=== PATIENT | male | born 1940 | race Caucasian/White ===

== ENCOUNTER → 2018-01-25 14:28 | Outpatient (CLI) | payer MEDICARE, OTHER, SELFPAY ==
--- NOTE | 2018-01-25 | DI.MRI.S_ITS ---
PROCEDURE: MR LUMBAR SPINE WO CON INDICATIONS: LUMBAR SPINE PAIN TECHNIQUE: Noncontrast sagittal T1 spin echo and T2 fast echo, sagittal STIR, axial T1 and T2 fast spin echo through the lumbar spine. In cases with scoliosis, additional coronal T2 fast spin echo may be performed. COMPARISON: [facility], CR, XR LUMBAR SPINE 2 OR 3 VIEWS, 12/30/2017, 14:18. [facility], CR, XR LUMBAR SPINE 2 OR 3 VIEWS, 12/02/2017, 9:41. [facility], MR, L-SPINE WITHOUT CONTRAST, 05/20/2008, 16:14. [facility], MR, L-SPINE WITHOUT CONTRAST, 04/05/2007, 16:43. FINDINGS: Image quality: Excellent. Alignment and Curvature: There is normal bony alignment. Bone Marrow: Mild reactive endplate changes noted adjacent to the L2-L3, L3-L4, L4-L5 and L5-S1 discs. No acute vertebral body compression fractures. Spinal Cord: Conus medullaris terminates at the L1-2 disc level. Visualized cord demonstrates normal signal and size. Paraspinous Soft Tissues: No paravertebral masses. Small left renal cysts redemonstrated. L1-L2: Loss of disc signal. Minimal, diffuse disc bulge. No central stenosis. No neural foraminal narrowing. No neural impingement. L2-L3: Loss of disc signal and slight loss of disc height. Moderate, diffuse disc bulge. Mild narrowing of the central canal. Mild bilateral neural foraminal narrowing. No neural impingement. Focal high intensity zone are noted in the right frontal annulus compatible with a fissure. L3-L4: Loss of disc signal. Mild, diffuse disc bulge. Mild bilateral facet hypertrophy. Mild narrowing of the central canal. Mild bilateral neural foraminal narrowing. No neural impingement. There is clumping of the nerve roots of the cauda equina compatible with arachnoiditis. Focal high intensity zone noted in the right posterior annulus compatible with a fissure. L4-L5: Loss of disc signal and mild loss of disc height. Mild, diffuse disc bulge. Mild facet and moderate ligamentum flavum hypertrophy. Moderate narrowing of the central canal. Moderate bilateral neural foraminal narrowing. No neural impingement. There is clumping of the nerve roots of cauda equina compatible with arachnoiditis. L5-S1: Loss of disc signal and height. Mild, diffuse disc bulge. Mild bilateral facet hypertrophy. Mild ligamentum flavum hypertrophy. Mild narrowing of the central canal. Moderate to severe right and moderate left bilateral neural foraminal narrowing. There is slight flattening deformity of the exiting right L5 nerve root. There is clumping of the nerve roots of cauda equina compatible with arachnoiditis. Focal high intensity zone noted in the posterior annulus compatible with a fissure. IMPRESSION: 1. Multilevel degenerative disc disease. 2. Multilevel facet arthropathy. 3. Moderate L4-L5 central canal narrowing. Mild L2-L3, L3-L4 and L5-S1 central canal narrowing. 4. Moderate to severe right and moderate left L5-S1 neural foraminal narrowing. Moderate bilateral L4-L5 neural foraminal narrowing. Mild bilateral L2 on L3 and L3-L4 neural foraminal narrowing. 5. Slight flattened deformity of the exiting right L5 nerve root secondary to right neural foraminal narrowing. Please correlate with clinical data. 6. Clumping of the nerve roots of cauda equina from L3 to S1 compatible with arachnoiditis. 7. L2-L3, L3-L4 and L5-S1 disc annulus fissures. Dictated by: Geovanna Cochran MD, PhD on 01/25/2018 at 15:45 Approved by: Geovanna Cochran MD, PhD on 01/25/2018 at 15:54
== END ==
PROVIDERS: Family Provider Physician Assistant; PCP Family Medicine; Visit Provider Orthopaedic Surgery
DX: M51.36 Other intervertebral disc degeneration, lumbar region (principal); M51.37 Other intervertebral disc degeneration, lumbosacral region; M48.07 Spinal stenosis, lumbosacral region; M48.061 Spinal stenosis, lumbar region without neurogenic claudication; M47.816 Spondylosis without myelopathy or radiculopathy, lumbar region; M54.5 Low back pain
CPT/HCPCS: 72148

== ENCOUNTER → 2019-12-18 09:44 | Outpatient (CLI) | payer MEDICARE, OTHER, SELFPAY ==
[2019-12-19 08:02] LABS: COVID19 Sendout Not Detected (Not Detect)
== END ==
PROVIDERS: Family Provider Physician Assistant; PCP Family Medicine; Visit Provider Physician Assistant
DX: Z01.812 Encounter for preprocedural laboratory examination (principal)
CPT/HCPCS: 87635

== ENCOUNTER 2019-12-21 09:30 | Day surgery (SDC) | payer MEDICARE, OTHER, SELFPAY ==
[2019-12-14 12:01] VITALS: BMI 29.1
[2019-12-21] VITALS (12 sets, daily range): BP systolic 69–136; BP diastolic 40–89; PULSE 68–700; RESP 14–27; TEMP 36.3–37.3; O2SAT 87–93; BMI 28.7
--- NOTE | 2019-12-21 | DI.RAD.S_ITS ---
PROCEDURE: XR FOOT LT MIN 3V INDICATIONS: FLAT FOOT REPAIR TECHNIQUE: 4 views of the foot were acquired. COMPARISON: Left ankle radiographs dated 11/13/2019 performed at [facility]. FINDINGS: Bones: Multiple spot images demonstrate postsurgical changes from flat foot repair with multiple cannulated partially threaded screws crossing the subtalar, talonavicular, and 1st tarsometatarsal joints. A small plantar calcaneal spur is present. Soft tissues: Soft tissue edema is seen surrounding the ankle. IMPRESSION: Postsurgical changes from flatfoot repair. Dictated by: Jus Soto M.D. on 12/21/2019 at 15:31 Approved by: Jus Soto M.D. on 12/21/2019 at 15:34
[2019-12-21] MEDS: LACTATED RINGERS 1,000 ML 42 ML IV ×2 (10:21→13:32)
[2019-12-21] MEDS: ALBUTEROL 2.5 MG/3 ML NEB (ADULT) INH ×2 (10:21→15:18)
--- NOTE | 2019-12-21 11:21 | PM.PREOP ---
Pre-operative Note COVID-19 COVID-19 status: Negative Interval Note History & Physical reviewed/Exam performed by Physician: Yes Changes to H&P: No
[2019-12-21] MEDS: CEFAZOLIN 2 GM/100 ML FROZ.PIGGY IV (11:47)
[2019-12-21] MEDS: MIDAZOLAM 2 MG/2 ML VIAL IV (12:00)
--- NOTE | 2019-12-21 12:30 | SUR.OPER ---
Supine on padded OR bed. Pillow under head, arms secured on padded armboards <90 degree abduction. Safety belt across torso. Non-operative leg secured with tape over blanket over lower leg. Operative leg draped free Foam padded brace at thigh of operative leg.
[2019-12-21] MEDS: BUPIVACAINE 0.25% W/ EPI 30 ML VIAL INJ (12:42)
--- NOTE | 2019-12-21 12:49 | PM.PROC.1 ---
Procedures Date/Time Date of procedure: 12/21/19 Time of procedure: 11:30 Nerve Block Time out performed: Yes Local anesthetic used: other (5mL 2% Lidocaine, 15mL 0.5% Ropivacaine) Location of anesthetic used: lateral popliteal Amount of anesthesia used (mL): 20 Nerve blocks: other (sciatic nerve) Procedure successful: Yes Patient tolerated procedure: well Complications: none Additional comments: LEFT Ultrasound guided lateral popliteal sciatic nerve block for post operative pain management, as discussed with surgeon. Risks, benefits discussed with patient and spouse. Consent verified. Site marked by surgeon. Time out performed. Standard ASA monitors applied, NC O2, 2mg versed. Pt supine. Chloroprep. Sterile US sleeve and gel. Sciatic nerve identified proximal to popliteal fossa, at bifurcation. Lidocaine local skin wheal. 100mm x 21g Pajunk needle advanced with in-plane US guidance to nerve. Negative aspiration. 5mL 2% lidocaine and 15mL 0.5% ropivacaine injected with intermittent negative aspiration. Good LA spread noted on US. No pain, no paresthesias. VSS. Tolerated well.
[2019-12-21] MEDS: THROMBIN (RECOMBINANT) 5,000 UNIT VIAL 5000 UNIT TOP (14:38)
--- NOTE | 2019-12-21 15:34 | SUR.PHASEI ---
Dr. Argueta here, spoke with patient. VS and cardiac rhythm reviewed. No new orders. Pt responsive, coughing up thick white phlegm, suctioned as needed.
[2019-12-21] MEDS: OXYCODONE/ACETAMINOPHEN 5/325 TABLET 1 TAB PO ×2 (15:54→16:26)
[2019-12-21] MEDS: fentaNYL 100 MCG/2 ML INJ IV (15:54)
--- NOTE | 2019-12-21 16:45 | SUR.PHASEI ---
1600 late entry Spoke with patient regarding if he desired another nebulizer. Pt declined. Informed to notify staff if he changed his mind and felt that he needed another one. Continues to have and intermittant productive cough. Suctioned PRN. 1620 Liya Tay RN present throughout recovery, assisting with pt care. Tolerating PO intake well.
--- NOTE | 2019-12-21 17:13 | P.OP_ITS ---
Operative Date/Time/Diagnoses Date of procedure: 12/21/19 Time of procedure: 11:30 Pre-op diagnosis: Arthritis left foot and ankle M19.072 Posterior tibialis tendinitis left legM76. 822 Contracture Achilles tendon Post-op diagnosis: same Procedure & Clinicians Procedure: Fusion talonavicular and talocalcaneal joints left CPT code 15765 Fusion tarsometatarsal joint single, left CPT code 28643-48 Tenotomy Achilles tendon percutaneous with general anesthesia left, CPT code 58539-57 Same procedure as scheduled: Yes Indications: Patient is a 79-year-old male with a symptomatic left arthritic flatfoot. 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 He has been indicated for hindfoot arthrodesis with Achilles lengthening. Additionally the patient has hypermobility of his 1st ray and is expected to have residual supination after hindfoot correction and therefore we planned for 1st tarsometatarsal arthrodesis as well. The risks and benefits of the procedure up and I discussed with the patient and they have been given the opportunity to ask questions. The risks of surgery include but are not limited to infection, malunion, nonunion, persistence of pain, damage to nerves, blood vessels, posttraumatic arthritis, amputation, DVT, PE, cardiac and pulmonary complications and . Patient expressed their understanding the risks and benefits of surgery and elected to proceed. Consent was signed in the office. Additionally we discussed the importance of elevation above the heart level for 2 weeks after surgery anticipated 8-10 weeks of nonweightbearing. We discussed the importance of calcium and vitamin-D. We also discussed the use of allogenic bone graft to aid in the fusion. 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 Tendo-Achilles lengthening was performed using a triple Luda style utilizing the proximal and distal incision to the lateral side in the mid incision released medially based on the valgus deformity. Subtalar joint was then exposed with cartilage loss throughout subtalar joint. This was prepped and then stabilized with Arthrex 6.7 mm cannulated lag screws. One from calcaneus to talus and the other from talus to calcaneus. Next attention was turned to the talonavicular joint which was exposed through a dorsal medial approach between the tibialis anterior and EHL. This was prepared and then stabilized with an Arthrex 6.7 and an Arthrex 4.5 cannulated lag screw. As expected there was residual supination so attention was turned to the 1st tarsometatarsal joint exposed through a separate dorsal incision that was eventually connected up for of repaired the dorsal medial incision. This was prepared and fused using 2 x 4.0 crossed lag at cannulated screws obtaining excellent fixation. Closure Type: primary Specimen(s): none sent Applied: implant(s) (Arthrex 6.7 cannulated lag screws, Arthrex 4.5 cannulated lag screws, Arthrex 4 0 cannulated lag screws) and other (Splint) Estimated Blood Loss (mL): 50 Tourniquet time (min): 130 Procedure in detail: Patient was seen in the preoperative holding area and the appropriate limb and site of surgery was marked. The consent was confirmed. The patient was then brought back to the operating room by the anesthesia team a postoperative block was performed for postoperative pain control by the anesthesia team. Patient was then brought into the operating room and placed on supine on operative table and given anesthetic. The bony prominences were well padded. A well-padded thigh tourniquet was placed. Ipsilateral thigh bump was placed. A SCD was placed on the contralateral lower extremity. The patient was prepped and draped in standard sterile fashion. A formal time-out procedure was performed confirming the patient's side and site of surgery administration of appropriate preoperative antibiotics. Implants were available in the room. Tendon Achilles lengthening. The limb was evaluated in extension flexion the ankle had equinus contracture with no significant change with knee flexion therefore tendo Achilles lengthening was selected. On the posterior aspect of the leg centered over the Achilles tendon were made 3 small stab incisions proximal mid and distal in a Luda style fashion. These were taken down directly to the Achilles tendon and the distal and proximal incisions were taken to the lateral side cut 50% and the midsection to the medial side for the valgus deformity correction. We then stretched the tendon had a good 20? ankle dorsiflexion audible stretch with knee extension. Once were satisfied with the Achilles tendon lengthening attention was turned to the remainder of the procedure. An Esmarch bandage utilized for exsanguination limb was elevated on the upper thigh to 250 mL of mercury and stayed there for 130 minutes and was not reinflated. Hindfoot arthrodesis. Incision was made from the tip of the fibula to the base of the 4th metatarsal. Dissection was carried through the skin and subcutaneous tissue. The sheath of the extensor digitorum brevis was opened. The extensor digitorum brevis was subperiosteal E detached proximally and reflected distally and secured with a 2 0 PDS suture. The sinus tarsi was cleared off and the soft tissue was removed with the suppressive dissection performed at the talus and calcaneus. The calcaneal cuboid joint was not exposed. We removed what was left of the articular surface to the subchondral bone of the subtalar joint. This was done using the Synthes joint prep set and osteotomes and curettes. Once we had good cancellous surfaces and a normal shape and contour of the joints we drilled these with a 2 5 drill bit and used the osteotome to fish scale. Next attention was turned to the talonavicular joint. Limited anterior dorsal medial incision over the talonavicular joint this was taken down right be tween the tibialis anterior and EHL tendon. We may careful dissection not to injure the tendinous structures. We dissected to the talonavicular joint. This was exposed with subperiosteal dissection then distracted with a K-wire distractor. The talonavicular joint surfaces were prepared to a good bleeding cancellous bone using the same fashion as the subtalar joint. Once were satisfied with the exposure and prep we then placed bone graft which was 15 cc of cancellous chips. This was placed in the subtalar and talonavicular joints. We manually reduced the subtalar joint and pinned this in place with fixation from the talus and the calcaneus. I then directed wires for the cannulated screws from the calcaneus into the dome of the talus. This corrected the hindfoot alignment to rigidly fix the subtalar joint just valgus of neutral. K- wires were then measured and the 6.7 cannulated screws were placed. This achieved excellent fixation subtalar joint. Next attention was turned to the talonavicular joint. This was reduced and pinned in place with a guidewire for the 6 7 cannulated screw and a guidewire for a 4.5 cannulated screw. The talonavicular joint was compressed and the lag screws were advanced achieving excellent fixation and compression. Once the hindfoot fusion was completed the appropriate alignment was obtained there was residual supination the forefoot to the 1st tarsometatarsal joint was then exposed in standard dorsum medial fashion again and suppressive dissection subperiosteal was undertaken. Joint was prepped in the standard fashion and then fused with 2x 4.0 cannulated lag screws. These were both 40 mm in length. We took final x-rays are quite satisfied with the results alignment restoring Jesusita's ankle on the lateral and the 1st tarsometatarsal line on AP as well. Foot was clinically prominent grade at the end of the procedure with rigidly fix talonavicular, subtalar joint and 1st TMT joint. Tourniquet was released hemostasis was achieved. Gelfoam and problem then was used to aid in this. Once this was obtained the deep closure was completed with the 2 O Vicryl to reapproximate the DP and and deep us tissues were closed. Subcutaneous closure was completed with 4 0 Monocryl and the skin with 3 O nylon. Heel incision for the subtalar screw was fixed with 3 O nylon. Sterile dressings were placed with Xeroform gauze and Webril and a bulky De Jesus dressing and posterior and U strap splint were placed in neutral position. Patient was woken up from anesthesia and taken to the recovery room in good condition. There no immediate complications from this procedure. Complications: none Post-operative Condition: stable Disposition: PACU Plan for aftercare: Patient will be nonweightbearing of on the operative extremity for approximately 8-10 weeks. Follow up in 1-2 weeks in clinic for wound check and conversion to a short-leg cast. Patient will start taking 325 mg of aspirin on postop day 1 for DVT prophylaxis. Discussed the importance of elevation above the heart for the 1st 2-3 weeks after surgery to help with swelling pain control and wound healing.
== END 2019-12-21 16:59 | disposition home or self-care (01) ==
PROVIDERS: Family Provider Physician Assistant; PCP Family Medicine; Referring Provider Orthopaedic Surgery Foot and Ankle Surgery; Visit Provider Orthopaedic Surgery Foot and Ankle Surgery
PROC: (CPT 28735; principal; 2019-12-21 11:15)
PROC: (CPT 27685; 2019-12-21 11:15)
DX: M19.072 Primary osteoarthritis, left ankle and foot (principal); M76.822 Posterior tibial tendinitis, left leg; M62.89 Other specified disorders of muscle; M24.572 Contracture, left ankle; M21.072 Valgus deformity, not elsewhere classified, left ankle; J44.9 Chronic obstructive pulmonary disease, unspecified; I10 Essential (primary) hypertension; F17.210 Nicotine dependence, cigarettes, uncomplicated
CPT/HCPCS: 27606; 28730; 64445; 73630; 76000; J0690; J1100; J2250; J2405; J2704; J3010; J7613

== ENCOUNTER 2025-02-14 22:55 | Inpatient (IN) | payer MEDICARE, OTHER, SELFPAY ==
[2025-02-14 23:12] VITALS: BP 154/80; PULSE 82; PULSE 84; RESP 22; TEMP 36.7; O2SAT 87; O2SAT 88; BMI 25.8
[2025-02-14 23:30] VITALS: PULSE 80; O2SAT 91
--- NOTE | 2025-02-14 23:38 | EKG_ITS ---
[facility] [address] [place] [id number] Test Date: 2025-02-15 Pat Name: Elie Perez Department: [facility] Room: 216 Gender: Male Tape Calender: JOSH ROTHMAN : 1940 Requested By: Order Number: [id number] Reading MD: Ferdinand Barker MD Measurements Intervals [place] Rate: 80 P: 39 DE: 136 QRS: -58 QRSD: 92 T: 47 QT: 376 QTc: 433 Interpretive Statements Normal sinus rhythm Left axis deviation Inferior infarct , age undetermined Electronically Signed On 02-18-2025 7:44:49 PDT by Ferdinand Barker MD
[2025-02-15] VITALS (19 sets, daily range): BP systolic 116–158; BP diastolic 64–88; PULSE 76–91; RESP 14–22; TEMP 36.4–37.6; O2SAT 82–99; BMI 25.8
--- NOTE | 2025-02-15 00:08 | PC.NURSE ---
Patient to ED with his nephew for left knee pain and generalized weakness. Patient states on-going left knee pain x3 weeks, seen for same and has been taking pain mediation since Tuesday. Patient states decreased physical activity in past 3 weeks due to pain. Patient states he is having difficulty getting around and bearing weight on left leg despite using wheeled walker.
--- NOTE | 2025-02-15 00:09 | ED.WEAKNESS ---
HPI - Weakness General Chief complaint: Weakness Stated complaint: gen weakness Time Seen by Provider: 02/14/25 23:48 Source: patient and EMS Mode of arrival: EMS History of Present Illness HPI Narrative: 84-year-old male with generalized weakness since earlier today. Ongoing left knee pain, recent outpatient ultrasound negative for DVT. Taking pain medications. Not usually on oxygen. Has felt progressively weak through the day today. Denies pain to the chest, abdomen, flank, head, neck. No headache or photophobia or neck discomfort. No focal weakness to face arm or leg. No focal numbness to face arm or leg. No leg/calf pain or swelling symptoms. No painful or frequent urination. No difficulty urinating, symptoms of urinary retention. Related Data Home Medications ?Medication ?Instructions ?Recorded ?Confirmed [ALBUTEROL NEBULIZER] 1 neb INH QDAY ##0 12/16/10 02/15/25 albuterol sulfate 90 mcg/actuation 1 - 2 puff inhalation Q4-6H PRN 12/16/10 02/15/25 aerosol inhaler Shortness Of Breath ##0 aspirin 81 mg tablet,delayed 81 mg PO DAILY ##0 12/16/10 02/15/25 release simvastatin 20 mg tablet (Zocor) 20 mg PO HS ##0 12/16/10 02/15/25 hydrochlorothiazide 25 mg tablet 25 mg PO DAILY 12/14/19 02/15/25 mirabegron 25 mg tablet,extended 50 mg PO DAILY 12/14/19 02/15/25 release 24 hr (Myrbetriq) telmisartan 40 mg tablet (Micardis) 40 mg PO DAILY 12/14/19 02/15/25 esomeprazole magnesium 40 mg 40 mg PO DAILY 12/21/19 02/15/25 capsule,delayed release (Nexium) magnesium oxide 400 mg (241.3 mg 400 mg PO DAILY PRN constipation 02/15/25 02/15/25 magnesium) tablet meloxicam 15 mg tablet 15 mg PO QPM 02/15/25 02/15/25 mirabegron 50 mg tablet,extended 50 mg PO DAILY 02/15/25 02/15/25 release 24 hr (Myrbetriq) montelukast 10 mg tablet 10 mg PO DAILY 02/15/25 02/15/25 potassium chloride 10 mEq 10 meq PO DAILY 02/15/25 02/15/25 tablet,extended release Previous Rx's ?Medication ?Instructions ?Recorded fluticasone fur. 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 HEAD: Atraumatic. Normocephalic. EYES: Pupils equal round and reactive. Extraocular motions intact. No scleral icterus. No injection or drainage. ENT: Nose without bleeding, purulent drainage. Throat without erythema, tonsillar hypertrophy or exudate. Airway patent. NECK: Trachea midline. Non tender CARDIOVASCULAR: Regular rate and rhythm without murmurs, gallops, or rubs. RESPIRATORY: Clear to auscultation. Breath sounds equal bilaterally. No wheezes, rales, or rhonchi. GASTROINTESTINAL: Abdomen soft, non-tender, nondistended. EXTREMITIES: No edema or joint tenderness. BACK: Nontender without deformity or crepitance. No flank tenderness. NEURO: AOx3. Motor functions grossly nonfocal. SKIN: No rash or erythema of visible areas Initial Vital Signs Initial Vital Signs: Vital Signs Temperature 98.1 F 02/14/25 23:12 Pulse Rate 84 02/14/25 23:12 Respiratory Rate 22 02/14/25 23:12 Blood Pressure 154/80 H 02/14/25 23:12 Pulse Oximetry 87 L 02/14/25 23:12 Oxygen Delivery Method Room Air 02/14/25 23:12 Oxygen Flow Rate 1 02/14/25 23:12 Course Orders Ordered: Acetaminophen (Acetaminophen 325 Mg Tablet) 650 mg PO Q6H PRN PRN Reason: Fever/Mild Pain (1-3) Hydrocodone Bitart/Acetaminophen (Hydrocodone/Acet 5/325 Tablet) 1 tab PO Q6HR PRN PRN Reason: Pain, Moderate (4-6) Last Admin: 02/15/25 10:55 Dose: 1 tab Documented By: MORIAH Albuterol (Albuterol 2.5 Mg/3 Ml Neb (Adult)) 2.5 mg INH [id number] PRN PRN Reason: Shortness Of Breath Or Wheezing Albuterol/Ipratropium (Albuterol/Ipratropium 3 Ml Ampul) 3 ml INH [id number] [facility] Last Admin: 02/15/25 13:00 Dose: 3 ml Documented By: Admin: 02/15/25 08:49 Dose: 3 ml Documented By: TAB Aspirin (Aspirin Ec 81 Mg Tablet) 81 mg PO DAILY [facility] Last Admin: 02/15/25 08:10 Dose: Not Given Documented By: MORIAH Atorvastatin Calcium (Atorvastatin 20 Mg Tablet) 10 mg PO BEDTIME [facility] Budesonide (Budesonide 0.5 Mg/2 Ml Neb) 0.5 mg INH RTBID [facility] Last Admin: 02/15/25 08:49 Dose: 0.5 mg Documented By: TAB Calcium Carbonate (Calcium Carbonate 500 Mg Tab) 1,000 mg PO Q4HR PRN PRN Reason: Dyspepsia Docusate Sodium (Docusate 100 Mg Capsule) 100 mg PO BID [facility] Last Admin: 02/15/25 08:14 Dose: 100 mg Documented By: MORIAH Enoxaparin Sodium (Enoxaparin 40 Mg/0.4 Ml Syringe) 40 mg SUBCUT DAILY [facility] Hydrochlorothiazide (Hydrochlorothiazide 25 Mg Tablet) 25 mg PO DAILY [facility] Last Admin: 02/15/25 08:14 Dose: 25 mg Documented By: MORIAH Ceftriaxone Sodium 2,000 mg/ (Sodium Chloride) 100 mls @ 200 mls/hr IV Q24H [facility] Last Infusion: 02/15/25 05:35 Dose: Infused Documented By: Admin: 02/15/25 05:01 Dose: 200 mls/hr Documented By: Losartan Potassium (Losartan 50 Mg Tablet) 50 mg PO DAILY [facility] Last Admin: 02/15/25 08:14 Dose: 50 mg Documented By: MORIAH Magnesium Oxide (Magnesium Oxide 400 Mg Tablet) 400 mg PO DAILY PRN PRN Reason: Constipation Meloxicam (Meloxicam 7.5 Mg Tablet) 15 mg PO QPM [facility] Last Admin: 02/15/25 17:11 Dose: 15 mg Documented By: MORIAH Methylprednisolone (Methylprednisolone Succ 40 Mg/Ml Vial) 60 mg IV Q12H [facility] Last Admin: 02/15/25 15:38 Dose: 60 mg Documented By: HUGH Montelukast Sodium (Montelukast 10 Mg Tablet) 10 mg PO DAILY [facility] Last Admin: 02/15/25 08:14 Dose: 10 mg Documented By: MORIAH Morphine Sulfate (Morphine 4 Mg/Ml Inj) 3 mg IV Q2HR PRN PRN Reason: Pain, Severe (7-10) Last Admin: 02/15/25 15:26 Dose: 3 mg Documented By: Admin: 02/15/25 08:06 Dose: 3 mg Documented By: Admin: 02/15/25 05:01 Dose: 3 mg Documented By: Naloxone HCl (Naloxone 0.4 Mg/Ml Vial) 0.2 mg IV Q2MIN PRN PRN Reason: Opiate Reversal Nf - Mirabegron ( Myrbetriq) 50 Mg Er Tablet 50 mg PO DAILY [facility] Last Admin: 02/15/25 08:15 Dose: Not Given Documented By: MORIAH Ondansetron HCl (Ondansetron 4 Mg/2 Ml Inj) 4 mg IV Q8HR PRN PRN Reason: Nausea And Vomiting Oxybutynin Chloride (Oxybutynin Er 5 Mg Tablet) 10 mg PO DAILY [facility] Last Admin: 02/15/25 08:14 Dose: 10 mg Documented By: MORIAH Pantoprazole Sodium (Pantoprazole Dr 40 Mg Tablet) 40 mg PO 0600 [facility] Last Admin: 02/15/25 05:51 Dose: 40 mg Documented By: Potassium Chloride (Potassium Chloride 10 Meq Tab) 10 meq PO DAILY [facility] Last Admin: 02/15/25 08:14 Dose: 10 meq Documented By: MORIAH Sodium Chloride (Sodium Chloride 0.9% Flush) 10 ml IV PRN PRN PRN Reason: Flush Sodium Chloride (Sodium Chloride 0.9% Flush) 10 ml IV BID [facility] Last Admin: 02/15/25 08:07 Dose: 10 ml Documented By: MORIAH Discontinued Medications Acetaminophen (Acetaminophen 325 Mg Tablet) 650 mg PO Q6H PRN PRN Reason: Fever/Mild Pain (1-3) Albuterol/Ipratropium (Albuterol/Ipratropium 3 Ml Ampul) 3 ml INH NOW ONE Stop: 02/15/25 00:28 Last Admin: 02/15/25 00:47 Dose: 3 ml Documented By: Hydromorphone HCl (Hydromorphone Hcl 0.5 Mg/0.5 Ml Syringe) 0.5 mg IV NOW ONE Stop: 02/15/25 02:01 Last Admin: 02/15/25 02:14 Dose: 0.5 mg Documented By: LINWOOD Ceftriaxone Sodium 1,000 mg/ (Sodium Chloride) 100 mls @ 200 mls/hr IV NOW ONE Stop: 02/15/25 02:53 Last Admin: 02/15/25 03:53 Dose: Not Given Documented By: Methylprednisolone (Methylprednisolone Succ 125 Mg/2 Ml Vial) 125 mg IV NOW ONE Stop: 02/15/25 00:28 Last Admin: 02/15/25 01:26 Dose: 125 mg Documented By: LINWOOD Methylprednisolone (Methylprednisolone Succ 40 Mg/Ml Vial) 60 mg IV Q12H [facility] Last Admin: 02/15/25 15:36 Dose: 60 mg Documented By: HUGH Non-Formulary Medication (Eurguswrwem-[id number]-[id number] [Trelegy Ellipta]) 1 inhalation INHALATION DAILY [facility] Vital Signs Vital signs: Vital Signs - 8 hr 02/14/25 23:12 02/14/25 23:12 02/14/25 23:30 Temperature 98.1 F Pulse Rate 84 82 80 Respiratory Rate 22 Blood Pressure 154/80 H Pulse Oximetry 87 L 88 L 91 Oxygen Delivery Method Room Air Nasal Cannula Oxygen Flow Rate 1 02/15/25 00:00 02/15/25 00:30 02/15/25 00:53 Temperature Pulse Rate 81 80 89 Respiratory Rate 18 Blood Pressure Pulse Oximetry 90 L 88 L 94 Oxygen Delivery Method Oxygen Flow Rate 02/15/25 01:05 02/15/25 01:06 02/15/25 01:06 Temperature Pulse Rate 79 78 Respiratory Rate Blood Pressure 144/68 H Pulse Oximetry 94 97 Oxygen Delivery Method Oxygen Flow Rate 1 02/15/25 01:30 02/15/25 01:30 02/15/25 01:49 Temperature Pulse Rate 78 81 Respiratory Rate Blood Pressure 158/76 H Pulse Oximetry 94 91 Oxygen Delivery Method Nasal Cannula Oxygen Flow Rate 1 02/15/25 01:49 02/15/25 02:00 02/15/25 02:00 Temperature Pulse Rate 78 Respiratory Rate Blood Pressure 147/88 H 137/65 Pulse Oximetry 90 L Oxygen Delivery Method Nasal Cannula Oxygen Flow Rate 1 MDM - Weakness Lab Data Attestation: I reviewed the patient's lab results. Lab results narrative: White blood cell count 9600, hemoglobin 13.7, platelets adequate. Glucose 82. BUN 30 with creatinine 0.82 noted. Serum CO2 25 normal. Sodium 134 slight decreased. Potassium 3.5 normal range. Liver functions normal. Troponin negative unmeasurable. COVID influenza RSV negative. 02/14/25 23:55 02/15/25 08:25 Labs: Lab Results 02/14/25 02/15/25 02/15/25 Range/Units 23:55 00:38 01:30 WBC 9.6 (4.5-11.0) X10^3/uL RBC 4.94 (4.5-5.9) X10^6/uL Hgb 13.7 (13.5-17.5) g/dL Hct 42.5 (41-53) % MCV 85.9 (80-100) fL MCH 27.8 (26-34) PG MCHC 32.3 (30-36) % RDW 18.4 H (11.6-14.8) % Plt Count 283 (150-400) X10^3/uL Neut % (Auto) 71.0 (50-75) % Lymph % (Auto) 14.5 L (25-40) % Tyrrell % (Auto) 12.5 (3-14) % Eos % (Auto) 1.3 L (2-4) % Baso % (Auto) 0.7 (0-2) % Neut # (Auto) 6800 (5662-8330) /uL Lymph # (Auto) 1400 (3471-8104) /uL Tyrrell # (Auto) 1200 H (0-900) /uL Eos # (Auto) 100 (0-450) /uL Baso # (Auto) 100 (0-100) /uL Sodium 134 L (137-145) mmol/L Potassium 3.5 (3.4-5.1) mmol/L Chloride 103 (98-107) mmol/L Carbon Dioxide 25 (22-32) mmol/L BUN 30 H (9-20) mg/dL Creatinine 0.82 (0.66-1.25) mg/dL Estimated GFR > 60 (>60) mL/min BUN/Creatinine Ratio 36.6 H (6-22) Glucose 82 (70-99) mg/dL Calcium 8.7 (8.4-10.2) mg/dL Total Bilirubin 0.8 (0.2-1.3) mg/dL AST 40 (17-59) IU/L ALT 26 (<50) IU/L Alkaline Phosphatase 80 (38-126) U/L Troponin I < 0.012 (0.01-0.034) ng/mL Total Protein 6.5 (6.3-8.2) g/dL Albumin 3.7 (3.5-5.0) g/dL Globulin 2.8 (1.7-4.1) g/dL Albumin/Globulin Ratio 1.3 (1.0-2.8) Lipase 39 (23-300) U/L Urine RBC (0-5/HPF) Urine WBC (0-5/HPF) Ur Squamous Epith Cells (0-5/HPF) Ur Transition Epith Cell (0-5/HPF) Urine Bacteria (None) Ur Culture Indicated? Vol Urine Centrifuged SARS-CoV-2 (PCR) Negative (Negative) Influenza A (RT-PCR) Flu a negative (NEGATIVE) Influenza B (RT-PCR) Flu b negative (NEGATIVE) RSV (PCR) Negative (Negative) 02/15/25 Range/Units 01:47 WBC (4.5-11.0) X10^3/uL RBC (4.5-5.9) X10^6/uL Hgb (13.5-17.5) g/dL Hct (41-53) % MCV (80-100) fL MCH (26-34) PG MCHC (30-36) % RDW (11.6-14.8) % Plt Count (150-400) X10^3/uL Neut % (Auto) (50-75) % Lymph % (Auto) (25-40) % Tyrrell % (Auto) (3-14) % Eos % (Auto) (2-4) % Baso % (Auto) (0-2) % Neut # (Auto) (5707-2418) /uL Lymph # (Auto) (6254-7741) /uL Tyrrell # (Auto) (0-900) /uL Eos # (Auto) (0-450) /uL Baso # (Auto) (0-100) /uL Sodium (137-145) mmol/L Potassium (3.4-5.1) mmol/L Chloride (98-107) mmol/L Carbon Dioxide (22-32) mmol/L BUN (9-20) mg/dL Creatinine (0.66-1.25) mg/dL Estimated GFR (>60) mL/min BUN/Creatinine Ratio (6-22) Glucose (70-99) mg/dL Calcium (8.4-10.2) mg/dL Total Bilirubin (0.2-1.3) mg/dL AST (17-59) IU/L ALT (<50) IU/L Alkaline Phosphatase (38-126) U/L Troponin I (0.01-0.034) ng/mL Total Protein (6.3-8.2) g/dL Albumin (3.5-5.0) g/dL Globulin (1.7-4.1) g/dL Albumin/Globulin Ratio (1.0-2.8) Lipase (23-300) U/L Urine RBC 1-5/hpf (0-5/HPF) Urine WBC 10-30/hpf H (0-5/HPF) Ur Squamous Epith Cells 1-5 /hpf (0-5/HPF) Ur Transition Epith Cell 0-1/hpf (0-5/HPF) Urine Bacteria Many (>30) H (None) Ur Culture Indicated? Specimen cultured Vol Urine Centrifuged 10ml (spun) SARS-CoV-2 (PCR) (Negative) Influenza A (RT-PCR) (NEGATIVE) Influenza B (RT-PCR) (NEGATIVE) RSV (PCR) (Negative) Urine Dip Bedside Urine Glucose Negative Bedside Urine Bilirubin - Negative Bedside Urine Ketone - Negative Urine Specific [place] 1.010 Bedside Urine Occult Blood +/- Bedside Urine pH 6.0 Bedside Urine Protein - Negative Bedside Urine Urobilinogen - Negative Bedside Urine Nitrite - Negative Bedside Urine Leukocytes +/- 15 Esterase Imaging Data Chest x-ray: Radiologist Impression: [address] [address] XRay Report Signed Patient: Elie Perez MR#: [id number] : 1940 Acct:[id number] Age/Sex: 84 / M Date of Service: 02/15/25 Loc: ED Accession Number: [id number] Procedure: XR chest 2V Ordering Provider: Calvin Castaneda MD PROCEDURE: XR CHEST 2V INDICATIONS: weak, low sat, hx COPD TECHNIQUE: 2 views of the chest were acquired. COMPARISON: CT, CT ANGIO CHEST, 10/06/2020, 8:51. FINDINGS: Surgical changes and devices: Presumed cardiac monitoring device. Lungs and pleura: Lungs are clear. No pleural effusions or pneumothorax. Mediastinum: Mediastinal contours are normal. Heart size is mildly prominent. Bones and chest wall: No suspicious bony abnormalities. Soft tissues appear unremarkable. IMPRESSION: No acute pulmonary process. Dictated by: Isadora Tinoco M.D. on 02/15/2025 at 1:13 Approved by: Isadora Tinoco M.D. on 02/15/2025 at 1:14 ECG Data Attestation: I personally reviewed and interpreted this ECG as follows: Interpretation: 0012, normal sinus rhythm with rate of 80. No obvious ST segment elevation or depression changes. AK 136, QRS 92, QTC 433. [facility] Narrative Medical decision making narrative: 84-year-old male with generalized weakness, recent knee pain and outpatient ultrasound negative for Doppler DVT, new oxygen requirement 87%, denies recent cough, does not clinically seemed to be in congestive heart failure, no respiratory distress, however patient does have history of inhaler albuterol use. Chest x-ray, COVID/influenza swab pending, trial of SVN. Other labs pending. EKG shows no obvious acute ischemic changes. Chest x-ray, no acute changes. See radiology report. Initial lab data: CBC, CMP, trop negative. UA suspicious for infection, urine culture pending. Trial of IV Solu-Medrol and SVN albuterol then Atrovent. COVID swab results pending. COVID RSV flu negative. Urinalysis suspicious for infection. IV ceftriaxone. Urine culture requested. Generalized weakness, hx COPD, new mild oxygen requirement, also UTI, consider admit. Patient prefers admission. Will contact hospitalist. Case discussed with Dr Harris hospitalist, who accepts patient for admission Critical Care Time Critical Care Time Critical Care Time: Yes Total Critical Care Time: 35 Attestation: The high probability of a clinically significant, sudden or life threatening deterioration of the [cardiopulmonary, abdominopelvic, genitourinary] system(s) required my full and direct attention, intervention and personal management. The aggregate critical care time was [35] minutes. This time is in addition to time spent performing reported procedures but includes the following: [x] Data Review and interpretation [x] Patient assessment and monitoring of vital signs [x] Documentation [x] Medication orders and management Discharge Plan Departure Patient Disposition: Admitted as Observation Clinical Impression: Asthma exacerbation in COPD, Hypoxia, Urinary tract infection, Generalized weakness Admit Date/Time: 02/15/25 03:03 Admit Provider: Thomas Harris
[2025-02-15 00:16] LABS: Add Manual Diff / Slide Review NO; Hematocrit 42.5 % (41-53); Hemoglobin 13.7 g/dL (13.5-17.5); Lymphocytes Absolute Auto 1400 /uL (1100-4500); Mean Corpuscular HGB Conc 32.3 % (30-36); Mean Corpuscular Hemoglobin 27.8 PG (26-34); Mean Corpuscular Volume 85.9 fL (80-100); Platelet Count 283 X10^3/uL (150-400)
--- NOTE | 2025-02-15 00:29 | DI.RAD.S_ITS ---
PROCEDURE: XR CHEST 2V INDICATIONS: weak, low sat, hx COPD TECHNIQUE: 2 views of the chest were acquired. COMPARISON: CT, CT ANGIO CHEST, 10/06/2020, 8:51. FINDINGS: Surgical changes and devices: Presumed cardiac monitoring device. Lungs and pleura: Lungs are clear. No pleural effusions or pneumothorax. Mediastinum: Mediastinal contours are normal. Heart size is mildly prominent. Bones and chest wall: No suspicious bony abnormalities. Soft tissues appear unremarkable. IMPRESSION: No acute pulmonary process. Dictated by: Isadora Tinoco M.D. on 02/15/2025 at 1:13 Approved by: Isadora Tinooc M.D. on 02/15/2025 at 1:14
[2025-02-15 00:37] LABS: Troponin I < 0.012 ng/mL (0.01-0.034)
[2025-02-15] MEDS: ALBUTEROL/IPRATROPIUM 3 ML AMPUL INH ×4 (00:47→19:06)
[2025-02-15 01:22] LABS: Influenza A - CEPHEID Flu A NEGATIVE (NEGATIVE); Influenza B - CEPHEID Flu B NEGATIVE (NEGATIVE)
[2025-02-15] MEDS: methylPREDNISolone succ 125 MG/2 ML VIAL IV (01:26)
[2025-02-15 01:30] LABS: COVID-19 CEPHEID 4-PLEX PCR Negative (Negative)
[2025-02-15 01:51] LABS: Alanine Aminotransferase 26 IU/L (<50); Albumin 3.7 g/dL (3.5-5.0); Albumin Globulin Ratio 1.3 (1.0-2.8); Alkaline Phosphatase 80 U/L (38-126); Blood Urea Nitrogen 30 mg/dL (9-20); Calcium 8.7 mg/dL (8.4-10.2); Carbon Dioxide 25 mmol/L (22-32); Chloride 103 mmol/L (98-107); Estimated Glomerular Filt Rate > 60 mL/min (>60); Globulin 2.8 g/dL (1.7-4.1); Glucose 82 mg/dL (70-99); HEMOLYSIS 16 (0-50); Lipase 39 U/L (23-300); Potassium 3.5 mmol/L (3.4-5.1); Sodium 134 mmol/L (137-145); Total Protein 6.5 g/dL (6.3-8.2)
--- NOTE | 2025-02-15 02:02 | DI.CT.S_ITS ---
PROCEDURE: CT ANGIO CHEST PE PROTOCOL INDICATIONS: hypoxia, knee pain, eval for PE TECHNIQUE: After the administration of intravenous contrast, 2 mm thick sections acquired from the pulmonary apices to the posterior costophrenic angles. 3-dimensional maximum intensity projection (MIP) coronal and sagittal reformats were then acquired through the thorax. For radiation dose reduction, the following was used: automated exposure control, adjustment of mA and/or kV according to patient size. COMPARISON: Previous CT angiogram of chest dated 10/06/2020 and previous PET-CT scan dated 10/24/2020 FINDINGS: Image quality: Diagnostic. Pulmonary arteries: Pulmonary arteries are prominent in size, and demonstrate no intraluminal filling defects to suggest central pulmonary embolism. Lower Neck: No enlarged lymph nodes. Thyroid: No thyroid nodules which require sonographic follow up, per consensus guidelines. Axillae: No enlarged lymph nodes. Chest Wall: Unremarkable. Bones: No aggressive appearing bony lesions. Spondylitic changes are noted throughout thoracic spine. Lungs and Pleura: No pneumothorax or pleural effusions. Advanced centrilobular emphysema. 7 mm solid nodule is seen in posterior aspect of right upper lobe series 5, image 118. 4 mm solid nodule is seen in anterolateral aspect of right upper lobe series 5, image 118. 8 mm solid nodule in posterior left lower lobe series 5, image 166. 8 mm medial left lingular nodule series 5, image 206. Bibasilar dependent atelectasis/scarring is seen. Heart: Heart size is enlarged. No pericardial effusion. Thoracic Vessels: Mild ascending thoracic aortic aneurysm measures up to 4.4 cm in largest AP diameter series 4, image 78. 2 vessel coronary artery atherosclerotic calcifications are seen. Mediastinum and Nohemi: No enlarged lymph nodes. Esophagus: No wall thickening. Small hiatal hernia. Upper Abdomen: Gravel-like stones are noted in dependent portion of gallbladder lumen. No gallbladder wall thickening. Vascular stent is seen in infrarenal abdominal aorta incompletely evaluated. IMPRESSION: 1. No pulmonary embolus. Prominent size of main pulmonary artery which can be seen associated with pulmonary vascular hypertension. 2. Ascending thoracic aortic aneurysm now measures up to 4.4 cm in largest AP diameter. No aortic dissection. Vascular stent is seen in infrarenal abdominal aorta. 3. Severe centrilobular emphysema. Multiple sub cm solid nodule seen in bilateral lung winston as described above. The 8 mm nodule in left lower lobe was previously seen on PET-CT scan and show no increased FDG activity. Short-term CT chest follow-up in 6 months is recommended to further establish stability in the other nodules. No pleural effusion or pneumothorax. 4. Cardiomegaly, no pericardial effusion. No mediastinal or hilar lymphadenopathy. Small hiatal hernia. 5. Other incidental findings as above. No significant discrepancies from preliminary reading. Dictated by: Moises Mesa M.D. on 02/15/2025 at 8:09 Approved by: Moises Mesa M.D. on 02/15/2025 at 8:17
[2025-02-15 02:10] LABS: Culture Indicated Urine Specimen Cultured
--- NOTE | 2025-02-15 04:45 | PM.HP.1 ---
History of Present Illness History of Present Illness Chief complaint: gen weakness Narrative: 84 years old male with history of hypertension, CAD, GERD, overactive bladder, COPD presented to the ER with generalized weakness, increased shortness of breath on exertion and left knee pain getting progressively worse in the last several days. Denies any fever, cough, chest pain, palpitations, nausea, vomiting, diarrhea or dysuria. He had x-ray of left knee 1 week ago in [facility] which was negative. 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 Reports increased pain in his left knee and difficult to ambulate. He also reports some lower extremities edema. Outpatient ultrasound negative for DVT. Laboratory shows WBC 9.6, H&H 13.7 and 42.5, sodium 134, potassium 3.5, creatinine 0.82, blood sugar 82, troponin 0.0 12, respiratory viral panel negative, UA consistent for UTI. Chest x-ray unremarkable, EKG normal sinus rhythm of 80. In the ER he was found to have hypoxia on exertion with oxygen saturation of 87%'s on room air. Given Solu-Medrol, albuterol, Atrovent ceftriaxone 1 g IV, Dilaudid IV and methylprednisolone 125 mg IV. 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) Surgical History (Updated 12/14/19 @ 12:17 by Polly Franklin RN) History of loop recorder (2013) Social History household members: none Smoking Status: Current some day smoker alcohol intake: current Meds Home Medications and Allergies Home Medications ?Medication ?Instructions ?Recorded ?Confirmed ?Type [ALBUTEROL NEBULIZER] 1 neb INH QDAY ##0 12/16/10 02/15/25 History albuterol sulfate 90 mcg/actuation 1 - 2 puff inhalation Q4-6H PRN 12/16/10 02/15/25 History aerosol inhaler Shortness Of Breath ##0 aspirin 81 mg tablet,delayed 81 mg PO DAILY ##0 12/16/10 02/15/25 History release simvastatin 20 mg tablet (Zocor) 20 mg PO HS ##0 12/16/10 02/15/25 History hydrochlorothiazide 25 mg tablet 25 mg PO DAILY 12/14/19 02/15/25 History mirabegron 25 mg tablet,extended 50 mg PO DAILY 12/14/19 02/15/25 History release 24 hr (Myrbetriq) telmisartan 40 mg tablet (Micardis) 40 mg PO DAILY 12/14/19 02/15/25 History esomeprazole magnesium 40 mg 40 mg PO DAILY 12/21/19 02/15/25 History capsule,delayed release (Nexium) fluticasone fur. 200 mcg-umeclid 1 inh inhalation DAILY #60 ea 11/23/24 02/15/25 Rx 62.5 mcg-vilant 25 mcg inhalat.powder (Trelegy Ellipta) magnesium oxide 400 mg (241.3 mg 400 mg PO DAILY PRN constipation 02/15/25 02/15/25 History magnesium) tablet meloxicam 15 mg tablet 15 mg PO QPM 02/15/25 02/15/25 History mirabegron 50 mg tablet,extended 50 mg PO DAILY 02/15/25 02/15/25 History release 24 hr (Myrbetriq) montelukast 10 mg tablet 10 mg PO DAILY 02/15/25 02/15/25 History potassium chloride 10 mEq 10 meq PO DAILY 02/15/25 02/15/25 History tablet,extended release Allergies Allergy/AdvReac Type Severity Reaction Status Date / Time fluticasone (From Advair AdvReac double Verified 02/14/25 23:12 Diskus) vision salmeterol (From Advair AdvReac double Verified 02/14/25 23:12 Diskus) vision Review of Systems Review of Systems ROS: Yes All systems reviewed with the patient and are negative except as otherwise documented Constitutional Constitutional: Reports as per HPI and Reports system reviewed and no additional complaints, except as documented Eyes Eyes: Reports as per HPI and Reports system reviewed and no additional complaints, except as documented ENT Ears, Nose, Mouth, and Throat: Yes as per HPI and Yes system reviewed and no additional complaints, except as documented Cardiovascular Cardiovascular: Reports system reviewed and no additional complaints, except as documented Respiratory Respiratory: Reports system reviewed and no additional complaints, except as documented Gastrointestinal Gastrointestinal: Reports system reviewed and no additional complaints, except as documented Genitourinary Genitourinary: Reports system reviewed and no additional complaints, except as documented Musculoskeletal Musculoskeletal: Reports system reviewed and no additional complaints, except as documented, Reports abnormal gait and Reports numbness Neurologic Neurologic: Reports system reviewed and no additional complaints, except as documented, Reports abnormal gait, Reports confusion and Reports numbness Psychiatric Psychiatric: Reports system reviewed and no additional complaints, except as documented and Reports confusion Exam Vital Signs (past 8 hours): - 02/14/25 23:12 02/14/25 23:12 02/14/25 23:30 Temperature 98.1 F Pulse Rate 84 82 80 Respiratory Rate 22 Blood Pressure 154/80 H Pulse Oximetry 87 L 88 L 91 Oxygen Delivery Method Room Air Nasal Cannula Oxygen Flow Rate 1 02/15/25 00:00 02/15/25 00:30 02/15/25 00:53 Temperature Pulse Rate 81 80 89 Respiratory Rate 18 Blood Pressure Pulse Oximetry 90 L 88 L 94 Oxygen Delivery Method Oxygen Flow Rate 02/15/25 01:05 02/15/25 01:06 02/15/25 01:06 Temperature Pulse Rate 79 78 Respiratory Rate Blood Pressure 144/68 H Pulse Oximetry 94 97 Oxygen Delivery Method Oxygen Flow Rate 1 02/15/25 01:30 02/15/25 01:30 02/15/25 01:49 Temperature Pulse Rate 78 81 Respiratory Rate Blood Pressure 158/76 H Pulse Oximetry 94 91 Oxygen Delivery Method Nasal Cannula Oxygen Flow Rate 1 02/15/25 01:49 02/15/25 02:00 02/15/25 02:00 Temperature Pulse Rate 78 Respiratory Rate Blood Pressure 147/88 H 137/65 Pulse Oximetry 90 L Oxygen Delivery Method Nasal Cannula Oxygen Flow Rate 1 02/15/25 02:53 02/15/25 03:00 Temperature Pulse Rate 86 84 Respiratory Rate Blood Pressure Pulse Oximetry 89 L Oxygen Delivery Method Nasal Cannula Oxygen Flow Rate 1 Oxygen Delivery Method Nasal Cannula Oxygen Flow Rate 1 Const General: cooperative, comfortable and well developed Orientation: alert and oriented x3 HENMT Head: normal to inspection, normocephalic and atraumatic Face and sinus: normal facial exam Mouth: oral mucosae normal and moist mucous membranes Throat: posterior oropharynx normal Eyes General: appearance normal, both eyes and all related structures Pupils: PERRL EOM: EOM intact bilaterally Neck Neck: normal visual inspection and full ROM Chest Chest: normal inspection of the chest Resp Effort & Inspection: normal respiratory effort and able to speak in complete sentences Auscultation: clear to auscultation bilaterally Cardio Palpation: normal PMI Rate: regular rate Rhythm: regular rhythm Heart Sounds: S1 normal and S2 normal GI Inspection: normal to inspection Palpation: soft and no hepatosplenomegaly Auscultation: normal bowel sounds Skin General: no rashes or lesions noted Lesions: no lesions Rashes: no rashes Trauma: no lacerations or abrasions Neuro General: patient alert, patient awake, patient oriented x3 and no focal motor deficits Cranial Nerves: CN's II-XI intact bilaterally Cognition: normal cognition Speech: speech normal Gait: normal gait Motor: muscle tone normal throughout Sensory Exam: no sensory deficits noted Extrem General: full ROM and no calf tenderness Psych Appearance: grossly normal Mental Status: mental status grossly normal Speech and Movement: speech and movement normal Objective Labs 02/14/25 23:55 02/15/25 01:30 Labs: Laboratory Results - last 24 hr 02/14/25 02/15/25 02/15/25 23:55 00:38 01:30 WBC 9.6 RBC 4.94 Hgb 13.7 Hct 42.5 MCV 85.9 MCH 27.8 MCHC 32.3 RDW 18.4 H Plt Count 283 Neut % (Auto) 71.0 Lymph % (Auto) 14.5 L [place] % (Auto) 12.5 Eos % (Auto) 1.3 L Baso % (Auto) 0.7 Neut # (Auto) 6800 Lymph # (Auto) 1400 [place] # (Auto) 1200 H Eos # (Auto) 100 Baso # (Auto) 100 Sodium 134 L Potassium 3.5 Chloride 103 Carbon Dioxide 25 BUN 30 H Creatinine 0.82 Estimated GFR > 60 BUN/Creatinine Ratio 36.6 H Glucose 82 Calcium 8.7 Total Bilirubin 0.8 AST 40 ALT 26 Alkaline Phosphatase 80 Troponin I < 0.012 Total Protein 6.5 Albumin 3.7 Globulin 2.8 Albumin/Globulin Ratio 1.3 Lipase 39 Urine RBC Urine WBC Ur Squamous Epith Cells Ur Transition Epith Cell Urine Bacteria Ur Culture Indicated? Vol Urine Centrifuged SARS-CoV-2 (PCR) Negative Influenza A (RT-PCR) Flu a negative Influenza B (RT-PCR) Flu b negative RSV (PCR) Negative 02/15/25 01:47 WBC RBC Hgb Hct MCV MCH MCHC RDW Plt Count Neut % (Auto) Lymph % (Auto) [place] % (Auto) Eos % (Auto) Baso % (Auto) Neut # (Auto) Lymph # (Auto) [place] # (Auto) Eos # (Auto) Baso # (Auto) Sodium Potassium Chloride Carbon Dioxide BUN Creatinine Estimated GFR BUN/Creatinine Ratio Glucose Calcium Total Bilirubin AST ALT Alkaline Phosphatase Troponin I Total Protein Albumin Globulin Albumin/Globulin Ratio Lipase Urine RBC 1-5/hpf Urine WBC 10-30/hpf H Ur Squamous Epith Cells 1-5 /hpf Ur Transition Epith Cell 0-1/hpf Urine Bacteria Many (>30) H Ur Culture Indicated? Specimen cultured Vol Urine Centrifuged 10ml (spun) SARS-CoV-2 (PCR) Influenza A (RT-PCR) Influenza B (RT-PCR) RSV (PCR) Assessment & Plan Assessment & Plan narrative: Acute respiratory failure with hypoxia COPD exacerbation. -Oxygen titration goal of 88-92%, avoid excess oxygen to prevent carbondioxide retention, Monitor mental status. -Albuterol 2.5 mg nebulizer Q Hour for the next 4 to 6 hours -DuoNeb every 4 hours scheduled and every 2 hours as needed -Continue patient on 60 mg Solu-Medrol every 12 hours for severe exacerbation, reassess and taper or prednisone 60 mg daily. Prednisone 40 mg po daily x 5 days starting on day 2 of admission; - Continue with ceftriaxone IV daily -Monitor patient on telemetry. -Restart Singulair and Pulmicort -The patient does not improve we can consider BiPAP and further evaluation by ABG. UTI -Blood culture, urine culture, -Antibiotics, ceftriaxone, -Monitor for urine retention, check post void residuals. Left knee pain. X-ray and Doppler ultrasound negative - Continue steroids - Restart meloxicam Hypertension. Restart losartan and hydrochlorothiazide Hyperlipidemia. Restart Lipitor. CAD. Restart aspirin, Lipitor GERD. Restart Protonix 40 mg p.o. Overreactive bladder. Restart oxybutynin Time-Based Coding :: [TOTAL MINUTES] spent with patient and on the chart (including review of chart, obtaining history, exam, reviewing outside data, placing orders, documenting exam and treatment plan, and counseling patient) on [DATE]. Quality VTE Deep Vein Thrombosis/Pulmonary Embolism Present on Admission: No MIPS - Admit I confirm the patient?s Advance Care Plan is present, Code status is documented, Surrogate decision maker is in patient?s record [If Yes, STOP here]: Yes [facility] - Meds 'Current medications' to include all prescriptions, [id number] products, herbals, cannabis/cannabidiol products, and vitamin/mineral/dietary (nutritional) supplements. I have utilized all available resources to obtain, update, or review the patient?s current medications. [If Yes, STOP here]: Yes
[2025-02-15] MEDS: MORPHINE 4 MG/ML INJ 3 MG IV ×5 (05:01→22:11)
[2025-02-15] MEDS: cefTRIAXone 2,000 MG in SODIUM CHLORIDE 0.9% 100 ML 200 MG IV (05:01)
[2025-02-15] MEDS: PANTOPRAZOLE DR 40 MG TABLET PO (05:51)
--- NOTE | 2025-02-15 07:36 | PM.PN.1 ---
Subjective Subjective Date Patient Seen: 02/15/25 Interval history: 84 years old male with history of hypertension, CAD, GERD, overactive bladder, COPD presented to the ER with generalized weakness, increased shortness of breath on exertion and left knee pain getting progressively worse in the last several days. Denies any fever, cough, chest pain, palpitations, nausea, vomiting, diarrhea or dysuria. He had x-ray of left knee 1 week ago in [facility] which was negative. 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 Reports increased pain in his left knee and difficult to ambulate. He also reports some lower extremities edema. Outpatient ultrasound negative for DVT. Laboratory shows WBC 9.6, H&H 13.7 and 42.5, sodium 134, potassium 3.5, creatinine 0.82, blood sugar 82, troponin 0.0 12, respiratory viral panel negative, UA consistent for UTI. Chest x-ray unremarkable, EKG normal sinus rhythm of 80. In the ER he was found to have hypoxia on exertion with oxygen saturation of 87%'s on room air. Given Solu-Medrol, albuterol, Atrovent ceftriaxone 1 g IV, Dilaudid IV and methylprednisolone 125 mg IV. 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) Surgical History (Updated 12/14/19 @ 12:17 by Polly Franklin RN) History of loop recorder (2013) Social History household members: none Smoking Status: Current some day smoker alcohol intake: current Meds Home Medications and Allergies Home Medications ?Medication ?Instructions ?Recorded ?Confirmed ?Type [ALBUTEROL NEBULIZER] 1 neb INH QDAY ##0 12/16/10 02/15/25 History albuterol sulfate 90 mcg/actuation 1 - 2 puff inhalation Q4-6H PRN 12/16/10 02/15/25 History aerosol inhaler Shortness Of Breath ##0 aspirin 81 mg tablet,delayed 81 mg PO DAILY ##0 12/16/10 02/15/25 History release simvastatin 20 mg tablet (Zocor) 20 mg PO HS ##0 12/16/10 02/15/25 History hydrochlorothiazide 25 mg tablet 25 mg PO DAILY 12/14/19 02/15/25 History mirabegron 25 mg tablet,extended 50 mg PO DAILY 12/14/19 02/15/25 History release 24 hr (Myrbetriq) telmisartan 40 mg tablet (Micardis) 40 mg PO DAILY 12/14/19 02/15/25 History esomeprazole magnesium 40 mg 40 mg PO DAILY 12/21/19 02/15/25 History capsule,delayed release (Nexium) fluticasone fur. 200 mcg-umeclid 1 inh inhalation DAILY #60 ea 11/23/24 02/15/25 Rx 62.5 mcg-vilant 25 mcg inhalat.powder (Trelegy Ellipta) magnesium oxide 400 mg (241.3 mg 400 mg PO DAILY PRN constipation 02/15/25 02/15/25 History magnesium) tablet meloxicam 15 mg tablet 15 mg PO QPM 02/15/25 02/15/25 History mirabegron 50 mg tablet,extended 50 mg PO DAILY 02/15/25 02/15/25 History release 24 hr (Myrbetriq) montelukast 10 mg tablet 10 mg PO DAILY 02/15/25 02/15/25 History potassium chloride 10 mEq 10 meq PO DAILY 02/15/25 02/15/25 History tablet,extended release Labs: Laboratory Results - last 24 hr 02/14/25 02/15/25 02/15/25 23:55 00:38 01:30 WBC 9.6 RBC 4.94 Hgb 13.7 Hct 42.5 MCV 85.9 MCH 27.8 MCHC 32.3 RDW 18.4 H Plt Count 283 Neut % (Auto) 71.0 Lymph % (Auto) 14.5 L [place] % (Auto) 12.5 Eos % (Auto) 1.3 L Baso % (Auto) 0.7 Neut # (Auto) 6800 Lymph # (Auto) 1400 [place] # (Auto) 1200 H Eos # (Auto) 100 Baso # (Auto) 100 Sodium 134 L Potassium 3.5 Chloride 103 Carbon Dioxide 25 BUN 30 H Creatinine 0.82 Estimated GFR > 60 BUN/Creatinine Ratio 36.6 H Glucose 82 Calcium 8.7 Total Bilirubin 0.8 AST 40 ALT 26 Alkaline Phosphatase 80 Troponin I < 0.012 Total Protein 6.5 Albumin 3.7 Globulin 2.8 Albumin/Globulin Ratio 1.3 Lipase 39 Urine RBC Urine WBC Ur Squamous Epith Cells Ur Transition Epith Cell Urine Bacteria Ur Culture Indicated? Vol Urine Centrifuged SARS-CoV-2 (PCR) Negative Influenza A (RT-PCR) Flu a negative Influenza B (RT-PCR) Flu b negative RSV (PCR) Negative 02/15/25 01:47 WBC RBC Hgb Hct MCV MCH MCHC RDW Plt Count Neut % (Auto) Lymph % (Auto) [place] % (Auto) Eos % (Auto) Baso % (Auto) Neut # (Auto) Lymph # (Auto) [place] # (Auto) Eos # (Auto) Baso # (Auto) Sodium Potassium Chloride Carbon Dioxide BUN Creatinine Estimated GFR BUN/Creatinine Ratio Glucose Calcium Total Bilirubin AST ALT Alkaline Phosphatase Troponin I Total Protein Albumin Globulin Albumin/Globulin Ratio Lipase Urine RBC 1-5/hpf Urine WBC 10-30/hpf H Ur Squamous Epith Cells 1-5 /hpf Ur Transition Epith Cell 0-1/hpf Urine Bacteria Many (>30) H Ur Culture Indicated? Specimen cultured Vol Urine Centrifuged 10ml (spun) SARS-CoV-2 (PCR) Influenza A (RT-PCR) Influenza B (RT-PCR) RSV (PCR) Assessment & Plan Assessment & Plan narrative: Acute respiratory failure with hypoxia COPD exacerbation. -Oxygen titration goal of 88-92%, avoid excess oxygen to prevent carbondioxide retention, Monitor mental status. -Albuterol 2.5 mg nebulizer Q Hour for the next 4 to 6 hours -DuoNeb every 4 hours scheduled and every 2 hours as needed -Continue patient on 60 mg Solu-Medrol every 12 hours for severe exacerbation, reassess and taper or prednisone 60 mg daily. Prednisone 40 mg po daily x 5 days starting on day 2 of admission; - Continue with ceftriaxone IV daily -Monitor patient on telemetry. -Restart Singulair and Pulmicort -The patient does not improve we can consider BiPAP and further evaluation by ABG. UTI -Blood culture, urine culture, -Antibiotics, ceftriaxone, -Monitor for urine retention, check post void residuals. Left knee pain. X-ray and Doppler ultrasound negative - Continue steroids - Restart meloxicam Hypertension. Restart losartan and hydrochlorothiazide Hyperlipidemia. Restart Lipitor. CAD. Restart aspirin, Lipitor GERD. Restart Protonix 40 mg p.o. Overreactive bladder. Restart oxybutynin Exam Vital Signs (past 8 hours): - 02/15/25 00:00 02/15/25 00:30 02/15/25 00:53 Temperature Pulse Rate 81 80 89 Respiratory Rate 18 Blood Pressure Pulse Oximetry 90 L 88 L 94 Oxygen Delivery Method Oxygen Flow Rate 02/15/25 01:05 02/15/25 01:06 02/15/25 01:06 Temperature Pulse Rate 79 78 Respiratory Rate Blood Pressure 144/68 H Pulse Oximetry 94 97 Oxygen Delivery Method Oxygen Flow Rate 1 02/15/25 01:30 02/15/25 01:30 02/15/25 01:49 Temperature Pulse Rate 78 81 Respiratory Rate Blood Pressure 158/76 H Pulse Oximetry 94 91 Oxygen Delivery Method Nasal Cannula Oxygen Flow Rate 1 02/15/25 01:49 02/15/25 02:00 02/15/25 02:00 Temperature Pulse Rate 78 Respiratory Rate Blood Pressure 147/88 H 137/65 Pulse Oximetry 90 L Oxygen Delivery Method Nasal Cannula Oxygen Flow Rate 1 02/15/25 02:53 02/15/25 03:00 02/15/25 04:00 Temperature 97.9 F Pulse Rate 86 84 81 Respiratory Rate 22 Blood Pressure 158/82 H Pulse Oximetry 89 L 93 Oxygen Delivery Method Nasal Cannula Oxygen Flow Rate 1 1 02/15/25 04:36 Temperature Pulse Rate Respiratory Rate Blood Pressure Pulse Oximetry Oxygen Delivery Method Nasal Cannula Oxygen Flow Rate Oxygen Delivery Method Nasal Cannula Oxygen Flow Rate 1 Objective Labs 02/14/25 23:55 02/15/25 01:30 Labs: Laboratory Results - last 24 hr 02/14/25 02/15/25 02/15/25 23:55 00:38 01:30 WBC 9.6 RBC 4.94 Hgb 13.7 Hct 42.5 MCV 85.9 MCH 27.8 MCHC 32.3 RDW 18.4 H Plt Count 283 Neut % (Auto) 71.0 Lymph % (Auto) 14.5 L [place] % (Auto) 12.5 Eos % (Auto) 1.3 L Baso % (Auto) 0.7 Neut # (Auto) 6800 Lymph # (Auto) 1400 [place] # (Auto) 1200 H Eos # (Auto) 100 Baso # (Auto) 100 Sodium 134 L Potassium 3.5 Chloride 103 Carbon Dioxide 25 BUN 30 H Creatinine 0.82 Estimated GFR > 60 BUN/Creatinine Ratio 36.6 H Glucose 82 Calcium 8.7 Total Bilirubin 0.8 AST 40 ALT 26 Alkaline Phosphatase 80 Troponin I < 0.012 Total Protein 6.5 Albumin 3.7 Globulin 2.8 Albumin/Globulin Ratio 1.3 Lipase 39 Urine RBC Urine WBC Ur Squamous Epith Cells Ur Transition Epith Cell Urine Bacteria Ur Culture Indicated? Vol Urine Centrifuged SARS-CoV-2 (PCR) Negative Influenza A (RT-PCR) Flu a negative Influenza B (RT-PCR) Flu b negative RSV (PCR) Negative 02/15/25 01:47 WBC RBC Hgb Hct MCV MCH MCHC RDW Plt Count Neut % (Auto) Lymph % (Auto) [place] % (Auto) Eos % (Auto) Baso % (Auto) Neut # (Auto) Lymph # (Auto) [place] # (Auto) Eos # (Auto) Baso # (Auto) Sodium Potassium Chloride Carbon Dioxide BUN Creatinine Estimated GFR BUN/Creatinine Ratio Glucose Calcium Total Bilirubin AST ALT Alkaline Phosphatase Troponin I Total Protein Albumin Globulin Albumin/Globulin Ratio Lipase Urine RBC 1-5/hpf Urine WBC 10-30/hpf H Ur Squamous Epith Cells 1-5 /hpf Ur Transition Epith Cell 0-1/hpf Urine Bacteria Many (>30) H Ur Culture Indicated? 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 Quality VTE Deep Vein Thrombosis/Pulmonary Embolism Present on Admission: No
[2025-02-15] MEDS: SODIUM CHLORIDE 0.9% FLUSH 10 ML IV ×2 (08:07→21:12)
[2025-02-15] MEDS: DOCUSATE 100 MG CAPSULE PO ×2 (08:14→21:12)
[2025-02-15] MEDS: oxyBUTYnin ER 5 MG TABLET 10 MG PO (08:14)
[2025-02-15] MEDS: MONTELUKAST 10 MG TABLET PO (08:14)
[2025-02-15] MEDS: POTASSIUM CHLORIDE 10 MEQ TAB PO (08:14)
[2025-02-15] MEDS: LOSARTAN 50 MG TABLET PO (08:14)
[2025-02-15] MEDS: BUDESONIDE 0.5 MG/2 ML NEB INH ×2 (08:49→19:06)
[2025-02-15 09:04] LABS: Blood Urea Nitrogen 24 mg/dL (9-20); Calcium 8.9 mg/dL (8.4-10.2); Carbon Dioxide 28 mmol/L (22-32); Chloride 99 mmol/L (98-107); Estimated Glomerular Filt Rate > 60 mL/min (>60); Glucose 156 mg/dL (70-99); HEMOLYSIS 16 (0-50); Magnesium 1.9 mg/dL (1.6-2.3); Potassium 4.3 mmol/L (3.4-5.1); Sodium 137 mmol/L (137-145)
--- NOTE | 2025-02-15 11:36 | CM.DANOTE ---
DCP Assessment Note: Pt is a 84yo male, resident of [place], is admitted for COPD exacerbation and UTI. Pt lives in a house alone. Reviewed chart and discussed with multidisciplinary team pt's medical status and initial discharge needs. Per hospitalist, pt to obtain IV abx and O2 treatment, possible Ortho consult for pt's concerns for knee. DCP met w/patient at bedside; introduced self and role. Patient was found in bed, alert and oriented, cooperative with assessment. Pt confirmed living situation and good support in extended family, he states his daughter/POA lives in [facility] but wants to be involved in dc planning. Pt confirms utilizing a FWW at baseline and is mainly independent. He states he does not utilize O2 at home, but is requiring this in the hospital. Pt states he has a history of home health with [facility] but did not feel it was as beneficial for him. Pt understands SNF could be an option before dc home; states his sister was at [facility] and he would have a preference there. Pt states discharge transport could be arranged by Shahid rivas, who lives locally. . Pt requested this SMALL CRAFT OPERATOR call his daughter, Soraida, to discuss dc planning. SMALL CRAFT OPERATOR left a message and requested a call back. Pending possible PT evaluation for recommendation. Plan: Anticipating dc home with home health (nephew to transport) vs. SNF Rehab; care plans evolving. CM team will follow closely for coordination of discharge plans. YUN Velasquez Discharge Planning/Care Management CM Discharge Assessment Start: 02/15/25 03:28 Freq: Status: Active Protocol: Document 02/15/25 11:32 MW (Rec: 02/15/25 11:35 MW Desktop) Discharge Planning Assessment Assigned Discharge DIPIKA [employer] Documentation Specialist Provider Maria Del Carmen Rivas MD Insurance Medicare,[facility] DPOA/Assigned Soraida Miller, Daughter Designee Name Contact Information [phone] Advance Directives? Yes: Advance Medical Directive; DPOA Advance Directives Yes on File History Provided By Patient Prior Living House Arrangements Household Members none Type of Drives own vehicle transporation used prior to admit Independent with ADL Yes 's Is patient alert and Yes oriented? DME Already Rented / FWW / Walker Owned Comment No O2 at baseline, requiring O2 in hospital currently Patient/Family Home with Home Health Preference SNF/HH Preference [facility] of [facility] with [facility] History of SNF with Sola Gregory (sister) and pt states a preference for that facility Review Status In Process Please Provide Date 02/15/25 Initial DC Assessment Was Performed Next Review Type Continued Stay Review
--- NOTE | 2025-02-15 12:29 | PM.HP.1 ---
History of Present Illness History of Present Illness Date Patient Seen: 02/15/25 Chief complaint: gen weakness Narrative: This is an 84 year old male with a history of hypertension, CAD, GERD, overactive bladder and COPD who presented to the ED with generalized weakness, increased shortness of breath on exertion and left knee pain getting progressively worse in the last several days. He has no fever, cough, chest pain, palpitations, nausea, vomiting, diarrhea or dysuria. He says that he had x-ray of the left knee 1 week ago at [facility] ED which was negative. His left knee replacement was 25 years ago. It is now difficult to ambulate. He also reports some lower extremities edema. Outpatient ultrasound was reportedly negative for DVT. Laboratory shows WBC 9.6, H&H 13.7 and 42.5, sodium 134, potassium 3.5, creatinine 0.82, blood sugar 82, troponin 0.0 12, respiratory viral panel negative, UA consistent for UTI. Chest x-ray unremarkable, EKG normal sinus rhythm of 80. In the ER he was found to have hypoxia on exertion with oxygen saturation of 87% on room air. He is now on IV Solu-Medrol, albuterol, Atrovent ceftriaxone IV and Dilaudid. Meds Home Medications and Allergies Home Medications ?Medication ?Instructions ?Recorded ?Confirmed ?Type [ALBUTEROL NEBULIZER] 1 neb INH QDAY ##0 12/16/10 02/15/25 History albuterol sulfate 90 mcg/actuation 1 - 2 puff inhalation Q4-6H PRN 12/16/10 02/15/25 History aerosol inhaler Shortness Of Breath ##0 aspirin 81 mg tablet,delayed 81 mg PO DAILY ##0 12/16/10 02/15/25 History release simvastatin 20 mg tablet (Zocor) 20 mg PO HS ##0 12/16/10 02/15/25 History hydrochlorothiazide 25 mg tablet 25 mg PO DAILY 12/14/19 02/15/25 History mirabegron 25 mg tablet,extended 50 mg PO DAILY 12/14/19 02/15/25 History release 24 hr (Myrbetriq) telmisartan 40 mg tablet (Micardis) 40 mg PO DAILY 12/14/19 02/15/25 History esomeprazole magnesium 40 mg 40 mg PO DAILY 12/21/19 02/15/25 History capsule,delayed release (Nexium) fluticasone fur. 200 mcg-umeclid 1 inh inhalation DAILY #60 ea 11/23/24 02/15/25 Rx 62.5 mcg-vilant 25 mcg inhalat.powder (Trelegy Ellipta) magnesium oxide 400 mg (241.3 mg 400 mg PO DAILY PRN constipation 02/15/25 02/15/25 History magnesium) tablet meloxicam 15 mg tablet 15 mg PO QPM 02/15/25 02/15/25 History mirabegron 50 mg tablet,extended 50 mg PO DAILY 02/15/25 02/15/25 History release 24 hr (Myrbetriq) montelukast 10 mg tablet 10 mg PO DAILY 02/15/25 02/15/25 History potassium chloride 10 mEq 10 meq PO DAILY 02/15/25 02/15/25 History tablet,extended release Labs: Laboratory Results - last 24 hr 02/14/25 02/15/25 02/15/25 23:55 00:38 01:30 WBC 9.6 RBC 4.94 Hgb 13.7 Hct 42.5 MCV 85.9 MCH 27.8 MCHC 32.3 RDW 18.4 H Plt Count 283 Neut % (Auto) 71.0 Lymph % (Auto) 14.5 L [place] % (Auto) 12.5 Eos % (Auto) 1.3 L Baso % (Auto) 0.7 Neut # (Auto) 6800 Lymph # (Auto) 1400 [place] # (Auto) 1200 H Eos # (Auto) 100 Baso # (Auto) 100 Sodium 134 L Potassium 3.5 Chloride 103 Carbon Dioxide 25 BUN 30 H Creatinine 0.82 Estimated GFR > 60 BUN/Creatinine Ratio 36.6 H Glucose 82 Calcium 8.7 Total Bilirubin 0.8 AST 40 ALT 26 Alkaline Phosphatase 80 Troponin I < 0.012 Total Protein 6.5 Albumin 3.7 Globulin 2.8 Albumin/Globulin Ratio 1.3 Lipase 39 Urine RBC Urine WBC Ur Squamous Epith Cells Ur Transition Epith Cell Urine Bacteria Ur Culture Indicated? Vol Urine Centrifuged SARS-CoV-2 (PCR) Negative Influenza A (RT-PCR) Flu a negative Influenza B (RT-PCR) Flu b negative RSV (PCR) Negative 02/15/25 01:47 WBC RBC Hgb Hct MCV MCH MCHC RDW Plt Count Neut % (Auto) Lymph % (Auto) [place] % (Auto) Eos % (Auto) Baso % (Auto) Neut # (Auto) Lymph # (Auto) [place] # (Auto) Eos # (Auto) Baso # (Auto) Sodium Potassium Chloride Carbon Dioxide BUN Creatinine Estimated GFR BUN/Creatinine Ratio Glucose Calcium Total Bilirubin AST ALT Alkaline Phosphatase Troponin I Total Protein Albumin Globulin Albumin/Globulin Ratio Lipase Urine RBC 1-5/hpf Urine WBC 10-30/hpf H Ur Squamous Epith Cells 1-5 /hpf Ur Transition Epith Cell 0-1/hpf Urine Bacteria Many (>30) H Ur Culture Indicated? Specimen cultured Vol Urine Centrifuged 10ml (spun) SARS-CoV-2 (PCR) Influenza A (RT-PCR) Influenza B (RT-PCR) RSV (PCR) Assessment & Plan Acute respiratory failure with hypoxia COPD exacerbation. -Oxygen titration goal of 88-92%, avoid excess oxygen to prevent carbon dioxide retention, Monitor mental status. -Albuterol 2.5 mg nebulizer Q Hour prn 4 to 6 hours -DuoNeb every 4 hours scheduled and every 2 hours as needed -Continue IV 60 mg Solu-Medrol every 12 hours for severe exacerbation, reassess and taper or prednisone 60 mg daily. Prednisone 40 mg po daily x 5 days starting on day 2 of admission; - Continue with ceftriaxone IV daily -Monitor telemetry. -Singulair and Pulmicort UTI -Blood culture, urine culture pending -Antibiotics-ceftriaxone, -Monitor for urine retention, check post void residuals. In and out cath prn at home, continue. Left knee pain. Reports that initial X-ray and Doppler ultrasound were negative - Repeat Xray and check ESR/CRP - May need ortho consult - Continue steroids - Restart meloxicam Hypertension. Losartan and hydrochlorothiazide Hyperlipidemia. Lipitor. CAD. Aspirin, Lipitor GERD. Protonix Overreactive bladder. Oxybutynin. In and out cath prn at home, continue. 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) Surgical History (Updated 02/15/25 @ 17:58 by Jamie Claudio MD) H/O total knee replacement History of loop recorder (2014) Social History household members: none Smoking Status: Current some day smoker alcohol intake: current Meds Home Medications and Allergies Home Medications ?Medication ?Instructions ?Recorded ?Confirmed ?Type [ALBUTEROL NEBULIZER] 1 neb INH QDAY ##0 12/16/10 02/15/25 History albuterol sulfate 90 mcg/actuation 1 - 2 puff inhalation Q4-6H PRN 12/16/10 02/15/25 History aerosol inhaler Shortness Of Breath ##0 aspirin 81 mg tablet,delayed 81 mg PO DAILY ##0 12/16/10 02/15/25 History release simvastatin 20 mg tablet (Zocor) 20 mg PO HS ##0 12/16/10 02/15/25 History hydrochlorothiazide 25 mg tablet 25 mg PO DAILY 12/14/19 02/15/25 History mirabegron 25 mg tablet,extended 50 mg PO DAILY 12/14/19 02/15/25 History release 24 hr (Myrbetriq) telmisartan 40 mg tablet (Micardis) 40 mg PO DAILY 12/14/19 02/15/25 History esomeprazole magnesium 40 mg 40 mg PO DAILY 12/21/19 02/15/25 History capsule,delayed release (Nexium) fluticasone fur. 200 mcg-umeclid 1 inh inhalation DAILY #60 ea 11/23/24 02/15/25 Rx 62.5 mcg-vilant 25 mcg inhalat.powder (Trelegy Ellipta) magnesium oxide 400 mg (241.3 mg 400 mg PO DAILY PRN constipation 02/15/25 02/15/25 History magnesium) tablet meloxicam 15 mg tablet 15 mg PO QPM 02/15/25 02/15/25 History mirabegron 50 mg tablet,extended 50 mg PO DAILY 02/15/25 02/15/25 History release 24 hr (Myrbetriq) montelukast 10 mg tablet 10 mg PO DAILY 02/15/25 02/15/25 History potassium chloride 10 mEq 10 meq PO DAILY 02/15/25 02/15/25 History tablet,extended release Allergies Allergy/AdvReac Type Severity Reaction Status Date / Time fluticasone (From Advair AdvReac double Verified 02/14/25 23:12 Diskus) vision salmeterol (From Advair AdvReac double Verified 02/14/25 23:12 Diskus) vision Review of Systems Review of Systems Narrative: Positive for shortness of breath, hypoxia and left knee pain with difficulty walking. Negative for fevers, chills, sweats, chest pain, nausea, vomiting, bleeding, rashes, new allergies, sore throat, headache. Exam Vital Signs (past 8 hours): - 02/15/25 04:36 02/15/25 07:42 02/15/25 08:00 Temperature 97.8 F Pulse Rate 76 Respiratory Rate 16 Blood Pressure 116/68 Pulse Oximetry 99 Oxygen Delivery Method Nasal Cannula Nasal Cannula Oxygen Flow Rate Fraction of Inspired Oxygen 02/15/25 08:49 02/15/25 11:34 Temperature 98.7 F Pulse Rate 91 H 84 Respiratory Rate 14 20 Blood Pressure 124/70 Pulse Oximetry 90 L 90 L Oxygen Delivery Method Nasal Cannula Oxygen Flow Rate 2 Fraction of Inspired Oxygen 28 Fraction of Inspired Oxygen 28 SaO2/FiO2 Ratio 314 Oxygen Delivery Method Nasal Cannula Oxygen Flow Rate 2 Narrative Exam Narrative: Alert and oriented x3. No apparent distress. Many bruises on arms. Spider veins on the chest. Caput medusa. Throat looks normal No lymph nodes felt head, neck, supraclavicular area. No thyromegaly. JVD is less than 6 cm. Heart is regular rate and rhythm without murmur Lungs are clear to auscultation bilaterally Abdomen is soft, bowel sounds positive, nontender, no organomegaly Extremities have no ankle edema. Motor function 4/5 bilateral upper and lower extremities. Cranial nerves 2-12 test intact. Objective Labs 02/14/25 23:55 02/15/25 08:25 Labs: Laboratory Results - last 24 hr 02/14/25 02/15/25 02/15/25 23:55 00:38 01:30 WBC 9.6 RBC 4.94 Hgb 13.7 Hct 42.5 MCV 85.9 MCH 27.8 MCHC 32.3 RDW 18.4 H Plt Count 283 Neut % (Auto) 71.0 Lymph % (Auto) 14.5 L [place] % (Auto) 12.5 Eos % (Auto) 1.3 L Baso % (Auto) 0.7 Neut # (Auto) 6800 Lymph # (Auto) 1400 [place] # (Auto) 1200 H Eos # (Auto) 100 Baso # (Auto) 100 Sodium 134 L Potassium 3.5 Chloride 103 Carbon Dioxide 25 BUN 30 H Creatinine 0.82 Estimated GFR > 60 BUN/Creatinine Ratio 36.6 H Glucose 82 Calcium 8.7 Magnesium Total Bilirubin 0.8 AST 40 ALT 26 Alkaline Phosphatase 80 Troponin I < 0.012 Total Protein 6.5 Albumin 3.7 Globulin 2.8 Albumin/Globulin Ratio 1.3 Lipase 39 Urine RBC Urine WBC Ur Squamous Epith Cells Ur Transition Epith Cell Urine Bacteria Ur Culture Indicated? Vol Urine Centrifuged SARS-CoV-2 (PCR) Negative Influenza A (RT-PCR) Flu a negative Influenza B (RT-PCR) Flu b negative RSV (PCR) Negative 02/15/25 02/15/25 01:47 08:25 WBC RBC Hgb Hct MCV MCH MCHC RDW Plt Count Neut % (Auto) Lymph % (Auto) [place] % (Auto) Eos % (Auto) Baso % (Auto) Neut # (Auto) Lymph # (Auto) [place] # (Auto) Eos # (Auto) Baso # (Auto) Sodium 137 Potassium 4.3 Chloride 99 Carbon Dioxide 28 BUN 24 H Creatinine 0.82 Estimated GFR > 60 BUN/Creatinine Ratio 29.3 H Glucose 156 H Calcium 8.9 Magnesium 1.9 Total Bilirubin AST ALT Alkaline Phosphatase Troponin I Total Protein Albumin Globulin Albumin/Globulin Ratio Lipase Urine RBC 1-5/hpf Urine WBC 10-30/hpf H Ur Squamous Epith Cells 1-5 /hpf Ur Transition Epith Cell 0-1/hpf Urine Bacteria Many (>30) H Ur Culture Indicated? Specimen cultured Vol Urine Centrifuged 10ml (spun) SARS-CoV-2 (PCR) Influenza A (RT-PCR) Influenza B (RT-PCR) RSV (PCR) Assessment & Plan Time-Based Coding :: [TOTAL MINUTES] spent with patient and on the chart (including review of chart, obtaining history, exam, reviewing outside data, placing orders, documenting exam and treatment plan, and counseling patient) on [DATE]. Quality VTE Deep Vein Thrombosis/Pulmonary Embolism Present on Admission: No
--- NOTE | 2025-02-15 15:00 | PT.IIE ---
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) GERD (gastroesophageal reflux disease) HLD (hyperlipidemia) HTN (hypertension) Hypoxia Nicotine dependence Physical Therapy Inpatient Evaluation/Re-Eval M1 PT/OT-IP Prior Functional Status Start: 02/15/25 17:27 Freq: NEEDED Status: Active Protocol: Document 02/15/25 15:00 AB (Rec: 02/15/25 17:46 AB [id number]) Medical Review Prior Functional Status Medical History Yes Reviewed Communication able to make needs known; [place] Mobility and Gait pt stated that he was modified independent with all mobilities and ambulation without AD but started using a FWW ~ 3 weeks ago due to L knee pain to the point wherein he is not able to put weight on LLE; pt stated that his neighbors occasionally assists him with grocery shopping needs Social History Household Members none Living Arrangements House Number of Stairs To has 2 steps R rail ascending to enter from the front Enter/Railing? has 1 steps to enter from the garage Home Environment High Toilet,Walk in Shower Home Equipment Front Wheel Walker,Shower Seat with Backrest,Hand Held Shower,Grab Bars In Shower M2 PT-IP Current Condition Start: 02/15/25 17:27 Freq: NEEDED Status: Active Protocol: Document 02/15/25 15:00 AB (Rec: 02/15/25 17:46 AB [id number]) Physical Therapy Current Condition Current Condition Evaluation Date 02/15/25 Treatment Diagnosis COPD exacerbation; difficulty in walking Onset Date 02/15/25 M3 PT-IP Subjective Start: 02/15/25 17:27 Freq: NEEDED Status: Active Protocol: Document 02/15/25 15:00 AB (Rec: 02/15/25 17:46 AB [id number]) Subjective Physical Therapy Visit Type Type Initial Evaluation Visit Start Time 15:00 Visit Stop Time 15:35 Number of FREEZER PERSON Visits 0 Physical Therapy Visit Comments Patient Comments agreeable to do PT Therapy Pain Assessment Pain When Pain Assessed At Rest Pain Present Pain Present Pain Reported Location Left Knee Intensity 7 Scale Used Numeric (0 - 10) Pain Behaviors Facial Grimacing,Guarding,Wincing Pain Management Apply Cold,Distraction,Elevation,Modification of Techniques Treatment,Re-positioning,Timing of Activity with Medications M4 PT-IP Mobility and Gait Start: 02/15/25 17:27 Freq: NEEDED Status: Active Protocol: Document 02/15/25 15:00 AB (Rec: 02/15/25 17:46 AB [id number]) PT-Bed Mobility Assessment Supine to Sit Supine to Sit Maximum Assistance,1 Person Assistance,Head of Bed Elevated,Bedrails PT-Transfer Assessment Sit to and From Stand Sit to and from Maximum Assistance,1 Person Assistance,Use of Upper Stand Extremities Equipment Transfer Assistive Gait Belt,Front Wheeled Walker Device Orthotic/Prosthetic No Devices or Brace: Transfers Transfer Destination Chair Transfer Technique Stand Step Pivot Transfer Ability Level of Assist Maximum Assistance,1 Person Assistance,Use of Upper Extremities Comments Mobility Comments pt in bed and agreeable to do PT. obtained PLOF and home set up. O2 sat with 2L/min: 86-87%. nurse increase O2 to 3L/min and O2 sat increased to 88%. pt stated that he went to the hospital due to increasing L knee pain and unable to stand on L knee but pt is admitted due to COPD exacerbation. pt with h/o L TKA ~ 20-25 years ago per pt. supine to sit max A and max cues with HOB elevated. pt used bed rail to assist. able to sit on EOB CGA. sit to stand max A and cues and step transfer to chair using FWW max A and cues. pt unable to ambulated and unable to put much weight on LLE due to c/o L knee pain . pt agreed to sit up on the chair. positioned pt on the chair. call light and table placed within reach. Gait Assessment Comments Gait Comments unable at this time. PT-Balance Assessment Sitting Balance and Reactions Static Sitting Good Balance Ability Dynamic Sitting Fair Balance Ability Standing Balance and Reactions Static Standing Poor Balance Ability Dynamic Standing Poor Balance Ability Device Used FWW M5 PT-IP Objective Assessments Start: 02/15/25 17:27 Freq: NEEDED Status: Active Protocol: Document 02/15/25 15:00 AB (Rec: 02/15/25 17:46 AB [id number]) Orientation Orientation/Cognition Level of Alertness Alert Orientation Name,Place,Situation Language Function Hard of Hearing Ability Safety Awareness Decreased Safety Awareness Memory Description Short Term Impaired Gross Range of Motion Lower Extremity ROM Assessment Left Impaired Impairments L knee pain limiting movement with increase guarding when PT attempted PROM. Strength Lower Extremity Strength Assessment Left Impaired Comments Strength Comments pain limiting LLE movement and unable to assess MMT Muscle Tone Muscle Tone WNL Yes M6 PT-IP Treatment Start: 02/15/25 17:27 Freq: NEEDED Status: Active Protocol: Document 02/15/25 15:00 AB (Rec: 02/15/25 17:46 AB [id number]) Physical Therapy Treatment Education Education Provided Safety M7 PT-IP Assessment and Plan Start: 02/15/25 17:27 Freq: NEEDED Status: Active Protocol: Document 02/15/25 15:00 AB (Rec: 02/15/25 17:46 AB [id number]) PT Summary Assessment and Plan Potential Rehabilitation Fair Potential Status of Condition Unstable at Evaluation Summary Impairments Pain,ROM,Strength,Balance,Coordination,Sensation,Tone, Cognition,Bed Mobility,Transfers,Gait,Activity Tolerance Assessment Summary pt is an 84 y/o M who is admitted for COPD exacerbation . pt with c/o L knee pain that started ~ 3 weeks ago and unable to ambulate on LLE. pt requiring max A and was able to transfer to chair using FWW max A but unable to put much weight on LLE. pt unable to ambulate at this time. pt will require SNF rehab to improve overall strength and mobility. Goals Bed Mobility Goal Minimal Assistance Transfer Goal Minimal Assistance,Front Wheeled Walker Gait Goal Minimal Assistance,Front Wheel Walker Gait Distance 25 Other Goals improve bed mobility, transfers, ambulation using FWW ~ 100 ft SBA up/down 1 step using FWW SBA Days to Meet Goals 10 Frequency of Treatment Frequency Of Once a Day Treatment Treatment Plan Physical Therapy Bed Mobility Training,Transfer Training,Gait Training, Treatment Plan Therapeutic Exercise,Balance Retraining,Discharge Planning,Hot or Cold Pack,Neuromuscular Re-ed, Coordination Retraining,Manual Therapy Precautions Other Precautions O2 sat; falls Recommendations To Nursing Amount of Assist 2 Person Assist Needed Discharge Recommendations PT Discharge SNF Rehab Recommendations Transportation Needs Wheelchair/Cabulance at Discharge - PT assist 1-2
[2025-02-15] MEDS: methylPREDNISolone succ 40 MG/ML VIAL 60 MG IV ×2 (15:36→15:38)
[2025-02-15] MEDS: MELOXICAM 7.5 MG TABLET 15 MG PO (17:11)
--- NOTE | 2025-02-15 17:55 | DI.RAD.S_ITS ---
PROCEDURE: XR KNEE LT 1TO2V INDICATIONS: Knee Pain TECHNIQUE: 2 views of the knee were acquired. COMPARISON: None. FINDINGS AND IMPRESSION: Knee arthroplasty. Patellar enthesopathy. Old ossifications seen at the MCL origin on the femur. In the lateral femoral metaphysis, there is a questionable nondisplaced fracture lucency versus artifact. This is not well seen on lateral view. Vascular calcifications. If there is further concern, consider cross-sectional imaging Dictated by: Luis Cedillo M.D. on 02/15/2025 at 18:39 Approved by: Luis Cedillo M.D. on 02/15/2025 at 18:40
[2025-02-15] MEDS: ATORVASTATIN 20 MG TABLET 10 MG PO (21:12)
[2025-02-16] VITALS (7 sets, daily range): BP systolic 107–139; BP diastolic 57–82; PULSE 69–94; RESP 16–22; TEMP 36.4–36.8; O2SAT 90–92
--- NOTE | 2025-02-16 | DI.CT.S_ITS ---
PROCEDURE: CT KNEE LEFT WITHOUT CON INDICATIONS: knee pain 3 weeks ago TECHNIQUE: Noncontrast 1-1.5 mm axial sections acquired from the mid-patella to the proximal tibia, with coronal and sagittal reformats. COMPARISON: None. FINDINGS: Image quality: Excellent. Bones: Postsurgical changes of TKA show intact hardware without surrounding lucency, in anatomic alignment. There is a transverse periprosthetic fracture at the distal femoral metaphysis with minimal impaction and no significant angulation or displacement. There is focal demineralization within the distal femoral metaphysis of uncertain etiology. Overall mineralization is decreased. Soft tissues: There is a joint effusion. Atherosclerotic calcification of the visible arteries is present. Otherwise normal. IMPRESSION: Transverse distal femoral periprosthetic fracture. Adjacent demineralization is concerning for underlying infection versus an underlying marrow replacing lesion. Dictated by: Candida Caruso M.D. on 02/16/2025 at 13:51 Approved by: Candida Caruso M.D. on 02/16/2025 at 13:59
[2025-02-16] MEDS: MORPHINE 4 MG/ML INJ 3 MG IV ×10 (01:12→23:53)
[2025-02-16] MEDS: methylPREDNISolone succ 40 MG/ML VIAL 60 MG IV (04:22)
[2025-02-16] MEDS: cefTRIAXone 2,000 MG in SODIUM CHLORIDE 0.9% 100 ML 200 MG IV (04:23)
[2025-02-16] MEDS: SODIUM CHLORIDE 0.9% FLUSH 10 ML IV ×3 (04:23→20:41)
[2025-02-16] MEDS: PANTOPRAZOLE DR 40 MG TABLET PO (05:11)
[2025-02-16 07:05] LABS: Blood Urea Nitrogen 26 mg/dL (9-20); Calcium 8.9 mg/dL (8.4-10.2); Carbon Dioxide 26 mmol/L (22-32); Chloride 101 mmol/L (98-107); Estimated Glomerular Filt Rate > 60 mL/min (>60); Glucose 129 mg/dL (70-99); HEMOLYSIS < 15 (0-50); Magnesium 2.1 mg/dL (1.6-2.3); Potassium 4.4 mmol/L (3.4-5.1); Sodium 133 mmol/L (137-145)
--- NOTE | 2025-02-16 07:28 | PM.PN.1 ---
Subjective Subjective Date Patient Seen: 02/16/25 Interval history: This is an 84 year old male with a history of hypertension, CAD, GERD, overactive bladder and COPD who presented to the ED with generalized weakness, increased shortness of breath on exertion and left knee pain getting progressively worse in the last several days. He has no fever, cough, chest pain, palpitations, nausea, vomiting, diarrhea or dysuria. He says that he had x-ray of the left knee 1 week ago at [facility] ED which was negative. His left knee replacement was 25 years ago. It is now difficult to ambulate. He also reports some lower extremities edema. Outpatient ultrasound was reportedly negative for DVT. Laboratory shows WBC 9.6, H&H 13.7 and 42.5, sodium 134, potassium 3.5, creatinine 0.82, blood sugar 82, troponin 0.0 12, respiratory viral panel negative, UA consistent for UTI. Chest x-ray unremarkable, EKG normal sinus rhythm of 80. In the ER he was found to have hypoxia on exertion with oxygen saturation of 87% on room air. He is now on IV Solu-Medrol, albuterol, Atrovent ceftriaxone IV and Dilaudid. 02/16/2025: Sodium 133, creatinine 0.79, CRP 1.3, ESR 5, magnesium 2.1, blood cultures for 24 hours negative x2, urine culture pending. He continues to experience severe left knee pain, avoiding weight-bearing. X-rays reviewed and it is normal with the prosthesis intact. Consulted with Orthopedics and discussed with Dr. Lewis. CT of the knee will be added. Meds Home Medications and Allergies Home Medications ?Medication ?Instructions ?Recorded ?Confirmed ?Type [ALBUTEROL NEBULIZER] 1 neb INH QDAY ##0 12/16/10 02/15/25 History albuterol sulfate 90 mcg/actuation 1 - 2 puff inhalation Q4-6H PRN 12/16/10 02/15/25 History aerosol inhaler Shortness Of Breath ##0 aspirin 81 mg tablet,delayed 81 mg PO DAILY ##0 12/16/10 02/15/25 History release simvastatin 20 mg tablet (Zocor) 20 mg PO HS ##0 12/16/10 02/15/25 History hydrochlorothiazide 25 mg tablet 25 mg PO DAILY 12/14/19 02/15/25 History mirabegron 25 mg tablet,extended 50 mg PO DAILY 12/14/19 02/15/25 History release 24 hr (Myrbetriq) telmisartan 40 mg tablet (Micardis) 40 mg PO DAILY 12/14/19 02/15/25 History esomeprazole magnesium 40 mg 40 mg PO DAILY 12/21/19 02/15/25 History capsule,delayed release (Nexium) fluticasone fur. 200 mcg-umeclid 1 inh inhalation DAILY #60 ea 11/23/24 02/15/25 Rx 62.5 mcg-vilant 25 mcg inhalat.powder (Trelegy Ellipta) magnesium oxide 400 mg (241.3 mg 400 mg PO DAILY PRN constipation 02/15/25 02/15/25 History magnesium) tablet meloxicam 15 mg tablet 15 mg PO QPM 02/15/25 02/15/25 History mirabegron 50 mg tablet,extended 50 mg PO DAILY 02/15/25 02/15/25 History release 24 hr (Myrbetriq) montelukast 10 mg tablet 10 mg PO DAILY 02/15/25 02/15/25 History potassium chloride 10 mEq 10 meq PO DAILY 02/15/25 02/15/25 History tablet,extended release Assessment & Plan Acute respiratory failure with hypoxia COPD exacerbation. -Oxygen titration goal of 88-92%, avoid excess oxygen to prevent carbon dioxide retention, Monitor mental status. -Albuterol 2.5 mg nebulizer Q Hour prn 4 to 6 hours -DuoNeb every 4 hours scheduled and every 2 hours as needed -change from IV 60 mg Solu-Medrol every 12 hours for severe exacerbation to Prednisone 40 mg qd on 02/16. -Continue with ceftriaxone IV daily -Monitor telemetry. -Singulair and Pulmicort UTI -Blood culture negative X 24h, urine culture pending -Antibiotics-ceftriaxone, -Monitor for urine retention, check post void residuals. In and out cath prn at home, continue. Left knee pain. Reports that initial X-ray and Doppler ultrasound were negative - Repeat Xray and checked ESR/CRP. All normal. - Dr. Lewis has consulted and CT scan will be done. - Continue steroids - Restarted meloxicam Hypertension. Losartan and hydrochlorothiazide Hyperlipidemia. Lipitor. CAD. Aspirin, Lipitor GERD. Protonix Overreactive bladder. Oxybutynin. In and out cath prn at home, continue. Enoxaparin for DVT prevention Exam Vital Signs (past 8 hours): - 02/16/25 03:00 Temperature 98.2 F Pulse Rate 86 Respiratory Rate 22 Blood Pressure 123/71 Pulse Oximetry 90 L Oxygen Flow Rate 3 Fraction of Inspired Oxygen 32 SaO2/FiO2 Ratio 281 Oxygen Delivery Method Nasal Cannula Oxygen Flow Rate 3 Narrative Exam Narrative: Alert and oriented x3. Appears to be in moderate distress from left knee pain. Heart is regular rate and rhythm without murmur Lungs have diminished breath sounds bilaterally. No swelling or tenderness of the left knee. No redness. No ankle edema. Objective Labs 02/14/25 23:55 02/16/25 06:42 Labs: Laboratory Results - last 24 hr 02/15/25 02/15/25 02/16/25 08:25 19:14 06:42 ESR 5 Sodium 137 133 L Potassium 4.3 4.4 Chloride 99 101 Carbon Dioxide 28 26 BUN 24 H 26 H Creatinine 0.82 0.79 Estimated GFR > 60 > 60 BUN/Creatinine Ratio 29.3 H 32.9 H Glucose 156 H 129 H Calcium 8.9 8.9 Magnesium 1.9 2.1 C-Reactive Protein 1.3 H [facility] Medical History (Updated 02/16/25 @ 13:47 by Sho Lewis DO) Hypoxia Nicotine dependence BPH (benign prostatic hyperplasia) Current every day smoker COPD (chronic obstructive pulmonary disease) HLD (hyperlipidemia) HTN (hypertension) GERD (gastroesophageal reflux disease) 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 Quality VTE Deep Vein Thrombosis/Pulmonary Embolism Present on Admission: No
[2025-02-16] MEDS: ALBUTEROL/IPRATROPIUM 3 ML AMPUL INH ×3 (09:17→20:19)
[2025-02-16] MEDS: ALBUTEROL 2.5 MG/3 ML NEB (ADULT) INH (09:17)
[2025-02-16] MEDS: BUDESONIDE 0.5 MG/2 ML NEB INH ×2 (09:18→20:19)
[2025-02-16] MEDS: ENOXAPARIN 40 MG/0.4 ML SYRINGE SUBCUT (09:28)
[2025-02-16] MEDS: SENNOSIDES 8.6 MG TABLET 17.2 MG PO (09:28)
[2025-02-16] MEDS: DOCUSATE 100 MG CAPSULE PO ×2 (09:29→20:38)
[2025-02-16] MEDS: oxyBUTYnin ER 5 MG TABLET 10 MG PO (09:29)
[2025-02-16] MEDS: LOSARTAN 50 MG TABLET PO (09:29)
[2025-02-16] MEDS: POTASSIUM CHLORIDE 10 MEQ TAB PO (09:29)
[2025-02-16] MEDS: MONTELUKAST 10 MG TABLET PO (09:31)
--- NOTE | 2025-02-16 11:50 | CM.DPC ---
Addendum entered by DIPIKA Steele 02/16/25 15:25: ADD: Per Ariana at [facility], reviewed and they can accept pt when stable for discharge. BF Original Note: DCP SNF Planning: Per MD, pt improving some today but not yet medically stable to discharge and in agreement with SNF at d/c. Per PT, pt 2PA and recommending SNF. SW met bedside with pt and explained role and pt confirms he is in agreement with SNF and preference remains [facility] and SW discussed process of sending referral to confirm they can accept and the Medicare coverage for SNF and transport via w/c van and pt very appreciative. Pt hopeful to d/c on the morphine for his air hunger/discomfort and will discuss with . SW made [facility] referral via secure email and pt Medicare eligible to d/c on 02/18/25. PASRR done. Plan: SW to follow for [facility] review to confirm if they can accept for plan of SNF at d/c before home alone. DIPIKA Steele
--- NOTE | 2025-02-16 13:44 | PM.HP.IH.1 ---
History of Present Illness History of Present Illness Date Patient Seen: 02/16/25 Chief complaint: gen weakness Narrative: 84-year-old male admitted to internal medicine service. The patient states that he has had approximately 3 weeks of left knee pain. He denies any mechanism of injury. He states he was getting up from a seated position when the knee pain started. He denies any falls. He states he walks without any assistive devices. He has a history of left total knee arthroplasty done 25 years ago. He denies any fevers, chills, night sweats. For the last several days he has had significant pain with ambulation or any type of movement of the knee. Physical exam reveals a well-developed well-nourished 84-year-old in no acute distress Evaluation of his left knee demonstrates he has a well-healed surgical scar. His sensation is intact to light touch distally. He has tenderness to palpation at his medial and lateral condyles. He has no quadriceps or patellar tendon tenderness to palpation. He has no joint line tenderness to palpation there is no effusion no erythema or warmth. He is stable with light valgus and varus stress on the knee. He has a stable [place] exam. X-ray obtained of his left knee demonstrate a total knee arthroplasty implant and lucency at the lateral femoral condyle not visualized in the lateral radiograph. CT scan of left knee: well seated arthroplasty components and nondisplaced transverse distal femoral fracture just proximal to femoral component. 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) GERD (gastroesophageal reflux disease) HLD (hyperlipidemia) HTN (hypertension) Hypoxia Nicotine dependence Surgical History (Updated 02/15/25 @ 17:58 by Jamie Claudio MD) H/O total knee replacement History of loop recorder (2013) Social History household members: none Smoking Status: Current some day smoker alcohol intake: current Meds Home Medications and Allergies Home Medications ?Medication ?Instructions ?Recorded ?Confirmed ?Type [ALBUTEROL NEBULIZER] 1 neb INH QDAY ##0 12/16/10 02/15/25 History albuterol sulfate 90 mcg/actuation 1 - 2 puff inhalation Q4-6H PRN 12/16/10 02/15/25 History aerosol inhaler Shortness Of Breath ##0 aspirin 81 mg tablet,delayed 81 mg PO DAILY ##0 12/16/10 02/15/25 History release simvastatin 20 mg tablet (Zocor) 20 mg PO HS ##0 12/16/10 02/15/25 History hydrochlorothiazide 25 mg tablet 25 mg PO DAILY 12/14/19 02/15/25 History mirabegron 25 mg tablet,extended 50 mg PO DAILY 12/14/19 02/15/25 History release 24 hr (Myrbetriq) telmisartan 40 mg tablet (Micardis) 40 mg PO DAILY 12/14/19 02/15/25 History esomeprazole magnesium 40 mg 40 mg PO DAILY 12/21/19 02/15/25 History capsule,delayed release (Nexium) fluticasone fur. 200 mcg-umeclid 1 inh inhalation DAILY #60 ea 11/23/24 02/15/25 Rx 62.5 mcg-vilant 25 mcg inhalat.powder (Trelegy Ellipta) magnesium oxide 400 mg (241.3 mg 400 mg PO DAILY PRN constipation 02/15/25 02/15/25 History magnesium) tablet meloxicam 15 mg tablet 15 mg PO QPM 02/15/25 02/15/25 History mirabegron 50 mg tablet,extended 50 mg PO DAILY 02/15/25 02/15/25 History release 24 hr (Myrbetriq) montelukast 10 mg tablet 10 mg PO DAILY 02/15/25 02/15/25 History potassium chloride 10 mEq 10 meq PO DAILY 02/15/25 02/15/25 History tablet,extended release Allergies Allergy/AdvReac Type Severity Reaction Status Date / Time fluticasone (From Advair AdvReac double Verified 02/14/25 23:12 Diskus) vision salmeterol (From Advair AdvReac double Verified 02/14/25 23:12 Diskus) vision Exam Vital Signs (past 8 hours): - 02/16/25 07:00 02/16/25 07:56 02/16/25 09:19 Temperature 98.1 F Pulse Rate 75 94 H Respiratory Rate 18 16 Blood Pressure 107/82 Pulse Oximetry 91 92 Oxygen Delivery Method Nasal Cannula Nasal Cannula Humidification Oxygen Flow Rate 0 4 Fraction of Inspired Oxygen 36 Fraction of Inspired Oxygen 36 SaO2/FiO2 Ratio 255 Oxygen Delivery Method Nasal Cannula,Humidification Oxygen Flow Rate 4 Objective Labs 02/14/25 23:55 02/16/25 06:42 Labs: Laboratory Results - last 24 hr 02/15/25 02/15/25 02/16/25 08:25 19:14 06:42 ESR 5 Sodium 133 L Potassium 4.4 Chloride 101 Carbon Dioxide 26 BUN 26 H Creatinine 0.79 Estimated GFR > 60 BUN/Creatinine Ratio 32.9 H Glucose 129 H Calcium 8.9 Magnesium 2.1 C-Reactive Protein 1.3 H Assessment & Plan Assessment and plan (1) Periprosthetic fracture around internal prosthetic knee joint: Status: Acute Plan 84-year-old male with left knee pain status post total knee arthroplasty that had sudden onset for after getting up from a seated position 3 weeks ago. He states it has gotten progressively worse. CT scan demonstrates a transverse distal femoral periprosthetic fracture with well seated implant. - Knee immobilizer and touch down weightbearing if too difficulty to non-weightbear with walker. - Will discuss care with my partner Dr. Barros for possible operative fixation vs. treating non-op. - DVT prophylaxis per hospitalist. - Time-Based Coding :: [TOTAL MINUTES] spent with patient and on the chart (including review of chart, obtaining history, exam, reviewing outside data, placing orders, documenting exam and treatment plan, and counseling patient) on [DATE]. Quality VTE Deep Vein Thrombosis/Pulmonary Embolism Present on Admission: No PROFEE Electrical Design Technician Document charge(s): No
--- NOTE | 2025-02-16 14:00 | PT-IP ANOTE ---
EMR reviewed and pt with possible L knee fx on x-ray. Talked to ortho Dr. Hale and stated that pt will be getting a CT scan and to hold PT pending CT scan result and ortho to advise interventions, precautions and weight bearing afterwards.
[2025-02-16] MEDS: MELOXICAM 7.5 MG TABLET 15 MG PO (16:23)
--- NOTE | 2025-02-16 17:55 | PT.IPTN ---
Current Diagnoses Chronic obstructive pulmonary disease with (acute) exacerbation (02/15/25) Periprosthetic fracture around other internal prosthetic joint, initial encounter (02/15/25) Presence of unspecified artificial knee joint (02/15/25) Physical Therapy Treatment Note M2 PT-IP Current Condition Start: 02/15/25 17:27 Freq: NEEDED Status: Active Protocol: Document 02/15/25 15:00 AB (Rec: 02/15/25 17:46 AB [id number]) Physical Therapy Current Condition Current Condition Evaluation Date 02/15/25 Treatment Diagnosis COPD exacerbation; difficulty in walking Onset Date 02/15/25 M3 PT-IP Subjective Start: 02/15/25 17:27 Freq: NEEDED Status: Active Protocol: Document 02/16/25 17:55 AB (Rec: 02/16/25 18:24 AB Desktop) Subjective Physical Therapy Visit Type Type Treatment Note Visit Start Time 17:55 Visit Stop Time 18:15 Number of BLOWER AND COMPRESSOR ASSEMBLER Visits 0 M4 PT-IP Mobility and Gait Start: 02/15/25 17:27 Freq: NEEDED Status: Active Protocol: Document 02/15/25 15:00 AB (Rec: 02/15/25 17:46 AB [id number]) PT-Bed Mobility Assessment Supine to Sit Supine to Sit Maximum Assistance,1 Person Assistance,Head of Bed Elevated,Bedrails PT-Transfer Assessment Sit to and From Stand Sit to and from Maximum Assistance,1 Person Assistance,Use of Upper Stand Extremities Equipment Transfer Assistive Gait Belt,Front Wheeled Walker Device Orthotic/Prosthetic No Devices or Brace: Transfers Transfer Destination Chair Transfer Technique Stand Step Pivot Transfer Ability Level of Assist Maximum Assistance,1 Person Assistance,Use of Upper Extremities Comments Mobility Comments pt in bed and agreeable to do PT. obtained PLOF and home set up. O2 sat with 2L/min: 86-87%. nurse increase O2 to 3L/min and O2 sat increased to 88%. pt stated that he went to the hospital due to increasing L knee pain and unable to stand on L knee but pt is admitted due to COPD exacerbation. pt with h/o L TKA ~ 20-25 years ago per pt. supine to sit max A and max cues with HOB elevated. pt used bed rail to assist. able to sit on EOB CGA. sit to stand max A and cues and step transfer to chair using FWW max A and cues. pt unable to ambulated and unable to put much weight on LLE due to c/o L knee pain . pt agreed to sit up on the chair. positioned pt on the chair. call light and table placed within reach. Gait Assessment Comments Gait Comments unable at this time. PT-Balance Assessment Sitting Balance and Reactions Static Sitting Good Balance Ability Dynamic Sitting Fair Balance Ability Standing Balance and Reactions Static Standing Poor Balance Ability Dynamic Standing Poor Balance Ability Device Used FWW M5 PT-IP Objective Assessments Start: 02/15/25 17:27 Freq: NEEDED Status: Active Protocol: Document 02/15/25 15:00 AB (Rec: 02/15/25 17:46 AB [id number]) Orientation Orientation/Cognition Level of Alertness Alert Orientation Name,Place,Situation Language Function Hard of Hearing Ability Safety Awareness Decreased Safety Awareness Memory Description Short Term Impaired Gross Range of Motion Lower Extremity ROM Assessment Left Impaired Impairments L knee pain limiting movement with increase guarding when PT attempted PROM. Strength Lower Extremity Strength Assessment Left Impaired Comments Strength Comments pain limiting LLE movement and unable to assess MMT Muscle Tone Muscle Tone WNL Yes M6 PT-IP Treatment Start: 02/15/25 17:27 Freq: NEEDED Status: Active Protocol: Document 02/16/25 17:55 AB (Rec: 02/16/25 18:24 AB Desktop) Physical Therapy Treatment Education Education Provided Precautions,Weight Bearing Status,Safety Brace Education [place],Caregiver Equipment Issued Equipment Type and L knee immobilizer: Spinnaker Coating: pt signed papers Company Other Treatments Other Treatment Hospitalist informed PT that pt has L knee fx and is Performed now NWB on LLE and will need a L knee immobilizer. Pt seen for fitting and adjustment of L knee immobilizer. informed pt regarding doctor's order of knee immobilizer, precautions and NWB. pt tolerating knee immobilizer at this time. informed nurse and NAC regarding donning and positioning of knee immobilizer. M7 PT-IP Assessment and Plan Start: 02/15/25 17:27 Freq: NEEDED Status: Active Protocol: Document 02/16/25 17:55 AB (Rec: 02/16/25 18:24 AB Desktop) PT Summary Assessment and Plan Potential Rehabilitation Fair Potential Summary Impairments Pain,ROM,Strength,Balance,Coordination,Sensation,Tone, Cognition,Bed Mobility,Transfers,Gait,Activity Tolerance Assessment Summary Pt seen for knee immobilizer fitting. Dr. toribio informed PT that pt has L knee fracture and needs a knee immobilizer. provided pt with knee immobilizer and adjusted. educated nurse and NAC regarding positioning/donning of knee immobilizer. pt educated on knee precautions and NWB on LLE. pt understood. Goals Bed Mobility Goal Minimal Assistance Transfer Goal Minimal Assistance,Front Wheeled Walker Gait Goal Minimal Assistance,Front Wheel Walker Gait Distance 25 Other Goals improve bed mobility, transfers, ambulation using FWW ~ 100 ft SBA up/down 1 step using FWW SBA Days to Meet Goals 10 Frequency of Treatment Frequency Of Once a Day Treatment Treatment Plan Physical Therapy Bed Mobility Training,Transfer Training,Gait Training, Treatment Plan Therapeutic Exercise,Balance Retraining,Discharge Planning,Hot or Cold Pack,Neuromuscular Re-ed, Coordination Retraining,Manual Therapy Precautions Brace L knee immobilizer Weight Bearing Status Weight Bearing Non-Weight Bearing Status Allowed Weight LLE: NWB Bearing Amount ( enter % or #) (%) Recommendations To Nursing Amount of Assist Mechanical Lift Needed Discharge Recommendations PT Discharge SNF Rehab Recommendations Transportation Needs Wheelchair/Cabulance at Discharge - PT assist 1-2
[2025-02-16] MEDS: ATORVASTATIN 20 MG TABLET 10 MG PO (20:38)
[2025-02-17] VITALS (9 sets, daily range): BP systolic 112–145; BP diastolic 63–79; PULSE 71–104; RESP 16–20; TEMP 36.3–36.8; O2SAT 88–95; BMI 25.8
[2025-02-17] MEDS: MORPHINE 4 MG/ML INJ 3 MG IV ×4 (04:44→15:23)
[2025-02-17] MEDS: cefTRIAXone 2,000 MG in SODIUM CHLORIDE 0.9% 100 ML 200 MG IV (04:45)
[2025-02-17] MEDS: SODIUM CHLORIDE 0.9% FLUSH 10 ML IV ×3 (04:46→23:04)
[2025-02-17] MEDS: PANTOPRAZOLE DR 40 MG TABLET PO (05:03)
[2025-02-17 07:32] LABS: Blood Urea Nitrogen 27 mg/dL (9-20); Calcium 9.1 mg/dL (8.4-10.2); Carbon Dioxide 27 mmol/L (22-32); Chloride 99 mmol/L (98-107); Estimated Glomerular Filt Rate > 60 mL/min (>60); Glucose 99 mg/dL (70-99); HEMOLYSIS < 15 (0-50); Magnesium 2.0 mg/dL (1.6-2.3); Potassium 4.3 mmol/L (3.4-5.1); Sodium 134 mmol/L (137-145)
[2025-02-17] MEDS: BUDESONIDE 0.5 MG/2 ML NEB INH ×2 (07:52→18:36)
[2025-02-17] MEDS: ALBUTEROL/IPRATROPIUM 3 ML AMPUL INH ×3 (07:52→18:36)
--- NOTE | 2025-02-17 09:02 | PM.PN.1 ---
Subjective Subjective Date Patient Seen: 02/17/25 Time Patient Seen: 09:02 Interval history: This is an 84 year old male with a history of hypertension, CAD, GERD, overactive bladder and COPD who presented to the ED with generalized weakness, increased shortness of breath on exertion and left knee pain getting progressively worse in the last several days. He has no fever, cough, chest pain, palpitations, nausea, vomiting, diarrhea or dysuria. He says that he had x-ray of the left knee [address] [facility] ED which was negative. His left knee replacement was 25 years ago. It is now difficult to ambulate. He also reports some lower extremities edema. Outpatient ultrasound was reportedly negative for DVT. Laboratory shows WBC 9.6, H&H 13.7 and 42.5, sodium 134, potassium 3.5, creatinine 0.82, blood sugar 82, troponin 0.0 12, respiratory viral panel negative, UA consistent for UTI. Chest x-ray unremarkable, EKG normal sinus rhythm of 80. In the ER he was found to have hypoxia on exertion with oxygen saturation of 87% on room air. He is now on IV Solu-Medrol, albuterol, Atrovent ceftriaxone IV and Dilaudid. 02/16/2025: Sodium 133, creatinine 0.79, CRP 1.3, ESR 5, magnesium 2.1, blood cultures for 24 hours negative x2, urine culture pending. He continues to experience severe left knee pain, avoiding weight-bearing. X-rays reviewed and it is normal with the prosthesis intact. Consulted with Orthopedics and discussed with Dr. Lewis. CT of the knee will be added. 02/17/2025: The knee CT showed a nondisplaced fracture of the distal left femur periprosthetic. Space-occupying lesion such as infection or neoplasm not ruled out. Orthopedics is evaluating options. Immobilization knee brace has not been tolerated well. It seems to increase his pain. His breathing is slowly improving. The urine culture grew Staph epidermidis which is likely a contaminant. The UA will be repeated to be sure. We will be stopping the ceftriaxone today. Meds Home Medications and Allergies Home Medications ?Medication ?Instructions ?Recorded ?Confirmed ?Type [ALBUTEROL NEBULIZER] 1 neb INH QDAY ##0 12/16/10 02/15/25 History albuterol sulfate 90 mcg/actuation 1 - 2 puff inhalation Q4-6H PRN 12/16/10 02/15/25 History aerosol inhaler Shortness Of Breath ##0 aspirin 81 mg tablet,delayed 81 mg PO DAILY ##0 12/16/10 02/15/25 History release simvastatin 20 mg tablet (Zocor) 20 mg PO HS ##0 12/16/10 02/15/25 History hydrochlorothiazide 25 mg tablet 25 mg PO DAILY 12/14/19 02/15/25 History mirabegron 25 mg tablet,extended 50 mg PO DAILY 12/14/19 02/15/25 History release 24 hr (Myrbetriq) telmisartan 40 mg tablet (Micardis) 40 mg PO DAILY 12/14/19 02/15/25 History esomeprazole magnesium 40 mg 40 mg PO DAILY 12/21/19 02/15/25 History capsule,delayed release (Nexium) fluticasone fur. 200 mcg-umeclid 1 inh inhalation DAILY #60 ea 11/23/24 02/15/25 Rx 62.5 mcg-vilant 25 mcg inhalat.powder (Trelegy Ellipta) magnesium oxide 400 mg (241.3 mg 400 mg PO DAILY PRN constipation 02/15/25 02/15/25 History magnesium) tablet meloxicam 15 mg tablet 15 mg PO QPM 02/15/25 02/15/25 History mirabegron 50 mg tablet,extended 50 mg PO DAILY 02/15/25 02/15/25 History release 24 hr (Myrbetriq) montelukast 10 mg tablet 10 mg PO DAILY 02/15/25 02/15/25 History potassium chloride 10 mEq 10 meq PO DAILY 02/15/25 02/15/25 History tablet,extended release Acute respiratory failure with hypoxia COPD exacerbation. -Oxygen titration goal of 88-92%, avoid excess oxygen to prevent carbon dioxide retention, Monitor mental status. -Albuterol 2.5 mg nebulizer Q Hour prn 4 to 6 hours -DuoNeb every 4 hours scheduled and every 2 hours as needed -change from IV 60 mg Solu-Medrol every 12 hours for severe exacerbation to Prednisone 40 mg qd on 02/16. -stopped ceftriaxone on 02/17. -Monitor telemetry. -Singulair and Pulmicort POSSIBLE UTI -Blood culture negative X 24h, urine culture Staph Epidermidis, likely contaminant. Repeat UA 02/17. -Antibiotics-ceftriaxone, stopped on 02/17. -Monitor for urine retention, check post void residuals. In and out cath prn at home, continue. Left knee periprosthetic nondisplaced femur fracture. -outpatient initial X-ray and Doppler ultrasound were negative - Repeated Xray and checked ESR/CRP. All normal. - Dr. Lewis has consulted and recommended CT scan -CT scan shows periprosthetic nondisplaced femur fracture, can not rule out space-occupying lesion such as neoplasm or infection. -knee immobilizer -next step orthopedic recommendations pending. - Restarted meloxicam Hypertension. Losartan and hydrochlorothiazide Hyperlipidemia. Lipitor. CAD. Aspirin, Lipitor GERD. Protonix Overreactive bladder. Oxybutynin. In and out cath prn at home, continue. Enoxaparin for DVT prevention Exam Vital Signs (past 8 hours): - 02/17/25 04:00 02/17/25 08:00 02/17/25 08:24 Temperature 97.5 F L 97.4 F L Pulse Rate 71 104 H 90 Respiratory Rate 17 16 16 Blood Pressure 122/63 138/69 Pulse Oximetry 91 89 L 92 Oxygen Delivery Method Nasal Cannula Oxygen Flow Rate 2 2 2 Fraction of Inspired Oxygen 28 Fraction of Inspired Oxygen 28 SaO2/FiO2 Ratio 328 Oxygen Delivery Method Nasal Cannula Oxygen Flow Rate 2 Narrative Exam Narrative: Alert and oriented x3. No apparent distress. Heart is regular rate and rhythm without murmur. Lungs are clear to auscultation bilaterally. Extremities have no ankle edema. The left knee is not significantly tender in any particular location. There is no knee swelling or redness. The knee brace is not fully intact/wrapped while lying in bed. 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 Quality VTE Deep Vein Thrombosis/Pulmonary Embolism Present on Admission: No
[2025-02-17] MEDS: ENOXAPARIN 40 MG/0.4 ML SYRINGE SUBCUT (09:31)
[2025-02-17] MEDS: SENNOSIDES 8.6 MG TABLET 17.2 MG PO (09:31)
[2025-02-17] MEDS: oxyBUTYnin ER 5 MG TABLET 10 MG PO (09:31)
[2025-02-17] MEDS: MONTELUKAST 10 MG TABLET PO (09:31)
[2025-02-17] MEDS: LOSARTAN 50 MG TABLET PO (09:31)
[2025-02-17] MEDS: POTASSIUM CHLORIDE 10 MEQ TAB PO (09:31)
[2025-02-17] MEDS: DOCUSATE 100 MG CAPSULE PO ×2 (09:31→20:52)
--- NOTE | 2025-02-17 11:38 | PT-IP ANOTE ---
Pt refused PT due to pain. Will attempt later today.
[2025-02-17 12:35] LABS: Appearance Urine UA CLEAR; Bilirubin Urine UA NEGATIVE (NEGATIVE); Color Urine UA YELLOW; Glucose Urine UA NEGATIVE (Negative); Ketones Urine UA NEGATIVE (NEGATIVE); Leukocyte Esterase Urine UA NEGATIVE (NEGATIVE); Nitrite Urine UA NEGATIVE (Negative); Occult Blood Urine UA NEGATIVE (Negative); Protein Urine UA NEGATIVE (Negative); Specific Gravity Urine UA 1.020 (1.000-1.035); Urobilinogen Urine UA 0.2 E.U./dL (0.2); pH Urine UA 6.0 (4.5-8.0)
[2025-02-17 12:41] LABS: Culture Indicated Urine Cult Not Indicated
--- NOTE | 2025-02-17 13:09 | P.PN_ITS ---
Subjective Subjective Date Patient Seen: 02/17/25 Interval history: 84-year-old male admitted to internal medicine service. The patient states that he has had approximately 3 weeks of left knee pain. He denies any mechanism of injury. He states he was getting up from a seated position when the knee pain started. He denies any falls. He states he walks without any assistive devices. He has a history of left total knee arthroplasty done 25 years ago. He denies any fevers, chills, night sweats. For the last several days he has had significant pain with ambulation or any type of movement of the knee. 02/17/2025: He has been using the immobilizer but states it is uncomfortable. Physical exam reveals a well-developed well-nourished 84-year-old in no acute distress Evaluation of his left knee demonstrates he has a well-healed surgical scar. His sensation is intact to light touch distally. He has tenderness to palpation at his medial and lateral condyles. He has no quadriceps or patellar tendon tenderness to palpation. He has no joint line tenderness to palpation there is no effusion no erythema or warmth. X-ray obtained of his left knee demonstrate a total knee arthroplasty implant and lucency at the lateral femoral condyle not visualized in the lateral radiograph. CT scan of left knee: well seated arthroplasty components and nondisplaced transverse distal femoral fracture just proximal to femoral component. Exam Vital Signs (past 8 hours): - 02/17/25 08:00 02/17/25 08:24 02/17/25 12:00 Temperature 97.4 F L 98.2 F Pulse Rate 104 H 90 85 Respiratory Rate 16 16 20 Blood Pressure 138/69 145/75 H Pulse Oximetry 89 L 92 89 L Oxygen Delivery Method Nasal Cannula Oxygen Flow Rate 2 2 2 Fraction of Inspired Oxygen 28 Fraction of Inspired Oxygen 28 SaO2/FiO2 Ratio 328 Oxygen Delivery Method Nasal Cannula Oxygen Flow Rate 2 Objective Labs 02/14/25 23:55 02/17/25 07:10 Labs: Laboratory Results - last 24 hr 02/17/25 02/17/25 07:10 11:30 Sodium 134 L Potassium 4.3 Chloride 99 Carbon Dioxide 27 BUN 27 H Creatinine 0.85 Estimated GFR > 60 BUN/Creatinine Ratio 31.8 H Glucose 99 Calcium 9.1 Magnesium 2.0 Urine Color Yellow Urine Appearance Clear Urine pH 6.0 Ur Specific [place] 1.020 Urine Protein Negative Urine Glucose (UA) Negative Urine Ketones Negative Urine Occult Blood Negative Urine Nitrate Negative Urine Bilirubin Negative Urine Urobilinogen 0.2 Ur Leukocyte Esterase Negative Urine RBC None seen Urine WBC 0-1/hpf Ur Squamous Epith Cells 0-1 /hpf Urine Bacteria Occasional (0-1) D Ur Culture Indicated? 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 - Knee immobilizer and touch down weightbearing if too difficulty to non- weightbear with walker. - Will continue to treat non-operatively with immobilizer and walker. - Will follow closely as an outpatient to ensure the fracture does not displace and heals appropriately. - DVT prophylaxis per hospitalist. - Time-Based Coding :: [TOTAL MINUTES] spent with patient and on the chart (including review of chart, obtaining history, exam, reviewing outside data, placing orders, documenting exam and treatment plan, and counseling patient) on [DATE]. Quality VTE Deep Vein Thrombosis/Pulmonary Embolism Present on Admission: No [facility] [employer]pensing [employer] Measuring Optician Document charge(s): No
--- NOTE | 2025-02-17 13:17 | CM.DPNOTE ---
DCP Note SUPPORT STAFF reviewed EMR. per provider in morning rounds, pending ortho rec. Dr. Lewis wants to consult Dr. Pelletier prior to making final recommendations. as of 1319, no note in from ortho for the plan at this time SUPPORT STAFF emailed Ariana at [facility] with updates. P: pending medical POC, dc to [facility] when stable. CM team will continue to follow closely for DCP coordination DIPIKA Summers
--- NOTE | 2025-02-17 13:38 | PT.IPTN ---
Current Diagnoses Chronic obstructive pulmonary disease with (acute) exacerbation (02/15/25) Periprosthetic fracture around other internal prosthetic joint, initial encounter (02/15/25) Presence of unspecified artificial knee joint (02/15/25) Physical Therapy Treatment Note M2 PT-IP Current Condition Start: 02/15/25 17:27 Freq: NEEDED Status: Active Protocol: Document 02/15/25 15:00 AB (Rec: 02/15/25 17:46 AB [id number]) Physical Therapy Current Condition Current Condition Evaluation Date 02/15/25 Treatment Diagnosis COPD exacerbation; difficulty in walking Onset Date 02/15/25 M3 PT-IP Subjective Start: 02/15/25 17:27 Freq: NEEDED Status: Active Protocol: Document 02/17/25 13:34 KJ (Rec: 02/17/25 13:38 KJ Desktop) Subjective Physical Therapy Visit Type Type Treatment Note Visit Start Time 13:04 Visit Stop Time 13:31 Physical Therapy Visit Comments Patient Comments pain in L knee Therapy Pain Assessment Pain When Pain Assessed During Mobility Pain Present Pain Present Pain Reported Location Left Knee Pain Behaviors Facial Grimacing,Guarding,Holding Area Pain Management Elevation Techniques M4 PT-IP Mobility and Gait Start: 02/15/25 17:27 Freq: NEEDED Status: Active Protocol: Document 02/17/25 13:34 KJ (Rec: 02/17/25 13:38 KJ Desktop) PT-Bed Mobility Assessment Rolling Type of Rolling Roll to Left Level of Assist Minimal Assistance Supine to Sit Supine to Sit Minimal Assistance Sit to Supine Sit to Supine Minimal Assistance PT-Transfer Assessment Sit to and From Stand Sit to and from Moderate Assistance Stand Equipment Transfer Assistive Gait Belt,Front Wheeled Walker Device Orthotic/Prosthetic Yes Devices or Brace: Transfers Transfer Destination Chair Transfer Technique Stand Step Pivot Transfer Ability Level of Assist Minimal Assistance Comments Mobility Comments Difficulty maintaining NWB - instead TTWB as allowed Gait Assessment Comments Gait Comments Unable to ambulate at this time due to pain in L knee and NWB status PT-Balance Assessment Sitting Balance and Reactions Dynamic Sitting Fair Balance Ability Standing Balance and Reactions Static Standing Fair Balance Ability Dynamic Standing Fair Balance Ability M5 PT-IP Objective Assessments Start: 02/15/25 17:27 Freq: NEEDED Status: Active Protocol: Document 02/17/25 13:34 KJ (Rec: 02/17/25 13:38 KJ Desktop) Orientation Orientation/Cognition Level of Alertness Alert M6 PT-IP Treatment Start: 02/15/25 17:27 Freq: NEEDED Status: Active Protocol: Document 02/17/25 13:34 KJ (Rec: 02/17/25 13:38 KJ Desktop) Physical Therapy Treatment Exercises Exercises Ankle Pumps,Gluteal Sets Other Treatments Other Treatment Instructed in pured lip breathing Performed M7 PT-IP Assessment and Plan Start: 02/15/25 17:27 Freq: NEEDED Status: Active Protocol: Document 02/17/25 13:34 KJ (Rec: 02/17/25 13:38 KJ Desktop) PT Summary Assessment and Plan Potential Rehabilitation Good Potential Status of Condition Evolving at Evaluation Summary Impairments Pain,Bed Mobility,Transfers,Gait Progress Towards Slow Progress due to Pain Goals Treatment Plan Other Continue to work on transfers Recommendations and Next Treatment Focus Weight Bearing Status Weight Bearing Non-Weight Bearing Status Allowed Weight Permitted to touch down if unable to maintain nwb Bearing Amount ( enter % or #) (%) Recommendations To Nursing Amount of Assist 2 Person Assist Needed Discharge Recommendations PT Discharge SNF Rehab Recommendations
[2025-02-17] MEDS: MELOXICAM 7.5 MG TABLET 15 MG PO (17:10)
[2025-02-17] MEDS: ATORVASTATIN 20 MG TABLET 10 MG PO (20:52)
[2025-02-17] MEDS: ONDANSETRON 4 MG/2 ML INJ IV (20:52)
--- NOTE | 2025-02-17 21:02 | PC.NURSE ---
medicated patient for n/v with IV medication, see MAR for details. Patient waited to take PO meds, but immediately vomited after PO meds were given.
--- NOTE | 2025-02-17 21:50 | DI.RAD.S_ITS ---
PROCEDURE: XR ABDOMEN 1V INDICATIONS: after NGT placement TECHNIQUE: One view of the abdomen acquired. COMPARISON: None. FINDINGS: Surgical changes and devices: NG tube tip is below the left hemidiaphragm and is in the expected location of stomach lumen. Vascular graft is seen. Lead less pacer is also noted. Bowel: Bowel gas pattern is nonspecific for obstruction. No gross peritoneal free air. Soft tissues: No suspicious abdominal calcifications. Visualized solid organ contours appear normal in size. Bones: No suspicious bony lesions. IMPRESSION: NG tube tip is in the stomach lumen. Nonspecific bowel gas pattern for obstruction. No gross pneumoperitoneum. Dictated by: Moises Mesa M.D. on 02/17/2025 at 23:03 Approved by: Moises Mesa M.D. on 02/17/2025 at 23:04
[2025-02-17] MEDS: LACTATED RINGERS 1,000 ML 100 ML IV (22:30)
--- NOTE | 2025-02-17 22:58 | PC.NURSE ---
Addendum entered by Polly Gonzalez RN 02/18/25 07:14: Patient had large BM this morning and states he is feeling much better. 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 Tachycardic in 90s-100s, BP soft (documented VS). Abdomen is soft & distended, absent bowel tones. Patient unsure if he has been passing gas. Reports last BM about a week ago. Notifed MD Gar, NGT ordered and placed. IVF infusing. Patient verbalized understanding of plan of care.
[2025-02-18] VITALS (8 sets, daily range): BP systolic 111–135; BP diastolic 58–72; PULSE 74–92; RESP 13–24; TEMP 36.1–36.9; O2SAT 88–93
--- NOTE | 2025-02-18 | DI.RAD.S_ITS ---
PROCEDURE: XR GASTROGRAFIN CHALLENGE COMPARISON: None. INDICATIONS: SBO Technique: abdominal radiographs were performed at 90 minutes and 4 hours post administration of oral intraluminal contrast. FINDINGS: On 90 minutes post administration films, there is contrast tracking into the tubular esophagus with a subdiaphragmatic enteric tube. Contrast opacifies the small bowel without visualized contrast in the large. Bowel. There is excreted contrast in the urinary bladder. Changes of endovascular stenting of the aorta to iliac vessels. Changes of percutaneous screw fixation of the left proximal femur. On 4 hour post administration films, contrast opacifies the large bowel in the right hemiabdomen. IMPRESSION: Transit of intraluminal contrast to the large bowel seen on 4 hour post administration films.. Dictated by: Marino Anaya M.D. on 02/18/2025 at 17:24 Approved by: Marino Anaya M.D. on 02/18/2025 at 17:27
[2025-02-18 06:46] LABS: Add Manual Diff / Slide Review NO; Hematocrit 44.1 % (41-53); Hemoglobin 14.3 g/dL (13.5-17.5); Lymphocytes Absolute Auto 300 /uL (1100-4500); Mean Corpuscular HGB Conc 32.5 % (30-36); Mean Corpuscular Hemoglobin 27.8 PG (26-34); Mean Corpuscular Volume 85.5 fL (80-100); Platelet Count 289 X10^3/uL (150-400)
[2025-02-18 06:59] LABS: Alanine Aminotransferase 49 IU/L (<50); Albumin 3.9 g/dL (3.5-5.0); Albumin Globulin Ratio 1.4 (1.0-2.8); Alkaline Phosphatase 75 U/L (38-126); Blood Urea Nitrogen 38 mg/dL (9-20); Calcium 8.6 mg/dL (8.4-10.2); Carbon Dioxide 24 mmol/L (22-32); Chloride 101 mmol/L (98-107); Estimated Glomerular Filt Rate > 60 mL/min (>60); Globulin 2.8 g/dL (1.7-4.1); Glucose 102 mg/dL (70-99); HEMOLYSIS < 15 (0-50); Potassium 4.3 mmol/L (3.4-5.1); Sodium 135 mmol/L (137-145); Total Protein 6.7 g/dL (6.3-8.2)
--- NOTE | 2025-02-18 07:56 | DI.RAD.S_ITS ---
PROCEDURE: XR KNEE LT 1TO2V INDICATIONS: Monitoring TECHNIQUE: 2 view(s) of the knee acquired. COMPARISON: [facility], CR, XR KNEE LT 1TO2V, 02/15/2025, 18:01. FINDINGS: Unchanged alignment appear prosthetic distal femur fracture in patient with total knee arthroplasty. Lucency in the distal femur possibly representing lytic lesion previously noted on CT is also unchanged. Osseous demineralization. Atherosclerosis. No dislocation. IMPRESSION: As above. Dictated by: Jim Ford M.D. on 02/18/2025 at 8:20 Approved by: Jim Ford M.D. on 02/18/2025 at 8:26
--- NOTE | 2025-02-18 08:03 | P.PN_ITS ---
Subjective Subjective Date Patient Seen: 02/18/25 Interval history: This is an 84 year old male with a history of hypertension, CAD, GERD, overactive bladder and COPD who presented to the ED with generalized weakness, increased shortness of breath on exertion and left knee pain getting progressively worse in the last several days. He has no fever, cough, chest pain, palpitations, nausea, vomiting, diarrhea or dysuria. He says that he had x-ray of the left knee 1 week ago at [facility] ED which was negative. His left knee replacement was 25 years ago. It is now difficult to ambulate. He also reports some lower extremities edema. Outpatient ultrasound was reportedly negative for DVT. Laboratory shows WBC 9.6, H&H 13.7 and 42.5, sodium 134, potassium 3.5, creatinine 0.82, blood sugar 82, troponin 0.0 12, respiratory viral panel negative, UA consistent for UTI. Chest x-ray unremarkable, EKG normal sinus rhythm of 80. In the ER he was found to have hypoxia on exertion with oxygen saturation of 87% on room air. He is now on IV Solu-Medrol, albuterol, Atrovent ceftriaxone IV and Dilaudid. 02/16/2025: Sodium 133, creatinine 0.79, CRP 1.3, ESR 5, magnesium 2.1, blood cultures for 24 hours negative x2, urine culture pending. He continues to experience severe left knee pain, avoiding weight-bearing. X-rays reviewed and it is normal with the prosthesis intact. Consulted with Orthopedics and discussed with Dr. Lewis. CT of the knee will be added. 02/17/2025: The knee CT showed a nondisplaced fracture of the distal left femur periprosthetic. Space-occupying lesion such as infection or neoplasm not ruled out. Orthopedics is evaluating options. Immobilization knee brace has not been tolerated well. It seems to increase his pain. His breathing is slowly improving. The urine culture grew Staph epidermidis which is likely a contaminant. The UA will be repeated to be sure. We will be stopping the ceftriaxone today. 02/18/2025: Sometime overnight the patient began vomiting, apparently repeatedly, and received an NG tube which appears to be withdrawing normal- appearing gastric contents. He says this occurred around midnight but the nurse this morning received report that it was around 5:[address] scan was done showing a possible gastric ulcer along with small bowel ileus and a right basilar aspiration pneumonia. General surgery was consulted and is following with current plans not including any emergent endoscopy need. He is already on pantoprazole IV. IV Unasyn was started. The white count is only 11.1 and hemoglobin is 14.3. The metabolic panel is normal. He remains on oxygen by nasal cannula between 2 and 4 L. Meds Home Medications and Allergies Home Medications ?Medication ?Instructions ?Recorded ?Confirmed ?Type [ALBUTEROL NEBULIZER] 1 neb INH QDAY ##0 12/16/10 02/15/25 His tory albuterol sulfate 90 mcg/actuation 1 - 2 puff inhalation Q4-6H PRN 12/16/10 02/15/25 History aerosol inhaler Shortness Of Breath ##0 aspirin 81 mg tablet,delayed 81 mg PO DAILY ##0 12/16/10 02/15/25 His tory release simvastatin 20 mg tablet (Zocor) 20 mg PO HS ##0 12/16/10 02/15/25 Histor y hydrochlorothiazide 25 mg tablet 25 mg PO DAILY 12/14/19 02/15/25 History mirabegron 25 mg tablet,extended 50 mg PO DAILY 12/14/19 02/15/25 History release 24 hr (Myrbetriq) telmisartan 40 mg tablet (Micardis) 40 mg PO DAILY 12/14/19 02/15/25 History esomeprazole magnesium 40 mg 40 mg PO DAILY 12/21/19 02/15/25 History capsule,delayed release (Nexium) fluticasone fur. 200 mcg-umeclid 1 inh inhalation DAILY #60 ea 11/23/24 0 02/15/25 Rx 62.5 mcg-vilant 25 mcg inhalat.powder (Trelegy Ellipta) magnesium oxide 400 mg (241.3 mg 400 mg PO DAILY PRN constipation 5 02/15/25 History magnesium) tablet meloxicam 15 mg tablet 15 mg PO QPM 02/15/25 02/15/25 History mirabegron 50 mg tablet,extended 50 mg PO DAILY 02/15/25 02/15/25 History release 24 hr (Myrbetriq) montelukast 10 mg tablet 10 mg PO DAILY 02/15/25 02/15/25 History potassium chloride 10 mEq 10 meq PO DAILY 02/15/25 02/15/25 Histor y tablet,extended release Acute respiratory failure with hypoxia COPD exacerbation. -Oxygen titration goal of 88-92%, avoid excess oxygen to prevent carbon dioxide retention, Monitor mental status. -Albuterol 2.5 mg nebulizer Q Hour prn 4 to 6 hours -DuoNeb every 4 hours scheduled and every 2 hours as needed -change from IV 60 mg Solu-Medrol every 12 hours for severe exacerbation to Prednisone 40 mg qd on 02/16. Changed back to Solu-Medrol on 02/18 after vomiting/NG tube placed. -stopped ceftriaxone on 02/17. -Monitor telemetry. -Singulair and Pulmicort POSSIBLE UTI -Blood culture negative X 24h, urine culture Staph Epidermidis, likely contaminant. Repeat UA 02/17 was normal. -Antibiotics-ceftriaxone, stopped on 02/17. -Monitor for urine retention, check post void residuals. In and out cath prn at home, continue. Aspiration pneumonia, not present on admission. Active. -apparently aspirated into the right lung during repeated vomiting on 02/18 -Unasyn IV initiated. Acute vomiting and abdominal ileus. Not present on admission. Active. -patient states that he was vomiting all night and that is why he has a NG tube in the left nostril. Passed on in report from the nurse was that this occurred around 5:00 a.m.. -NG tube present with normal appearing gastric contents -abdominal pelvic CT done showing possible gastric antral ulcer, small bowel ileus, aspiration pneumonia -general surgery consult -already on pantoprazole IV. The meloxicam will be stopped. Left knee periprosthetic nondisplaced femur fracture. -outpatient initial X-ray and Doppler ultrasound were negative - Repeated Xray and checked ESR/CRP. All normal. - Dr. Lewis consulted and recommended CT scan -CT scan showed a periprosthetic nondisplaced femur fracture, cannot rule out space-occupying lesion such as neoplasm or infection. -knee immobilizer and follow up with ortho was the final recommendation - Restarted meloxicam Hypertension. Losartan and hydrochlorothiazide Hyperlipidemia. Lipitor. CAD. Aspirin, Lipitor GERD. Protonix Overreactive bladder. Oxybutynin. In and out cath prn at home, continue. Disposition: Patient has been accepted at the [facility] in [place]. Enoxaparin for DVT prevention Exam Vital Signs (past 8 hours): - 02/18/25 03:00 02/18/25 07:50 Temperature 96.9 F L Pulse Rate 90 Respiratory Rate 18 Blood Pressure 128/72 Pulse Oximetry 93 88 L Oxygen Delivery Method Nasal Cannula Oxygen Flow Rate 2 2 Fraction of Inspired Oxygen 28 Fraction of Inspired Oxygen 28 SaO2/FiO2 Ratio 314 Oxygen Delivery Method Nasal Cannula Oxygen Flow Rate 2 Objective Labs 02/18/25 06:25 02/18/25 06:25 Labs: Laboratory Results - last 24 hr 02/17/25 02/18/25 11:30 06:25 WBC 11.1 H RBC 5.15 Hgb 14.3 Hct 44.1 MCV 85.5 MCH 27.8 MCHC 32.5 RDW 18.0 H Plt Count 289 Neut % (Auto) 87.1 H Lymph % (Auto) 2.6 L [place] % (Auto) 9.9 Eos % (Auto) 0.2 L Baso % (Auto) 0.2 Neut # (Auto) 9600 H Lymph # (Auto) 300 L [place] # (Auto) 1100 H Eos # (Auto) 0 Baso # (Auto) 0 Sodium 135 L Potassium 4.3 Chloride 101 Carbon Dioxide 24 BUN 38 H Creatinine 1.06 Estimated GFR > 60 BUN/Creatinine Ratio 35.8 H Glucose 102 H Calcium 8.6 Total Bilirubin 0.8 AST 56 ALT 49 Alkaline Phosphatase 75 Total Protein 6.7 Albumin 3.9 Globulin 2.8 Albumin/Globulin Ratio 1.4 Urine Color Yellow Urine Appearance Clear Urine pH 6.0 Ur Specific [place] 1.020 Urine Protein Negative Urine Glucose (UA) Negative Urine Ketones Negative Urine Occult Blood Negative Urine Nitrate Negative Urine Bilirubin Negative Urine Urobilinogen 0.2 Ur Leukocyte Esterase Negative Urine RBC None seen Urine WBC 0-1/hpf Ur Squamous Epith Cells 0-1 /hpf Urine Bacteria Occasional (0-1) D Ur Culture Indicated? 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 Quality VTE Deep Vein Thrombosis/Pulmonary Embolism Present on Admission: No
[2025-02-18] MEDS: LACTATED RINGERS 1,000 ML 100 ML IV ×2 (08:29→19:25)
[2025-02-18] MEDS: ENOXAPARIN 40 MG/0.4 ML SYRINGE SUBCUT (08:30)
[2025-02-18] MEDS: PANTOPRAZOLE 40 MG VIAL IV (08:31)
--- NOTE | 2025-02-18 08:32 | DI.CT.S_ITS ---
PROCEDURE: CT ABDOMEN PELVIS W CON INDICATIONS: SBO TECHNIQUE: After the administration of intravenous contrast, axial sections acquired from the lung bases to the pubic symphysis. Coronal and sagittal reformats were performed. For radiation dose reduction, the following was used: automated exposure control, adjustment of mA and/or kV according to patient size. COMPARISON: None. FINDINGS: Image quality: Diagnostic. Lower Chest: Severe emphysematous changes. Consolidation in the right lower lobe, new from prior. Coronary calcification. ABDOMEN: Liver: Subcentimeter hypoattenuating lesion in the right lobe of the liver, unchanged. Gallbladder: Layering gallstones. No wall thickening or pericholecystic fluid. Biliary ducts: No biliary dilation. Pancreas: No ductal dilation. Spleen: Size is within normal limits. Adrenal Glands: No left adrenal nodule. Subcentimeter right adrenal nodule which does not require follow-up per consensus guidelines. Kidneys and Ureters: No hydronephrosis. Left lower pole simple renal cyst. Additional subcentimeter hypoattenuating lesions which do not require follow-up per consensus guidelines. Stomach and Bowel: Diverticulosis. Prominent loops of jejunum in the mid abdomen with air-fluid levels. Normal appendix. Segments of completely decompressed small bowel including the terminal ileum. Enteric tube tip terminating in the gastric body. Abnormal contour of the gastric antrum mucosa. Peritoneum: No abnormal intraperitoneal fluid. No free air. Ventral Wall: Small fat containing ventral hernia. Abdominal Nodes: No retroperitoneal or mesenteric adenopathy by size criteria. Vessels: Aorta bi-iliac stent grafting. Atherosclerotic calcifications. Excluded saccular aneurysm in the infrarenal abdominal aorta. No evidence of endoleak. PELVIS: Pelvic Organs: Unremarkable. Bladder: No bladder wall thickening, accounting for underdistention. Pelvic Nodes: No enlarged lymph nodes. Miscellaneous: No inguinal hernias are seen. Bones: No aggressive osseous abnormality. Diffuse idiopathic skeletal hyperostosis. IMPRESSION: Consolidation right lower lobe concerning for pneumonia. Possible ulcer in the gastric antrum. Consider direct visualization. Prominent loops of small bowel within normal limits for size may represent ileus. Additional alternating segments of completely decompressed small bowel including the terminal ileum raise the possibility of inflammatory bowel disease. Dictated by: Jim Ford M.D. on 02/18/2025 at 10:09 Approved by: Jim Ford M.D. on 02/18/2025 at 10:25
[2025-02-18] MEDS: MORPHINE 4 MG/ML INJ 3 MG IV (08:45)
[2025-02-18] MEDS: SODIUM CHLORIDE 0.9% FLUSH 10 ML IV (09:17)
[2025-02-18] MEDS: methylPREDNISolone succ 125 MG/2 ML VIAL 60 MG IV ×2 (09:28→20:02)
[2025-02-18] MEDS: AMPICILLIN/SULBACTAM 3 GM 3 GM in SODIUM CHLORIDE 0.9% 100 ML IV (11:10)
--- NOTE | 2025-02-18 11:59 | CM.DPC ---
DCP Cont: Per MD, pt had distension overnight and NGT was placed and potential for ileus and not yet stable for discharge today. Per Ortho Consult, no surgery recommended at this time for knee fx but recommend knee immobilizer and NWB or TTWB at this time. KRZYSZTOF sent updated clinicals to Ariana at [facility] and updated her on likely another couple days before stable for discharge to SNF. DIPIKA Steele
--- NOTE | 2025-02-18 12:35 | PM.HP.IH.1 ---
History of Present Illness History of Present Illness Date Patient Seen: 02/18/25 Time Patient Seen: 12:30 Date of Onset of Symptoms: 02/17/25 Chief complaint: gen weakness Narrative: COPD asthma, GERD, hypertension, hyperlipidemia, Patient is a 84-year-old white male was admitted through the emergency room on 02/16/2025 with left knee pain going on for several weeks. The patient underwent a CT scan showing a left distal femur fracture was admitted in the hospital was being seen by hospitalist and Orthopedics. Apparently 02 17 2025 approximately 4-5 p.m. developed nausea vomiting denies any hematemesis denies any melena had an NG-tube placed at 10:00 p.m. NG contents appeared to be food material. Patient underwent a CT scan which showed 02/18/2025 right lower quadrant small bowel dilatation gallbladder with stones renal cysts sigmoid diverticular disease normal appendix NG in place. Patient laboratory shows a WBC of 11.1 hemoglobin is 14.3 hematocrit is 44.1 platelets are 289,000 sodium is 135 potassium 4.3 chloride 101 bicarb is 24 BUN 38 creatinine is 1.06 random blood sugar is 102 normal LFTs. Patient is a poor historian. I was asked to see the patient for surgical evaluation. Allergies: Advair Diskus Medications: See patient's admission list Past medical history: Corrective lenses, upper dentures, COPD, asthma, atherosclerotic vascular disease with coronary artery disease without TX, peripheral vascular disease with a history of abdominal aortic aneurysm stented, GERD, hypertension, hyperlipidemia, peptic ulcer disease he can not remember where or when, BPH, degenerative joint disease with disc disease. Patient denies any other heart lungs digestive musculoskeletal neurological seizure disorder psychiatric problems risks are Infectious diseases HIV or AIDS. Past surgical history: History of left hip ORIF, right and left ankle ORIF, left total knee done 25 years ago, laparoscopic surgery he thinks possibly for ulcers does not think it was perforated and umbilical herniorrhaphy in 2014, angiography with stenting of abdominal aortic aneurysm aortic and iliac stents, loop recorder, EGD colonoscopy done in [place] November of 2024. Social history: History of tobacco abuse less than 1/2 pack per day to 1 pack per day times 74 years states he stopped 2 weeks ago, 1-2 drinks per day, denies any recreational drug usage. Vitals: Temperature is 97.9? pulse is 92 respirations 13 BP is 111/58 SaO2 is 88% on room air. Patient is 5 ft 9 in 175 lb. Head is normocephalic eyes PERRLA EOMI is intact nares are clear septum midline EACs and pinnae unremarkable oropharyngeal cavity upper dentures are in place. NG tube is noted in the right nares. Heart regular rate and rhythm without murmurs. Lungs are diminished in the bases poor inspiratory and expiratory effort poor chest wall motion noted. Abdomen is soft poor abdominal wall muscle tone significant diastasis recti is noted. Laparoscopic port scars are noted. No bowel sounds with NG clamped. No masses or peritoneal signs no incisional hernias noted. Musculoskeletal poor muscle tone and strength equal bilaterally no gross deficit elicited. Impression: Left knee pain with fractured implant placed 25 years ago being worked up by orthopedics Nausea vomiting abdominal pain resolved with NG rule out small-bowel obstruction Radiologist states possible peptic ulcer disease but patient has no hematemesis or melena Plan: We will go ahead and check a small-bowel follow-through possible upper GI if Radiology is available rule out small-bowel obstruction if negative and continues for has signs of peptic ulcer disease would warrant EGD the patient just had an EGD colonoscopy done in November of 2024. No need for emergent surgical intervention we will follow patient closely recheck laboratory and KUB in the a.m.. All questions were answered to patient's satisfaction. 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) Surgical History (Updated 02/15/25 @ 17:58 by Jamie Claudio MD) H/O total knee replacement History of loop recorder (2013) Social History household members: none Smoking Status: Current some day smoker alcohol intake: current Meds Home Medications and Allergies Home Medications ?Medication ?Instructions ?Recorded ?Confirmed ?Type [ALBUTEROL NEBULIZER] 1 neb INH QDAY ##0 12/16/10 02/15/25 History albuterol sulfate 90 mcg/actuation 1 - 2 puff inhalation Q4-6H PRN 12/16/10 02/15/25 History aerosol inhaler Shortness Of Breath ##0 aspirin 81 mg tablet,delayed 81 mg PO DAILY ##0 12/16/10 02/15/25 History release simvastatin 20 mg tablet (Zocor) 20 mg PO HS ##0 12/16/10 02/15/25 History hydrochlorothiazide 25 mg tablet 25 mg PO DAILY 12/14/19 02/15/25 History mirabegron 25 mg tablet,extended 50 mg PO DAILY 12/14/19 02/15/25 History release 24 hr (Myrbetriq) telmisartan 40 mg tablet (Micardis) 40 mg PO DAILY 12/14/19 02/15/25 History esomeprazole magnesium 40 mg 40 mg PO DAILY 12/21/19 02/15/25 History capsule,delayed release (Nexium) fluticasone fur. 200 mcg-umeclid 1 inh inhalation DAILY #60 ea 11/23/24 02/15/25 Rx 62.5 mcg-vilant 25 mcg inhalat.powder (Trelegy Ellipta) magnesium oxide 400 mg (241.3 mg 400 mg PO DAILY PRN constipation 02/15/25 02/15/25 History magnesium) tablet meloxicam 15 mg tablet 15 mg PO QPM 02/15/25 02/15/25 History mirabegron 50 mg tablet,extended 50 mg PO DAILY 02/15/25 02/15/25 History release 24 hr (Myrbetriq) montelukast 10 mg tablet 10 mg PO DAILY 02/15/25 02/15/25 History potassium chloride 10 mEq 10 meq PO DAILY 02/15/25 02/15/25 History tablet,extended release Allergies Allergy/AdvReac Type Severity Reaction Status Date / Time fluticasone (From Advair AdvReac double Verified 02/14/25 23:12 Diskus) vision salmeterol (From Advair AdvReac double Verified 02/14/25 23:12 Diskus) vision Exam Vital Signs (past 8 hours): - 02/18/25 07:50 02/18/25 08:00 02/18/25 12:00 Temperature 97.9 F 98.4 F Pulse Rate 92 H 84 Respiratory Rate 13 13 Blood Pressure 111/58 L 116/64 Pulse Oximetry 88 L 88 L 90 L Oxygen Delivery Method Nasal Cannula Oxygen Flow Rate 2 2 2 Fraction of Inspired Oxygen 28 Fraction of Inspired Oxygen 28 SaO2/FiO2 Ratio 314 Oxygen Delivery Method Nasal Cannula Oxygen Flow Rate 2 Objective Labs 02/18/25 06:25 02/18/25 06:25 Labs: Laboratory Results - last 24 hr 02/17/25 02/18/25 11:30 06:25 WBC 11.1 H RBC 5.15 Hgb 14.3 Hct 44.1 MCV 85.5 MCH 27.8 MCHC 32.5 RDW 18.0 H Plt Count 289 Neut % (Auto) 87.1 H Lymph % (Auto) 2.6 L [place] % (Auto) 9.9 Eos % (Auto) 0.2 L Baso % (Auto) 0.2 Neut # (Auto) 9600 H Lymph # (Auto) 300 L [place] # (Auto) 1100 H Eos # (Auto) 0 Baso # (Auto) 0 Sodium 135 L Potassium 4.3 Chloride 101 Carbon Dioxide 24 BUN 38 H Creatinine 1.06 Estimated GFR > 60 BUN/Creatinine Ratio 35.8 H Glucose 102 H Calcium 8.6 Total Bilirubin 0.8 AST 56 ALT 49 Alkaline Phosphatase 75 Total Protein 6.7 Albumin 3.9 Globulin 2.8 Albumin/Globulin Ratio 1.4 Urine Color Yellow Urine Appearance Clear Urine pH 6.0 Ur Specific [place] 1.020 Urine Protein Negative Urine Glucose (UA) Negative Urine Ketones Negative Urine Occult Blood Negative Urine Nitrate Negative Urine Bilirubin Negative Urine Urobilinogen 0.2 Ur Leukocyte Esterase Negative Urine RBC None seen Urine WBC 0-1/hpf Ur Squamous Epith Cells 0-1 /hpf Urine Bacteria Occasional (0-1) D Ur Culture Indicated? Cult not indicated Vol Urine Centrifuged 10ml (spun) Assessment & Plan Time-Based Coding :: [TOTAL MINUTES] spent with patient and on the chart (including review of chart, obtaining history, exam, reviewing outside data, placing orders, documenting exam and treatment plan, and counseling patient) on [DATE]. Quality VTE Deep Vein Thrombosis/Pulmonary Embolism Present on Admission: No IH PROFEE Centrifugal Operator Document charge(s): Yes
[2025-02-18] MEDS: AMPICILLIN/SULBACTAM 1.5 GM 1.5 GM in SODIUM CHLORIDE 0.9% 100 ML IV ×2 (16:31→22:13)
--- NOTE | 2025-02-18 17:06 | P.PN_ITS ---
Subjective Subjective Date Patient Seen: 02/18/25 Time Patient Seen: 05:05 Interval history: Patient is resting comfortably in bed has been undergoing small-bowel follow- through with Gastrografin. States he has had no further abdominal pain no nausea or vomiting had a small bowel movement. First set of x-rays done at 1:00 a.m. to 1-1/2 hours shows contrast into the right colon. Exam at 5:00 p.m. shows contrast in the colon no signs of bowel obstruction. Discussed with patient the findings we will returned NG tube to low intermittent suction for a short period of time discontinue it place on clear liquid diet and place on Reglan. No need for surgical intervention at this time. All questions were answered to patient's satisfaction. Exam Vital Signs (past 8 hours): - 02/18/25 12:00 Temperature 98.4 F Pulse Rate 84 Respiratory Rate 13 Blood Pressure 116/64 Pulse Oximetry 90 L Oxygen Flow Rate 2 Fraction of Inspired Oxygen 28 SaO2/FiO2 Ratio 314 Oxygen Delivery Method Nasal Cannula Oxygen Flow Rate 2 Objective Labs 02/18/25 06:25 02/18/25 06:25 Labs: Laboratory Results - last 24 hr 02/18/25 06:25 WBC 11.1 H RBC 5.15 Hgb 14.3 Hct 44.1 MCV 85.5 MCH 27.8 MCHC 32.5 RDW 18.0 H Plt Count 289 Neut % (Auto) 87.1 H Lymph % (Auto) 2.6 L [place] % (Auto) 9.9 Eos % (Auto) 0.2 L Baso % (Auto) 0.2 Neut # (Auto) 9600 H Lymph # (Auto) 300 L [place] # (Auto) 1100 H Eos # (Auto) 0 Baso # (Auto) 0 Sodium 135 L Potassium 4.3 Chloride 101 Carbon Dioxide 24 BUN 38 H Creatinine 1.06 Estimated GFR > 60 BUN/Creatinine Ratio 35.8 H Glucose 102 H Calcium 8.6 Total Bilirubin 0.8 AST 56 ALT 49 Alkaline Phosphatase 75 Total Protein 6.7 Albumin 3.9 Globulin 2.8 Albumin/Globulin Ratio 1.4 [facility] Medical History (Updated 02/16/25 @ 16:50 by Sho Lewis DO) Hypoxia Nicotine dependence BPH (benign prostatic hyperplasia) Current every day smoker COPD (chronic obstructive pulmonary disease) HLD (hyperlipidemia) HTN (hypertension) GERD (gastroesophageal reflux disease) 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 Quality VTE Deep Vein Thrombosis/Pulmonary Embolism Present on Admission: No IH PROFEE Direct Marketing Representative Document charge(s): Yes
[2025-02-18] MEDS: ALBUTEROL/IPRATROPIUM 3 ML AMPUL INH (20:02)
[2025-02-18] MEDS: BUDESONIDE 0.5 MG/2 ML NEB INH (20:02)
[2025-02-19] VITALS (9 sets, daily range): BP systolic 115–135; BP diastolic 60–73; PULSE 62–78; RESP 18–24; TEMP 36.2–36.6; O2SAT 88–92
[2025-02-19] MEDS: ONDANSETRON 4 MG/2 ML INJ IV ×2 (01:44→23:58)
[2025-02-19] MEDS: MORPHINE 4 MG/ML INJ 3 MG IV ×6 (01:44→23:58)
[2025-02-19] MEDS: AMPICILLIN/SULBACTAM 1.5 GM 1.5 GM in SODIUM CHLORIDE 0.9% 100 ML IV ×4 (04:30→23:58)
[2025-02-19 04:55] LABS: Add Manual Diff / Slide Review NO; Hematocrit 41.8 % (41-53); Hemoglobin 13.5 g/dL (13.5-17.5); Lymphocytes Absolute Auto 400 /uL (1100-4500); Mean Corpuscular HGB Conc 32.3 % (30-36); Mean Corpuscular Hemoglobin 27.6 PG (26-34); Mean Corpuscular Volume 85.4 fL (80-100); Platelet Count 238 X10^3/uL (150-400)
[2025-02-19 05:09] LABS: Alanine Aminotransferase 38 IU/L (<50); Albumin 3.3 g/dL (3.5-5.0); Albumin Globulin Ratio 1.3 (1.0-2.8); Alkaline Phosphatase 61 U/L (38-126); Blood Urea Nitrogen 26 mg/dL (9-20); Calcium 8.4 mg/dL (8.4-10.2); Carbon Dioxide 28 mmol/L (22-32); Chloride 103 mmol/L (98-107); Estimated Glomerular Filt Rate > 60 mL/min (>60); Globulin 2.5 g/dL (1.7-4.1); Glucose 117 mg/dL (70-99); HEMOLYSIS < 15 (0-50); Lipase 12 U/L (23-300); Potassium 4.2 mmol/L (3.4-5.1); Sodium 138 mmol/L (137-145); Total Protein 5.8 g/dL (6.3-8.2)
[2025-02-19] MEDS: LACTATED RINGERS 1,000 ML 100 ML IV (05:53)
--- NOTE | 2025-02-19 07:19 | PM.PN.1 ---
Subjective Subjective Date Patient Seen: 02/19/25 Interval history: This is an 84 year old male with a history of hypertension, CAD, GERD, overactive bladder and COPD who presented to the ED with generalized weakness, increased shortness of breath on exertion and left knee pain getting progressively worse in the last several days. He has no fever, cough, chest pain, palpitations, nausea, vomiting, diarrhea or dysuria. He says that he had x-ray of the left knee [address] [facility] ED which was negative. His left knee replacement was 25 years ago. It is now difficult to ambulate. He also reports some lower extremities edema. Outpatient ultrasound was reportedly negative for DVT. Laboratory shows WBC 9.6, H&H 13.7 and 42.5, sodium 134, potassium 3.5, creatinine 0.82, blood sugar 82, troponin 0.0 12, respiratory viral panel negative, UA consistent for UTI. Chest x-ray unremarkable, EKG normal sinus rhythm of 80. In the ER he was found to have hypoxia on exertion with oxygen saturation of 87% on room air. He is now on IV Solu-Medrol, albuterol, Atrovent ceftriaxone IV and Dilaudid. 02/16/2025: Sodium 133, creatinine 0.79, CRP 1.3, ESR 5, magnesium 2.1, blood cultures for 24 hours negative x2, urine culture pending. He continues to experience severe left knee pain, avoiding weight-bearing. X-rays reviewed and it is normal with the prosthesis intact. Consulted with Orthopedics and discussed with Dr. Lewis. CT of the knee will be added. 02/17/2025: The knee CT showed a nondisplaced fracture of the distal left femur periprosthetic. Space-occupying lesion such as infection or neoplasm not ruled out. Orthopedics is evaluating options. Immobilization knee brace has not been tolerated well. It seems to increase his pain. His breathing is slowly improving. The urine culture grew Staph epidermidis which is likely a contaminant. The UA will be repeated to be sure. We will be stopping the ceftriaxone today. 02/18/2025: Sometime overnight the patient began vomiting, apparently repeatedly, and received an NG tube which appears to be withdrawing normal-appearing gastric contents. He says this occurred around midnight but the nurse this morning received report that it was around 5:[address] scan was done showing a possible gastric ulcer along with small bowel ileus and a right basilar aspiration pneumonia. General surgery was consulted and is following with current plans not including any emergent endoscopy need. He is already on pantoprazole IV. IV Unasyn was started. The white count is only 11.1 and hemoglobin is 14.3. The metabolic panel is normal. He remains on oxygen by nasal cannula between 2 and 4 L. 02/19/2025: He is feeling much better today. The NG tube is out. He had copious stool output after the Gastrografin enema which ruled out bowel obstruction. Surgery has reviewed the CT scan and with the general picture does not believe that he has strong evidence for gastric ulcer or need for emergent EGD at this time. He reportedly had an EGD several months ago in [place]. He is set up to go to detention facility re[facility] at [facility] in [place] tomorrow. His only complaint is that his left knee still hurts. He says his breathing is going well. He is now on prednisone. The CBC and BMP are normal. Meds Home Medications and Allergies Home Medications ?Medication ?Instructions ?Recorded ?Confirmed ?Type [ALBUTEROL NEBULIZER] 1 neb INH QDAY ##0 12/16/10 02/15/25 History albuterol sulfate 90 mcg/actuation 1 - 2 puff inhalation Q4-6H PRN 12/16/10 02/15/25 History aerosol inhaler Shortness Of Breath ##0 aspirin 81 mg tablet,delayed 81 mg PO DAILY ##0 12/16/10 02/15/25 History release simvastatin 20 mg tablet (Zocor) 20 mg PO HS ##0 12/16/10 02/15/25 History hydrochlorothiazide 25 mg tablet 25 mg PO DAILY 12/14/19 02/15/25 History mirabegron 25 mg tablet,extended 50 mg PO DAILY 12/14/19 02/15/25 History release 24 hr (Myrbetriq) telmisartan 40 mg tablet (Micardis) 40 mg PO DAILY 12/14/19 02/15/25 History esomeprazole magnesium 40 mg 40 mg PO DAILY 12/21/19 02/15/25 History capsule,delayed release (Nexium) fluticasone fur. 200 mcg-umeclid 1 inh inhalation DAILY #60 ea 11/23/24 02/15/25 Rx 62.5 mcg-vilant 25 mcg inhalat.powder (Trelegy Ellipta) magnesium oxide 400 mg (241.3 mg 400 mg PO DAILY PRN constipation 02/15/25 02/15/25 History magnesium) tablet meloxicam 15 mg tablet 15 mg PO QPM 02/15/25 02/15/25 History mirabegron 50 mg tablet,extended 50 mg PO DAILY 02/15/25 02/15/25 History release 24 hr (Myrbetriq) montelukast 10 mg tablet 10 mg PO DAILY 02/15/25 02/15/25 History potassium chloride 10 mEq 10 meq PO DAILY 02/15/25 02/15/25 History tablet,extended release Acute respiratory failure with hypoxia COPD exacerbation. -Oxygen titration goal of 88-92%, avoid excess oxygen to prevent carbon dioxide retention, Monitor mental status. -Albuterol 2.5 mg nebulizer Q Hour prn 4 to 6 hours -DuoNeb every 4 hours scheduled and every 2 hours as needed -changed from IV 60 mg Solu-Medrol every 12 hours for severe exacerbation to Prednisone 40 mg qd on 02/16. Changed back to Solu-Medrol on 02/18 after vomiting/NG tube placed. Back to Prednisone on 02/19. -stopped ceftriaxone on 02/17. -Monitor telemetry. -Singulair and Pulmicort POSSIBLE UTI -Blood culture negative X 24h, urine culture Staph Epidermidis, likely contaminant. Repeat UA 02/17 was normal. -Antibiotics-ceftriaxone, stopped on 02/17. -Monitor for urine retention, check post void residuals. In and out cath prn at home, continue. Aspiration pneumonia, not present on admission. Active. -apparently aspirated into the right lung during repeated vomiting on 02/18 -Unasyn IV started on 02/19. Acute vomiting and abdominal ileus. Not present on admission. Active. -02/18 patient states that he was vomiting all night and that is why he has a NG tube in the left nostril. Passed on in report from the nurse was that this occurred around 5:00 a.m.. -NG tube present with normal appearing gastric contents -abdominal pelvic CT done showing possible gastric antral ulcer, small bowel ileus, aspiration pneumonia -general surgery consulted and gave Gastrograffin Small bowel followthrough. Concluded that no strong evidence for gastric ulcer or need for emergent EGD at this time. He reportedly had an EGD several months ago in [place]. -the hemoglobin is 13.5 on 02/19. -already on pantoprazole IV. The meloxicam was stopped 02/18. Left knee periprosthetic nondisplaced femur fracture. -outpatient initial X-ray and Doppler ultrasound were negative - Repeated Xray and checked ESR/CRP. All normal. - Dr. Lewis consulted and recommended CT scan -CT scan showed a periprosthetic nondisplaced femur fracture, cannot rule out space-occupying lesion such as neoplasm or infection. -knee immobilizer and follow up with ortho was the final recommendation - Restarted meloxicam, which had to be stopped 02/18 out of concern for ulcer Hypertension. Losartan and hydrochlorothiazide Hyperlipidemia. Lipitor. CAD. Aspirin, Lipitor GERD. Protonix Overreactive bladder. Oxybutynin. In and out cath prn at home, continue. Disposition: Patient has been accepted at the [facility] in [place]. Discharge planned for 02/20. Enoxaparin for DVT prevention Exam Vital Signs (past 8 hours): - 02/19/25 03:00 Temperature 97.8 F Pulse Rate 71 Respiratory Rate 18 Blood Pressure 128/68 Pulse Oximetry 91 Oxygen Flow Rate 2 Fraction of Inspired Oxygen 28 SaO2/FiO2 Ratio 314 Oxygen Delivery Method Nasal Cannula Oxygen Flow Rate 2 Narrative Exam Narrative: Alert and oriented x3. No apparent distress. No NG tube present. Feeling much better. Wheezes on the right lung. Clear on the left side. Heart is regular rate and rhythm without murmur. Abdomen is soft and nontender. There is no ankle edema. Objective Labs 02/19/25 04:20 02/19/25 04:20 Labs: Laboratory Results - last 24 hr 02/19/25 04:20 WBC 7.9 RBC 4.90 Hgb 13.5 Hct 41.8 MCV 85.4 MCH 27.6 MCHC 32.3 RDW 18.3 H Plt Count 238 Neut % (Auto) 89.3 H Lymph % (Auto) 4.8 L [place] % (Auto) 5.8 Eos % (Auto) 0.0 L Baso % (Auto) 0.1 Neut # (Auto) 7000 Lymph # (Auto) 400 L [place] # (Auto) 500 Eos # (Auto) 0 Baso # (Auto) 0 Sodium 138 Potassium 4.2 Chloride 103 Carbon Dioxide 28 BUN 26 H Creatinine 0.83 Estimated GFR > 60 BUN/Creatinine Ratio 31.3 H Glucose 117 H Calcium 8.4 Total Bilirubin 0.6 AST 33 ALT 38 Alkaline Phosphatase 61 Total Protein 5.8 L Albumin 3.3 L Globulin 2.5 Albumin/Globulin Ratio 1.3 Lipase 12 L D PFSH Medical History (Updated 02/16/25 @ 16:50 by Sho Lewis DO) Hypoxia Nicotine dependence BPH (benign prostatic hyperplasia) Current every day smoker COPD (chronic obstructive pulmonary disease) HLD (hyperlipidemia) HTN (hypertension) GERD (gastroesophageal reflux disease) 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 Quality VTE Deep Vein Thrombosis/Pulmonary Embolism Present on Admission: No
[2025-02-19] MEDS: BUDESONIDE 0.5 MG/2 ML NEB INH ×2 (07:36→19:10)
[2025-02-19] MEDS: ALBUTEROL/IPRATROPIUM 3 ML AMPUL INH ×3 (07:36→19:10)
[2025-02-19] MEDS: PANTOPRAZOLE 40 MG VIAL IV (08:25)
[2025-02-19] MEDS: ENOXAPARIN 40 MG/0.4 ML SYRINGE SUBCUT (08:25)
[2025-02-19] MEDS: SODIUM CHLORIDE 0.9% FLUSH 10 ML IV ×2 (08:25→21:00)
[2025-02-19] MEDS: methylPREDNISolone succ 125 MG/2 ML VIAL 60 MG IV ×2 (08:25→20:14)
--- NOTE | 2025-02-19 11:00 | CM.DPC ---
DCP Cont. Reviewed EMR and team rounds for pt's medical status and updates. Per Hospitalist, pt is now going to start slowly advancing diet. Likely another 2-days before being medically cleared for home d/c. No CM needs anticipated at this time.
--- NOTE | 2025-02-19 12:00 | PT.IPTN ---
Current Diagnoses Chronic obstructive pulmonary disease with (acute) exacerbation (02/15/25) Periprosthetic fracture around other internal prosthetic joint, initial encounter (02/15/25) Presence of unspecified artificial knee joint (02/15/25) Physical Therapy Treatment Note M2 PT-IP Current Condition Start: 02/15/25 17:27 Freq: NEEDED Status: Active Protocol: Document 02/15/25 15:00 AB (Rec: 02/15/25 17:46 AB [id number]) Physical Therapy Current Condition Current Condition Evaluation Date 02/15/25 Treatment Diagnosis COPD exacerbation; difficulty in walking Onset Date 02/15/25 M3 PT-IP Subjective Start: 02/15/25 17:27 Freq: NEEDED Status: Active Protocol: Document 02/19/25 12:00 AB (Rec: 02/19/25 12:37 AB [id number]) Subjective Physical Therapy Visit Type Type Treatment Note Visit Start Time 12:00 Visit Stop Time 12:23 Number of ESCROW CLERK Visits 0 Physical Therapy Visit Comments Patient Comments agreeable to do PT M4 PT-IP Mobility and Gait Start: 02/15/25 17:27 Freq: NEEDED Status: Active Protocol: Document 02/19/25 12:00 AB (Rec: 02/19/25 12:37 AB [id number]) PT-Bed Mobility Assessment Supine to Sit Supine to Sit Minimal Assistance,1 Person Assistance,Head of Bed Elevated,Bedrails PT-Transfer Assessment Sit to and From Stand Sit to and from Moderate Assistance,Maximum Assistance,1 Person Stand Assistance,Use of Upper Extremities Equipment Transfer Assistive Gait Belt,Front Wheeled Walker Device Orthotic/Prosthetic No Devices or Brace: Transfers Transfer Destination Chair Transfer Technique Stand Step Pivot Transfer Ability Level of Assist Moderate Assistance,Maximum Assistance,1 Person Assistance,Use of Upper Extremities Comments Mobility Comments pt in bed and agreeable to do PT. pt without L knee immobilizer on and assisted to put immobilizer on. pt completed supine to sit min A and cues. educated pt on NWB on LLE. sit to stand from EOB mod to max A and cues and step transfer to chair using FWW mod to max A and cues. pt was able to maintain NWB on LLE. pt refused further activities. positioned pt in bed. set up for lunch. call light and table placed within reach . M5 PT-IP Objective Assessments Start: 02/15/25 17:27 Freq: NEEDED Status: Active Protocol: Document 02/17/25 13:34 KJ (Rec: 02/17/25 13:38 KJ Desktop) Orientation Orientation/Cognition Level of Alertness Alert M6 PT-IP Treatment Start: 02/15/25 17:27 Freq: NEEDED Status: Active Protocol: Document 02/19/25 12:00 AB (Rec: 02/19/25 12:37 AB [id number]) Physical Therapy Treatment Education Education Provided Weight Bearing Status,Safety M7 PT-IP Assessment and Plan Start: 02/15/25 17:27 Freq: NEEDED Status: Active Protocol: Document 02/19/25 12:00 AB (Rec: 02/19/25 12:37 AB [id number]) PT Summary Assessment and Plan Potential Rehabilitation Fair Potential Summary Impairments Pain,ROM,Strength,Balance,Coordination,Sensation,Tone, Cognition,Bed Mobility,Transfers,Gait,Activity Tolerance Progress Towards Slow Progress due to Medical Issues,Slow Progress due Goals to Activity Tolerance Assessment Summary pt slowly improving with mobility and requiring mod to max A for transfers using FWW. pt was able to maintain NWB on LLE with cues provided. pt will benefit from SNF rehab to improve overall strength and mobility. Goals Bed Mobility Goal Minimal Assistance Transfer Goal Minimal Assistance,Front Wheeled Walker Gait Goal Minimal Assistance,Front Wheel Walker Gait Distance 25 Other Goals improve bed mobility, transfers, ambulation using FWW ~ 100 ft SBA up/down 1 step using FWW SBA Days to Meet Goals 10 Treatment Plan Physical Therapy Bed Mobility Training,Transfer Training,Gait Training, Treatment Plan Therapeutic Exercise,Balance Retraining,Discharge Planning,Hot or Cold Pack,Neuromuscular Re-ed, Coordination Retraining,Manual Therapy Precautions Brace L knee immobilizer Weight Bearing Status Weight Bearing Non-Weight Bearing Status Allowed Weight Permitted to touch down if unable to maintain nwb Bearing Amount ( enter % or #) (%) Recommendations To Nursing Amount of Assist 2 Person Assist Needed Discharge Recommendations PT Discharge SNF Rehab Recommendations Transportation Needs Wheelchair/Cabulance at Discharge - PT assist 1
--- NOTE | 2025-02-19 12:34 | DI.RAD.S_ITS ---
PROCEDURE: XR KUB INDICATIONS: Rule out small-bowel obstruction TECHNIQUE: One view of the abdomen acquired. COMPARISON: [facility], , KUB XRAY (1 VIEW ABDOMEN), 12/24/2016, 13:02. FINDINGS: Surgical changes and devices: None. Bowel: Bowel gas pattern is nonspecific for obstruction. Oral contrast material is seen throughout the colon extending to sigmoid colon and rectum. No gross pneumoperitoneum. Soft tissues: No suspicious abdominal calcifications. Visualized solid organ contours appear normal in size. Bones: No suspicious bony lesions. IMPRESSION: Oral contrast material is seen throughout colon loops extending to sigmoid colon and rectum. No evidence of obstruction. No gross free air. Dictated by: Moises Mesa M.D. on 02/19/2025 at 1:30 Approved by: Moises Mesa M.D. on 02/19/2025 at 1:31
[2025-02-19] MEDS: METOCLOPRAMIDE 10 MG/2 ML INJ IV (20:14)
[2025-02-20] VITALS (10 sets, daily range): BP systolic 120–155; BP diastolic 58–77; PULSE 60–81; RESP 15–22; TEMP 36.3–36.8; O2SAT 89–94
[2025-02-20] MEDS: AMPICILLIN/SULBACTAM 1.5 GM 1.5 GM in SODIUM CHLORIDE 0.9% 100 ML IV ×2 (04:49→13:35)
[2025-02-20] MEDS: METOCLOPRAMIDE 10 MG/2 ML INJ IV (04:57)
--- NOTE | 2025-02-20 06:53 | PC.NURSE ---
per patient request, he wanted to wait until the morning to get straight catheterized so that he can sleep. on 02/20/2025 @0630 bladder scan showed about 520 in bladder, and patient wants to wait a little longer even after education on how that can cause discomfort. Patient wanted to make sure that it was more than just a little if he were to get straight catheterized.
[2025-02-20] MEDS: BUDESONIDE 0.5 MG/2 ML NEB INH ×2 (07:32→19:10)
[2025-02-20] MEDS: ALBUTEROL/IPRATROPIUM 3 ML AMPUL INH ×3 (07:32→19:10)
[2025-02-20] MEDS: LOSARTAN 50 MG TABLET PO (08:39)
[2025-02-20] MEDS: DOCUSATE 100 MG CAPSULE PO (08:39)
[2025-02-20] MEDS: MONTELUKAST 10 MG TABLET PO (08:39)
[2025-02-20] MEDS: ASPIRIN EC 81 MG TABLET PO (08:39)
[2025-02-20] MEDS: oxyBUTYnin ER 5 MG TABLET 10 MG PO (08:39)
[2025-02-20] MEDS: SENNOSIDES 8.6 MG TABLET 17.2 MG PO (08:40)
[2025-02-20] MEDS: PANTOPRAZOLE 40 MG VIAL IV (08:40)
[2025-02-20] MEDS: POTASSIUM CHLORIDE 10 MEQ TAB PO (08:40)
[2025-02-20] MEDS: SODIUM CHLORIDE 0.9% FLUSH 10 ML IV (08:41)
[2025-02-20] MEDS: ENOXAPARIN 40 MG/0.4 ML SYRINGE SUBCUT (08:47)
--- NOTE | 2025-02-20 10:53 | P.DS_ITS ---
History of Present Illness History of Present Illness Chief complaint: gen weakness Narrative: From H&P: This is an 84 year old male with a history of hypertension, CAD, GERD, overactive bladder and COPD who presented to the ED with generalized weakness, increased shortness of breath on exertion and left knee pain getting progressively worse in the last several days. He has no fever, cough, chest pain, palpitations, nausea, vomiting, diarrhea or dysuria. He says that he had x-ray of the left knee [address] [facility] which was negative. His left knee replacement was 25 years ago. It is now difficult to ambulate. He also reports some lower extremities edema. Outpatient ultrasound was reportedly negative for DVT. Laboratory shows WBC 9.6, H&H 13.7 and 42.5, sodium 134, potassium 3.5, creatinine 0.82, blood sugar 82, troponin 0.0 12, respiratory viral panel negative, UA consistent for UTI. Chest x-ray unremarkable, EKG normal sinus rhythm of 80. In the ER he was found to have hypoxia on exertion with oxygen saturation of 87% on room air. He is now on IV Solu-Medrol, albuterol, Atrovent ceftriaxone IV and Dilaudid. Discharge Providers Provider Date of admission: 02/15/25 03:03 Discharge Date: 02/20/25 Primary care physician: Maria Del Carmen Rivas MD Consults: 02/15/25 03:06 Consult to Cardio/Pulmonary Rehabilitation Routine Comment: Physician Instructions: Evaluate and treat 02/15/25 12:00 Consult to Physical Therapy Evaluate & Treat Comment: Physician Instructions: Evaluate and Treat 02/16/25 10:37 Consult to Orthopedic Surgery Routine Comment: Consulting Provider: Sho Lewis Reason for consultation: Left Knee Pain Has provider been notified: Yes 02/18/25 10:44 Consult to Pharmacy Routine Comment: tagged per NOC shift 02/18/25 10:53 Consult to General Surgery Routine Comment: Consulting Provider: Fransisco Shi Reason for consultation: Vomiting and Gastric Ulcer Has provider been notified: Yes 02/18/25 21:26 Consult to Pharmacy Routine Comment: PAT RISK FOR FALL TAKING MULTIPLE MEDICATIONS Discharge provider: Dinesh Laureano MD Summary Hospital Course Discharge Diagnosis: COPD exacerbation. Improved. -Oxygen titration goal of 88-92%, avoid excess oxygen to prevent carbon dioxide retention, Monitor mental status. -changed from IV 60 mg Solu-Medrol every 12 hours for severe exacerbation to Prednisone 40 mg qd on 02/16. Changed back to Solu-Medrol on 02/18 after vomiting/NG tube placed. Back to Prednisone on 02/19. -stopped ceftriaxone on 02/17. -Singulair and Pulmicort POSSIBLE UTI, resolved. -Blood culture negative X 24h, urine culture Staph Epidermidis, likely contaminant. Repeat UA 02/17 was normal. -Antibiotics-ceftriaxone, stopped on 02/17. -In and out cath prn at home, continue. Aspiration pneumonia, not present on admission. Active. -apparently aspirated into the right lung during repeated vomiting on 02/18 -Unasyn IV started on 02/19. Will stop at discharge. Acute vomiting and abdominal ileus. Not present on admission. Resolved.. -02/18 patient states that he was vomiting all night and that is why he has a NG tube in the left nostril. Passed on in report from the nurse was that this occurred around 5:00 a.m.. -Good BM on 02/18 with gastrograffin. Left knee periprosthetic nondisplaced femur fracture. Active. -outpatient initial X-ray and Doppler ultrasound were negative - Repeated Xray and checked ESR/CRP. All normal. - Dr. Lewis consulted and recommended CT scan -CT scan showed a periprosthetic nondisplaced femur fracture, cannot rule out space-occupying lesion such as neoplasm or infection. -knee immobilizer and follow up with ortho was the final recommendation -Restarted meloxicam, which had to be stopped 02/18 out of concern for ulcer Stable medical consitions: Hypertension. Losartan and hydrochlorothiazide Hyperlipidemia. Lipitor. CAD. Aspirin, Lipitor GERD. Protonix Overreactive bladder. Oxybutynin. In and out cath prn at home, continue. Hospital Course: 02/16/2025: Sodium 133, creatinine 0.79, CRP 1.3, ESR 5, magnesium 2.1, blood cultures for 24 hours negative x2, urine culture pending. He continues to experience severe left knee pain, avoiding weight-bearing. X-rays reviewed and it is normal with the prosthesis intact. Consulted with Orthopedics and discussed with Dr. Lewis. CT of the knee will be added. 02/17/2025: The knee CT showed a nondisplaced fracture of the distal left femur periprosthetic. Space-occupying lesion such as infection or neoplasm not ruled out. Orthopedics is evaluating options. Immobilization knee brace has not been tolerated well. It seems to increase his pain. His breathing is slowly improving. The urine culture grew Staph epidermidis which is likely a contaminant. The UA will be repeated to be sure. We will be stopping the ceftriaxone today. 02/18/2025: Sometime overnight the patient began vomiting, apparently repeatedly, and received an NG tube which appears to be withdrawing normal- appearing gastric contents. He says this occurred around midnight but the nurse this morning received report that it was around 5:[address] scan was done showing a possible gastric ulcer along with small bowel ileus and a right basilar aspiration pneumonia. General surgery was consulted and is following with current plans not including any emergent endoscopy need. He is already on pantoprazole IV. IV Unasyn was started. The white count is only 11.1 and hemoglobin is 14.3. The metabolic panel is normal. He remains on oxygen by nasal cannula between 2 and 4 L. 02/19/2025: He is feeling much better today. The NG tube is out. He had copious stool output after the Gastrografin enema which ruled out bowel obstruction. Surgery has reviewed the CT scan and with the general picture does not believe that he has strong evidence for gastric ulcer or need for emergent EGD at this time. He reportedly had an EGD several months ago in [place]. He is set up to go to [facility] rehab at [facility] in [place] tomorrow. His only complaint is that his left knee still hurts. He says his breathing is going well. He is now on prednisone. The CBC and BMP are normal. 02/20: Comfortable on 3 L, good pain control. No abdominal discomfort, eating without difficulty. He feels ready to go to the rehab facility. Status at Discharge Cognitive/behavioral status at discharge: oriented Functional status at discharge: wheelchair bound Overall status at discharge: patient is progressing back to baseline Time Spent with Patient Time spent: Greater than 30 minutes Exam Vital Signs (past 8 hours): - 02/20/25 04:00 02/20/25 07:35 02/20/25 08:00 Temperature 97.5 F L Pulse Rate 75 60 65 Respiratory Rate 20 20 18 Blood Pressure 123/69 155/77 H Pulse Oximetry 94 93 Oxygen Delivery Method Nasal Cannula Oxygen Flow Rate 3 2 02/20/25 08:35 Temperature Pulse Rate Respiratory Rate Blood Pressure Pulse Oximetry 91 Oxygen Delivery Method Oxygen Flow Rate 3 Fraction of Inspired Oxygen 28 SaO2/FiO2 Ratio 314 Oxygen Delivery Method Nasal Cannula Oxygen Flow Rate 3 Narrative Exam Narrative: NAD, alert and oriented. Fluent speech. On 3 L O2. Lungs are clear, normal rate and effort. Heart is regular, no murmur gallop or rub. Abdomen is soft, non distended. Extremities are free of edema. Objective ECG Impression: Intervals [place] Rate: 80 P: 39 NM: 136 QRS: -58 QRSD: 92 T: 47 QT: 376 QTc: 433 Interpretive Statements Normal sinus rhythm Left axis deviation Inferior infarct , age undetermined Imaging Multiple studies:: Radiologist's impression: KUB: Oral contrast material is seen throughout colon loops extending to sigmoid colon and rectum. No evidence of obstruction. No gross free air. Abdomen pelvis CT: Consolidation right lower lobe concerning for pneumonia. Possible ulcer in the gastric antrum. Consider direct visualization. Prominent loops of small bowel within normal limits for size may represent ileus. Additional alternating segments of completely decompressed small bowel including the terminal ileum raise the possibility of inflammatory bowel disease. Knee x-ray: Unchanged alignment appear prosthetic distal femur fracture in patient with total knee arthroplasty. Lucency in the distal femur possibly representing lytic lesion previously noted on CT is also unchanged. Osseous demineralization. Atherosclerosis. No dislocation. Gastrografin study: Transit of intraluminal contrast to the large bowel seen on 4 hour post administration films.. Abdomen x-ray: NG tube tip is in the stomach lumen. Nonspecific bowel gas pattern for obstruction. No gross pneumoperitoneum. Knee CT: Transverse distal femoral periprosthetic fracture. Adjacent demineralization is concerning for underlying infection versus an underlying marrow replacing lesion. Chest CTA: 1. No pulmonary embolus. Prominent size of main pulmonary artery which can be seen associated with pulmonary vascular hypertension. 2. Ascending thoracic aortic aneurysm now measures up to 4.4 cm in largest AP diameter. No aortic dissection. Vascular stent is seen in infrarenal abdominal aorta. 3. Severe centrilobular emphysema. Multiple sub cm solid nodule seen in bilateral lung [place] as described above. The 8 mm nodule in left lower lobe was previously seen on PET-CT scan and show no increased FDG activity. Short-term CT chest follow-up in 6 months is recommended to further establish stability in the other nodules. No pleural effusion or pneumothorax. 4. Cardiomegaly, no pericardial effusion. No mediastinal or hilar lymphadenopathy. Small hiatal hernia. 5. Other incidental findings as above. Chest x-ray: No acute pulmonary process. 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 Left knee periprosthetic fracture. 2. COPD exacerbation, improved. 3. Aspiration, stable now with antibiotics being stopped. 4. Ileus, resolved. Plan of Treatment: Discharge to [facility] facility for rehabilitation efforts. We will stop antibiotics. He will be on oxygen at 3 L. Discharge Plan Discharge Plan Patient Disposition: SNF Transfer to: [facility] Under care of provider: SNF provider. Provider Discharge Comment: Stable for discharge to [facility] facility for rehabilitative efforts. Discharge orders & Medications Prescriptions: New hydrocodone-acetaminophen 5-325 mg Tablet 1 tab PO Q6HR PRN (Reason: Pain, Moderate (4-6)) Qty: 15 0RF prednisone 20 mg Tablet 40 mg PO DAILY Qty: 3 0RF Continued albuterol sulfate 90 mcg/actuation Hfa Aerosol Inhaler 1 - 2 puff INHALATION Q4-6H PRN (Reason: Shortness Of Breath) Qty: 0 [ALBUTEROL NEBULIZER] 1 neb INH QDAY Qty: 0 aspirin 81 mg Tablet,Delayed Release (Dr/Ec) 81 mg PO DAILY Qty: 0 simvastatin [Zocor] 20 MG tablet 20 mg PO HS Qty: 0 meloxicam 15 mg tablet 15 mg PO QPM potassium chloride 10 mEq tablet extended release 10 meq PO DAILY magnesium oxide 400 mg (241.3 mg magnesium) tablet 400 mg PO DAILY PRN (Reason: constipation) montelukast 10 mg tablet 10 mg PO DAILY mirabegron [Myrbetriq] 50 mg tablet extended release 24 hr 50 mg PO DAILY telmisartan [Micardis] 40 mg Tablet 40 mg PO DAILY hydrochlorothiazide 25 mg Tablet 25 mg PO DAILY mirabegron [Myrbetriq] 25 mg Tablet Extended Release 24 Hr 50 mg PO DAILY esomeprazole magnesium [Nexium] 40 mg Capsule,Delayed Release(Dr/Ec) 40 mg PO DAILY Trelegy Ellipta 200-62.5-25 mcg blister with device 1 inh inhalation DAILY Qty: 60 11RF Rx Instructions: Rinse mouth with water, gargle and spit after each use Follow up/Referrals: Maria Del Carmen Rivas MD [Primary Care Provider, [facility]] Discharge Health Status Multidrug resistant organism: No MDRO Diet/Activity/Treatments Diet: Regular Special Rehabilitation Services Reason for rehabilitation: Other Rehab type: Physical therapy and Occupational therapy Visit Report/Discharge Packet Instructions: DI for Femoral Fracture Stand Alone Forms: Patient Portal/API Discharge Data Primary Care Provider: Maria Del Carmen Rivas Quality VTE Deep Vein Thrombosis/Pulmonary Embolism Present on Admission: No
--- NOTE | 2025-02-20 12:38 | P.PN_ITS ---
Subjective Subjective Interval history: group home facility not able to take him today. S: He is doing well, breathing comfortably. Exam Vital Signs (past 8 hours): - 02/20/25 07:35 02/20/25 08:00 02/20/25 08:35 Temperature 97.5 F L Pulse Rate 60 65 Respiratory Rate 20 18 Blood Pressure 155/77 H Pulse Oximetry 93 91 Oxygen Delivery Method Nasal Cannula Oxygen Flow Rate 2 3 Fraction of Inspired Oxygen 28 SaO2/FiO2 Ratio 314 Oxygen Delivery Method Nasal Cannula Oxygen Flow Rate 3 Narrative Exam Narrative: NAD, alert and oriented. Fluent speech. Comfortable on 3 L of oxygen. Lungs are clear, normal rate and effort. Heart is regular, no murmur gallop or rub. Abdomen is soft, non distended. Extremities are free of edema. 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 Improved. -Oxygen titration goal of 88-92%, avoid excess oxygen to prevent carbon dioxide retention, Monitor mental status. -changed from IV 60 mg Solu-Medrol every 12 hours for severe exacerbation to Prednisone 40 mg qd on 02/16. Changed back to Solu-Medrol on 02/18 after vomiting/NG tube placed. Back to Prednisone on 02/19. -stopped ceftriaxone on 02/17. -Singulair and Pulmicort POSSIBLE UTI, resolved. -Blood culture negative X 24h, urine culture Staph Epidermidis, likely contaminant. Repeat UA 02/17 was normal. -Antibiotics-ceftriaxone, stopped on 02/17. -In and out cath prn at home, continue. Aspiration pneumonia, not present on admission. Active. -apparently aspirated into the right lung during repeated vomiting on 02/18 -Unasyn IV started on 02/19. Will stop at discharge. Acute vomiting and abdominal ileus. Not present on admission. Resolved.. -02/18 patient states that he was vomiting all night and that is why he has a NG tube in the left nostril. Passed on in report from the nurse was that this occurred around 5:00 a.m.. -Good BM on 02/18 with gastrograffin. Left knee periprosthetic nondisplaced femur fracture. Active. -outpatient initial X-ray and Doppler ultrasound were negative - Repeated Xray and checked ESR/CRP. All normal. - Dr. Lewis consulted and recommended CT scan -CT scan showed a periprosthetic nondisplaced femur fracture, cannot rule out space-occupying lesion such as neoplasm or infection. -knee immobilizer and follow up with ortho was the final recommendation -Restarted meloxicam, which had to be stopped 02/18 out of concern for ulcer Stable medical consitions: Hypertension. Losartan and hydrochlorothiazide Hyperlipidemia. Lipitor. CAD. Aspirin, Lipitor GERD. Protonix Overreactive bladder. Oxybutynin. In and out cath prn at home, continue. PLAN: Anticipate discharge to intermediate facility on February 21, no change to medications today. Time-Based Coding :: [TOTAL MINUTES] spent with patient and on the chart (including review of chart, obtaining history, exam, reviewing outside data, placing orders, documenting exam and treatment plan, and counseling patient) on [DATE]. Quality VTE Deep Vein Thrombosis/Pulmonary Embolism Present on Admission: No
--- NOTE | 2025-02-20 13:45 | PT.IPTN ---
Current Diagnoses Chronic obstructive pulmonary disease with (acute) exacerbation (02/15/25) Periprosthetic fracture around other internal prosthetic joint, initial encounter (02/15/25) Presence of unspecified artificial knee joint (02/15/25) Physical Therapy Treatment Note M2 PT-IP Current Condition Start: 02/15/25 17:27 Freq: NEEDED Status: Active Protocol: Document 02/15/25 15:00 AB (Rec: 02/15/25 17:46 AB [id number]) Physical Therapy Current Condition Current Condition Evaluation Date 02/15/25 Treatment Diagnosis COPD exacerbation; difficulty in walking Onset Date 02/15/25 M3 PT-IP Subjective Start: 02/15/25 17:27 Freq: NEEDED Status: Active Protocol: Document 02/20/25 13:45 AB (Rec: 02/20/25 15:24 AB [id number]) Subjective Physical Therapy Visit Type Type Treatment Note Visit Start Time 13:45 Visit Stop Time 14:15 Number of PLATING INSPECTOR Visits 0 Physical Therapy Visit Comments Patient Comments requesting to use the toilet M4 PT-IP Mobility and Gait Start: 02/15/25 17:27 Freq: NEEDED Status: Active Protocol: Document 02/20/25 13:45 AB (Rec: 02/20/25 15:24 AB [id number]) PT-Bed Mobility Assessment Supine to Sit Supine to Sit Maximum Assistance,1 Person Assistance,Head of Bed Elevated,Bedrails PT-Transfer Assessment Sit to and From Stand Sit to and from Moderate Assistance,Maximum Assistance,1 Person Stand Assistance,Use of Upper Extremities Equipment Transfer Assistive Gait Belt,Front Wheeled Walker Device Orthotic/Prosthetic No Devices or Brace: Transfers Transfer Destination Bedside Commode Transfer Technique Stand Step Pivot Transfer Ability Level of Assist Moderate Assistance,1 Person Assistance,Use of Upper Extremities Comments Mobility Comments pt in bed and requesting to use the toilet. assisted with donning L knee immobilizer. pt educated again on precautions and NWB on LLE. completed supine to sit max A and max cues. able to completed sit to stand mod A and cues and step transfer to bedside commode mod A and cues using FWW. pt needed assistance with brief management. mod to max A for controlled sitting on commode. call light within reach. Left pt with NAC. M5 PT-IP Objective Assessments Start: 02/15/25 17:27 Freq: NEEDED Status: Active Protocol: Document 02/17/25 13:34 KJ (Rec: 02/17/25 13:38 KJ Desktop) Orientation Orientation/Cognition Level of Alertness Alert M6 PT-IP Treatment Start: 02/15/25 17:27 Freq: NEEDED Status: Active Protocol: Document 02/20/25 13:45 AB (Rec: 02/20/25 15:24 AB [id number]) Physical Therapy Treatment Education Education Provided Precautions,Weight Bearing Status,Safety M7 PT-IP Assessment and Plan Start: 02/15/25 17:27 Freq: NEEDED Status: Active Protocol: Document 02/20/25 13:45 AB (Rec: 02/20/25 15:24 AB [id number]) PT Summary Assessment and Plan Potential Rehabilitation Fair Potential Summary Impairments Pain,ROM,Strength,Balance,Coordination,Sensation,Tone, Cognition,Bed Mobility,Transfers,Gait,Activity Tolerance Progress Towards Slow Progress due to Pain,Slow Progress due to Medical Goals Issues,Slow Progress due to Activity Tolerance Assessment Summary pt requiring mod to max A for sit to stand and mod A for step transfer using FWW and max cues. pt has L immobilizer on and is NWB on LLE. pt will benefit from SNF rehab to improve strength and mobility. Goals Bed Mobility Goal Minimal Assistance Transfer Goal Minimal Assistance,Front Wheeled Walker Gait Goal Minimal Assistance,Front Wheel Walker Gait Distance 25 Other Goals improve bed mobility, transfers, ambulation using FWW ~ 100 ft SBA up/down 1 step using FWW SBA Days to Meet Goals 10 Treatment Plan Physical Therapy Bed Mobility Training,Transfer Training,Gait Training, Treatment Plan Therapeutic Exercise,Balance Retraining,Discharge Planning,Hot or Cold Pack,Neuromuscular Re-ed, Coordination Retraining,Manual Therapy Precautions Brace L knee immobilizer Weight Bearing Status Weight Bearing Non-Weight Bearing Status Allowed Weight Permitted to touch down if unable to maintain nwb Bearing Amount ( enter % or #) (%) Recommendations To Nursing Amount of Assist 2 Person Assist Needed Discharge Recommendations PT Discharge SNF Rehab Recommendations Transportation Needs Wheelchair/Cabulance at Discharge - PT assist 1
[2025-02-20] MEDS: ATORVASTATIN 20 MG TABLET 10 MG PO (20:19)
[2025-02-20] MEDS: ACETAMINOPHEN 325 MG TABLET 650 MG PO (20:19)
[2025-02-21] VITALS (9 sets, daily range): BP systolic 135–150; BP diastolic 66–79; PULSE 68–90; RESP 18–22; TEMP 36.4–36.7; O2SAT 90–93
[2025-02-21] MEDS: ASPIRIN EC 81 MG TABLET PO (08:52)
[2025-02-21] MEDS: MONTELUKAST 10 MG TABLET PO (08:53)
[2025-02-21] MEDS: POTASSIUM CHLORIDE 10 MEQ TAB PO (08:54)
[2025-02-21] MEDS: LOSARTAN 50 MG TABLET PO (08:54)
[2025-02-21] MEDS: ENOXAPARIN 40 MG/0.4 ML SYRINGE SUBCUT (08:59)
[2025-02-21] MEDS: SODIUM CHLORIDE 0.9% FLUSH 10 ML IV ×2 (09:00→21:00)
[2025-02-21] MEDS: oxyBUTYnin ER 5 MG TABLET 10 MG PO (09:06)
[2025-02-21] MEDS: ALBUTEROL/IPRATROPIUM 3 ML AMPUL INH ×3 (09:12→18:54)
[2025-02-21] MEDS: BUDESONIDE 0.5 MG/2 ML NEB INH ×2 (09:12→18:52)
--- NOTE | 2025-02-21 10:32 | DIET.CONS ---
Dietary Consultation Note Admission Date: 02/15/2025 03:03 Assessment: 84 y M admitted for COPD exacerbation. Dietitian screened for LOS. EMR reviewed. No significant weight loss per weight hx and average PO intakes 75-100%. DFM reviewed for meal composition, pt ordering double protein serving at breakfast majority of days. Ht: 175.26 cm Wt: 79.379 kg BMI: 25.8 UBW: 76.118 kg on 11/23/24, 81.6 kg on 09/13/24 Last BM: 02/21/25 (02/21/25 10:00) MNA: Elias Score: 16 Diet: 02/19/25 Dinner General (Regular) Diet Diet Modifications: Food Texture: Level 7 - Regular Liquid Consistency: Level 0 - Thin Nutrition Percent Meal Consumed 60% 02/20/25 18:10 Percent Meal Consumed 50% 02/19/25 19:00 Percent Meal Consumed 75% 02/19/25 18:00 Labs: RBC 4.90 X10^6/uL (4.5-5.9) 02/19/25 04:20 Hgb 13.5 g/dL (13.5-17.5) 02/19/25 04:20 Hct 41.8 % (41-53) 02/19/25 04:20 Creatinine 0.83 mg/dL (0.66-1.25) 02/19/25 04:20 Nutrition Diagnosis: none Interventions: none needed at this time Monitoring/Evaluations: po intakes Electronically Signed by: Shanda Billingsley 02/21/25 10:32 Clinical Dietitian [address] [address]
--- NOTE | 2025-02-21 10:35 | CM.DPC ---
DCP Cont. Reviewed EMR and team rounds for pt's medical status and updates. Sola updated this DIRECTOR OF SURGERY that they may not have a bed until this weekend. Sent referral to [facility] for review. They can accept him tomorrow, transport time pending.
--- NOTE | 2025-02-21 10:50 | PT.IPTN ---
Current Diagnoses Chronic obstructive pulmonary disease with (acute) exacerbation (02/15/25) Periprosthetic fracture around other internal prosthetic joint, initial encounter (02/15/25) Presence of unspecified artificial knee joint (02/15/25) Physical Therapy Treatment Note M2 PT-IP Current Condition Start: 02/15/25 17:27 Freq: NEEDED Status: Active Protocol: Document 02/15/25 15:00 AB (Rec: 02/15/25 17:46 AB [id number]) Physical Therapy Current Condition Current Condition Evaluation Date 02/15/25 Treatment Diagnosis COPD exacerbation; difficulty in walking Onset Date 02/15/25 M3 PT-IP Subjective Start: 02/15/25 17:27 Freq: NEEDED Status: Active Protocol: Document 02/21/25 10:46 KJ (Rec: 02/21/25 10:50 KJ [id number]) Subjective Physical Therapy Visit Type Type Treatment Note Visit Start Time 09:46 Visit Stop Time 09:54 Physical Therapy Visit Comments Patient Comments L knee painful to touch Therapy Pain Assessment Pain When Pain Assessed At Rest Pain Present Pain Present Pain Reported M4 PT-IP Mobility and Gait Start: 02/15/25 17:27 Freq: NEEDED Status: Active Protocol: Document 02/21/25 10:46 KJ (Rec: 02/21/25 10:50 KJ [id number]) PT-Bed Mobility Assessment Rolling Type of Rolling Log Rolling,Roll to Left Level of Assist Moderate Assistance Supine to Sit Supine to Sit Moderate Assistance Scooting Scooting to Edge of Contact Guard Assistance Bed PT-Transfer Assessment Sit to and From Stand Sit to and from Minimal Assistance Stand Equipment Transfer Assistive Gait Belt,Front Wheeled Walker Device Transfers Transfer Destination Chair Transfer Technique Stand Step Pivot Transfer Ability Level of Assist Contact Guard Assistance Comments Mobility Comments TTWB M5 PT-IP Objective Assessments Start: 02/15/25 17:27 Freq: NEEDED Status: Active Protocol: Document 02/17/25 13:34 KJ (Rec: 02/17/25 13:38 KJ Desktop) Orientation Orientation/Cognition Level of Alertness Alert M6 PT-IP Treatment Start: 02/15/25 17:27 Freq: NEEDED Status: Active Protocol: Document 02/21/25 10:46 KJ (Rec: 02/21/25 10:50 KJ [id number]) Physical Therapy Treatment Exercises Exercises Ankle Pumps Education Education Provided Weight Bearing Status,Safety Brace Education Caregiver Other Treatments Other Treatment Instructed RN on application of knee immobilizer. Performed Assisted RN and patient in rolling and transfers. M7 PT-IP Assessment and Plan Start: 02/15/25 17:27 Freq: NEEDED Status: Active Protocol: Document 02/21/25 10:46 KJ (Rec: 02/21/25 10:50 KJ [id number]) PT Summary Assessment and Plan Potential Rehabilitation Good Potential Status of Condition Evolving at Evaluation Summary Impairments Pain Progress Towards Slow Progress due to Pain Goals Treatment Plan Physical Therapy Bed Mobility Training,Transfer Training Treatment Plan Other Continue transfer training Recommendations and Next Treatment Focus Weight Bearing Status Weight Bearing Touch Down Weight Bearing Status Allowed Weight NWB however TTWB allowed for transfers Bearing Amount ( enter % or #) (%) Recommendations To Nursing Amount of Assist 2 Person Assist Needed
--- NOTE | 2025-02-21 12:09 | PC.NURSE ---
1145: Per patient request, bladder scanned. 351 ml amount. Notified primary RN
--- NOTE | 2025-02-21 12:54 | PM.PN.1 ---
Subjective Subjective Interval history: S: Doing well, slept well. No acute pain concerns. Breathing is stable on oxygen. No cough. No dysuria. He will go to [facility] tomorrow instead of [facility] due to bed availability. He was fine with this. O: Vital signs are stable. NAD, alert and oriented. Fluent speech. On O2. Lungs are notable for expiratory wheezing, normal rate and effort. Heart is regular, no murmur gallop or rub. Abdomen is soft, non distended. Extremities are free of edema. A/P: COPD exacerbation, improved. UTI, improved. Aspiration without evidence of pneumonia, improved. Abdominal ileus and vomiting, resolved. Left knee periprosthetic nondisplaced femur fracture, stable. PLAN: -continue current oral medications. -stopped antibiotics and monitor for infection. -discharge to assisted facility tomorrow as outlined above. -outpatient orthopedic follow up. Nonweightbearing on the affected leg. Exam Vital Signs (past 8 hours): - 02/21/25 07:30 02/21/25 08:00 02/21/25 08:54 Temperature 97.7 F Pulse Rate 71 81 Respiratory Rate 18 Blood Pressure 147/72 H 147/72 H Pulse Oximetry 91 Oxygen Delivery Method Nasal Cannula Oxygen Flow Rate 2.5 02/21/25 09:12 Temperature Pulse Rate 76 Respiratory Rate 22 Blood Pressure Pulse Oximetry 93 Oxygen Delivery Method Nasal Cannula Oxygen Flow Rate 2 Fraction of Inspired Oxygen 28 SaO2/FiO2 Ratio 314 Oxygen Delivery Method Nasal Cannula Oxygen Flow Rate 2 Objective Labs 02/19/25 04:20 02/19/25 04:20 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 Quality VTE Deep Vein Thrombosis/Pulmonary Embolism Present on Admission: No
[2025-02-21] MEDS: ALBUTEROL 2.5 MG/3 ML NEB (ADULT) INH (18:52)
[2025-02-21] MEDS: ATORVASTATIN 20 MG TABLET 10 MG PO (20:52)
[2025-02-21] MEDS: DOCUSATE 100 MG CAPSULE PO (20:52)
[2025-02-22] MEDS: ACETAMINOPHEN 325 MG TABLET 650 MG PO (01:51)
[2025-02-22 04:00] VITALS: PULSE 64; RESP 20; O2SAT 91
[2025-02-22 07:52] VITALS: PULSE 68; RESP 20; O2SAT 93
[2025-02-22] MEDS: BUDESONIDE 0.5 MG/2 ML NEB INH (07:52)
[2025-02-22] MEDS: ALBUTEROL/IPRATROPIUM 3 ML AMPUL INH (07:52)
--- NOTE | 2025-02-22 08:15 | CM.DPC ---
DCP Cont. Reviewed EMR and team rounds for pt's status and updates. Pt has been medically cleared for [facility] They will transport at 11:30am. DC clinicals will be faxed once they are available. No further d/c needs are identified at this time.
[2025-02-22 08:20] VITALS: BP 149/75; PULSE 69; RESP 16; TEMP 36.5; O2SAT 90
--- NOTE | 2025-02-22 09:25 | P.DS_ITS ---
History of Present Illness History of Present Illness Chief complaint: gen weakness Narrative: From H&P: This is an 84 year old male with a history of hypertension, CAD, GERD, overactive bladder and COPD who presented to the ED with generalized weakness, increased shortness of breath on exertion and left knee pain getting progressively worse in the last several days. He has no fever, cough, chest pain, palpitations, nausea, vomiting, diarrhea or dysuria. He says that he had x-ray of the left knee [address] [facility] ED which was negative. His left knee replacement was 25 years ago. It is now difficult to ambulate. He also reports some lower extremities edema. Outpatient ultrasound was reportedly negative for DVT. Laboratory shows WBC 9.6, H&H 13.7 and 42.5, sodium 134, potassium 3.5, creatinine 0.82, blood sugar 82, troponin 0.0 12, respiratory viral panel negative, UA consistent for UTI. Chest x-ray unremarkable, EKG normal sinus rhythm of 80. In the ER he was found to have hypoxia on exertion with oxygen saturation of 87% on room air. He is now on IV Solu-Medrol, albuterol, Atrovent ceftriaxone IV and Dilaudid. Discharge Providers Provider Date of admission: 02/15/25 03:03 Discharge Date: 02/22/25 Primary care physician: Maria Del Carmen Rivas MD Consults: 02/15/25 03:06 Consult to Cardio/Pulmonary Rehabilitation Routine Comment: Physician Instructions: Evaluate and treat 02/15/25 12:00 Consult to Physical Therapy Evaluate & Treat Comment: Physician Instructions: Evaluate and Treat 02/16/25 10:37 Consult to Orthopedic Surgery Routine Comment: Consulting Provider: Sho Lewis Reason for consultation: Left Knee Pain Has provider been notified: Yes 02/18/25 10:44 Consult to Pharmacy Routine Comment: tagged per NOC shift 02/18/25 10:53 Consult to General Surgery Routine Comment: Consulting Provider: Fransisco Shi Reason for consultation: Vomiting and Gastric Ulcer Has provider been notified: Yes 02/18/25 21:26 Consult to Pharmacy Routine Comment: PAT RISK FOR FALL TAKING MULTIPLE MEDICATIONS 02/20/25 19:42 Consult to Pharmacy Routine Comment: high fall risk Discharge provider: Dinesh Laureano MD Summary Hospital Course Discharge Diagnosis: COPD exacerbation. Improved. -Oxygen titration goal of 88-92%, avoid excess oxygen to prevent carbon dioxide retention, Monitor mental status. -changed from IV 60 mg Solu-Medrol every 12 hours for severe exacerbation to Prednisone 40 mg qd on 02/16. Changed back to Solu-Medrol on 02/18 after vomiting/NG tube placed. Back to Prednisone on 02/19. -stopped ceftriaxone on 02/17. -Singulair and Pulmicort chronically POSSIBLE UTI, resolved. -Blood culture negative X 24h, urine culture Staph Epidermidis, likely contaminant. Repeat UA 02/17 was normal. -Antibiotics-ceftriaxone, stopped on 02/17. -In and out cath prn at home, continue after discharge. Aspiration pneumonia, not present on admission. Active. -apparently aspirated into the right lung during repeated vomiting on 02/18 -Unasyn IV started on 02/19. Stopped 1 day later. Acute vomiting and abdominal ileus. Not present on admission. Resolved.. -02/18 patient states that he was vomiting all night and that is why he has a NG tube in the left nostril. Passed on in report from the nurse was that this occurred around 5:00 a.m.. -Good BM on 02/18 with gastrograffin. Left knee periprosthetic nondisplaced femur fracture. Active. -outpatient initial X-ray and Doppler ultrasound were negative - Repeated Xray and checked ESR/CRP. All normal. - Dr. Lewis consulted and recommended CT scan -CT scan showed a periprosthetic nondisplaced femur fracture, cannot rule out space-occupying lesion such as neoplasm or infection. -knee immobilizer and follow up with ortho was the final recommendation -Restarted meloxicam, which had to be stopped 02/18 out of concern for ulcer Stable medical consitions: Hypertension. Losartan and hydrochlorothiazide Hyperlipidemia. Lipitor. CAD. Aspirin, Lipitor GERD. Protonix Hospital Course: 02/16/2025: Sodium 133, creatinine 0.79, CRP 1.3, ESR 5, magnesium 2.1, blood cultures for 24 hours negative x2, urine culture pending. He continues to experience severe left knee pain, avoiding weight-bearing. X-rays reviewed and it is normal with the prosthesis intact. Consulted with Orthopedics and discussed with Dr. Lewis. CT of the knee will be added. 02/17/2025: The knee CT showed a nondisplaced fracture of the distal left femur periprosthetic. Space-occupying lesion such as infection or neoplasm not ruled out. Orthopedics is evaluating options. Immobilization knee brace has not been tolerated well. It seems to increase his pain. His breathing is slowly improving. The urine culture grew Staph epidermidis which is likely a contaminant. The UA will be repeated to be sure. We will be stopping the ceftriaxone today. 02/18/2025: Sometime overnight the patient began vomiting, apparently repeatedly, and received an NG tube which appears to be withdrawing normal- appearing gastric contents. He says this occurred around midnight but the nurse this morning received report that it was around 5:[address] scan was done showing a possible gastric ulcer along with small bowel ileus and a right basilar aspiration pneumonia. General surgery was consulted and is following with current plans not including any emergent endoscopy need. He is already on pantoprazole IV. IV Unasyn was started. The white count is only 11.1 and hemoglobin is 14.3. The metabolic panel is normal. He remains on oxygen by nasal cannula between 2 and 4 L. 02/19/2025: He is feeling much better today. The NG tube is out. He had copious stool output after the Gastrografin enema which ruled out bowel obstruction. Surgery has reviewed the CT scan and with the general picture does not believe that he has strong evidence for gastric ulcer or need for emergent EGD at this time. He reportedly had an EGD several months ago in [place]. He is set up to go [facility] in [place] tomorrow. His only complaint is that his left knee still hurts. He says his breathing is going well. He is now on prednisone. The CBC and BMP are normal. 02/20: Comfortable on 3 L, good pain control. No abdominal discomfort, eating without difficulty. He feels ready to go to the rehab facility. 02/21: Stable. Status at Discharge Cognitive/behavioral status at discharge: oriented Functional status at discharge: wheelchair bound Overall status at discharge: patient is progressing back to baseline Time Spent with Patient Time spent: Greater than 30 minutes Exam Vital Signs (past 8 hours): - 02/22/25 04:00 02/22/25 07:52 02/22/25 08:20 Temperature 97.7 F Pulse Rate 64 68 69 Respiratory Rate 20 20 16 Blood Pressure 149/75 H Pulse Oximetry 91 93 90 L Oxygen Delivery Method Nasal Cannula Oxygen Flow Rate 2 2 2 Fraction of Inspired Oxygen 28 SaO2/FiO2 Ratio 314 Oxygen Delivery Method Nasal Cannula Oxygen Flow Rate 2 Narrative Exam Narrative: NAD, alert and oriented. Fluent speech. Lungs are mostly clear with scattered wheezing, normal rate and effort. Heart is regular, no murmur gallop or rub. Abdomen is soft, non distended. Extremities are free of edema. Objective ECG Impression: Impression: Intervals [place] Rate: 80 P: 39 AL: 136 QRS: -58 QRSD: 92 T: 47 QT: 376 QTc: 433 Interpretive Statements Normal sinus rhythm Left axis deviation Inferior infarct , age undetermined Imaging Multiple studies: : Radiologist's impression: KUB: Oral contrast material is seen throughout colon loops extending to sigmoid colon and rectum. No evidence of obstruction. No gross free air. Abdomen pelvis CT: Consolidation right lower lobe concerning for pneumonia. Possible ulcer in the gastric antrum. Consider direct visualization. Prominent loops of small bowel within normal limits for size may represent ileus. Additional alternating segments of completely decompressed small bowel including the terminal ileum raise the possibility of inflammatory bowel disease. Knee x-ray: Unchanged alignment appear prosthetic distal femur fracture in patient with total knee arthroplasty. Lucency in the distal femur possibly representing lytic lesion previously noted on CT is also unchanged. Osseous demineralization. Atherosclerosis. No dislocation. Gastrografin study: Transit of intraluminal contrast to the large bowel seen on 4 hour post administration films.. Abdomen x-ray: NG tube tip is in the stomach lumen. Nonspecific bowel gas pattern for obstruction. No gross pneumoperitoneum. Knee CT: Transverse distal femoral periprosthetic fracture. Adjacent demineralization is concerning for underlying infection versus an underlying marrow replacing lesion. Chest CTA: 1. No pulmonary embolus. Prominent size of main pulmonary artery which can be seen associated with pulmonary vascular hypertension. 2. Ascending thoracic aortic aneurysm now measures up to 4.4 cm in largest AP diameter. No aortic dissection. Vascular stent is seen in infrarenal abdominal aorta. 3. Severe centrilobular emphysema. Multiple sub cm solid nodule seen in bilateral lung [place] as described above. The 8 mm nodule in left lower lobe was previously seen on PET-CT scan and show no increased FDG activity. Short-term CT chest follow-up in 6 months is recommended to further establish stability in the other nodules. No pleural effusion or pneumothorax. 4. Cardiomegaly, no pericardial effusion. No mediastinal or hilar lymphadenopathy. Small hiatal hernia. 5. Other incidental findings as above. Chest x-ray: No acute pulmonary process. 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 Left knee periprosthetic fracture. 2. COPD exacerbation, improved. 3. Aspiration, stable now with antibiotics being stopped. 4. Ileus, resolved. Plan of Treatment: [facility]charge [facility]. We will stop antibiotics. He will be on oxygen at 3 L. Discharge Plan Discharge Plan Patient Disposition: SNF Transfer to: [facility] Under care of provider: SNF provider. Provider Discharge Comment: Stable for discharge to [facility]itative efforts. Discharge orders & Medications Prescriptions: New hydrocodone-acetaminophen 5-325 mg Tablet 1 tab PO Q6HR PRN (Reason: Pain, Moderate (4-6)) Qty: 15 0RF prednisone 20 mg Tablet 40 mg PO DAILY Qty: 3 0RF Continued albuterol sulfate 90 mcg/actuation Hfa Aerosol Inhaler 1 - 2 puff INHALATION Q4-6H PRN (Reason: Shortness Of Breath) Qty: 0 [ALBUTEROL NEBULIZER] 1 neb INH QDAY Qty: 0 aspirin 81 mg Tablet,Delayed Release (Dr/Ec) 81 mg PO DAILY Qty: 0 simvastatin [Zocor] 20 MG tablet 20 mg PO HS Qty: 0 meloxicam 15 mg tablet 15 mg PO QPM potassium chloride 10 mEq tablet extended release 10 meq PO DAILY magnesium oxide 400 mg (241.3 mg magnesium) tablet 400 mg PO DAILY PRN (Reason: constipation) montelukast 10 mg tablet 10 mg PO DAILY mirabegron [Myrbetriq] 50 mg tablet extended release 24 hr 50 mg PO DAILY telmisartan [Micardis] 40 mg Tablet 40 mg PO DAILY hydrochlorothiazide 25 mg Tablet 25 mg PO DAILY mirabegron [Myrbetriq] 25 mg Tablet Extended Release 24 Hr 50 mg PO DAILY esomeprazole magnesium [Nexium] 40 mg Capsule,Delayed Release(Dr/Ec) 40 mg PO DAILY Trelegy Ellipta 200-62.5-25 mcg blister with device 1 inh inhalation DAILY Qty: 60 11RF Rx Instructions: Rinse mouth with water, gargle and spit after each use Follow up/Referrals: Maria Del Carmen Rivas MD [Primary Care Provider, [facility]] Discharge Health Status Multidrug resistant organism: No MDRO Diet/Activity/Treatments Diet: Regular Special Rehabilitation Services Reason for rehabilitation: Other Rehab type: Physical therapy and Occupational therapy Visit Report/Discharge Packet Instructions: DI for Femoral Fracture Stand Alone Forms: Patient Portal/API Discharge Data Primary Care Provider: Maria Del Carmen Rivas Quality VTE Deep Vein Thrombosis/Pulmonary Embolism Present on Admission: No
[2025-02-22] MEDS: oxyBUTYnin ER 5 MG TABLET 10 MG PO (09:59)
[2025-02-22 10:00] VITALS: BP 149/75; PULSE 69
[2025-02-22] MEDS: MONTELUKAST 10 MG TABLET PO (10:00)
[2025-02-22] MEDS: LOSARTAN 50 MG TABLET PO (10:00)
[2025-02-22] MEDS: ASPIRIN EC 81 MG TABLET PO (10:00)
[2025-02-22] MEDS: POTASSIUM CHLORIDE 10 MEQ TAB PO (10:00)
[2025-02-22] MEDS: ENOXAPARIN 40 MG/0.4 ML SYRINGE SUBCUT (10:01)
--- NOTE | 2025-02-22 12:10 | PC.NURSE ---
Pt discharged to [facility] rehab at 1145, escorted off floor in wheelchair accompanied by facility designee. Discharge teaching included in packet for facility. Report called at 11:55 to [facility] ([phone]). Patient left the floor with all belongings.
== END 2025-02-22 12:15 | DRG 189 ==
LOC: ED 02-15 03:01 → AC 02-15 06:43
PROVIDERS: Family Medicine; Internal Medicine; Admitting Provider Internal Medicine; Emergency Provider Emergency Medicine; Family Provider Physician Assistant; PCP Family Medicine; Visit Provider Internal Medicine
DX: J96.01 Acute respiratory failure with hypoxia (principal); J69.0 Pneumonitis due to inhalation of food and vomit; J44.1 Chronic obstructive pulmonary disease with (acute) exacerbation; N39.0 Urinary tract infection, site not specified; M97.12XA Periprosthetic fracture around internal prosthetic left knee joint, initial encounter; K56.7 Ileus, unspecified; F17.200 Nicotine dependence, unspecified, uncomplicated; I10 Essential (primary) hypertension; E78.5 Hyperlipidemia, unspecified; I25.10 Atherosclerotic heart disease of native coronary artery without angina pectoris; K21.9 Gastro-esophageal reflux disease without esophagitis; N32.81 Overactive bladder; R11.2 Nausea with vomiting, unspecified; K59.00 Constipation, unspecified; F17.210 Nicotine dependence, cigarettes, uncomplicated; R53.1 Weakness
CPT/HCPCS: 36415; 71046; 71275; 73560; 73700; 74018; 74177; 80048; 80053; 81001; 81003; 81015; 83690; 83735; 84484; 85025; 85651; 86140; 87040; 87077; 87086; 87186; 87637; 93005; 94640; 94762; 96374; 96375; 97110; 97163; 97530; 97760; 99285; 99291; J0295; J0696; J1171; J1650; J2270; J2405; J2470; J2765; J2919; J7613; Q9967

== ENCOUNTER 2025-03-18 06:19 | Inpatient (IN) | payer MEDICARE, OTHER, SELFPAY ==
[2025-02-17 03:49] VITALS: BMI 25.8
[2025-03-18] VITALS (53 sets, daily range): BP systolic 87–136; BP diastolic 48–76; PULSE 84–96; RESP 14–37; TEMP 36.3–36.7; O2SAT 89–97; BMI 23.6
--- NOTE | 2025-03-18 06:48 | ED.GIBLEED ---
HPI - GI Bleed <Eliot Chavez MD - Last Filed: 03/18/25 06:55> General Chief complaint: GI Bleed Stated complaint: gi bleed Time Seen by Provider: 03/18/25 06:42 Source: patient and EMS Mode of arrival: EMS History of Present Illness HPI Narrative: 84-year-old male with a history of prostate cancer and coming from [facility] for left knee bone fractures where they were trying to do a bladder scan and incidentally found a fairly large bloody bowel movement. Patient is unaware of the color of the bowel movement but was told that it was bloody and is here via EMS now. Patient also has a history of urinary retention and needs catheterizations 2 times a day. Related Data Home Medications ?Medication ?Instructions ?Recorded ?Confirmed [ALBUTEROL NEBULIZER] 1 neb INH QDAY ##0 12/16/10 02/15/25 albuterol sulfate 90 mcg/actuation 1 - 2 puff inhalation Q4-6H PRN 12/16/10 02/15/25 aerosol inhaler Shortness Of Breath ##0 aspirin 81 mg tablet,delayed 81 mg PO DAILY ##0 12/16/10 02/15/25 release simvastatin 20 mg tablet (Zocor) 20 mg PO HS ##0 12/16/10 02/15/25 hydrochlorothiazide 25 mg tablet 25 mg PO DAILY 12/14/19 02/15/25 mirabegron 25 mg tablet,extended 50 mg PO DAILY 12/14/19 02/15/25 release 24 hr (Myrbetriq) telmisartan 40 mg tablet (Micardis) 40 mg PO DAILY 12/14/19 02/15/25 esomeprazole magnesium 40 mg 40 mg PO DAILY 12/21/19 02/15/25 capsule,delayed release (Nexium) magnesium oxide 400 mg (241.3 mg 400 mg PO DAILY PRN constipation 02/15/25 02/15/25 magnesium) tablet meloxicam 15 mg tablet 15 mg PO QPM 02/15/25 02/15/25 mirabegron 50 mg tablet,extended 50 mg PO DAILY 02/15/25 02/15/25 release 24 hr (Myrbetriq) montelukast 10 mg tablet 10 mg PO DAILY 02/15/25 02/15/25 potassium chloride 10 mEq 10 meq PO DAILY 02/15/25 02/15/25 tablet,extended release Previous Rx's ?Medication ?Instructions ?Recorded fluticasone fur. 200 mcg-umeclid 1 inh inhalation DAILY #60 ea 11/23/24 62.5 mcg-vilant 25 mcg inhalat.powder (Trelegy Ellipta) hydrocodone 5 mg-acetaminophen 325 1 tab PO Q6HR PRN Pain, Moderate 02/20/25 mg tablet (4-6) #15 tabs prednisone 20 mg tablet 40 mg (2 x 20 mg) PO DAILY #3 tabs 02/20/25 Allergies Allergy/AdvReac Type Severity Reaction Status Date / Time fluticasone (From Advair AdvReac double Verified 03/18/25 06:29 Diskus) vision salmeterol (From Advair AdvReac double Verified 03/18/25 06:29 Diskus) vision Patient History <Eliot Chavez MD - Last Filed: 03/18/25 06:55> Medical History Hypoxia Nicotine dependence BPH (benign prostatic hyperplasia) Current every day smoker COPD (chronic obstructive pulmonary disease) HLD (hyperlipidemia) HTN (hypertension) GERD (gastroesophageal reflux disease) 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) Surgical History H/O total knee replacement History of loop recorder (2013) Social History household members: none Smoking Status: Former smoker alcohol intake: current Smoking Status: Former smoker tobacco type: cigarettes alcohol intake frequency: 0-2 drinks per day Alcohol type: beer Exam <Eliot Chavez MD - Last Filed: 03/18/25 06:55> Initial Vital Signs Initial Vital Signs: Vital Signs Temperature 98.0 F 03/18/25 06:29 Pulse Rate 88 03/18/25 06:29 Respiratory Rate 22 03/18/25 06:29 Blood Pressure 120/60 03/18/25 06:29 Pulse Oximetry 92 03/18/25 06:29 Oxygen Delivery Method Nasal Cannula 03/18/25 06:29 Oxygen Flow Rate 2 03/18/25 06:29 <Eve De Los Santos DO - Last Filed: 03/18/25 12:07> Initial Vital Signs Initial Vital Signs: Vital Signs Temperature 98.0 F 03/18/25 06:29 Pulse Rate 88 03/18/25 06:29 Respiratory Rate 22 03/18/25 06:29 Blood Pressure 120/60 03/18/25 06:29 Pulse Oximetry 92 03/18/25 06:29 Oxygen Delivery Method Nasal Cannula 03/18/25 06:29 Oxygen Flow Rate 2 03/18/25 06:29 Course <Eliot Chavez MD - Last Filed: 03/18/25 06:55> Orders Ordered: ED Orders 03/18/25 06:40 CBC Auto Diff [Complete Blood Count AUTO DIFF] Stat CMP [Comprehensive Metabolic Panel] Stat Lactate (Lactic Acid) Stat Prothrombin Time INR Stat 03/18/25 06:43 Lipase Stat Trop I [Troponin I] Stat 03/18/25 06:47 Type and Screen Stat 03/18/25 07:30 CT angio Abd/Pel GI Bleed Stat Hemoglobin and Hematocrit Stat 03/18/25 09:13 EKG-12 Lead Stat Discontinued Medications Acetaminophen (Ofirmev) 1,000 mg in 100 mls @ 400 mls/hr IV NOW ONE Stop: 03/18/25 09:19 Last Infusion: 03/18/25 10:01 Dose: Infused Documented By: Admin: 03/18/25 09:34 Dose: 400 mls/hr Documented By: Morphine Sulfate (Morphine 2 Mg/Ml Inj) 2 mg IV NOW ONE Stop: 03/18/25 09:00 Last Admin: 03/18/25 09:11 Dose: Not Given Documented By: JUAN Morphine Sulfate (Morphine 4 Mg/Ml Inj) 2 mg IV NOW ONE Stop: 03/18/25 09:16 Last Admin: 03/18/25 09:34 Dose: 2 mg Documented By: Pantoprazole Sodium (Pantoprazole 40 Mg Vial) 80 mg IV NOW ONE Stop: 03/18/25 07:25 Last Admin: 03/18/25 08:07 Dose: 80 mg Documented By: RB Vital Signs Vital signs: Vital Signs - 8 hr 03/18/25 06:29 03/18/25 07:00 03/18/25 07:01 Temperature 98.0 F Pulse Rate 88 88 Respiratory Rate 22 23 Blood Pressure 120/60 87/51 L Pulse Oximetry 92 94 Oxygen Delivery Method Nasal Cannula Oxygen Flow Rate 2 03/18/25 07:01 03/18/25 07:03 03/18/25 07:03 Temperature Pulse Rate 88 87 Respiratory Rate 27 H 22 Blood Pressure 107/60 Pulse Oximetry 95 Oxygen Delivery Method Nasal Cannula Oxygen Flow Rate 2 03/18/25 07:22 03/18/25 07:22 03/18/25 07:27 Temperature Pulse Rate 88 Respiratory Rate 27 H Blood Pressure 90/48 L 114/60 Pulse Oximetry 95 Oxygen Delivery Method Oxygen Flow Rate 03/18/25 07:27 03/18/25 07:30 03/18/25 07:30 Temperature Pulse Rate 92 H 91 H Respiratory Rate 37 H 26 H Blood Pressure 119/61 Pulse Oximetry 95 94 Oxygen Delivery Method Oxygen Flow Rate 03/18/25 07:45 03/18/25 07:45 03/18/25 08:00 Temperature Pulse Rate 91 H Respiratory Rate 35 H Blood Pressure 120/65 125/76 Pulse Oximetry 97 Oxygen Delivery Method Oxygen Flow Rate 03/18/25 08:00 03/18/25 08:16 03/18/25 08:16 Temperature Pulse Rate 86 92 H Respiratory Rate 21 23 Blood Pressure 136/59 L Pulse Oximetry 92 92 Oxygen Delivery Method Oxygen Flow Rate 03/18/25 08:30 03/18/25 08:30 03/18/25 08:45 Temperature Pulse Rate 88 Respiratory Rate 18 Blood Pressure 115/61 116/58 L Pulse Oximetry 94 Oxygen Delivery Method Oxygen Flow Rate 03/18/25 08:45 03/18/25 09:00 03/18/25 09:00 Temperature Pulse Rate 90 89 Respiratory Rate 20 19 Blood Pressure 109/59 L Pulse Oximetry 94 93 Oxygen Delivery Method Oxygen Flow Rate 03/18/25 09:15 03/18/25 09:15 Temperature Pulse Rate 87 Respiratory Rate 15 Blood Pressure 122/56 L Pulse Oximetry 94 Oxygen Delivery Method Oxygen Flow Rate <Eve De Los Santos, DO - Last Filed: 03/18/25 12:07> Orders Ordered: ED Orders 03/18/25 06:40 CBC Auto Diff [Complete Blood Count AUTO DIFF] Stat CMP [Comprehensive Metabolic Panel] Stat Lactate (Lactic Acid) Stat Prothrombin Time INR Stat 03/18/25 06:43 Lipase Stat Trop I [Troponin I] Stat 03/18/25 06:47 Type and Screen Stat 03/18/25 07:30 CT angio Abd/Pel GI Bleed Stat Hemoglobin and Hematocrit Stat 03/18/25 09:13 EKG-12 Lead Stat Discontinued Medications Acetaminophen (Ofirmev) 1,000 mg in 100 mls @ 400 mls/hr IV NOW ONE Stop: 03/18/25 09:19 Last Infusion: 03/18/25 10:01 Dose: Infused Documented By: Admin: 03/18/25 09:34 Dose: 400 mls/hr Documented By: Morphine Sulfate (Morphine 2 Mg/Ml Inj) 2 mg IV NOW ONE Stop: 03/18/25 09:00 Last Admin: 03/18/25 09:11 Dose: Not Given Documented By: RB Morphine Sulfate (Morphine 4 Mg/Ml Inj) 2 mg IV NOW ONE Stop: 03/18/25 09:16 Last Admin: 03/18/25 09:34 Dose: 2 mg Documented By: Pantoprazole Sodium (Pantoprazole 40 Mg Vial) 80 mg IV NOW ONE Stop: 03/18/25 07:25 Last Admin: 03/18/25 08:07 Dose: 80 mg Documented By: JUAN Vital Signs Vital signs: Vital Signs - 8 hr 03/18/25 06:29 03/18/25 07:00 03/18/25 07:01 Temperature 98.0 F Pulse Rate 88 88 Respiratory Rate 22 23 Blood Pressure 120/60 87/51 L Pulse Oximetry 92 94 Oxygen Delivery Method Nasal Cannula Oxygen Flow Rate 2 03/18/25 07:01 03/18/25 07:03 03/18/25 07:03 Temperature Pulse Rate 88 87 Respiratory Rate 27 H 22 Blood Pressure 107/60 Pulse Oximetry 95 Oxygen Delivery Method Nasal Cannula Oxygen Flow Rate 2 03/18/25 07:22 03/18/25 07:22 03/18/25 07:27 Temperature Pulse Rate 88 Respiratory Rate 27 H Blood Pressure 90/48 L 114/60 Pulse Oximetry 95 Oxygen Delivery Method Oxygen Flow Rate 03/18/25 07:27 03/18/25 07:30 03/18/25 07:30 Temperature Pulse Rate 92 H 91 H Respiratory Rate 37 H 26 H Blood Pressure 119/61 Pulse Oximetry 95 94 Oxygen Delivery Method Oxygen Flow Rate 03/18/25 07:45 03/18/25 07:45 03/18/25 08:00 Temperature Pulse Rate 91 H Respiratory Rate 35 H Blood Pressure 120/65 125/76 Pulse Oximetry 97 Oxygen Delivery Method Oxygen Flow Rate 03/18/25 08:00 03/18/25 08:16 03/18/25 08:16 Temperature Pulse Rate 86 92 H Respiratory Rate 21 23 Blood Pressure 136/59 L Pulse Oximetry 92 92 Oxygen Delivery Method Oxygen Flow Rate 03/18/25 08:30 03/18/25 08:30 03/18/25 08:45 Temperature Pulse Rate 88 Respiratory Rate 18 Blood Pressure 115/61 116/58 L Pulse Oximetry 94 Oxygen Delivery Method Oxygen Flow Rate 03/18/25 08:45 03/18/25 09:00 03/18/25 09:00 Temperature Pulse Rate 90 89 Respiratory Rate 20 19 Blood Pressure 109/59 L Pulse Oximetry 94 93 Oxygen Delivery Method Oxygen Flow Rate 03/18/25 09:15 03/18/25 09:15 Temperature Pulse Rate 87 Respiratory Rate 15 Blood Pressure 122/56 L Pulse Oximetry 94 Oxygen Delivery Method Oxygen Flow Rate MDM - GI Bleed <Eliot Chavez MD - Last Filed: 03/18/25 06:55> Lab Data 03/18/25 07:30 03/18/25 06:40 Labs: Lab Results 03/18/25 03/18/25 03/18/25 Range/Units 06:40 06:43 06:47 WBC 12.1 H (4.5-11.0) X10^3/uL RBC 4.10 L (4.5-5.9) X10^6/uL Hgb 11.4 L (13.5-17.5) g/dL Hct 35.0 L (41-53) % MCV 85.4 (80-100) fL MCH 27.8 (26-34) PG MCHC 32.6 (30-36) % RDW 19.0 H (11.6-14.8) % Plt Count 227 (150-400) X10^3/uL Neut % (Auto) 80.3 H (50-75) % Lymph % (Auto) 13.1 L (25-40) % [place] % (Auto) 5.7 (3-14) % Eos % (Auto) 0.7 L (2-4) % Baso % (Auto) 0.2 (0-2) % Neut # (Auto) 9700 H (1705-0683) /uL Lymph # (Auto) 1600 (0172-7897) /uL [place] # (Auto) 700 (0-900) /uL Eos # (Auto) 100 (0-450) /uL Baso # (Auto) 0 (0-100) /uL PT 12.0 (9.4-12.5) SECONDS INR 1.1 (0.9-1.3) Sodium 137 (137-145) mmol/L Potassium 4.0 (3.4-5.1) mmol/L Chloride 103 (98-107) mmol/L Carbon Dioxide 29 (22-32) mmol/L BUN 25 H (9-20) mg/dL Creatinine 0.84 (0.66-1.25) mg/dL Estimated GFR > 60 (>60) mL/min BUN/Creatinine Ratio 29.8 H (6-22) Glucose 83 (70-99) mg/dL Lactate 1.3 (0.7-2.1) mmol/L Calcium 8.3 L (8.4-10.2) mg/dL Total Bilirubin 0.4 (0.2-1.3) mg/dL AST 21 (17-59) IU/L ALT 30 (<50) IU/L Alkaline Phosphatase 80 (38-126) U/L Troponin I < 0.012 (0.01-0.034) ng/mL Total Protein 5.7 L (6.3-8.2) g/dL Albumin 3.0 L (3.5-5.0) g/dL Globulin 2.7 (1.7-4.1) g/dL Albumin/Globulin Ratio 1.1 (1.0-2.8) Lipase 28 (23-300) U/L Blood Type O Positive Antibody Screen Negative 03/18/25 Range/Units 07:30 WBC (4.5-11.0) X10^3/uL RBC (4.5-5.9) X10^6/uL Hgb 11.3 L (13.5-17.5) g/dL Hct 34.4 L (41-53) % MCV (80-100) fL MCH (26-34) PG MCHC (30-36) % RDW (11.6-14.8) % Plt Count (150-400) X10^3/uL Neut % (Auto) (50-75) % Lymph % (Auto) (25-40) % [place] % (Auto) (3-14) % Eos % (Auto) (2-4) % Baso % (Auto) (0-2) % Neut # (Auto) (6481-0741) /uL Lymph # (Auto) (5166-3008) /uL [place] # (Auto) (0-900) /uL Eos # (Auto) (0-450) /uL Baso # (Auto) (0-100) /uL PT (9.4-12.5) SECONDS INR (0.9-1.3) Sodium (137-145) mmol/L Potassium (3.4-5.1) mmol/L Chloride (98-107) mmol/L Carbon Dioxide (22-32) mmol/L BUN (9-20) mg/dL Creatinine (0.66-1.25) mg/dL Estimated GFR (>60) mL/min BUN/Creatinine Ratio (6-22) Glucose (70-99) mg/dL Lactate (0.7-2.1) mmol/L Calcium (8.4-10.2) mg/dL Total Bilirubin (0.2-1.3) mg/dL AST (17-59) IU/L ALT (<50) IU/L Alkaline Phosphatase (38-126) U/L Troponin I (0.01-0.034) ng/mL Total Protein (6.3-8.2) g/dL Albumin (3.5-5.0) g/dL Globulin (1.7-4.1) g/dL Albumin/Globulin Ratio (1.0-2.8) Lipase (23-300) U/L Blood Type Antibody Screen Point of Care Testing Stool Occult Blood Positive <Eve De Los Santos, DO - Last Filed: 03/18/25 12:07> Lab Data Labs: Lab Results 03/18/25 03/18/25 03/18/25 Range/Units 06:40 06:43 06:47 WBC 12.1 H (4.5-11.0) X10^3/uL RBC 4.10 L (4.5-5.9) X10^6/uL Hgb 11.4 L (13.5-17.5) g/dL Hct 35.0 L (41-53) % MCV 85.4 (80-100) fL MCH 27.8 (26-34) PG MCHC 32.6 (30-36) % RDW 19.0 H (11.6-14.8) % Plt Count 227 (150-400) X10^3/uL Neut % (Auto) 80.3 H (50-75) % Lymph % (Auto) 13.1 L (25-40) % [place] % (Auto) 5.7 (3-14) % Eos % (Auto) 0.7 L (2-4) % Baso % (Auto) 0.2 (0-2) % Neut # (Auto) 9700 H (6758-2802) /uL Lymph # (Auto) 1600 (8703-7816) /uL [place] # (Auto) 700 (0-900) /uL Eos # (Auto) 100 (0-450) /uL Baso # (Auto) 0 (0-100) /uL PT 12.0 (9.4-12.5) SECONDS INR 1.1 (0.9-1.3) Sodium 137 (137-145) mmol/L Potassium 4.0 (3.4-5.1) mmol/L Chloride 103 (98-107) mmol/L Carbon Dioxide 29 (22-32) mmol/L BUN 25 H (9-20) mg/dL Creatinine 0.84 (0.66-1.25) mg/dL Estimated GFR > 60 (>60) mL/min BUN/Creatinine Ratio 29.8 H (6-22) Glucose 83 (70-99) mg/dL Lactate 1.3 (0.7-2.1) mmol/L Calcium 8.3 L (8.4-10.2) mg/dL Total Bilirubin 0.4 (0.2-1.3) mg/dL AST 21 (17-59) IU/L ALT 30 (<50) IU/L Alkaline Phosphatase 80 (38-126) U/L Troponin I < 0.012 (0.01-0.034) ng/mL Total Protein 5.7 L (6.3-8.2) g/dL Albumin 3.0 L (3.5-5.0) g/dL Globulin 2.7 (1.7-4.1) g/dL Albumin/Globulin Ratio 1.1 (1.0-2.8) Lipase 28 (23-300) U/L Blood Type O Positive Antibody Screen Negative 03/18/25 Range/Units 07:30 WBC (4.5-11.0) X10^3/uL RBC (4.5-5.9) X10^6/uL Hgb 11.3 L (13.5-17.5) g/dL Hct 34.4 L (41-53) % MCV (80-100) fL MCH (26-34) PG MCHC (30-36) % RDW (11.6-14.8) % Plt Count (150-400) X10^3/uL Neut % (Auto) (50-75) % Lymph % (Auto) (25-40) % [place] % (Auto) (3-14) % Eos % (Auto) (2-4) % Baso % (Auto) (0-2) % Neut # (Auto) (0710-2830) /uL Lymph # (Auto) (9331-3216) /uL [place] # (Auto) (0-900) /uL Eos # (Auto) (0-450) /uL Baso # (Auto) (0-100) /uL PT (9.4-12.5) SECONDS INR (0.9-1.3) Sodium (137-145) mmol/L Potassium (3.4-5.1) mmol/L Chloride (98-107) mmol/L Carbon Dioxide (22-32) mmol/L BUN (9-20) mg/dL Creatinine (0.66-1.25) mg/dL Estimated GFR (>60) mL/min BUN/Creatinine Ratio (6-22) Glucose (70-99) mg/dL Lactate (0.7-2.1) mmol/L Calcium (8.4-10.2) mg/dL Total Bilirubin (0.2-1.3) mg/dL AST (17-59) IU/L ALT (<50) IU/L Alkaline Phosphatase (38-126) U/L Troponin I (0.01-0.034) ng/mL Total Protein (6.3-8.2) g/dL Albumin (3.5-5.0) g/dL Globulin (1.7-4.1) g/dL Albumin/Globulin Ratio (1.0-2.8) Lipase (23-300) U/L Blood Type Antibody Screen Point of Care Testing Stool Occult Blood Positive Imaging Data CT scan - abdomen/pelvis: Radiologist's Impression: PROCEDURE: CT ANGIO ABD/PEL GI BLEED INDICATIONS: GI Bleed TECHNIQUE: After the administration of intravenous contrast, 2.5 mm sections acquired from the diaphragm to the iliac crests. 10 mm maximum intensity projection (MIP) coronal and sagittal reformats were then performed. For radiation dose reduction, the following was used: automated exposure control. COMPARISON: [facility], CT, CT ANGIO CHEST PE PROTOCOL, 02/15/2025, 2:09. [facility], CT, CT ABDOMEN PELVIS W CON, 02/18/2025, 9:16. FINDINGS: Image quality: Diagnostic. Abdominal aorta: Remote repair of an abdominal aortic aneurysm with an endovascular stent. No type 1 or type 2 endoleak noted. Mesenteric arteries: Celiac and SMA are patent. 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 Renal arteries: Patent without hemodynamically significant stenosis. Lower chest: Short interval development of a masslike lesion with possible central necrosis on the most superior image in the right lower lobe. It measures 2.2 x 1.9 cm. Reference image 1 of series 6 and image 1 of series 7. Severe emphysematous change. Patchy bibasilar atelectasis. ABDOMEN: Liver: No solid mass. Gallbladder: Gallbladder gravel. No gallbladder wall thickening. Biliary ducts: No biliary dilation. Pancreas: No ductal dilation. Spleen: Size is within normal limits. Adrenal Glands: No adrenal nodules. Kidneys and Ureters: No hydronephrosis. No solid mass. No complex renal cystic lesion which requires follow up. Stomach and Bowel: Development of colonic ileus with large diffuse fecal load. Diverticulosis. No acute diverticulitis identified. No acute GI hemorrhage identified. Peritoneum: No abnormal intraperitoneal fluid. No free air. Ventral Wall: No hernia. Abdominal Nodes: No retroperitoneal or mesenteric adenopathy by size criteria. Vessels: Aorta, as above. Normal IVC. PELVIS: Pelvic Organs: Unremarkable. Bladder: Unremarkable. Pelvic Nodes: No enlarged lymph nodes. Miscellaneous: Small fat containing left inguinal hernia. Bones: No aggressive osseous abnormality. Remote left hip ORIF. IMPRESSION: 1. No acute GI hemorrhage. 2. Colonic ileus. 3. Short interval development of a approximately 2 cm masslike lesion on image 1 in the right lower lobe. Due to sort interval development, an infectious process is favored. However, short interval follow-up is recommended. 4. Severe emphysematous change. Dictated by: Bharath Galvez M.D. on 03/18/2025 at 8:12 Approved by: Bharath Galvez M.D. on 03/18/2025 at 8:20 MDM Narrative Medical decision making narrative: I received sign-out from Dr. De La Torre. I have seen evaluated patient myself. He reports bloody bowel movements and continues to have bloody bowel movements here in the ED. I have confirmed myself he is actively bleeding. Blood pressure did drop briefly to a systolic of 90s but improved in Trendelenburg position. He is not on anticoagulation. Previous records reviewed patient was recently admitted February 15 through the , he had a periprosthetic fracture around the left knee, along with COPD exacerbation, discharged to [facility] Blood work reviewed WBCs 12.1 hemoglobin 11.4 hematocrit 35.0 previously on 02/19/2025 hemoglobin 13.5 hematocrit 41.8 Electrolytes within normal limits potassium is 4.0 BUN 25 creatinine 0.8 Lactate 1.3 Troponin negative INR 1.[address] angio GI-no extravasation no active bleeding Medications given Given Protonix 80 mg, IV Tylenol, morphine Patient had 1 episode of hypotension with a systolic of the 90s but did quickly improve with Trendelenburg, repeat H&H showed no significant change. He has a normal lactic 0900 Dr. Dyer, surgery updated patient's symptoms test results we will likely have colonoscopy tomorrow after bowel prep, recommend admitting to Medicine 0905 Dr. Laureano kindly accepts to Discharge Plan Departure Patient Disposition: Admitted As Inpatient Clinical Impression: GI (gastrointestinal bleed) Admit Date/Time: 03/18/25 09:29 Admit Provider: Dinesh Laureano
[2025-03-18 07:08] LABS: Add Manual Diff / Slide Review NO; Hematocrit 35.0 % (41-53); Hemoglobin 11.4 g/dL (13.5-17.5); Lymphocytes Absolute Auto 1600 /uL (1100-4500); Mean Corpuscular HGB Conc 32.6 % (30-36); Mean Corpuscular Hemoglobin 27.8 PG (26-34); Mean Corpuscular Volume 85.4 fL (80-100); Platelet Count 227 X10^3/uL (150-400)
[2025-03-18 07:20] LABS: Alanine Aminotransferase 30 IU/L (<50); Albumin 3.0 g/dL (3.5-5.0); Albumin Globulin Ratio 1.1 (1.0-2.8); Alkaline Phosphatase 80 U/L (38-126); Blood Urea Nitrogen 25 mg/dL (9-20); Calcium 8.3 mg/dL (8.4-10.2); Carbon Dioxide 29 mmol/L (22-32); Chloride 103 mmol/L (98-107); Estimated Glomerular Filt Rate > 60 mL/min (>60); Globulin 2.7 g/dL (1.7-4.1); Glucose 83 mg/dL (70-99); HEMOLYSIS < 15 (0-50); INR 1.1 (0.9-1.3); Potassium 4.0 mmol/L (3.4-5.1); Prothrombin Time 12.0 SECONDS (9.4-12.5); Sodium 137 mmol/L (137-145); Total Protein 5.7 g/dL (6.3-8.2)
--- NOTE | 2025-03-18 07:30 | DI.CT.S_ITS ---
PROCEDURE: CT ANGIO ABD/PEL GI BLEED INDICATIONS: GI Bleed TECHNIQUE: After the administration of intravenous contrast, 2.5 mm sections acquired from the diaphragm to the iliac crests. 10 mm maximum intensity projection (MIP) coronal and sagittal reformats were then performed. For radiation dose reduction, the following was used: automated exposure control. COMPARISON: [facility], CT, CT ANGIO CHEST PE PROTOCOL, 02/15/2025, 2:09. [facility], CT, CT ABDOMEN PELVIS W CON, 02/18/2025, 9:16. FINDINGS: Image quality: Diagnostic. Abdominal aorta: Remote repair of an abdominal aortic aneurysm with an endovascular stent. No type 1 or type 2 endoleak noted. Mesenteric arteries: Celiac and SMA are patent. 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 Renal arteries: Patent without hemodynamically significant stenosis. Lower chest: Short interval development of a masslike lesion with possible central necrosis on the most superior image in the right lower lobe. It measures 2.2 x 1.9 cm. Reference image 1 of series 6 and image 1 of series 7. Severe emphysematous change. Patchy bibasilar atelectasis. ABDOMEN: Liver: No solid mass. Gallbladder: Gallbladder gravel. No gallbladder wall thickening. Biliary ducts: No biliary dilation. Pancreas: No ductal dilation. Spleen: Size is within normal limits. Adrenal Glands: No adrenal nodules. Kidneys and Ureters: No hydronephrosis. No solid mass. No complex renal cystic lesion which requires follow up. Stomach and Bowel: Development of colonic ileus with large diffuse fecal load. Diverticulosis. No acute diverticulitis identified. No acute GI hemorrhage identified. Peritoneum: No abnormal intraperitoneal fluid. No free air. Ventral Wall: No hernia. Abdominal Nodes: No retroperitoneal or mesenteric adenopathy by size criteria. Vessels: Aorta, as above. Normal IVC. PELVIS: Pelvic Organs: Unremarkable. Bladder: Unremarkable. Pelvic Nodes: No enlarged lymph nodes. Miscellaneous: Small fat containing left inguinal hernia. Bones: No aggressive osseous abnormality. Remote left hip ORIF. IMPRESSION: 1. No acute GI hemorrhage. 2. Colonic ileus. 3. Short interval development of a approximately 2 cm masslike lesion on image 1 in the right lower lobe. Due to sort interval development, an infectious process is favored. However, short interval follow-up is recommended. 4. Severe emphysematous change. Dictated by: Bharath Galvez M.D. on 03/18/2025 at 8:12 Approved by: Bharath Galvez M.D. on 03/18/2025 at 8:20
[2025-03-18 07:38] LABS: Lactate (Lactic Acid) 1.3 mmol/L (0.7-2.1)
[2025-03-18 07:40] LABS: Hematocrit 34.4 % (41-53); Hemoglobin 11.3 g/dL (13.5-17.5)
[2025-03-18 07:44] LABS: Lipase 28 U/L (23-300)
[2025-03-18 07:57] LABS: Troponin I < 0.012 ng/mL (0.01-0.034)
[2025-03-18] MEDS: PANTOPRAZOLE 40 MG VIAL 80 MG IV (08:07)
--- NOTE | 2025-03-18 09:24 | EKG_ITS ---
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
[2025-03-18] MEDS: ACETAMINOPHEN IV 1,000 MG/100 ML VIAL 400 MG IV (09:34)
[2025-03-18] MEDS: MORPHINE 4 MG/ML INJ 2 MG IV (09:34)
--- NOTE | 2025-03-18 11:48 | CM.DANOTE ---
DCP Assessment Note: Pt is a 84yo male, resident of [place], is admitted for GI bleed. Pt lives in a house alone, he comes to the ED today from [facility] ([place]). Pt's Primary Care Provider is Dr. Maria Del Carmen Rivas MD and insurance is Medicare and [employer]. Reviewed chart and discussed with multidisciplinary team pt's medical status and initial discharge needs. Per ED Provider, pt to be admitted for bowel prep for colonoscopy. ED FIELD TECHNICIAN met w/patient at bedside; introduced self and role. Present in the room is pt's daughter. Patient was found in bed, alert and oriented, cooperative with assessment. Pt confirmed living situation and good support in daughter (Aicha) who lives in [place], currently visiting patient for initial recovery. Pt expressed preference in discharge back to [facility] when cleared. Pt reports when he was at [facility] rehab at first then transferred to [facility] on [facility] after 10 days to be closer to home. Pt has a hx of Jelena GARCIA in the past and [facility]. FIELD TECHNICIAN called with [facility] on [facility] Admissions, Ariana, and left a message pt presentation, pending coordination with return. Plan: Anticipating discharge back to [facility] when medically cleared. CM team will follow closely for coordination of discharge plans. YUN Velasquez Discharge Planning/Care Management CM Discharge Assessment Start: 03/18/25 11:43 Freq: Status: Active Protocol: Document 03/18/25 11:44 MW (Rec: 03/18/25 11:48 MW [id number]) Discharge Planning Assessment Assigned Discharge DIPIKA Bland Social Media Specialist Provider Maria Del Carmen Rivas Insurance Medicare, DPOA/Assigned Soraida Miller Daughter Designee Name Contact Information [phone] Advance Directives? Yes: Advance Medical Directive; DPOA Advance Directives Yes on File History Provided By Patient Has Patient been Yes admitted in last 30 days? Comment Admitted 02/15/25 Prior Living House Arrangements Comment [place] Household Members none Type of Drives own vehicle transporation used prior to admit Facility Name [facility] Admitted From: Willing to Return to Yes Facility? Independent with ADL Yes 's Is patient alert and Yes oriented? Caregiver for No Another DME Already Rented / Oxygen Owned Comment 2L at baseline Patient/Family Penitentiary Facility Preference Discharge Plan Penitentiary Facility Transportation Facility vs. Family Arrangement Review Status In Process Please Provide Date 03/18/25 Initial DC Assessment Was Performed Next Review Type Continued Stay Review
--- NOTE | 2025-03-18 12:08 | PM.CN.IH.1 ---
History of Present Illness Consult details Date Patient Seen: 03/18/25 Time Patient Seen: 12:08 Chief complaint: GI bleed Requesting provider: Eliot Chavez Narrative: Surgery consult requested for GI endoscopy in 84yo M with melena. Patient on aspirin, no thinners. Per ED: 84-year-old male with a history of prostate cancer and coming from [facility] for left knee bone fractures where they were trying to do a bladder scan and incidentally found a fairly large bloody bowel movement. Patient is unaware of the color of the bowel movement but was told that it was bloody and is here via EMS now. Patient also has a history of urinary retention and needs catheterizations 2 times a day. Meds Home Medications and Allergies Home Medications ?Medication ?Instructions ?Recorded ?Confirmed ?Type [ALBUTEROL NEBULIZER] 1 neb INH QDAY ##0 12/16/10 02/15/25 History albuterol sulfate 90 mcg/actuation 1 - 2 puff inhalation Q4-6H PRN 12/16/10 02/15/25 History aerosol inhaler Shortness Of Breath ##0 aspirin 81 mg tablet,delayed 81 mg PO DAILY ##0 12/16/10 02/15/25 History release simvastatin 20 mg tablet (Zocor) 20 mg PO HS ##0 12/16/10 02/15/25 History hydrochlorothiazide 25 mg tablet 25 mg PO DAILY 12/14/19 02/15/25 History mirabegron 25 mg tablet,extended 50 mg PO DAILY 12/14/19 02/15/25 History release 24 hr (Myrbetriq) telmisartan 40 mg tablet (Micardis) 40 mg PO DAILY 12/14/19 02/15/25 History esomeprazole magnesium 40 mg 40 mg PO DAILY 12/21/19 02/15/25 History capsule,delayed release (Nexium) fluticasone fur. 200 mcg-umeclid 1 inh inhalation DAILY #60 ea 11/23/24 02/15/25 Rx 62.5 mcg-vilant 25 mcg inhalat.powder (Trelegy Ellipta) magnesium oxide 400 mg (241.3 mg 400 mg PO DAILY PRN constipation 02/15/25 02/15/25 History magnesium) tablet meloxicam 15 mg tablet 15 mg PO QPM 02/15/25 02/15/25 History mirabegron 50 mg tablet,extended 50 mg PO DAILY 02/15/25 02/15/25 History release 24 hr (Myrbetriq) montelukast 10 mg tablet 10 mg PO DAILY 02/15/25 02/15/25 History potassium chloride 10 mEq 10 meq PO DAILY 02/15/25 02/15/25 History tablet,extended release hydrocodone 5 mg-acetaminophen 325 1 tab PO Q6HR PRN Pain, Moderate 02/20/25 Rx mg tablet (4-6) #15 tabs prednisone 20 mg tablet 40 mg (2 x 20 mg) PO DAILY #3 tabs 02/20/25 Rx Allergies Allergy/AdvReac Type Severity Reaction Status Date / Time fluticasone (From Advair AdvReac double Verified 03/18/25 06:29 Diskus) vision salmeterol (From Advair AdvReac double Verified 03/18/25 06:29 Diskus) vision Exam Vital Signs (past 8 hours): - 03/18/25 06:29 03/18/25 07:00 03/18/25 07:01 Temperature 98.0 F Pulse Rate 88 88 Respiratory Rate 22 23 Blood Pressure 120/60 87/51 L Pulse Oximetry 92 94 Oxygen Delivery Method Nasal Cannula Oxygen Flow Rate 2 03/18/25 07:01 03/18/25 07:03 03/18/25 07:03 Temperature Pulse Rate 88 87 Respiratory Rate 27 H 22 Blood Pressure 107/60 Pulse Oximetry 95 Oxygen Delivery Method Nasal Cannula Oxygen Flow Rate 2 03/18/25 07:22 03/18/25 07:22 03/18/25 07:27 Temperature Pulse Rate 88 Respiratory Rate 27 H Blood Pressure 90/48 L 114/60 Pulse Oximetry 95 Oxygen Delivery Method Oxygen Flow Rate 03/18/25 07:27 03/18/25 07:30 03/18/25 07:30 Temperature Pulse Rate 92 H 91 H Respiratory Rate 37 H 26 H Blood Pressure 119/61 Pulse Oximetry 95 94 Oxygen Delivery Method Oxygen Flow Rate 03/18/25 07:45 03/18/25 07:45 03/18/25 08:00 Temperature Pulse Rate 91 H Respiratory Rate 35 H Blood Pressure 120/65 125/76 Pulse Oximetry 97 Oxygen Delivery Method Oxygen Flow Rate 03/18/25 08:00 03/18/25 08:16 03/18/25 08:16 Temperature Pulse Rate 86 92 H Respiratory Rate 21 23 Blood Pressure 136/59 L Pulse Oximetry 92 92 Oxygen Delivery Method Oxygen Flow Rate 03/18/25 08:30 03/18/25 08:30 03/18/25 08:45 Temperature Pulse Rate 88 Respiratory Rate 18 Blood Pressure 115/61 116/58 L Pulse Oximetry 94 Oxygen Delivery Method Oxygen Flow Rate 03/18/25 08:45 03/18/25 09:00 03/18/25 09:00 Temperature Pulse Rate 90 89 Respiratory Rate 20 19 Blood Pressure 109/59 L Pulse Oximetry 94 93 Oxygen Delivery Method Oxygen Flow Rate 03/18/25 09:15 03/18/25 09:15 03/18/25 09:30 Temperature Pulse Rate 87 94 H Respiratory Rate 15 Blood Pressure 122/56 L Pulse Oximetry 94 94 Oxygen Delivery Method Oxygen Flow Rate 03/18/25 09:31 03/18/25 09:31 03/18/25 09:45 Temperature Pulse Rate 93 H Respiratory Rate Blood Pressure 112/68 115/68 Pulse Oximetry 94 Oxygen Delivery Method Oxygen Flow Rate 03/18/25 09:45 03/18/25 10:00 03/18/25 10:00 Temperature Pulse Rate 89 85 Respiratory Rate 27 H 26 H Blood Pressure 114/68 Pulse Oximetry 93 95 Oxygen Delivery Method Oxygen Flow Rate 03/18/25 10:15 03/18/25 10:15 03/18/25 10:30 Temperature Pulse Rate 86 Respiratory Rate 23 Blood Pressure 122/63 119/63 Pulse Oximetry 95 Oxygen Delivery Method Oxygen Flow Rate 03/18/25 10:30 03/18/25 10:45 03/18/25 10:45 Temperature Pulse Rate 88 84 Respiratory Rate 21 17 Blood Pressure 123/65 Pulse Oximetry 95 96 Oxygen Delivery Method Oxygen Flow Rate 03/18/25 11:00 03/18/25 11:00 03/18/25 11:15 Temperature Pulse Rate 88 Respiratory Rate 15 Blood Pressure 112/62 114/65 Pulse Oximetry 96 Oxygen Delivery Method Oxygen Flow Rate 03/18/25 11:15 Temperature Pulse Rate 88 Respiratory Rate Blood Pressure Pulse Oximetry 95 Oxygen Delivery Method Oxygen Flow Rate Oxygen Delivery Method Nasal Cannula Oxygen Flow Rate 2 Narrative Exam Narrative: Const General: comfortable and no acute distress HENMT Ears: hearing grossly normal bilaterally Eyes Visual Garcia: normal visual garcia by confrontation Conjunctivae: conjunctivae normal Sclera: sclerae normal EOM: EOM intact bilaterally Resp Effort & Inspection: normal respiratory effort and able to speak in complete sentences Cardio Rate: regular rate GI Palpation: soft (NT) Extrem General: no pedal edema and no calf tenderness Objective Labs 03/18/25 07:30 03/18/25 06:40 Labs: Laboratory Results - last 24 hr 03/18/25 03/18/25 03/18/25 06:40 06:43 06:47 WBC 12.1 H RBC 4.10 L Hgb 11.4 L Hct 35.0 L MCV 85.4 MCH 27.8 MCHC 32.6 RDW 19.0 H Plt Count 227 Neut % (Auto) 80.3 H Lymph % (Auto) 13.1 L [place] % (Auto) 5.7 Eos % (Auto) 0.7 L Baso % (Auto) 0.2 Neut # (Auto) 9700 H Lymph # (Auto) 1600 [place] # (Auto) 700 Eos # (Auto) 100 Baso # (Auto) 0 PT 12.0 INR 1.1 Sodium 137 Potassium 4.0 Chloride 103 Carbon Dioxide 29 BUN 25 H Creatinine 0.84 Estimated GFR > 60 BUN/Creatinine Ratio 29.8 H Glucose 83 Lactate 1.3 Calcium 8.3 L Total Bilirubin 0.4 AST 21 ALT 30 Alkaline Phosphatase 80 Troponin I < 0.012 Total Protein 5.7 L Albumin 3.0 L Globulin 2.7 Albumin/Globulin Ratio 1.1 Lipase 28 Blood Type O Positive Antibody Screen Negative 03/18/25 07:30 WBC RBC Hgb 11.3 L Hct 34.4 L MCV MCH MCHC RDW Plt Count Neut % (Auto) Lymph % (Auto) [place] % (Auto) Eos % (Auto) Baso % (Auto) Neut # (Auto) Lymph # (Auto) [place] # (Auto) Eos # (Auto) Baso # (Auto) PT INR Sodium Potassium Chloride Carbon Dioxide BUN Creatinine Estimated GFR BUN/Creatinine Ratio Glucose Lactate Calcium Total Bilirubin AST ALT Alkaline Phosphatase Troponin I Total Protein Albumin Globulin Albumin/Globulin Ratio Lipase Blood Type Antibody Screen [facility] Medical History Hypoxia Nicotine dependence BPH (benign prostatic hyperplasia) Current every day smoker COPD (chronic obstructive pulmonary disease) HLD (hyperlipidemia) HTN (hypertension) GERD (gastroesophageal reflux disease) 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 The risks, benefits and options regarding the procedure were explained to the patient in detail. Risk discussion included but not limited to: bleeding, perforation, unable to reach cecum, missed lesion. The patient was encouraged to ask questions and they were answered to their satisfaction. The patient understands and is agreeable to proceed. Time-Based Coding :: [TOTAL MINUTES] spent with patient and on the chart (including review of chart, obtaining history, exam, reviewing outside data, placing orders, documenting exam and treatment plan, and counseling patient) on [DATE]. PROFEE Charge Codes Inpatient or Observation consultation: [id number]
--- NOTE | 2025-03-18 12:40 | PM.HP.1 ---
History of Present Illness History of Present Illness Date Patient Seen: 03/18/25 Chief complaint: GI bleed Narrative: Summary: 84-year-old male with history of prostate cancer who presents with melena. The patient had presented from [facility] it was noted to have a large bloody bowel movement. The patient was no further details. S: He has been on [facility] for treatment of a distal fibular fracture. He has been having postvoid residuals and reports no significant retention. This is when melena was noted today, he denies any knowledge of melena prior to this. He also denies abdominal pain, nausea, or vomiting. He was comfortable, normal vital signs. H&H she was relatively stable in the emergency department. He was started on Protonix and surgery was consulted for endoscopy. GoLYTELY prep will also be given tonight for colonoscopy. 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) Surgical History H/O total knee replacement History of loop recorder (2013) Social History household members: none Smoking Status: Former smoker alcohol intake: current Meds Home Medications and Allergies Home Medications ?Medication ?Instructions ?Recorded ?Confirmed ?Type [ALBUTEROL NEBULIZER] 1 neb INH QDAY ##0 12/16/10 02/15/25 History albuterol sulfate 90 mcg/actuation 1 - 2 puff inhalation Q4-6H PRN 12/16/10 02/15/25 History aerosol inhaler Shortness Of Breath ##0 aspirin 81 mg tablet,delayed 81 mg PO DAILY ##0 12/16/10 02/15/25 History release simvastatin 20 mg tablet (Zocor) 20 mg PO HS ##0 12/16/10 02/15/25 History hydrochlorothiazide 25 mg tablet 25 mg PO DAILY 12/14/19 02/15/25 History mirabegron 25 mg tablet,extended 50 mg PO DAILY 12/14/19 02/15/25 History release 24 hr (Myrbetriq) telmisartan 40 mg tablet (Micardis) 40 mg PO DAILY 12/14/19 02/15/25 History esomeprazole magnesium 40 mg 40 mg PO DAILY 12/21/19 02/15/25 History capsule,delayed release (Nexium) fluticasone fur. 200 mcg-umeclid 1 inh inhalation DAILY #60 ea 11/23/24 02/15/25 Rx 62.5 mcg-vilant 25 mcg inhalat.powder (Trelegy Ellipta) magnesium oxide 400 mg (241.3 mg 400 mg PO DAILY PRN constipation 02/15/25 02/15/25 History magnesium) tablet meloxicam 15 mg tablet 15 mg PO QPM 02/15/25 02/15/25 History mirabegron 50 mg tablet,extended 50 mg PO DAILY 02/15/25 02/15/25 History release 24 hr (Myrbetriq) montelukast 10 mg tablet 10 mg PO DAILY 02/15/25 02/15/25 History potassium chloride 10 mEq 10 meq PO DAILY 02/15/25 02/15/25 History tablet,extended release hydrocodone 5 mg-acetaminophen 325 1 tab PO Q6HR PRN Pain, Moderate 02/20/25 Rx mg tablet (4-6) #15 tabs prednisone 20 mg tablet 40 mg (2 x 20 mg) PO DAILY #3 tabs 02/20/25 Rx Allergies Allergy/AdvReac Type Severity Reaction Status Date / Time fluticasone (From Advair AdvReac double Verified 03/18/25 06:29 Diskus) vision salmeterol (From Advair AdvReac double Verified 03/18/25 06:29 Diskus) vision Review of Systems Review of Systems Narrative: All else reviewed and otherwise unremarkable except as noted in the history and physical. Exam Vital Signs (past 8 hours): - 03/18/25 06:29 03/18/25 07:00 03/18/25 07:01 Temperature 98.0 F Pulse Rate 88 88 Respiratory Rate 22 23 Blood Pressure 120/60 87/51 L Pulse Oximetry 92 94 Oxygen Delivery Method Nasal Cannula Oxygen Flow Rate 2 03/18/25 07:01 03/18/25 07:03 03/18/25 07:03 Temperature Pulse Rate 88 87 Respiratory Rate 27 H 22 Blood Pressure 107/60 Pulse Oximetry 95 Oxygen Delivery Method Nasal Cannula Oxygen Flow Rate 2 03/18/25 07:22 03/18/25 07:22 03/18/25 07:27 Temperature Pulse Rate 88 Respiratory Rate 27 H Blood Pressure 90/48 L 114/60 Pulse Oximetry 95 Oxygen Delivery Method Oxygen Flow Rate 03/18/25 07:27 03/18/25 07:30 03/18/25 07:30 Temperature Pulse Rate 92 H 91 H Respiratory Rate 37 H 26 H Blood Pressure 119/61 Pulse Oximetry 95 94 Oxygen Delivery Method Oxygen Flow Rate 03/18/25 07:45 03/18/25 07:45 03/18/25 08:00 Temperature Pulse Rate 91 H Respiratory Rate 35 H Blood Pressure 120/65 125/76 Pulse Oximetry 97 Oxygen Delivery Method Oxygen Flow Rate 03/18/25 08:00 03/18/25 08:16 03/18/25 08:16 Temperature Pulse Rate 86 92 H Respiratory Rate 21 23 Blood Pressure 136/59 L Pulse Oximetry 92 92 Oxygen Delivery Method Oxygen Flow Rate 03/18/25 08:30 03/18/25 08:30 03/18/25 08:45 Temperature Pulse Rate 88 Respiratory Rate 18 Blood Pressure 115/61 116/58 L Pulse Oximetry 94 Oxygen Delivery Method Oxygen Flow Rate 03/18/25 08:45 03/18/25 09:00 03/18/25 09:00 Temperature Pulse Rate 90 89 Respiratory Rate 20 19 Blood Pressure 109/59 L Pulse Oximetry 94 93 Oxygen Delivery Method Oxygen Flow Rate 03/18/25 09:15 03/18/25 09:15 03/18/25 09:30 Temperature Pulse Rate 87 94 H Respiratory Rate 15 Blood Pressure 122/56 L Pulse Oximetry 94 94 Oxygen Delivery Method Oxygen Flow Rate 03/18/25 09:31 03/18/25 09:31 03/18/25 09:45 Temperature Pulse Rate 93 H Respiratory Rate Blood Pressure 112/68 115/68 Pulse Oximetry 94 Oxygen Delivery Method Oxygen Flow Rate 03/18/25 09:45 03/18/25 10:00 03/18/25 10:00 Temperature Pulse Rate 89 85 Respiratory Rate 27 H 26 H Blood Pressure 114/68 Pulse Oximetry 93 95 Oxygen Delivery Method Oxygen Flow Rate 03/18/25 10:15 03/18/25 10:15 03/18/25 10:30 Temperature Pulse Rate 86 Respiratory Rate 23 Blood Pressure 122/63 119/63 Pulse Oximetry 95 Oxygen Delivery Method Oxygen Flow Rate 03/18/25 10:30 03/18/25 10:45 03/18/25 10:45 Temperature Pulse Rate 88 84 Respiratory Rate 21 17 Blood Pressure 123/65 Pulse Oximetry 95 96 Oxygen Delivery Method Oxygen Flow Rate 03/18/25 11:00 03/18/25 11:00 03/18/25 11:15 Temperature Pulse Rate 88 Respiratory Rate 15 Blood Pressure 112/62 114/65 Pulse Oximetry 96 Oxygen Delivery Method Oxygen Flow Rate 03/18/25 11:15 Temperature Pulse Rate 88 Respiratory Rate Blood Pressure Pulse Oximetry 95 Oxygen Delivery Method Oxygen Flow Rate Oxygen Delivery Method Nasal Cannula Oxygen Flow Rate 2 Narrative Exam Narrative: NAD, alert and oriented, fluent speech, calm. Normocephalic skull, EOMI, anicteric sclera, symmetric pupils. Oropharynx unremarkable, no droop. Neck supple, midline trachea, no adenopathy. Lungs clear, normal rate and effort. Heart regular, no murmur gallop or rub. Abdomen is soft, non distended and non tender. Extremities are free of edema. Skin is free of rash or lesions. Joints are not swollen or deformed. Judgment appears to be normal. Objective ECG Impression: Measurements Intervals [place] Rate: 89 P: 64 MI: 176 QRS: -57 QRSD: 88 T: 47 QT: 356 QTc: 433 Interpretive Statements Normal sinus rhythm Left axis deviation Labs 03/18/25 07:30 03/18/25 06:40 Labs: Laboratory Results - last 24 hr 03/18/25 03/18/25 03/18/25 06:40 06:43 06:47 WBC 12.1 H RBC 4.10 L Hgb 11.4 L Hct 35.0 L MCV 85.4 MCH 27.8 MCHC 32.6 RDW 19.0 H Plt Count 227 Neut % (Auto) 80.3 H Lymph % (Auto) 13.1 L [place] % (Auto) 5.7 Eos % (Auto) 0.7 L Baso % (Auto) 0.2 Neut # (Auto) 9700 H Lymph # (Auto) 1600 [place] # (Auto) 700 Eos # (Auto) 100 Baso # (Auto) 0 PT 12.0 INR 1.1 Sodium 137 Potassium 4.0 Chloride 103 Carbon Dioxide 29 BUN 25 H Creatinine 0.84 Estimated GFR > 60 BUN/Creatinine Ratio 29.8 H Glucose 83 Lactate 1.3 Calcium 8.3 L Total Bilirubin 0.4 AST 21 ALT 30 Alkaline Phosphatase 80 Troponin I < 0.012 Total Protein 5.7 L Albumin 3.0 L Globulin 2.7 Albumin/Globulin Ratio 1.1 Lipase 28 Blood Type O Positive Antibody Screen Negative 03/18/25 07:30 WBC RBC Hgb 11.3 L Hct 34.4 L MCV MCH MCHC RDW Plt Count Neut % (Auto) Lymph % (Auto) [place] % (Auto) Eos % (Auto) Baso % (Auto) Neut # (Auto) Lymph # (Auto) [place] # (Auto) Eos # (Auto) Baso # (Auto) PT INR Sodium Potassium Chloride Carbon Dioxide BUN Creatinine Estimated GFR BUN/Creatinine Ratio Glucose Lactate Calcium Total Bilirubin AST ALT Alkaline Phosphatase Troponin I Total Protein Albumin Globulin Albumin/Globulin Ratio Lipase Blood Type Antibody Screen Assessment & Plan Assessment & Plan narrative: 1. Melena, active. 2. HTN, stable. 3. CAD. stable. 4. Overactive bladder, active. 5. COPD, stable. PLAN: -NPO -IVF, protinix IV BID -EGD tomorrow. -GoLYTELY and colonoscopy tomorrow. Anticipate 2 midnights in the hospital, supports inpatient status. Full code. Time-Based Coding :: 35 min spent with patient and on the chart (including review of chart, obtaining history, exam, reviewing outside data, placing orders, documenting exam and treatment plan, and counseling patient) on 03/18. Quality MIPS - Admit The patient?s Advance Care plan is not present because I confirmed today that the patient does not wish or was not able to name a surrogate decision maker or provide an Advance Care Plan.: Yes MIPS - Meds 'Current medications' to include all prescriptions, [id number] products, herbals, cannabis/cannabidiol products, and vitamin/mineral/dietary (nutritional) supplements. I have utilized all available resources to obtain, update, or review the patient?s current medications. [If Yes, STOP here]: Yes
[2025-03-18] MEDS: SODIUM CHLORIDE 0.9% 1,000 ML 100 ML IV (13:15)
--- NOTE | 2025-03-18 15:09 | PC.NURSE ---
Patient states that he straight caths at his facility, he is unable to urinate much without it. This RN bladder scans and finds 700ml, messaged Dr Laureano and got order for call catheter. This RN placed call, patent and draining yellow urine. At the time of placement patient had another episode of gross hematochezia
[2025-03-18] MEDS: ONDANSETRON 4 MG/2 ML INJ IV (18:29)
[2025-03-18] MEDS: LACTATED RINGERS 1,000 ML 42 ML IV (18:30)
--- NOTE | 2025-03-18 18:37 | PC.NURSE ---
The pt arrived to the floor at 1805 and was transferred from ED bed into hospital bed via slider with the assistance of 4 staff members. VSS. Afebrile. Pt is able to make his needs known. Pt is oriented to the room and how to use the call [place] and informed that he is NPO until after his procedure tomorrow. Pt's daughter is at the bed side.
[2025-03-18] MEDS: PEG3350/SOD SULF,BICARB,CL/KCL 4,000 ML SOLUTION 4000 ML PO (19:30)
[2025-03-18 20:47] LABS: Hematocrit 36.5 % (41-53); Hemoglobin 11.9 g/dL (13.5-17.5)
[2025-03-18] MEDS: PANTOPRAZOLE 40 MG VIAL IV (21:34)
[2025-03-19] VITALS (17 sets, daily range): BP systolic 91–118; BP diastolic 52–70; PULSE 70–100; RESP 16–24; TEMP 35.8–37.2; O2SAT 89–95
--- NOTE | 2025-03-19 | PATH_ITS ---
[facility] [place] Accession Number: [id number] No. of containers..04 Tissue . 01 Material submitted: . PART A: stomach - STOMACH, ANTRUM PART B: duodenum - DUODENAL POLYP PART C: stomach - GASTRIC POLYP PART D: colon - ILEOCECAL VALVE POLYP . 01 Diagnosis: A. STOMACH, ANTRUM, BIOPSY: Antral mucosa with mild chronic inflammation and mild to moderate reactive gastropathy. Negative for Helicobacter organisms by IHC stain. Negative for intestinal metaplasia, dysplasia, and malignancy. . B. DUODENAL POLYP, BIOPSY: Chronic duodenitis with David gland hyperplasia. Negative for villous blunting and intraepithelial lymphocytosis. Negative for dysplasia and malignancy. . C. GASTRIC POLYP, BIOPSY: Fundic gland polyp. Negative for Helicobacter organisms by H/E stain. Negative for intestinal metaplasia, dysplasia, and malignancy. . D. ILEOCECAL VALVE: Tubular adenoma. [facility] 03/29/2025 1603 Local . 01 Comment: Immunohistochemistry for Helicobacter organisms is performed on block A1 with adequate controls and is negative. . * This test was developed and the performance characteristics were validated by [facility]. It has not been cleared or approved by the U.S. Food and Drug Administration. . 01 Electronically signed: . Gloria Zamarripa DO, Pathologist NPI- [id number] . 01 Gross description: . Received four formalin-filled containers, each labeled with the patient's name: . A. In a container labeled antrum. Specimen consists of one fragment of early-armendariz, soft tissue which measures 0.3 x 0.3 x 0.2 cm. Specimen is totally submitted in cassette A. B. In a container labeled duodenal polyp. Specimen consists of a 0.3 x 0.3 x 0.2 cm, portion of tissue. Entirely submitted in cassette B. C. In a container labeled gastric polyp. Specimen consists of a 0.3 x 0.2 x 0.2 cm, portion of tissue. Entirely submitted in cassette C. D. In a container labeled ileocecal valve polyp is one fragment of armendariz, soft tissue which measures 0.3 x 0.3 x 0.3 cm. Specimen is totally submitted in cassette D. ([id number]) /[facility] 03/26/2025 0412 Local . 01 Pathologist provided ICD-10: K92.1 . 01 CPT . 979554, 198497, [id number], [id number], [id number] Specimen Comment: A courtesy copy of this report has been sent to [facility] Pathology Performed at: [address] [address] [address], [place], [place] [id number] MD Ezekiel Monique MD Phone: [phone]
[2025-03-19 05:21] LABS: Add Manual Diff / Slide Review NO; Hematocrit 32.1 % (41-53); Hemoglobin 10.5 g/dL (13.5-17.5); Lymphocytes Absolute Auto 1300 /uL (1100-4500); Mean Corpuscular HGB Conc 32.9 % (30-36); Mean Corpuscular Hemoglobin 28.2 PG (26-34); Mean Corpuscular Volume 85.7 fL (80-100); Platelet Count 212 X10^3/uL (150-400)
--- NOTE | 2025-03-19 07:29 | P.PN_ITS ---
Subjective Subjective Interval history: Summary: 84-year-old male with history of prostate cancer who presents with melena. The patient had presented from [facility] it was noted to have a large bloody bowel movement. The patient was no further details. S: He was doing well, he prepped overnight. He had mostly brown stool with some blood tinging. He denies nausea, or abdominal pain. He will undergo endoscopy today. He was had a mostly nonproductive cough for several days. O: NAD, alert and oriented. Fluent speech. Lungs are clear, normal rate and effort. Heart is regular, no murmur gallop or rub. Abdomen is soft, non distended. Extremities are free of edema. A/P: 1. Melena, active. 2. HTN, stable. 3. CAD. stable. 4. Overactive bladder, active. 5. COPD, stable. 6. Cough, subacute. PLAN: -NPO -IVF, protinix IV BID -EGD and colonoscopy today. -CXR later today (cough) Anticipate 2 midnights in the hospital, supports inpatient status. Full code. Exam Vital Signs (past 8 hours): - 03/19/25 00:00 03/19/25 05:04 Temperature 97.4 F L Pulse Rate 100 H Respiratory Rate 24 Blood Pressure 105/55 L Pulse Oximetry 90 L 91 Oxygen Delivery Method Nasal Cannula Oxygen Flow Rate 2 2 Fraction of Inspired Oxygen 28 Fraction of Inspired Oxygen 28 SaO2/FiO2 Ratio 325 Oxygen Delivery Method Nasal Cannula Oxygen Flow Rate 2 Objective Labs 03/19/25 04:34 03/18/25 06:40 Labs: Laboratory Results - last 24 hr 03/18/25 03/18/25 03/18/25 06:40 06:43 06:47 WBC RBC Hgb Hct MCV MCH MCHC RDW Plt Count Neut % (Auto) Lymph % (Auto) [place] % (Auto) Eos % (Auto) Baso % (Auto) Neut # (Auto) Lymph # (Auto) [place] # (Auto) Eos # (Auto) Baso # (Auto) POC Whole Bld Glucose Lactate 1.3 Troponin I < 0.012 Lipase 28 Blood Type O Positive Antibody Screen Negative 03/18/25 03/18/25 03/18/25 07:30 17:47 20:41 WBC RBC Hgb 11.3 L 11.9 L Hct 34.4 L 36.5 L MCV MCH MCHC RDW Plt Count Neut % (Auto) Lymph % (Auto) [place] % (Auto) Eos % (Auto) Baso % (Auto) Neut # (Auto) Lymph # (Auto) [place] # (Auto) Eos # (Auto) Baso # (Auto) POC Whole Bld Glucose 79 Lactate Troponin I Lipase Blood Type Antibody Screen 03/19/25 04:34 WBC 12.0 H RBC 3.74 L Hgb 10.5 L Hct 32.1 L MCV 85.7 MCH 28.2 MCHC 32.9 RDW 19.3 H Plt Count 212 Neut % (Auto) 81.6 H Lymph % (Auto) 10.6 L [place] % (Auto) 6.9 Eos % (Auto) 0.6 L Baso % (Auto) 0.3 Neut # (Auto) 9800 H Lymph # (Auto) 1300 [place] # (Auto) 800 Eos # (Auto) 100 Baso # (Auto) 0 POC Whole Bld Glucose Lactate Troponin I Lipase Blood Type Antibody Screen [facility] Medical History Hypoxia Nicotine dependence BPH (benign prostatic hyperplasia) Current every day smoker COPD (chronic obstructive pulmonary disease) HLD (hyperlipidemia) HTN (hypertension) GERD (gastroesophageal reflux disease) 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
[2025-03-19] MEDS: PANTOPRAZOLE 40 MG VIAL IV ×2 (09:20→20:33)
[2025-03-19] MEDS: LACTATED RINGERS 1,000 ML 42 ML IV (09:53)
--- NOTE | 2025-03-19 10:23 | PM.OP.1 ---
Operative Date/Time/Diagnoses Date of procedure: 03/19/25 Time of procedure: 11:48 Pre-op diagnosis: GI bleeding, melena Post-op diagnosis: other (Duodenal polyp, gastric polyp, ileocecal valve polyp; bleeding source likely diverticulosis) Procedure & Clinicians Procedure: EGD, colonoscopy with biopsy Same procedure(s) as scheduled: Yes Indications: 84yo M with GI bleeding, melena Surgeon: Billy Dyer Assisted?: No Anesthesia Type: MAC +/- Operative Notes Findings: 3mm polyp in duodenum, proximal gastric cardia, ileocecal valve Leyva diverticuclosis, likely source of bleeding Closure Type: not applicable Specimen(s): other (biopsies) Applied: none Estimated Blood Loss (mL): 1 Blood products transfused: none Procedure in detail: EGD Informed consent was obtained. The procedure, its risks, benefits, and alternatives were discussed. Patient understood and agreed to proceed. The patient was placed in the left lateral decubitus position with head elevated. Sedation given per anesthesia. The video endoscope was inserted into the oropharynx and guided under direct vision into the esophagus, stomach, and duodenum which were carefully examined. The scope was retroflexed to examine the hiatus and gastroesophageal junction. Antral biopsies were obtained for Helicobacter pylori. The patient tolerated the procedure very well. There were no apparent complications. Significant EGD findings: Z-line noted at: 42cm No significant bleeding source identified 3mm sessile duodenal polyp biopsied 4mm proximal gastric cardia polyp, biopsied No ulcer, mass, stricture No hiatal hernia No esophagitis Colonoscopy Patient placed in left lateral recumbent position. Time out was performed. Procedural sedation was administered by anesthesia. Examination began with a thorough inspection of the perianal area. There was no evidence of fissures, fistulae, external hemorrhoids or cutaneous malignancy. The colonoscope was then placed into the rectum and the lumen was insufflated with carbon dioxide. The scope was carefully advanced forward. Ultimately the cecum was intubated and confirmed by identification of the ileocecal valve, the appendiceal orifice and the confluence of the taenia. The scope was then slowly withdrawn examining the colon thoroughly in all directions. In the rectum, retroflexion of the scope was performed for inspection of the distal rectum and anal canal. ?Significant colonoscopy findings: ?1. Quality of the preparation-poor, [place] 1, improved with irrigation/suction ?2. No obvious large mass, small lesions could be missed due to inadequate prep 3. Leyva diverticulosis, diverticulae populated in sigmoid, many large diverticulae, likely source of bleeding, no active bleeding, old blood mostly on left side of colon/sigmoid region, proximal colon diverticular bleed unlikely, no blood eminating from ileocecal valve Complications: none Post-operative Condition: stable Disposition: PACU Plan for aftercare: PACU then floor
--- NOTE | 2025-03-19 12:00 | CM.DPNOTE ---
DCP Continued: Reviewed EMR and team rounds for pt?s medical status. Per hospitalist, will be going to surgery today and anticipating discharge back to [facility] on 03/20/25. Per Ariana at [facility] on [facility], will just need regular discharge clinicals sent (med list, discharge summary - NO PASRR required). They will coordinate transport when discharge identified. Plan: Anticipating to discharge on Tuesday, 03/20 or when medically cleared, will transport via facility van. CM Team will continue to follow for coordination of discharge plans. YUN Velasquez
[2025-03-19] MEDS: ACETAMINOPHEN 325 MG TABLET 650 MG PO (12:26)
--- NOTE | 2025-03-19 13:05 | DI.RAD.S_ITS ---
PROCEDURE: XR CHEST 1V INDICATIONS: cough TECHNIQUE: One view of the chest was acquired. COMPARISON: [facility], CR, XR CHEST 2V, 02/15/2025, 0:49. FINDINGS: Surgical changes and devices: Left sided lead less pacer is seen. Lungs and pleura: Ill-defined airspace opacities are seen in bilateral lower lung [place]. Small left pleural effusion. No pneumothorax. Mediastinum: Mediastinal contours appear normal. Heart size is normal. Bones and chest wall: No suspicious bony lesions. Overlying soft tissues appear unremarkable. IMPRESSION: Patchy infiltrate/atelectasis in bilateral lower lobes. Small left pleural effusion. No pneumothorax. Dictated by: Moises Mesa M.D. on 03/19/2025 at 13:33 Approved by: Moises Mesa M.D. on 03/19/2025 at 13:35
[2025-03-19] MEDS: ALBUTEROL/IPRATROPIUM 3 ML AMPUL INH ×2 (16:08→20:08)
[2025-03-19 17:17] LABS: Hematocrit 29.8 % (41-53); Hemoglobin 9.9 g/dL (13.5-17.5)
--- NOTE | 2025-03-19 17:56 | PC.WOUNDPHOT ---
Wound Photos Photos taken by Emi Casas RN.
[2025-03-19] MEDS: AMOXICILLIN/CLAV 875/125 MG 1 TAB PO ×2 (18:32→20:32)
[2025-03-19] MEDS: BUDESONIDE 0.5 MG/2 ML NEB INH (20:08)
[2025-03-19] MEDS: ATORVASTATIN 20 MG TABLET 10 MG PO (20:31)
[2025-03-20] VITALS: BP 100/52; PULSE 92; RESP 14; TEMP 36.7; O2SAT 91
--- NOTE | 2025-03-20 | DI.CT.S_ITS ---
PROCEDURE: CT KNEE LEFT WITHOUT CON INDICATIONS: pt want to see healing TECHNIQUE: Noncontrast 1-1.5 mm axial sections acquired from the mid-patella to the proximal tibia, with coronal and sagittal reformats. COMPARISON: [facility], CR, XR KNEE LT 1TO2V, 02/15/2025, 18:01. [facility], CT, CT KNEE LEFT WITHOUT CON, 02/16/2025, 14:18. FINDINGS: Total knee arthroplasty. Periprosthetic fracture of the femoral prosthesis transversely across the metaphysis with impaction. No fracture alignment change. Faint bone callous formation noted new from prior examination. Erosive periprosthetic osseous lesion in the femoral metaphysis with soft tissue masslike component measuring 4.9 x 3.6 x 2.8 cm posteriorly . Severe atherosclerosis. No joint effusion. IMPRESSION: Total knee arthroplasty with pathologic periprosthetic fracture of the femur. This may represent a malignant lesion and further workup to rule out metastatic disease and multiple myeloma is recommended. Non malignant possibilities include infection and particle disease. Dictated by: Jim Ford M.D. on 03/20/2025 at 13:53 Approved by: Jim Ford M.D. on 03/20/2025 at 13:59
[2025-03-20 05:04] LABS: Add Manual Diff / Slide Review NO; Hematocrit 26.3 % (41-53); Hemoglobin 8.7 g/dL (13.5-17.5); Lymphocytes Absolute Auto 1200 /uL (1100-4500); Mean Corpuscular HGB Conc 33.1 % (30-36); Mean Corpuscular Hemoglobin 28.2 PG (26-34); Mean Corpuscular Volume 85.4 fL (80-100); Platelet Count 193 X10^3/uL (150-400)
--- NOTE | 2025-03-20 05:48 | P.PN_ITS ---
Subjective Subjective Date Patient Seen: 03/20/25 Time Patient Seen: 05:48 Interval history: Stable overnight Endoscopy yesterday consistent with diverticular bleed No active bleeding at endoscopy yesterday or clinically Hgb 8.7 Tolerating diet Exam Vital Signs (past 8 hours): - 03/20/25 00:00 Temperature 98.0 F Pulse Rate 92 H Respiratory Rate 14 Blood Pressure 100/52 L Pulse Oximetry 91 Oxygen Flow Rate 2 Fraction of Inspired Oxygen 32 SaO2/FiO2 Ratio 284 Oxygen Delivery Method Nasal Cannula Oxygen Flow Rate 2 Const General: comfortable Orientation: alert, awake and oriented x3 Resp Effort & Inspection: normal respiratory effort and able to speak in complete sentences Cardio Rate: regular rate GI Palpation: soft (NDNT) Extrem General: no pedal edema and no calf tenderness Objective Labs 03/20/25 04:44 03/18/25 06:40 Labs: Laboratory Results - last 24 hr 03/19/25 03/20/25 17:12 04:44 WBC 7.8 RBC 3.08 L Hgb 9.9 L 8.7 L Hct 29.8 L 26.3 L MCV 85.4 MCH 28.2 MCHC 33.1 RDW 19.5 H Plt Count 193 Neut % (Auto) 74.1 Lymph % (Auto) 15.0 L [place] % (Auto) 9.0 Eos % (Auto) 0.8 L Baso % (Auto) 1.1 Neut # (Auto) 5800 Lymph # (Auto) 1200 [place] # (Auto) 700 Eos # (Auto) 100 Baso # (Auto) 100 PFSH Medical History Hypoxia Nicotine dependence BPH (benign prostatic hyperplasia) Current every day smoker COPD (chronic obstructive pulmonary disease) HLD (hyperlipidemia) HTN (hypertension) GERD (gastroesophageal reflux disease) 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) Surgical History H/O total knee replacement History of loop recorder (2013) Social History household members: none Smoking Status: Former smoker alcohol intake: current Assessment & Plan Assessment and plan (1) GI (gastrointestinal bleed): Qualifiers: GI bleed type/associated pathology: melena Qualified Code(s): K92.1 - Melena Status: Acute Plan Diverticular bleed most likely No signs/symptoms ongoing bleeding Hgb 8.7 this morning OK for discharge from surgery standpoint Monitor for recurrent bleeding Avoid NSAIDs, anticoagulants Time-Based Coding :: [TOTAL MINUTES] spent with patient and on the chart (including review of chart, obtaining history, exam, reviewing outside data, placing orders, documenting exam and treatment plan, and counseling patient) on [DATE]. PROFEE Business Continuity Management Director Document charge(s): Yes Charge Codes Subsequent inpatient/observation care: [id number]
[2025-03-20] MEDS: ACETAMINOPHEN 325 MG TABLET 650 MG PO (06:27)
--- NOTE | 2025-03-20 07:49 | PC.NURSE ---
Day shift: Brand cath out at approx 0745. Per Pt I self cath about every 12 hours. Next void should be around 1900 tonight.
[2025-03-20] MEDS: AMOXICILLIN/CLAV 875/125 MG 1 TAB PO (09:33)
[2025-03-20] MEDS: LOSARTAN 50 MG TABLET PO (09:33)
[2025-03-20] MEDS: POTASSIUM CHLORIDE 10 MEQ TAB PO (09:33)
[2025-03-20] MEDS: MONTELUKAST 10 MG TABLET PO (09:33)
[2025-03-20] MEDS: PANTOPRAZOLE 40 MG VIAL IV (09:34)
[2025-03-20 09:35] VITALS: O2SAT 90
[2025-03-20] MEDS: BUDESONIDE 0.5 MG/2 ML NEB INH (09:35)
[2025-03-20] MEDS: ALBUTEROL/IPRATROPIUM 3 ML AMPUL INH (09:35)
[2025-03-20 10:39] VITALS: BP 103/51; PULSE 90; RESP 17; TEMP 36.5; O2SAT 96
--- NOTE | 2025-03-20 11:23 | PM.DS.1 ---
History of Present Illness History of Present Illness Chief complaint: GI bleed Narrative: Summary: 84-year-old male with history of prostate cancer who presents with melena. The patient had presented from [facility] it was noted to have a large bloody bowel movement. The patient was no further details. S: He has been on [facility] for treatment of a distal fibular fracture. He has been having postvoid residuals and reports no significant retention. This is when melena was noted today, he denies any knowledge of melena prior to this. He also denies abdominal pain, nausea, or vomiting. He was comfortable, normal vital signs. H&H she was relatively stable in the emergency department. He was started on Protonix and surgery was consulted for endoscopy. GoLYTELY prep will also be given tonight for colonoscopy. Discharge Providers Provider Date of admission: 03/18/25 09:29 Discharge Date: 03/20/25 Primary care physician: Maria Del Carmen Riavs MD Consults: 03/19/25 11:52 Consult to Pharmacy Routine Comment: Assessed as high risk. Discharge provider: Dinesh Laureano MD Summary Hospital Course Discharge Diagnosis: 1. Melena, improved. 2. HTN, stable. 3. CAD. stable. 4. Overactive bladder, active. 5. COPD, stable. 6. Cough, and probable pneumonia, active. 7. Left distal femur fracture, subacute. Improving. Hospital Course: He was admitted for melena noticed at the nursing facility. He was down there because of a distal femur fracture with nonweightbearing status. His hemoglobin was stable here and he underwent upper and lower endoscopy with findings most consistent with probable resolved diverticular bleeding. The patient was noted to be on 40 mg of prednisone a day this will be decreased to 20 and should probably be slowly tapered over the next several weeks. The patient had a cough and an x-ray indicated bilateral infiltrates, he was oxygenation was stable on chronic oxygen. He describes his cough is no different from his baseline. He was started on oral Augmentin and will complete a short course. The patient otherwise remained stable. A repeat CT of the knee indicated slow healing and he was seen by Orthopedics, Dr. Lewis, while in the hospital. He will maintain a nonweightbearing status for now. Status at Discharge Cognitive/behavioral status at discharge: oriented Functional status at discharge: wheelchair bound Overall status at discharge: patient is back to baseline Time Spent with Patient Time spent: Greater than 30 minutes Exam Vital Signs (past 8 hours): - 03/20/25 07:51 03/20/25 09:35 03/20/25 10:39 Temperature 97.7 F Pulse Rate 90 Respiratory Rate 17 Blood Pressure 103/51 L Pulse Oximetry 90 L 96 Oxygen Delivery Method Nasal Cannula Oxygen Flow Rate 3 3 Fraction of Inspired Oxygen 32 Fraction of Inspired Oxygen 32 SaO2/FiO2 Ratio 281 Oxygen Delivery Method Nasal Cannula Oxygen Flow Rate 3 Narrative Exam Narrative: NAD, alert and oriented. Fluent speech. Lungs are notable for scattered rhonchi, normal rate and effort. Comfortable on oxygen. Heart is regular, no murmur gallop or rub. Abdomen is soft, non distended. Extremities are free of edema. Objective Imaging Multiple studies:: Radiologist's impression: Knee CT: Slow healing of distal femur fracture. Chest x-ray: Patchy infiltrate/atelectasis in bilateral lower lobes. Small left pleural effusion. No pneumothorax. Abdomen pelvis CT: 1. No acute GI hemorrhage. 2. Colonic ileus. 3. Short interval development of a approximately 2 cm masslike lesion on image 1 in the right lower lobe. Due to sort interval development, an infectious process is favored. However, short interval follow-up is recommended. 4. Severe emphysematous change. Labs 03/20/25 04:44 03/18/25 06:40 Labs: Laboratory Results - last 24 hr 03/19/25 03/20/25 17:12 04:44 WBC 7.8 RBC 3.08 L Hgb 9.9 L 8.7 L Hct 29.8 L 26.3 L MCV 85.4 MCH 28.2 MCHC 33.1 RDW 19.5 H Plt Count 193 Neut % (Auto) 74.1 Lymph % (Auto) 15.0 L [place] % (Auto) 9.0 Eos % (Auto) 0.8 L Baso % (Auto) 1.1 Neut # (Auto) 5800 Lymph # (Auto) 1200 [place] # (Auto) 700 Eos # (Auto) 100 Baso # (Auto) 100 PFSH Medical History Hypoxia Nicotine dependence BPH (benign prostatic hyperplasia) Current every day smoker COPD (chronic obstructive pulmonary disease) HLD (hyperlipidemia) HTN (hypertension) GERD (gastroesophageal reflux disease) 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 Melena, improved. 2. HTN, stable. 3. CAD. stable. 4. Overactive bladder, active. 5. COPD, stable. 6. Cough, and probable pneumonia, active. 7. Left distal femur fracture, subacute. Improving. Plan of Treatment: Patient will be discharged with no change to his medications other than his prednisone was decreased to 20 mg a day and should be tapered down to 0 over the next several weeks. He was given Augmentin b.i.d. for an additional short course for possible pneumonia based in his x-ray. He would benefit from repeat home hemoglobin in the next several days and monitoring stools. Orthopedics has recommended nonweightbearing status to continue for the left knee fracture. Discharge Plan Discharge Plan Patient Disposition: SNF Transfer to: [facility] Under care of provider: Facility provider. Provider Discharge Comment: Stable for discharge to group home facility. Discharge orders & Medications Prescriptions: New prednisone 20 mg tablet 20 mg PO DAILY Qty: 30 0RF amoxicillin-pot clavulanate 875-125 mg tablet 1 tab PO BID Qty: 14 0RF Continued albuterol sulfate 90 mcg/actuation Hfa Aerosol Inhaler 1 - 2 puff INHALATION Q4-6H PRN (Reason: Shortness Of Breath) Qty: 0 [ALBUTEROL NEBULIZER] 1 neb INH QDAY Qty: 0 aspirin 81 mg Tablet,Delayed Release (Dr/Ec) 81 mg PO DAILY Qty: 0 simvastatin [Zocor] 20 MG tablet 20 mg PO HS Qty: 0 meloxicam 15 mg tablet 15 mg PO QPM potassium chloride 10 mEq tablet extended release 10 meq PO DAILY magnesium oxide 400 mg (241.3 mg magnesium) tablet 400 mg PO DAILY PRN (Reason: constipation) montelukast 10 mg tablet 10 mg PO DAILY mirabegron [Myrbetriq] 50 mg tablet extended release 24 hr 50 mg PO DAILY hydrocodone-acetaminophen 5-325 mg Tablet 1 tab PO Q6HR PRN (Reason: Pain, Moderate (4-6)) Qty: 15 0RF telmisartan [Micardis] 40 mg Tablet 40 mg PO DAILY hydrochlorothiazide 25 mg Tablet 25 mg PO DAILY mirabegron [Myrbetriq] 25 mg Tablet Extended Release 24 Hr 50 mg PO DAILY Trelegy Ellipta 200-62.5-25 mcg blister with device 1 inh inhalation DAILY Qty: 60 11RF Rx Instructions: Rinse mouth with water, gargle and spit after each use Discontinued prednisone 20 mg Tablet 40 mg PO DAILY Qty: 3 0RF Follow up/Referrals: Maria Del Carmen Rivas MD [Primary Care Provider, Family Practice] Discharge Health Status Multidrug resistant organism: No MDRO Diet/Activity/Treatments Diet: Regular Food texture: Regular Activity: Nonweightbearing left leg. This status hold until orthopedic follow up. Special Rehabilitation Services Reason for rehabilitation: Recovery r/t decondition Rehab type: Physical therapy and Occupational therapy Visit Report/Discharge Packet Instructions: DI for Rectal Bleeding, DI for Diverticulosis Stand Alone Forms: Patient Portal/API Discharge Data Primary Care Provider: Maria Del Carmen Rivas
[2025-03-20 13:03] VITALS: BP 114/68; PULSE 100; RESP 16; TEMP 36.2; O2SAT 90
--- NOTE | 2025-03-20 13:14 | CM.DPNOTE ---
DCP note CHILDRENS CLUB ATTENDANT reviewed EMR per provider cleared to dc to [facility] today. CHILDRENS CLUB ATTENDANT spoke with Ariana, can accept back today transport 2pm. no PASRR needed. CHILDRENS CLUB ATTENDANT emailed dc information to Ariana. CHILDRENS CLUB ATTENDANT placed meds/scripts in chart. CHILDRENS CLUB ATTENDANT updated MEMORIAL COUNSELOR/RN. gave RN report number. CHILDRENS CLUB ATTENDANT updated pt. in agreement with plan. P: dc today to [facility] at 2pm via facility vehicle. no further CM needs at this time. will continue to follow as needed DIPIKA Summers
--- NOTE | 2025-03-20 13:52 | PC.NURSE ---
Day shift: Left unit at approx 1250 via WC, Going back to his rehab/SNF in [facility]. Transport person has SNF packet. Pt has all personal belongings. Knee brace in place. Medicated for that knee pain per AUG. Called to give report at 1255 and it went to voicemail.
== END 2025-03-20 13:54 | DRG 377 ==
LOC: ED 09:12 → AC 09:30
PROVIDERS: Family Medicine; Surgery; Admitting Provider Hospitalist; Emergency Provider Emergency Medicine; Family Provider Physician Assistant; PCP Family Medicine; Referring Provider Emergency Medicine; Visit Provider Hospitalist
PROC: 0DJ08ZZ Inspection of Upper Intestinal Tract, Via Natural or Artificial Opening Endoscopic (ICD-10-PCS; principal; 2025-03-19 12:30)
PROC: 0DJD8ZZ Inspection of Lower Intestinal Tract, Via Natural or Artificial Opening Endoscopic (ICD-10-PCS; CPT 45378; 2025-03-19 12:30)
DX: K57.31 Diverticulosis of large intestine without perforation or abscess with bleeding (principal); J18.9 Pneumonia, unspecified organism; J44.0 Chronic obstructive pulmonary disease with (acute) lower respiratory infection; R33.9 Retention of urine, unspecified; K31.7 Polyp of stomach and duodenum; I10 Essential (primary) hypertension; I25.10 Atherosclerotic heart disease of native coronary artery without angina pectoris; N32.81 Overactive bladder; E78.5 Hyperlipidemia, unspecified; M97.12XD Periprosthetic fracture around internal prosthetic left knee joint, subsequent encounter; Z79.82 Long term (current) use of aspirin; Z85.46 Personal history of malignant neoplasm of prostate; Z87.891 Personal history of nicotine dependence
CPT/HCPCS: 36415; 43239; 45378; 71045; 73700; 74174; 80053; 82272; 82962; 83605; 83690; 84484; 85014; 85018; 85025; 85610; 86850; 86900; 86901; 93005; 93010; 94640; 94762; 96365; 96375; 99222; 99231; 99284; 99285; J0131; J1171; J2272; J2405; J2470; J2704; J7030; J7120

== ENCOUNTER 2025-04-10 17:11 | Inpatient (IN) | payer MEDICARE, OTHER, SELFPAY ==
[2025-03-18 19:30] VITALS: BMI 23.6
[2025-04-10] VITALS (10 sets, daily range): BP systolic 102–125; BP diastolic 58–69; PULSE 83–99; RESP 18–21; TEMP 36.5–36.8; O2SAT 90–100; BMI 19.9
--- NOTE | 2025-04-10 17:34 | DI.RAD.S_ITS ---
PROCEDURE: XR KNEE LT 3V
--- NOTE | 2025-04-10 17:45 | ED_ITS ---
HPI - Extremity Injury (Lower)
--- NOTE | 2025-04-10 17:45 | ED.LOWEXIN ---
HPI - Extremity Injury (Lower) <Jennifer Bach PA-C - Last Filed: 04/10/25 19:14> General Chief Complaint: Extremity Injury, Lower Stated Complaint: left knee pain- stumbled up some steps Time Seen by Provider: 04/10/25 17:45 Source: patient and family Mode of arrival: Wheelchair History of Present Illness HPI Narrative: Mr. Perez is a pleasant 84-year-old male with a past medical history of HTN, CAD, overactive bladder, COPD on 2L, recent admission for GI bleed, left distal [facility] fracture [facility] who presents to the emergency department for left knee pain today. He is here with his nephew and a family friend. He is also on antibioitcs for pneumonia. Patient fractured his distal femur a few months ago and has been at rehab. He was discharged today, cleared by ortho with no restrictions, and was at home with family attempting to walk up a stair when his left knee buckled causing him to fall backwards, his family did catch him and he did not hit his head. He now is unable to bear any weight on the left knee. 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 He denies any tenderness to palpation of the left knee but does have pain with bearing weight onto the knee and with straightening it. The knee is swollen. He denies any other concerns. Related Data Home Medications ?Medication ?Instructions ?Recorded ?Confirmed albuterol sulfate 90 mcg/actuation 1 - 2 puff inhalation Q4-6H PRN 12/16/10 04/10/25 aerosol inhaler Shortness Of Breath ##0 aspirin 81 mg tablet,delayed 81 mg PO DAILY ##0 12/16/10 04/10/25 release simvastatin 20 mg tablet (Zocor) 20 mg PO HS ##0 12/16/10 04/10/25 hydrochlorothiazide 25 mg tablet 25 mg PO DAILY 12/14/19 04/10/25 meloxicam 15 mg tablet 15 mg PO QPM 02/15/25 04/10/25 mirabegron 50 mg tablet,extended 50 mg PO DAILY 02/15/25 04/10/25 release 24 hr (Myrbetriq) montelukast 10 mg tablet 10 mg PO DAILY 02/15/25 04/10/25 amoxicillin 875 mg-potassium 1 tab PO Q12H 04/10/25 04/10/25 clavulanate 125 mg tablet azithromycin 250 mg tablet 250 mg PO DAILY 04/10/25 04/10/25 fluticasone fur. 200 mcg-umeclid 1 inh inhalation DAILY 04/10/25 04/10/25 62.5 mcg-vilant 25 mcg inhalat.powder (Trelegy Ellipta) ipratropium 0.5 mg-albuterol 3 mg 3 ml inhalation Q4H PRN SOB 04/10/25 04/10/25 (2.5 mg base)/3 mL nebulization soln pantoprazole 40 mg tablet,delayed 40 mg PO BID 04/10/25 04/10/25 release prednisone 10 mg tablet 10 mg PO QID 04/10/25 04/10/25 Previous Rx's ?Medication ?Instructions ?Recorded fluticasone fur. 200 mcg-umeclid 1 inh inhalation DAILY #60 ea 11/23/24 62.5 mcg-vilant 25 mcg inhalat.powder (Trelegy Ellipta) amoxicillin 875 mg-potassium 1 tab PO BID #14 tabs 03/20/25 clavulanate 125 mg tablet hydrocodone 5 mg-acetaminophen 325 1 tab PO Q6HR PRN Pain, Moderate 1015/25 mg tablet (4-6) #15 tabs Allergies Allergy/AdvReac Type Severity Reaction Status Date / Time fluticasone (From Advair AdvReac double Verified 04/10/25 17:26 Diskus) vision salmeterol (From Advair AdvReac double Verified 04/10/25 17:26 Diskus) vision Review of Systems <Jennifer Bach PA-C - Last Filed: 04/10/25 19:14> Review of Systems ROS Unobtainable: All systems reviewed & are unremarkable except as noted in HPI and below Patient History <Jennifer Bach PA-C - Last Filed: 04/10/25 19:14> Medical History Hypoxia Nicotine dependence BPH (benign prostatic hyperplasia) Current every day smoker COPD (chronic obstructive pulmonary disease) HLD (hyperlipidemia) HTN (hypertension) GERD (gastroesophageal reflux disease) 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 Well-developed patient, in no acute distress. HEAD: Atraumatic. Normocephalic. EYES: No scleral icterus. No injection or drainage. NECK: Trachea midline. Cervical ROM intact. CARDIOVASCULAR: Regular rate and rhythm. RESPIRATORY: ?Nonlabored respirations. ?Speaking in clear, full sentences. EXTREMITIES: Left knee with edema, well-healed midline surgical incision. No tenderness to palpation however he does have pain with passive flexion and with weight-bearing. NEURO: AOx3. ?Clear speech. ?SITLT BL LE. SKIN: No rash or erythema of visible areas Initial Vital Signs Initial Vital Signs: Vital Signs Temperature 98.2 F 04/10/25 17:26 Pulse Rate 87 04/10/25 17:26 Respiratory Rate 20 04/10/25 17:26 Blood Pressure 125/64 04/10/25 17:26 Pulse Oximetry 90 L 04/10/25 17:26 Oxygen Delivery Method Nasal Cannula 04/10/25 17:26 Oxygen Flow Rate 2 04/10/25 17:26 <Calvin Castaneda MD - Last Filed: 04/11/25 03:47> Initial Vital Signs Initial Vital Signs: Vital Signs Temperature 98.2 F 04/10/25 17:26 Pulse Rate 87 04/10/25 17:26 Respiratory Rate 20 04/10/25 17:26 Blood Pressure 125/64 04/10/25 17:26 Pulse Oximetry 90 L 04/10/25 17:26 Oxygen Delivery Method Nasal Cannula 04/10/25 17:26 Oxygen Flow Rate 2 04/10/25 17:26 Course <Jennifer Bach PA-C - Last Filed: 04/10/25 19:14> Orders Ordered: Acetaminophen (Acetaminophen 325 Mg Tablet) 650 mg PO Q6H PRN PRN Reason: Fever/Mild Pain (1-3) Hydrocodone Bitart/Acetaminophen (Hydrocodone/Acet 5/325 Tablet) 1 tab PO Q6HR PRN PRN Reason: Pain, Moderate (4-6) Albuterol (Albuterol 2.5 Mg/3 Ml Neb (Adult)) 2.5 mg INH [id number] PRN PRN Reason: Dyspnea Amoxicillin/Clavulanate Potassium (Amoxicillin/Clav 875/125 Mg) 1 tab PO BID [facility] Atorvastatin Calcium (Atorvastatin 20 Mg Tablet) 10 mg PO BEDTIME QUANG Hydralazine HCl (Hydralazine 20 Mg/Ml Vial) 10 mg IV Q6HR PRN PRN Reason: SBP>= 160 or DBP >=110 Sodium Chloride (Normal Saline 0.9%) 1,000 mls @ 50 mls/hr IV CONT QUANG Last Admin: 04/11/25 00:46 Dose: 50 mls/hr Documented By: AD Magnesium Oxide (Magnesium Oxide 400 Mg Tablet) 400 mg PO DAILY PRN PRN Reason: Constipation Melatonin (Melatonin 3 Mg Tablet) 6 mg PO BEDTIME PRN PRN Reason: insomnia Montelukast Sodium (Montelukast 10 Mg Tablet) 10 mg PO DAILY [facility] Morphine Sulfate (Morphine 4 Mg/Ml Inj) 3 mg IV Q2HR PRN PRN Reason: Pain, Severe (7-10) Last Admin: 04/11/25 00:49 Dose: 3 mg Documented By: AD Naloxone HCl (Naloxone 0.4 Mg/Ml Vial) 0.2 mg IV Q2MIN PRN PRN Reason: Opiate Reversal Non-Form: Trelegy Ellipta (Fluticasone -Umeclidin- Vilanterol 200-62.5- 25 Mcg) Inhaler 1 inhalation INH DAILY [facility] Ondansetron HCl (Ondansetron 4 Mg/2 Ml Inj) 4 mg IV Q8HR PRN PRN Reason: Nausea And Vomiting Oxybutynin Chloride (Oxybutynin Er 5 Mg Tablet) 10 mg PO DAILY [facility] Oxycodone HCl (Oxycodone Ir 5 Mg Tablet) 5 mg PO Q3H PRN PRN Reason: Pain, Moderate (4-6) Discontinued Medications Hydrocodone Bitart/Acetaminophen (Hydrocodone/Acet 5/325 Tablet) 1 tab PO NOW ONE Stop: 04/10/25 18:30 Last Admin: 04/10/25 18:59 Dose: 1 tab Documented By: SGF Hydromorphone HCl (Hydromorphone 1 Mg/Ml Syringe) 1 mg IV Q3H PRN PRN Reason: Pain, Moderate (4-6) Vital Signs Vital signs: Vital Signs - 8 hr 04/10/25 20:00 Pulse Rate 98 H Respiratory Rate 18 Pulse Oximetry 97 Oxygen Delivery Method Nasal Cannula Oxygen Flow Rate 2 <Calvin Castaneda MD - Last Filed: 04/11/25 03:47> Orders Ordered: Acetaminophen (Acetaminophen 325 Mg Tablet) 650 mg PO Q6H PRN PRN Reason: Fever/Mild Pain (1-3) Hydrocodone Bitart/Acetaminophen (Hydrocodone/Acet 5/325 Tablet) 1 tab PO Q6HR PRN PRN Reason: Pain, Moderate (4-6) Albuterol (Albuterol 2.5 Mg/3 Ml Neb (Adult)) 2.5 mg INH [id number] PRN PRN Reason: Dyspnea Amoxicillin/Clavulanate Potassium (Amoxicillin/Clav 875/125 Mg) 1 tab PO BID QUANG Atorvastatin Calcium (Atorvastatin 20 Mg Tablet) 10 mg PO BEDTIME QUANG Hydralazine HCl (Hydralazine 20 Mg/Ml Vial) 10 mg IV Q6HR PRN PRN Reason: SBP>= 160 or DBP >=110 Sodium Chloride (Normal Saline 0.9%) 1,000 mls @ 50 mls/hr IV CONT QUANG Last Admin: 04/11/25 00:46 Dose: 50 mls/hr Documented By: AD Magnesium Oxide (Magnesium Oxide 400 Mg Tablet) 400 mg PO DAILY PRN PRN Reason: Constipation Melatonin (Melatonin 3 Mg Tablet) 6 mg PO BEDTIME PRN PRN Reason: insomnia Montelukast Sodium (Montelukast 10 Mg Tablet) 10 mg PO DAILY QUANG Morphine Sulfate (Morphine 4 Mg/Ml Inj) 3 mg IV Q2HR PRN PRN Reason: Pain, Severe (7-10) Last Admin: 04/11/25 00:49 Dose: 3 mg Documented By: AD Naloxone HCl (Naloxone 0.4 Mg/Ml Vial) 0.2 mg IV Q2MIN PRN PRN Reason: Opiate Reversal Non-Form: Trelegy Ellipta (Fluticasone -Umeclidin- Vilanterol 200-62.5- 25 Mcg) Inhaler 1 inhalation INH DAILY QUANG Ondansetron HCl (Ondansetron 4 Mg/2 Ml Inj) 4 mg IV Q8HR PRN PRN Reason: Nausea And Vomiting Oxybutynin Chloride (Oxybutynin Er 5 Mg Tablet) 10 mg PO DAILY QUANG Oxycodone HCl (Oxycodone Ir 5 Mg Tablet) 5 mg PO Q3H PRN PRN Reason: Pain, Moderate (4-6) Discontinued Medications Hydrocodone Bitart/Acetaminophen (Hydrocodone/Acet 5/325 Tablet) 1 tab PO NOW ONE Stop: 04/10/25 18:30 Last Admin: 04/10/25 18:59 Dose: 1 tab Documented By: SGF Hydromorphone HCl (Hydromorphone 1 Mg/Ml Syringe) 1 mg IV Q3H PRN PRN Reason: Pain, Moderate (4-6) Vital Signs Vital signs: Vital Signs - 8 hr 04/10/25 20:00 Pulse Rate 98 H Respiratory Rate 18 Pulse Oximetry 97 Oxygen Delivery Method Nasal Cannula Oxygen Flow Rate 2 MDM - Extremity Injury (Lower) <Jennifer Bach PA-C - Last Filed: 04/10/25 19:14> Medical Records Attestation: I reviewed the patient's medical records. Lab Data 04/10/25 22:10 MDM Narrative Medical decision making narrative: 84-year-old male with a past medical history of HTN, CAD, overactive bladder, COPD on 2L, recent admission for GI bleed, left distal femur fracture discharged from [facility] today who presents to the emergency department for left knee pain today. Differential diagnosis includes but isn't limited to left knee sprain, strain, fracture, dislocation, hardware failure, etc. On exam patient is in no acute distress, nontoxic appearing, vital signs appropriate. He is on home 2 L nasal cannula. Patient has edema of the left knee, no deformities or wounds. He is unable to bear weight on the knee. Sensation intact to light touch distal to the wound and skin is warm well perfused. X-ray and hydrocodone-acetaminophen ordered. Orthopedic surgeon Dr. Lewis reviewed patient's x-ray in the ER, recommends CT left knee. 1909: Due to Shift change, case transferred to nighttime ED Dr. Annemarie ESPINOZA, CT and disposition pending. <Calvin Castaneda MD - Last Filed: 04/11/25 03:47> Imaging Data CT left knee: Radiologist's Impression: [address] [address] [address] Scan Report Signed Patient: Elie Perez MR#: [id number] : 1940 Acct:[id number] Age/Sex: 84 / M Date of Service: 04/10/25 Loc: ED Accession Number: [id number] Procedure: CT LE LT wo con Ordering Provider: Jennifer Bach PA-C PROCEDURE: CT LE LT W CON INDICATIONS: acute on chronic L knee pain today; old fx TECHNIQUE: Noncontrast 1-1.5 mm axial sections acquired from the mid-patella to the proximal tibia, with coronal and sagittal reformats. COMPARISON: [facility], CT, CT KNEE LEFT WITHOUT CON, 03/20/2025, 9:14. [facility], CR, XR KNEE LT 3V, 04/10/2025, 17:36. FINDINGS: Image quality: Diagnostic. Bones: Patient is status post left total knee arthroplasty. Comminuted fracture involving distal femur above the level of femoral condyles are seen with interval increased posterior displacement at fracture site. Severe osteopenia involving distal femoral shaft is seen concerning for insufficiency fracture. No proximal tibial or fibular fracture. No definite hardware loosening or failure. Soft tissues: There is moderate to large suprapatellar joint effusion, no calcified intra-articular loose bodies. No gross full-thickness quadriceps tendon or patellar tendon rupture. IMPRESSION: 1. Comminuted and slightly displaced distal femoral fracture with interval increased posterior displacement at fracture site. Marked osteopenia. No new fracture or dislocation. 2. Prior left total knee arthroplasty. No gross hardware loosening or failure. 3. Large suprapatellar joint effusion, no calcified intra-articular loose bodies. Dictated by: Moises Mesa M.D. on 04/10/2025 at 19:11 Approved by: Moises Mesa M.D. on 04/10/2025 at 19:13 MDM Narrative Medical decision making narrative: 84-year-old male with a past medical history of HTN, CAD, overactive bladder, COPD on 2L, recent admission for GI bleed, left distal femur fracture discharged from [facility] today who presents to the emergency department for left knee pain today. Differential diagnosis includes but isn't limited to left knee sprain, strain, fracture, dislocation, hardware failure, etc. On exam patient is in no acute distress, nontoxic appearing, vital signs appropriate. He is on home 2 L nasal cannula. Patient has edema of the left knee, no deformities or wounds. He is unable to bear weight on the knee. Sensation intact to light touch distal to the wound and skin is warm well perfused. X-ray and hydrocodone-acetaminophen ordered. Orthopedic surgeon Dr. Lewis reviewed patient's x-ray in the ER, recommends CT left knee. 1909: Due to Shift change, case transferred to nighttime ED , Dr. Sharpe, CT and disposition pending. 04/10/2025, 1920Leonel. Sign-out from GONZALEZ Bach. Patient with history of prior left knee arthroplasty, recent fall, left distal femur fracture, discharge from [facility] facility earlier today, had new fall backwards whenfamily member caught him, increased left knee pain, x-ray today shows similar appearance fracture, orthopedic surgery Dr. Lewis was in the department and advised further imaging with CT left knee. Anticipate call back when CT images available. Assumed care. CT left knee noncontrast. IMPRESSION: 1. Comminuted and slightly displaced distal femoral fracture with interval increased posterior displacement at fracture site. Marked osteopenia. No new fracture or dislocation.2. Prior left total knee arthroplasty. No gross hardware loosening or failure.3. Large suprapatellar joint effusion, no calcified intra-articular loose bodies. See radiology report. 1939, case discussed again with orthopedic surgery Dr. Lewis, who is familiar with patient, reviewed CT scan, advises admit to hospitalist service, she will consult further, advised nonweightbearing with knee immobilizer and walker. Will contact hospitalist regarding admission. 1999, case discussed with hospitalist Dr. Harris who accepts patient for admission. Discharge Plan Departure Patient Disposition: Admitted As Inpatient Clinical Impression: Femur fracture, left Admit Date/Time: 04/10/25 20:01 Admit Provider: Thomas Harris
--- NOTE | 2025-04-10 18:14 | DI.CT.S_ITS ---
PROCEDURE: CT LE LT W CON
--- NOTE | 2025-04-10 19:30 | PC.NURSE ---
pt was walking with family members when his left knee gave out and he fell backwards, family was able to catch the patient but patient has been unable to weight bear on the left leg without pain since, no obvious deformity, previous knee replacement on that side
--- NOTE | 2025-04-10 20:55 | PC.NURSE ---
pt's nephew lives close his information is Shahid Ruano [phone]
[2025-04-10 22:30] LABS: Add Manual Diff / Slide Review NO; Hematocrit 29.7 % (41-53); Hemoglobin 9.4 g/dL (13.5-17.5); Lymphocytes Absolute Auto 800 /uL (1100-4500); Mean Corpuscular HGB Conc 31.5 % (30-36); Mean Corpuscular Hemoglobin 26.0 PG (26-34); Mean Corpuscular Volume 82.7 fL (80-100); Platelet Count 328 X10^3/uL (150-400)
[2025-04-10 22:38] LABS: INR 1.1 (0.9-1.3); Prothrombin Time 12.1 SECONDS (9.4-12.5)
[2025-04-10 22:48] LABS: Magnesium 2.1 mg/dL (1.6-2.3)
[2025-04-11] MEDS: SODIUM CHLORIDE 0.9% 1,000 ML 50 ML IV (00:46)
[2025-04-11] MEDS: MORPHINE 4 MG/ML INJ 3 MG IV (00:49)
--- NOTE | 2025-04-11 01:31 | P.HP_ITS ---
History of Present Illness
--- NOTE | 2025-04-11 01:31 | PM.HP.1 ---
History of Present Illness History of Present Illness Chief complaint: left knee pain- stumbled up some steps Narrative: 84 years old male with history of hypertension, hyperlipidemia, CAD, COPD on home oxygen, overreactive bladder, recent admission for GI bleed presented to the ER with left knee pain. The patient had distal femur fracture few months ago and has been at rehab. Discharged today and cleared by Ortho with no instructions. He was at home with family attempting to walk upstairs when he left knee buckled causing him to fall backwards. Since then not able to bear any weight on his left knee. 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 Denies any other symptoms. Currently on antibiotics for pneumonia. Laboratory shows WBC 15, H&H 9.4/29.7, platelets 328, INR 1.1, magnesium 2.1. CT scan of the left lower extremity shows communicated a slightly displaced distal femoral fracture with interval increased posterior displacement at fracture site. Prior left total knee arthroplasty. Large suprapatellar joint effusion. Orthopedic surgery was consulted and recommended admission and possible surgery in the morning. 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) Surgical History H/O total knee replacement History of loop recorder (2013) Social History household members: none Smoking Status: Former smoker alcohol intake: current Meds Home Medications and Allergies Home Medications ?Medication ?Instructions ?Recorded ?Confirmed ?Type albuterol sulfate 90 mcg/actuation 1 - 2 puff inhalation Q4-6H PRN 12/16/10 04/10/25 History aerosol inhaler Shortness Of Breath ##0 aspirin 81 mg tablet,delayed 81 mg PO DAILY ##0 12/16/10 04/10/25 History release simvastatin 20 mg tablet (Zocor) 20 mg PO HS ##0 12/16/10 04/10/25 History hydrochlorothiazide 25 mg tablet 25 mg PO DAILY 12/14/19 04/10/25 History fluticasone fur. 200 mcg-umeclid 1 inh inhalation DAILY #60 ea 11/23/24 04/10/25 Rx 62.5 mcg-vilant 25 mcg inhalat.powder (Trelegy Ellipta) meloxicam 15 mg tablet 15 mg PO QPM 02/15/25 04/10/25 History mirabegron 50 mg tablet,extended 50 mg PO DAILY 02/15/25 04/10/25 History release 24 hr (Myrbetriq) montelukast 10 mg tablet 10 mg PO DAILY 02/15/25 04/10/25 History amoxicillin 875 mg-potassium 1 tab PO BID #14 tabs 03/20/25 04/10/25 Rx clavulanate 125 mg tablet hydrocodone 5 mg-acetaminophen 325 1 tab PO Q6HR PRN Pain, Moderate 03/20/25 04/10/25 Rx mg tablet (4-6) #15 tabs amoxicillin 875 mg-potassium 1 tab PO Q12H 04/10/25 04/10/25 History clavulanate 125 mg tablet azithromycin 250 mg tablet 250 mg PO DAILY 04/10/25 04/10/25 History fluticasone fur. 200 mcg-umeclid 1 inh inhalation DAILY 04/10/25 04/10/25 History 62.5 mcg-vilant 25 mcg inhalat.powder (Trelegy Ellipta) ipratropium 0.5 mg-albuterol 3 mg 3 ml inhalation Q4H PRN SOB 04/10/25 04/10/25 History (2.5 mg base)/3 mL nebulization soln pantoprazole 40 mg tablet,delayed 40 mg PO BID 04/10/25 04/10/25 History release prednisone 10 mg tablet 10 mg PO QID 04/10/25 04/10/25 History Allergies Allergy/AdvReac Type Severity Reaction Status Date / Time fluticasone (From Advair AdvReac double Verified 04/10/25 17:26 Diskus) vision salmeterol (From Advair AdvReac double Verified 04/10/25 17:26 Diskus) vision Review of Systems Review of Systems ROS: Yes All systems reviewed with the patient and are negative except as otherwise documented Constitutional Constitutional: Reports as per HPI and Reports system reviewed and no additional complaints, except as documented Eyes Eyes: Reports as per HPI and Reports system reviewed and no additional complaints, except as documented ENT Ears, Nose, Mouth, and Throat: Yes as per HPI and Yes system reviewed and no additional complaints, except as documented Cardiovascular Cardiovascular: Reports system reviewed and no additional complaints, except as documented Respiratory Respiratory: Reports system reviewed and no additional complaints, except as documented Gastrointestinal Gastrointestinal: Reports system reviewed and no additional complaints, except as documented Genitourinary Genitourinary: Reports system reviewed and no additional complaints, except as documented Musculoskeletal Musculoskeletal: Reports system reviewed and no additional complaints, except as documented, Reports abnormal gait and Reports numbness Neurologic Neurologic: Reports system reviewed and no additional complaints, except as documented, Reports abnormal gait, Reports confusion and Reports numbness Psychiatric Psychiatric: Reports system reviewed and no additional complaints, except as documented and Reports confusion Exam Vital Signs (past 8 hours): - 04/10/25 19:00 04/10/25 19:30 04/10/25 20:00 Temperature Pulse Rate 96 H 99 H 98 H Respiratory Rate 18 18 18 Blood Pressure Pulse Oximetry 90 L 100 97 Oxygen Delivery Method Nasal Cannula Nasal Cannula Nasal Cannula Oxygen Flow Rate 2 2 2 04/10/25 20:30 04/10/25 21:00 04/10/25 21:30 Temperature Pulse Rate 95 H 89 86 Respiratory Rate 20 18 18 Blood Pressure 104/60 Pulse Oximetry 94 90 L 94 Oxygen Delivery Method Nasal Cannula Nasal Cannula Nasal Cannula Oxygen Flow Rate 2 2 2 04/10/25 21:34 04/10/25 22:54 04/10/25 23:00 Temperature 97.7 F Pulse Rate 83 86 88 Respiratory Rate 20 21 Blood Pressure 102/58 L 123/69 Pulse Oximetry 94 91 95 Oxygen Delivery Method Nasal Cannula Nasal Cannula Oxygen Flow Rate 4 2 3 Oxygen Delivery Method Nasal Cannula Oxygen Flow Rate 3 Const General: cooperative, comfortable and well developed Orientation: alert and oriented x3 HENMT Head: normal to inspection, normocephalic and atraumatic Face and sinus: normal facial exam Mouth: oral mucosae normal and moist mucous membranes Throat: posterior oropharynx normal Eyes General: appearance normal, both eyes and all related structures Pupils: PERRL EOM: EOM intact bilaterally Neck Neck: normal visual inspection and full ROM Chest Chest: normal inspection of the chest Resp Effort & Inspection: normal respiratory effort and able to speak in complete sentences Auscultation: clear to auscultation bilaterally Cardio Palpation: normal PMI Rate: regular rate Rhythm: regular rhythm Heart Sounds: S1 normal and S2 normal GI Inspection: normal to inspection Palpation: soft and no hepatosplenomegaly Auscultation: normal bowel sounds Skin General: no rashes or lesions noted Lesions: no lesions Rashes: no rashes Trauma: no lacerations or abrasions Neuro General: patient alert, patient awake, patient oriented x3 and no focal motor deficits Cranial Nerves: CN's II-XI intact bilaterally Cognition: normal cognition Speech: speech normal Gait: normal gait Motor: muscle tone normal throughout Sensory Exam: no sensory deficits noted Extrem General: full ROM and no calf tenderness Psych Appearance: grossly normal Mental Status: mental status grossly normal Speech and Movement: speech and movement normal Objective Labs 04/10/25 22:10 Labs: Laboratory Results - last 24 hr 04/10/25 22:10 WBC 15.0 H RBC 3.59 L Hgb 9.4 L Hct 29.7 L MCV 82.7 MCH 26.0 MCHC 31.5 RDW 18.4 H Plt Count 328 Neut % (Auto) 88.2 H Lymph % (Auto) 5.6 L [place] % (Auto) 5.7 Eos % (Auto) 0.0 L Baso % (Auto) 0.5 Neut # (Auto) 50966 H Lymph # (Auto) 800 L [place] # (Auto) 900 Eos # (Auto) 0 Baso # (Auto) 100 PT 12.1 INR 1.1 Magnesium 2.1 Assessment & Plan Assessment & Plan narrative: Large slightly displaced femoral fracture after ground-level fall. -IV Fluids -Nothing by mouth for now -Hold aspirin and diuretics for now -NWB and Immobilization and elevation of his extremity -Orthopedic consult for F/U -Incentive spirometry -Pain medications as needed -Bowel regimen while on narcotics -Fall precaution -PT and OT evaluation on discharge Recent pneumonia. Currently on antibiotics. Continue to finish his course. COPD on home oxygen. Continue Trileptal and Singulair. Albuterol and DuoNeb as needed. GERD. Restart pantoprazole. Hyperlipidemia. Restart Zocor. Overreactive bladder. Restart mirabegron. I performed this consultation using real-time telehealth tools, including a live video connection between my location and the patient's location. As the provider for this telehealth service, I attest that I introduced myself to the patient, provided my credentials, disclosed my location, and determined that, based on a review of the patients chart and/or a discussion with members of the patient's treatment team, telemedicine via a real-time, two-way, interactive audio and video platform is an appropriate and effective means of providing this service. The patient and I mutually agree that this visit is appropriate for telemedicine as well. Disclaimer Note: To increase efficiency, your provider may have prepared this document using voice recognition technology. In that case, if a word or phrase is confusing, or does not make sense, this is likely due to a recognition error within the program which was not discovered during the provider?s review. If you believe an error has occurred, please notify your provider?s office at your earliest convenience, so we can correct any mistakes. Date and time of service: 04/11/2025 at 12:30 AM Time-Based Coding :: [TOTAL MINUTES] spent with patient and on the chart (including review of chart, obtaining history, exam, reviewing outside data, placing orders, documenting exam and treatment plan, and counseling patient) on [DATE]. Quality VTE Deep Vein Thrombosis/Pulmonary Embolism Present on Admission: No MIPS - Admit I confirm the patient?s Advance Care Plan is present, Code status is documented, Surrogate decision maker is in patient?s record [If Yes, STOP here]: Yes MIPS - Meds 'Current medications' to include all prescriptions, [id number] products, herbals, cannabis/cannabidiol products, and vitamin/mineral/dietary (nutritional) supplements. I have utilized all available resources to obtain, update, or review the patient?s current medications. [If Yes, STOP here]: Yes
[2025-04-11 08:38] VITALS: BP 125/78; PULSE 61; RESP 18; TEMP 36.4; O2SAT 91
[2025-04-11 08:55] VITALS: O2SAT 91
[2025-04-11] MEDS: AMOXICILLIN/CLAV 875/125 MG 1 TAB PO ×2 (09:53→20:51)
[2025-04-11] MEDS: MONTELUKAST 10 MG TABLET PO (09:53)
[2025-04-11] MEDS: oxyBUTYnin ER 5 MG TABLET 10 MG PO (09:54)
--- NOTE | 2025-04-11 10:18 | OT.IPNOTE ---
Awaiting ortho consult and therefore hold OT eval at this time.
--- NOTE | 2025-04-11 11:04 | CM.DANOTE ---
Initial DCP Assessment Note. Review EMR and PT Interview. Met with patient at bedside to discuss discharge needs.PT is alert x 4 sitting up in bed. No acute distress. Patient lives independently prior to last hospitalization. PT was DC'd to [facility] 03/20 s/p GIB. Patient refused to return. PT requested HH. Payor:[facility] PCP: Summary & Plan:?84yo male arrived to ED via WC c/o knee weakness. Family was able to catch PT before he fell. Patient was DC'd from [facility] family was return patient home when patient experienced sudden weakness to left knee.Plan: Ortho consult today, possible surgery. Discharge Planning/Care Management CM Discharge Assessment Start: 04/10/25 20:49 Freq: Status: Active Protocol: Document 04/11/25 11:02 (Rec: 04/11/25 11:03 [id number]) Discharge Planning Assessment Assigned Discharge Tova Robertson RN Supervisor Dumping Provider Dr. Kitchen Insurance Medicare Advance Directives? Yes: Advance Medical Directive; DPOA Advance Directives Yes on File History Provided By Patient Prior Living House Arrangements Household Members none DME Already Rented / FWW / Walker Owned Comment 2L at baseline Patient/Family [facility] Facility Preference Comment Patient refused to return to [facility]. Patient has requested HH. Comment TBD Discharge Plan [facility] Facility Transportation Facility vs. Family Arrangement Review Status In Process Please Provide Date 04/11/25 Initial DC Assessment Was Performed Next Review Type Continued Stay Review
--- NOTE | 2025-04-11 12:18 | PC.NURSE ---
Patient has a left immobilizer on his left leg. Brand catheter placed as patient was having some retention, bulb grader emptied 1600ml of yellow urine out. He was given 1 [place] for pain and is soundly napping now.
--- NOTE | 2025-04-11 12:43 | P.CONS_ITS ---
History of Present Illness
--- NOTE | 2025-04-11 12:43 | PM.CN.IH.1 ---
History of Present Illness Consult details Chief complaint: left knee pain- stumbled up some steps Narrative: CHIEF COMPLAINT I've been having a lot of trouble with my knee ever since I fell. SUBJECTIVE Elie reports that after sustaining a fall in either late January or February, he suffered a nondisplaced transverse distal femoral fracture just proximal to his femoral component in the left knee. Since the fall, he has been unable to ambulate on his left leg. Elie describes significant pain when attempting to flex or extend his knee, which has caused him to be hesitant about physical movement. He has not undergone any surgical treatment for the fracture due to its nondisplaced nature but has been under observation to allow the fracture to heal nonoperatively. After returning home he had a fall. SOCIAL HISTORY Not mentioned. PERTINENT PMH - Coronary artery disease - COPD on home oxygen - Recent GI bleed PRIOR HIP/KNEE PROCEDURES - Left total knee arthroplasty performed 20 years ago. PHYSICAL EXAM Left Knee Exam: - Examination: Pronounced muscular atrophy around the left thigh musculature compared to the contralateral leg. The femur moves as a unit without discernible motion through the fracture site. - ROM: Elie is very hesitant to allow any flexion or extension of his knee due to significant levels of pain. RADIOLOGY Left Knee ? AP, lateral, and sunrise views performed 02/15/2025 and 04/11/2025: 1. No changes in alignment of the distal femur fracture compared to previous imaging. CT Scan Left Knee: 1. CT scans obtained on 02/16/2025, 03/20/2025, and 04/10/2025 show no changes in the alignment of the distal femur fracture. ASSESSMENT lEie Perez is an 84-year-old male with multiple medical comorbidities with a nondisplaced impacted distal femur fracture around a prior left total knee arthroplasty, sustained two months ago. The fracture appears stable with no displacement over the two months since the injury. PLAN Given the stable fracture pattern and Elie's significant medical comorbidities, I do not recommend surgery. A distal femoral replacement would be necessary for surgical fixation, which is highly invasive and risky, especially with his health conditions. The fracture has not moved over two months, indicating stability. My recommendation includes: - Transition from a knee immobilizer to a hinged knee brace. - Begin physical therapy focusing on mobilization. - Initially use foot-flat weight bearing with a walker, advancing to weight bearing as tolerated. - Scheduled follow-up for radiographic monitoring and assessment in the outpatient clinic. FOLLOWUP Plan to follow up with Max closely in the outpatient setting for continued radiographic monitoring. Schedule a follow-up appointment with me for radiographic followup to ensure the fracture continues to heal appropriately. Meds Home Medications and Allergies Home Medications ?Medication ?Instructions ?Recorded ?Confirmed ?Type albuterol sulfate 90 mcg/actuation 1 - 2 puff inhalation Q4-6H PRN 12/16/10 04/10/25 History aerosol inhaler Shortness Of Breath ##0 aspirin 81 mg tablet,delayed 81 mg PO DAILY ##0 12/16/10 04/10/25 History release simvastatin 20 mg tablet (Zocor) 20 mg PO HS ##0 12/16/10 04/10/25 History hydrochlorothiazide 25 mg tablet 25 mg PO DAILY 12/14/19 04/10/25 History fluticasone fur. 200 mcg-umeclid 1 inh inhalation DAILY #60 ea 11/23/24 04/10/25 Rx 62.5 mcg-vilant 25 mcg inhalat.powder (Trelegy Ellipta) meloxicam 15 mg tablet 15 mg PO QPM 02/15/25 04/10/25 History mirabegron 50 mg tablet,extended 50 mg PO DAILY 02/15/25 04/10/25 History release 24 hr (Myrbetriq) montelukast 10 mg tablet 10 mg PO DAILY 02/15/25 04/10/25 History amoxicillin 875 mg-potassium 1 tab PO BID #14 tabs 03/20/25 04/10/25 Rx clavulanate 125 mg tablet hydrocodone 5 mg-acetaminophen 325 1 tab PO Q6HR PRN Pain, Moderate 03/20/25 04/10/25 Rx mg tablet (4-6) #15 tabs amoxicillin 875 mg-potassium 1 tab PO Q12H 04/10/25 04/10/25 History clavulanate 125 mg tablet azithromycin 250 mg tablet 250 mg PO DAILY 04/10/25 04/10/25 History fluticasone fur. 200 mcg-umeclid 1 inh inhalation DAILY 04/10/25 04/10/25 History 62.5 mcg-vilant 25 mcg inhalat.powder (Trelegy Ellipta) ipratropium 0.5 mg-albuterol 3 mg 3 ml inhalation Q4H PRN SOB 04/10/25 04/10/25 History (2.5 mg base)/3 mL nebulization soln pantoprazole 40 mg tablet,delayed 40 mg PO BID 04/10/25 04/10/25 History release prednisone 10 mg tablet 10 mg PO QID 04/10/25 04/10/25 History Allergies Allergy/AdvReac Type Severity Reaction Status Date / Time fluticasone (From Advair AdvReac double Verified 04/10/25 17:26 Diskus) vision salmeterol (From Advair AdvReac double Verified 04/10/25 17:26 Diskus) vision Exam Vital Signs (past 8 hours): - 04/11/25 08:38 04/11/25 08:55 Temperature 97.5 F L Pulse Rate 61 Respiratory Rate 18 Blood Pressure 125/78 Pulse Oximetry 91 91 Oxygen Delivery Method Nasal Cannula Oxygen Flow Rate 3 3 Fraction of Inspired Oxygen 32 Fraction of Inspired Oxygen 32 SaO2/FiO2 Ratio 284 Oxygen Delivery Method Nasal Cannula Oxygen Flow Rate 3 Objective Labs 04/10/25 22:10 Labs: Laboratory Results - last 24 hr 04/10/25 22:10 WBC 15.0 H RBC 3.59 L Hgb 9.4 L Hct 29.7 L MCV 82.7 MCH 26.0 MCHC 31.5 RDW 18.4 H Plt Count 328 Neut % (Auto) 88.2 H Lymph % (Auto) 5.6 L [place] % (Auto) 5.7 Eos % (Auto) 0.0 L Baso % (Auto) 0.5 Neut # (Auto) 66660 H Lymph # (Auto) 800 L [place] # (Auto) 900 Eos # (Auto) 0 Baso # (Auto) 100 PT 12.1 INR 1.1 Magnesium 2.1 PFSH Medical History Hypoxia Nicotine dependence BPH (benign prostatic hyperplasia) Current every day smoker COPD (chronic obstructive pulmonary disease) HLD (hyperlipidemia) HTN (hypertension) GERD (gastroesophageal reflux disease) 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 PROFEE Charge Codes Inpatient or Observation consultation: 28956
--- NOTE | 2025-04-11 14:18 | PT.IIE ---
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 Activities of Daily Pt reports indep w/dressing and bathing. Shower with Living and IADL's chair. Fixes own meals. Has someone come in to clean. Prior Functional Lives alone Level (Other details ) Social History Household Members none Living Arrangements House Number of Stairs To Threshold outside home Enter/Railing? Home Equipment Front Wheel Walker,Shower Seat without Backrest,Grab Bars In Shower M2 PT-IP Current Condition Start: 04/11/25 14:07 Freq: NEEDED Status: Active Protocol: Document 04/11/25 14:07 KJ (Rec: 04/11/25 14:18 KJ [id number]) Physical Therapy Current Condition Current Condition Evaluation Date 04/11/25 Treatment Diagnosis Impaired mobility M3 PT-IP Subjective Start: 04/11/25 14:07 Freq: NEEDED Status: Active Protocol: Document 04/11/25 14:07 KJ (Rec: 04/11/25 14:18 KJ [id number]) Subjective Physical Therapy Visit Type Type Initial Evaluation Visit Start Time 13:41 Visit Stop Time 14:08 Physical Therapy Visit Comments Patient Comments No pain in L knee at rest. Severe pain in L knee w/ movement of hip or knee Patient Goals Would like to be transported home by ambulance. Therapy Pain Assessment Location Left Hip Description Acute Pain Behaviors Calling Out Left Knee Description Acute,Sharp Pain Behaviors Calling Out,Facial Grimacing,Holding Area,Moaning M4 PT-IP Mobility and Gait Start: 04/11/25 14:07 Freq: NEEDED Status: Active Protocol: Document 04/11/25 14:07 KJ (Rec: 04/11/25 14:18 KJ [id number]) PT-Transfer Assessment Comments Mobility Comments Unable to participate in bed mobility due to pain in L knee. M5 PT-IP Objective Assessments Start: 04/11/25 14:07 Freq: NEEDED Status: Active Protocol: Document 04/11/25 14:07 KJ (Rec: 04/11/25 14:18 KJ [id number]) Orientation Orientation/Cognition Level of Alertness Alert Gross Range of Motion Upper Extremity ROM Assessment Within Functional Limits Lower Extremity ROM Assessment Left Impaired Impairments L hip held in internal rotation. L knee 20 degrees flex, unable to extend L knee fully, Able to fully extend R knee Strength Upper Extremity Strength Assessment Right Impaired Shoulder 4-/5 Elbow 4/5 Wrist 4+/5 Lower Extremity Strength Assessment Left Impaired Ankle R is WNL Comments Strength Comments RUE weak Any movement in LLE causes pain in knee M6 PT-IP Treatment Start: 04/11/25 14:07 Freq: NEEDED Status: Active Protocol: Document 04/11/25 14:07 KJ (Rec: 04/11/25 14:18 KJ [id number]) Physical Therapy Treatment Exercises Exercises Ankle Pumps,Gluteal Sets,Quad Sets Education Education Provided Weight Bearing Status Equipment Issued Equipment Type and knee immobilizer Company Other Treatments Other Treatment Educated pt on importance of mobility. Educated pt on Performed possible use of overhead lift to get pt up to chair. No chair in pt's room currently. M7 PT-IP Assessment and Plan Start: 04/11/25 14:07 Freq: NEEDED Status: Active Protocol: Document 04/11/25 14:07 KJ (Rec: 04/11/25 14:18 KJ [id number]) PT Summary Assessment and Plan Potential Rehabilitation Fair Potential Status of Condition Evolving at Evaluation Summary Impairments Pain,ROM,Strength,Bed Mobility Assessment Summary Pt w/pain limiting mobility. Goals Bed Mobility Goal Contact Guard Assistance Transfer Goal Contact Guard Assistance Gait Goal Contact Guard Assistance Gait Distance 10 Days to Meet Goals 10 Frequency of Treatment Frequency Of Once a Day Treatment Treatment Plan Physical Therapy Bed Mobility Training,Transfer Training,Gait Training, Treatment Plan Therapeutic Exercise Other Progress to bed mobility, sitting, transers. Recommendations and Next Treatment Focus Precautions Brace Dr. Barros noted need for hinged brace. Other Precautions foot flat progressing to WBAT Recommendations To Nursing Amount of Assist Mechanical Lift Needed Discharge Recommendations PT Discharge SNF Rehab Recommendations Transportation Needs Stretcher/Ambulance at Discharge
[2025-04-11] MEDS: ACETAMINOPHEN 325 MG TABLET 650 MG PO (14:27)
--- NOTE | 2025-04-11 19:13 | P.HP_ITS ---
History of Present Illness
--- NOTE | 2025-04-11 19:13 | PM.HP.1 ---
History of Present Illness History of Present Illness Date Patient Seen: 04/11/25 Chief complaint: left knee pain- stumbled up some steps Narrative: Chief complaint: Periprosthetic fracture 2 months ago with re-injury History of present illness: 04/11: (per nocturnal hospitalist note) 84 years old male with history of hypertension, hyperlipidemia, CAD, COPD on home oxygen, overreactive bladder, recent admission for GI bleed presented to the ER with left knee pain. The patient had distal femur fracture few months ago and has been at rehab. Discharged today and cleared by Ortho with no instructions. He was at home with family attempting to walk upstairs when he left knee buckled causing him to fall backwards. Since then not able to bear any weight on his left knee. 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 Denies any other symptoms. Currently on antibiotics for pneumonia. Laboratory shows WBC 15, H&H 9.4/29.7, platelets 328, INR 1.1, magnesium 2.1. CT scan of the left lower extremity shows communicated a slightly displaced distal femoral fracture with interval increased posterior displacement at fracture site. Prior left total knee arthroplasty. Large suprapatellar joint effusion. Orthopedic surgery was consulted and recommended admission and possible surgery in the morning. Patient was evaluated by Dr. Barros at bedside: Given the stable fracture pattern and Max's significant medical comorbidities, I do not recommend surgery. A distal femoral replacement would be necessary for surgical fixation, which is highly invasive and risky, especially with his health conditions. The fracture has not moved over two months, indicating stability. My recommendation includes: - Transition from a knee immobilizer to a hinged knee brace. - Begin physical therapy focusing on mobilization. - Initially use foot-flat weight bearing with a walker, advancing to weight bearing as tolerated. - Scheduled follow-up for radiographic monitoring and assessment in the outpatient clinic Hospital course: 04/11: Evaluated the patient at bedside with Dr. Barros patient has no other complaints Review of systems: No fever or chills No syncope No chest pain shortness for breath No nausea vomiting diarrhea No paresthesia paresis Physical exam: No acute distress HEENT unremarkable Heart rate and rhythm regular Lungs clear Abdomen benign Extremities no edema No bruising around the left knee joint Assessment and plan: Stable left knee periprosthetic fracture conservative measures per Dr. Rodgers stewardship (see bolded talus sized above) Disposition: Discharge to home or to disposition that we will meet patient's needs Time based billin minutes were involved evaluate this patient who [id number] evaluation discussion with the patient with Orthopedic surgery Dr. 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) Surgical History H/O total knee replacement History of loop recorder (2013) Social History household members: none Smoking Status: Former smoker alcohol intake: current Meds Home Medications and Allergies Home Medications ?Medication ?Instructions ?Recorded ?Confirmed ?Type albuterol sulfate 90 mcg/actuation 1 - 2 puff inhalation Q4-6H PRN 12/16/10 04/10/25 History aerosol inhaler Shortness Of Breath ##0 aspirin 81 mg tablet,delayed 81 mg PO DAILY ##0 12/16/10 04/10/25 History release simvastatin 20 mg tablet (Zocor) 20 mg PO HS ##0 12/16/10 04/10/25 History hydrochlorothiazide 25 mg tablet 25 mg PO DAILY 12/14/19 04/10/25 History fluticasone fur. 200 mcg-umeclid 1 inh inhalation DAILY #60 ea 11/23/24 04/10/25 Rx 62.5 mcg-vilant 25 mcg inhalat.powder (Trelegy Ellipta) meloxicam 15 mg tablet 15 mg PO QPM 02/15/25 04/10/25 History mirabegron 50 mg tablet,extended 50 mg PO DAILY 02/15/25 04/10/25 History release 24 hr (Myrbetriq) montelukast 10 mg tablet 10 mg PO DAILY 02/15/25 04/10/25 History amoxicillin 875 mg-potassium 1 tab PO BID #14 tabs 03/20/25 04/10/25 Rx clavulanate 125 mg tablet hydrocodone 5 mg-acetaminophen 325 1 tab PO Q6HR PRN Pain, Moderate 03/20/25 04/10/25 Rx mg tablet (4-6) #15 tabs amoxicillin 875 mg-potassium 1 tab PO Q12H 04/10/25 04/10/25 History clavulanate 125 mg tablet azithromycin 250 mg tablet 250 mg PO DAILY 04/10/25 04/10/25 History fluticasone fur. 200 mcg-umeclid 1 inh inhalation DAILY 04/10/25 04/10/25 History 62.5 mcg-vilant 25 mcg inhalat.powder (Trelegy Ellipta) ipratropium 0.5 mg-albuterol 3 mg 3 ml inhalation Q4H PRN SOB 04/10/25 04/10/25 History (2.5 mg base)/3 mL nebulization soln pantoprazole 40 mg tablet,delayed 40 mg PO BID 04/10/25 04/10/25 History release prednisone 10 mg tablet 10 mg PO QID 04/10/25 04/10/25 History Allergies Allergy/AdvReac Type Severity Reaction Status Date / Time fluticasone (From Advair AdvReac double Verified 04/10/25 17:26 Diskus) vision salmeterol (From Advair AdvReac double Verified 04/10/25 17:26 Diskus) vision Exam Vital Signs (past 8 hours): Fraction of Inspired Oxygen 32 SaO2/FiO2 Ratio 284 Oxygen Delivery Method Nasal Cannula Oxygen Flow Rate 3 Objective Labs 04/10/25 22:10 Labs: Laboratory Results - last 24 hr 04/10/25 22:10 WBC 15.0 H RBC 3.59 L Hgb 9.4 L Hct 29.7 L MCV 82.7 MCH 26.0 MCHC 31.5 RDW 18.4 H Plt Count 328 Neut % (Auto) 88.2 H Lymph % (Auto) 5.6 L Hall % (Auto) 5.7 Eos % (Auto) 0.0 L Baso % (Auto) 0.5 Neut # (Auto) 14632 H Lymph # (Auto) 800 L Hall # (Auto) 900 Eos # (Auto) 0 Baso # (Auto) 100 PT 12.1 INR 1.1 Magnesium 2.1 Assessment & Plan Time-Based Coding :: [TOTAL MINUTES] spent with patient and on the chart (including review of chart, obtaining history, exam, reviewing outside data, placing orders, documenting exam and treatment plan, and counseling patient) on [DATE]. Quality VTE Deep Vein Thrombosis/Pulmonary Embolism Present on Admission: No
[2025-04-11] MEDS: PANTOPRAZOLE DR 40 MG TABLET PO (20:51)
[2025-04-11] MEDS: ATORVASTATIN 20 MG TABLET 10 MG PO (20:51)
[2025-04-11 21:00] VITALS: BP 126/71; PULSE 87; RESP 18; TEMP 36.9; O2SAT 95
[2025-04-12 04:36] VITALS: O2SAT 95
[2025-04-12 08:42] VITALS: BP 137/67; PULSE 92; RESP 16; TEMP 36.4; O2SAT 95
[2025-04-12] MEDS: ALBUTEROL/IPRATROPIUM 3 ML AMPUL INH ×2 (09:04→20:18)
[2025-04-12] MEDS: BUDESONIDE 0.5 MG/2 ML NEB INH ×2 (09:04→20:18)
[2025-04-12 09:20] VITALS: PULSE 98; RESP 18; O2SAT 95
[2025-04-12] MEDS: MONTELUKAST 10 MG TABLET PO (10:00)
[2025-04-12] MEDS: ASPIRIN EC 81 MG TABLET PO (10:00)
[2025-04-12] MEDS: ACETAMINOPHEN 325 MG TABLET 650 MG PO ×2 (10:00→17:11)
[2025-04-12] MEDS: oxyBUTYnin ER 5 MG TABLET 10 MG PO (10:00)
[2025-04-12] MEDS: AZITHROMYCIN 250 MG TABLET PO (10:00)
[2025-04-12] MEDS: AMOXICILLIN/CLAV 875/125 MG 1 TAB PO ×2 (10:00→20:18)
[2025-04-12] MEDS: PANTOPRAZOLE DR 40 MG TABLET PO ×2 (10:00→20:20)
--- NOTE | 2025-04-12 10:49 | OT.IP.EVAL ---
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) GERD (gastroesophageal reflux disease) HLD (hyperlipidemia) HTN (hypertension) Hypoxia Nicotine dependence Surgical History (Last Reviewed 04/10/25 @ 19:11 by Jennifer Bach PA-C) H/O total knee replacement History of loop recorder (2013) Occupational Therapy Inpatient Evaluation/Re-Eval M1 OT IP Prior Functional Status Start: 04/12/25 10:36 Freq: Status: Active Protocol: Document 04/12/25 10:36 [facility] (Rec: 04/12/25 10:49 [facility] Desktop) Medical Review Prior Functional Status Medical History Yes Reviewed Mobility and Gait Pt reports ambulating w/fww indep. Activities of Daily Pt reports indep w/dressing and bathing. Shower with Living and IADL's chair. Fixes own meals. Has someone come in to clean. Prior Functional Lives alone Level (Other details ) Social History Household Members none Living Arrangements House Number of Stairs To Threshold outside home, 1 step from the garage. Enter/Railing? Home Environment High Toilet,Walk in Shower Home Equipment Front Wheel Walker,Manual Wheelchair,Shower Seat with Backrest,Hand Held Shower,Grab Bars In Shower M2 OT-IP Current Condition Start: 04/12/25 10:36 Freq: Status: Active Protocol: Document 04/12/25 10:36 [facility] (Rec: 04/12/25 10:49 [facility] Desktop) Occupational Therapy Current Condition Current Condition Evaluation Date 04/12/25 Treatment Diagnosis Comminuted and slightly displaced femoral fx - no operative Diagnosis Onset Date 04/10/25 Weight Bearing Status Allowed Weight Per note by Dr Barros pt is flat foot weight bearing Bearing Amount ( with FWW enter % or #) (%) M3 OT- IP Subjective and Pain Start: 04/12/25 10:36 Freq: Status: Active Protocol: Document 04/12/25 10:36 [facility] (Rec: 04/12/25 10:49 [facility] Desktop) OT- Subjective Occupational Therapy Visit Type Type Initial Evaluation Visit Start Time 09:00 Visit Stop Time 09:38 Occupational Therapy Visit Comments Patient Comments Pt wanting to get up. Patient/Caregiver TO go home. Goals OT Pain Assessment Pain When Pain Assessed At Rest Pain Present Pain Present Pain Reported Location Left Knee Intensity 5 Scale Used Numeric (0 - 10) Pain Behaviors Facial Grimacing M4 OT- IP ADL's Start: 04/12/25 10:36 Freq: Status: Active Protocol: Document 04/12/25 10:36 [facility] (Rec: 04/12/25 10:49 [facility] Desktop) OT FVR-Whra-Eoorumw Comments OT Self-Feeding Not at meal time. Comments OT ADL-Grooming Comments OT Grooming Comments Pt refused. OT ADL-Dressing General Eval Lower Body Dressing Total Assistance Ability Areas Needing Socks,Orthosis/Prosthesis Assistance Comments OT Dressing Comments Pt is dependent for all LB dressing needs and for neeru/ doffing knee immobilizer. OT ADL-Toileting General Evaluation Toileting Ability Total Assistance Areas Needing Manage Clothing,Perform Perineal Hygiene Assistance Comments OT Toileting Two person assist for brief change. Comments OT ADL-Bathing Comments OT Bathing Comments Sponge bath more appropriate versus use of rolling shower chair. M5 OT- IP IADL's Start: 04/12/25 10:36 Freq: Status: Active Protocol: Document 04/12/25 10:36 [facility] (Rec: 04/12/25 10:49 [facility] Desktop) OT-Instrumental Activities of Daily Living Meal Preparation Meal Preparation Pt will need assist. Comments Dat Instructor Dat Instructor Caregiver Provides Assist M6 OT- IP Functional Cognition Start: 04/12/25 10:36 Freq: Status: Active Protocol: Document 04/12/25 10:36 [facility] (Rec: 04/12/25 10:49 [facility] Desktop) Cognitive Factors Limiting Selfcare Function Cognitive Ability Level of Alertness Alert Patient Orientation Name,Age,Birthday,Month,Date,Year,Day of Week,Place, Situation Attention Span Capable of Focused Attention,Capable of Sustained Ability Attention Ability to Follow Able to Follow One Step Commands with Increased Time, Commands Able to Follow One Step Commands with Repetition Safety Awareness Underestimates Need for Assistance Cognitive Comments Cognitive Assessment Pt able to follow commands for ADL and mobility needs Comments with increased time. VC for FWW safety and to push up from the bed to stand. Pt insistent on going home and refuses SNF. OT- Vision and Hearing OT- Hearing Assessment OT- Hearing WFL Assessment OT- Vision Assessment Visual Acuity Glasses All The Time Visual Attentiveness WFL Occular Pursuits WFL M7 OT- IP Mobility and Balance Start: 04/12/25 10:36 Freq: Status: Active Protocol: Document 04/12/25 10:36 [facility] (Rec: 04/12/25 10:49 [facility] Desktop) OT- Bed Mobility Assessment Supine to Sit Supine to Sit Assist Moderate Assistance,Head of Bed Elevated,Bedrails Scooting Scooting to Edge of Moderate Assistance,1 Person Assistance Bed OT-Transfer Assessment Sit to and From Stand Sit to and from Maximum Assistance,1 Person Assistance Stand Transfers Transfer Ability Maximum Assistance,1 Person Assistance versus MODA X 2 Technique Transfer Destination Bed,Chair Transfer Technique Stand Step Pivot Devices Transfer Assistive Gait Belt,Front Wheeled Walker Devices Comments Mobility Comments Assist to help move his LLE to the edge of the bed. MAX AX 1 to stand to the FWW. MOD/MAX XA 1 as pt able to move his foot side to side to transfer, as unable to merchandise pickup/receiving associate his feet at this time. Best for nursing to provide 2 person assist for safety as pt is very unsteady on his feet. OT- Balance Assessment Sitting Balance and Reactions Static Sitting Good Balance Ability Dynamic Sitting Fair Balance Ability Standing Balance and Reactions Static Standing Poor Balance Ability Dynamic Standing Poor Balance Ability M8 OT- IP Objective Assessments Start: 04/12/25 10:36 Freq: Status: Active Protocol: Document 04/12/25 10:36 [facility] (Rec: 04/12/25 10:49 [facility] Desktop) OT Gross Range of Motion Upper Extremity Range of Motion Assessment Right Impaired OT Strength Upper Extremity Strength Assessment Bilaterally Impaired Comments Strength Comments RUE 3-/5, 4/5, 4+/5 (shoulder,elbow, hand) LUE 4-/5, 4/5,4+/5 M9 OT- IP Assessment and Plan Start: 04/12/25 10:36 Freq: Status: Active Protocol: Document 04/12/25 10:36 [facility] (Rec: 04/12/25 10:49 [facility] Desktop) OT Summary Assessment and Plan Potential Rehabilitation Good Potential Analytic Complexity Moderate at Evaluation Summary OT Impairments Pain,Strength,Balance,Functional Cognition,Functional Mobility,Grooming,Dressing,Toileting,Bathing,Toilet Transfers,Shower Transfers,Activity Tolerance Progress Towards Slow Progress due to Pain,Slow Progress due to Medical Goals Issues,Slow Progress due to Activity Tolerance Assessment Summary Pt mod complexity and main barriers are step(s), and now needing two person assist for mobility and most ADL needs. Pt not able to merchandise pickup/receiving associate his feet during transfers at this time and only able to pivot his feet side to side for the transfer with FWW. Per Dr. Barros note pt to transition from knee immobilizer to hinged brace and pt to do flat foot weight bearing with FWW. Called ortho offices for clarification for brace needs. Pt will benefit from SNF when medically stable. Goals Self-Feeding Goal Independent Grooming Goal Independent Dressing Goal Independent Toileting Goal Minimal Assistance Bathing Goal Moderate Assistance Toilet Transfer Goal Minimal Assistance Shower Transfer Goal Moderate Assistance Days to Meet Goals 20 Frequency of Treatment Other frequency 5x/week Treatment Plan OT Treatment Plan ADL Training,Functional Mobility,Patient/Family Education,Discharge Planning Discharge Recommendations OT Discharge SNF Rehab Recommendations Transportation Needs Wheelchair/Cabulance at Discharge
--- NOTE | 2025-04-12 10:50 | CM.DPC ---
Patient continues to refuse DC to SNF. Cm spoke with patient's DRT, Soraida. Soraida and her sister will call patient and attempt to persuade patient to consent to SNF. CM will call family back in a few hours to follow up.
--- NOTE | 2025-04-12 12:20 | CM.DPC ---
Patient is now agreeable to [facility]. Profile sent to [facility].
--- NOTE | 2025-04-12 13:21 | DIET.CONS ---
Dietary Consultation Note Admission Date: 04/10/2025 20:01 Assessment: 84 Y M admitted for femural fracture. Dietitian screened for MNA score. Met with pt at bedside. Reports at previous SNF rehab he lost some weight d/t meals not tasting very good. His family member then started bringing him Ensure supplements for skipped meals. Pt reports good appetite, eating 2 big meals per day plus snack: B- eggs, davalos, hashbrowns, toast; snack; D-home cooked meal. Most of lunch plate was gone at time of visit. Denies any significant weight loss, estimating he lost around 10 lb at [facility]. Denies his pants or other clothes fitting differently Pt eating, but visually NFPE shows mild muscle loss temples no loss in deltoids or buccal/orbital fat pads from what could be visualized. Ht: 175.26 cm Wt: 61.235 kg BMI: 19.9 UBW: 72.5 kg on 03/18/25 (-15% loss) 81.6 kg on 09/13/24. Pt reports UBW is 170# (77.27 kg) Last BM: 04/10/25 (04/10/25 23:13) MNA: 9 Elias Score: 20 Diet: 04/11/25 Lunch General (Regular) Diet Diet Modifications: Food Texture: Level 7 - Regular Liquid Consistency: Level 0 - Thin Labs: RBC 3.59 X10^6/uL (4.5-5.9) L 04/10/25 22:10 Hgb 9.4 g/dL (13.5-17.5) L 04/10/25 22:10 Hct 29.7 % (41-53) L 04/10/25 22:10 Nutrition Diagnosis: Unintentional weight loss r/t decreased PO intakes while in rehab aeb pt reports skipping meals while in SNF r/t taste and losing 10#; EMR showing -15% weight loss in 1 month, severe Interventions: -Discussed ONS options and amounts if skipping a meal (Plus/500 kcals options) -Added ONS+ while here -New weight as appropriate while here EER: 1800 kcals (30 kcals/kg per BMI) 75 g protein (1 g/kg of usual body weight) Monitoring/Evaluations: po intakes Electronically Signed by: Shanda Billingsley 04/12/25 13:[address] [address]
--- NOTE | 2025-04-12 14:00 | PT.IPTN ---
Current Diagnoses Unspecified fracture of left femur, initial encounter for closed fracture (04/10/25) Physical Therapy Treatment Note M2 PT-IP Current Condition Start: 04/11/25 14:07 Freq: NEEDED Status: Active Protocol: Document 04/11/25 14:07 KJ (Rec: 04/11/25 14:18 KJ [id number]) Physical Therapy Current Condition Current Condition Evaluation Date 04/11/25 Treatment Diagnosis Impaired mobility M3 PT-IP Subjective Start: 04/11/25 14:07 Freq: NEEDED Status: Active Protocol: Document 04/12/25 14:00 AB (Rec: 04/12/25 17:37 AB [id number]) Subjective Physical Therapy Visit Type Type Treatment Note Visit Start Time 14:00 Visit Stop Time 14:25 Number of STRUCTURAL STEEL ENGINEER Visits 0 Physical Therapy Visit Comments Patient Comments agreeable to do PT Therapy Pain Assessment Location Left Knee Scale Used increase pain with movement; pain scale not stated Pain Behaviors Facial Grimacing,Guarding,Holding Area,Wincing Pain Management Apply Cold,Distraction,Modification of Treatment,Re- Techniques positioning,Timing of Activity with Medications M4 PT-IP Mobility and Gait Start: 04/11/25 14:07 Freq: NEEDED Status: Active Protocol: Document 04/12/25 14:00 AB (Rec: 04/12/25 17:37 AB [id number]) PT-Transfer Assessment Sit to and From Stand Sit to and from Maximum Assistance,2 Person Assistance,Use of Upper Stand Extremities Equipment Transfer Assistive Gait Belt,Front Wheeled Walker Device Orthotic/Prosthetic No Devices or Brace: Comments Mobility Comments pt sitting on the chair and agreeable to do PT. pt without L knee immobilizer on. Assisted pt with donning of L knee immobilizer. c/o pain with movement. O2 sat: 92%. sit to stand max A x 2 and max cues. pt needed assisted to maintain TTWB on LLE. pt sat back on chair. refused further activities. positioned pt on the chair. ice packs provided. call light and table placed within reach. pt informed PT that he is going to [facility] hopefully tomorrow. Gait Assessment Comments Gait Comments unable at this time M5 PT-IP Objective Assessments Start: 04/11/25 14:07 Freq: NEEDED Status: Active Protocol: Document 04/11/25 14:07 KJ (Rec: 04/11/25 14:18 KJ [id number]) Orientation Orientation/Cognition Level of Alertness Alert Gross Range of Motion Upper Extremity ROM Assessment Within Functional Limits Lower Extremity ROM Assessment Left Impaired Impairments L hip held in internal rotation. L knee 20 degrees flex, unable to extend L knee fully, Able to fully extend R knee Strength Upper Extremity Strength Assessment Right Impaired Shoulder 4-/5 Elbow 4/5 Wrist 4+/5 Lower Extremity Strength Assessment Left Impaired Ankle R is WNL Comments Strength Comments RUE weak Any movement in LLE causes pain in knee M6 PT-IP Treatment Start: 04/11/25 14:07 Freq: NEEDED Status: Active Protocol: Document 04/12/25 14:00 AB (Rec: 04/12/25 17:37 AB [id number]) Physical Therapy Treatment Education Education Provided Safety M7 PT-IP Assessment and Plan Start: 04/11/25 14:07 Freq: NEEDED Status: Active Protocol: Document 04/12/25 14:00 AB (Rec: 04/12/25 17:37 AB [id number]) PT Summary Assessment and Plan Potential Rehabilitation Fair Potential Summary Impairments Pain,ROM,Strength,Balance,Coordination,Sensation,Tone, Cognition,Bed Mobility,Transfers,Gait,Activity Tolerance Progress Towards Slow Progress due to Medical Issues,Slow Progress due Goals to Activity Tolerance,Slow Progress - Other Assessment Summary pt requiring max A x 2 for sit to stand and max A to maintain TTWB on LLE and max cues. Recommending mechanical lift transfers with nursing staff at this time. pt will require SNF rehab to improve mobility independence. Goals Bed Mobility Goal Contact Guard Assistance Transfer Goal Contact Guard Assistance,Front Wheeled Walker Gait Goal Contact Guard Assistance,Front Wheel Walker Gait Distance 10 Days to Meet Goals 10 Frequency of Treatment Frequency Of Once a Day Treatment Treatment Plan Physical Therapy Bed Mobility Training,Transfer Training,Gait Training, Treatment Plan Therapeutic Exercise,Balance Retraining,Discharge Planning,Neuromuscular Re-ed Precautions Brace L knee immobilizer at this time when standing: Dr. Lewis order (per Dr. Barros's order: transition to a hinge knee brace but no orders at this time) Other Precautions Per Dr. Barros's note: My recommendation includes: - Transition from a knee immobilizer to a hinged knee brace. - Begin physical therapy focusing on mobilization. - Initially use foot-flat weight bearing with a walker, advancing to weight bearing as tolerated. Weight Bearing Status Weight Bearing Touch Down Weight Bearing Status Allowed Weight LLE TTWB Bearing Amount ( enter % or #) (%) Recommendations To Nursing Amount of Assist Mechanical Lift Needed Discharge Recommendations PT Discharge SNF Rehab Recommendations Transportation Needs Wheelchair/Cabulance,Stretcher/Ambulance at Discharge - PT assist 2
[2025-04-12] MEDS: MAGNESIUM HYDROXIDE 30 ML UDC PO (14:02)
--- NOTE | 2025-04-12 14:52 | PM.PN.IH.1 ---
Subjective Subjective Date Patient Seen: 04/12/25 Time Patient Seen: 08:00 Interval history: Patient is sitting up, feeling well, and interested in discharge home. He was a max assist x2 per physical therapy. He lives home alone and does not have support locally. Exam Vital Signs (past 8 hours): - 04/12/25 08:42 04/12/25 09:20 04/12/25 09:30 Temperature 97.5 F L Pulse Rate 92 H 98 H Respiratory Rate 16 18 Blood Pressure 137/67 Pulse Oximetry 95 95 Oxygen Delivery Method Nasal Cannula Nasal Cannula Oxygen Flow Rate 3 2 Fraction of Inspired Oxygen 32 SaO2/FiO2 Ratio 296 Oxygen Delivery Method Nasal Cannula Oxygen Flow Rate 2 Narrative Exam Narrative: GENERAL: This is a well-nourished, well-developed patient, in no apparent distress. HEAD: Atraumatic. Normocephalic. No temporal or scalp tenderness. EYES: Pupils equal round and reactive. Extraocular motions intact. No scleral icterus. No injection or drainage. ENT: Mucous membranes pink and moist. NECK: Trachea midline. No JVD, bruits or lymphadenopathy. Supple, nontender, no meningeal signs. CARDIOVASCULAR: Regular rate and rhythm without murmurs, gallops, or rubs. RESPIRATORY: Clear to auscultation. GASTROINTESTINAL: Abdomen soft, non-tender, nondistended. EXTREMITIES: No clubbing, cyanosis, or edema. Left knee in immobilizer device. He has considerable pain with movement. Distal neurovascular status intact. NEUROLOGIC: Alert, oriented, speech fluent, full upper and lower motor strength, no focal deficits evident. DERMATOLOGIC: No rashes or skin lesions. Objective Imaging *: Radiologist's impression: 1. Left knee x-ray 04/10/2025: Interval increased displacement at patient's known distal femoral fracture site. No definite new fracture or dislocation. No obvious hardware loosening or failure. 2. Left lower extremity CT 04/10/2025: 1. Comminuted and slightly displaced distal femoral fracture with interval increased posterior displacement at fracture site. Marked osteopenia. No new fracture or dislocation. 2. Prior left total knee arthroplasty. No gross hardware loosening or failure. 3. Large suprapatellar joint effusion, no calcified intra-articular loose bodies. 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 Barros stewardship Disposition: Discharge to SNF given inability to self-care at home and lack of home assistance. Per orthopedist: - Transition from a knee immobilizer to a hinged knee brace. - Begin physical therapy focusing on mobilization. - Initially use foot-flat weight bearing with a walker, advancing to weight bearing as tolerated. - Scheduled follow-up for radiographic monitoring and assessment in the outpatient clinic. Time-Based Coding :: 45 minutes were involved evaluate this patient who [id number] evaluation discussion with the patient with case management, physical therapy and review of objective laboratory and imaging findings Quality VTE Deep Vein Thrombosis/Pulmonary Embolism Present on Admission: No IH PROFEE Oracle Fusion Middleware Developer Document charge(s): No Charge Codes Subsequent inpatient/observation care: [id number]
[2025-04-12] MEDS: MELOXICAM 7.5 MG TABLET 15 MG PO (17:11)
[2025-04-12] MEDS: ATORVASTATIN 20 MG TABLET 10 MG PO (20:19)
[2025-04-12 20:54] VITALS: BP 115/62; PULSE 88; RESP 18; TEMP 36.6; O2SAT 92
[2025-04-13] MEDS: ACETAMINOPHEN 325 MG TABLET 650 MG PO ×2 (07:03→15:19)
[2025-04-13 07:34] VITALS: BP 119/69; PULSE 69; RESP 19; TEMP 36.3; O2SAT 92
[2025-04-13 08:01] VITALS: PULSE 70; RESP 20; O2SAT 94
[2025-04-13] MEDS: ALBUTEROL/IPRATROPIUM 3 ML AMPUL INH ×2 (08:01→19:30)
[2025-04-13] MEDS: BUDESONIDE 0.5 MG/2 ML NEB INH ×2 (08:01→19:30)
[2025-04-13] MEDS: AMOXICILLIN/CLAV 875/125 MG 1 TAB PO ×2 (10:19→20:21)
[2025-04-13] MEDS: MONTELUKAST 10 MG TABLET PO (10:22)
[2025-04-13] MEDS: ASPIRIN EC 81 MG TABLET PO (10:22)
[2025-04-13] MEDS: AZITHROMYCIN 250 MG TABLET PO (10:23)
[2025-04-13] MEDS: oxyBUTYnin ER 5 MG TABLET 10 MG PO (10:23)
[2025-04-13] MEDS: PANTOPRAZOLE DR 40 MG TABLET PO ×2 (10:24→20:23)
--- NOTE | 2025-04-13 10:35 | PM.PNPO.1 ---
Subjective Subjective Interval history: PROGRESS NOTE PATIENT SUMMARY: Elie Perez is in the hospital for postoperative care following a distal femur fracture sustained over two months ago. The primary reason for the encounter is to manage his recovery, ensure stability of the fracture, and facilitate his rehabilitation. PAST SURGICAL HISTORY: - Endovascular aneurysm repair, performed by myself - Left total knee arthroplasty, performed by myself SUBJECTIVE: The patient reports significant pain with any attempted movement, which he localizes to the knee. He has not been able to put any weight on his leg and describes his knee as very stiff. He has been bedridden since the injury two months ago and states, I'm not moving much. He expressed a desire to begin moving, saying, I do too. 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 PHYSICAL EXAM: Constitutional: - Mental status is appropriate; alert and oriented times three, answering questions appropriately. Musculoskeletal: - The knee is very stiff with muscle spasms upon attempted movement. - Pain is reported in the knee with any movement. - The femur moves entirely as a unit without any instability at the fracture site. - Severe muscular atrophy around the affected area. ASSESSMENT: - Two months status post nondisplaced distal femur fracture with reassuring radiographs and CT scans over the subsequent two months but severe associated knee stiffness and muscular atrophy. PLAN: - Fitted the patient with a hinge knee brace to provide support this morning. This will need to be adjusted when he is moved more aggressively during PT as he struggled to tolerate tightening of the straps around his rascon. DISPOSITION: Planned discharge to a snf facility FOLLOWUP: Follow up with [facility] with me. X-rays to be taken at the follow-up visit to assess the healing progress of the fracture. 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
--- NOTE | 2025-04-13 11:33 | PC.NURSE ---
Pt resting in bed watching football. medicated for pain, ortho previous into see patient, knee brace placed, no other needs at this time, call light with in reach, Pt is A/O x4, will continue to monitor
--- NOTE | 2025-04-13 12:00 | PT.IPTN ---
Current Diagnoses Unspecified fracture of left femur, initial encounter for closed fracture (04/10/25) Physical Therapy Treatment Note M2 PT-IP Current Condition Start: 04/11/25 14:07 Freq: NEEDED Status: Active Protocol: Document 04/11/25 14:07 KJ (Rec: 04/11/25 14:18 KJ [id number]) Physical Therapy Current Condition Current Condition Evaluation Date 04/11/25 Treatment Diagnosis Impaired mobility M3 PT-IP Subjective Start: 04/11/25 14:07 Freq: NEEDED Status: Active Protocol: Document 04/13/25 12:00 AB (Rec: 04/13/25 13:08 AB Desktop) Subjective Physical Therapy Visit Type Type Treatment Note Visit Start Time 12:00 Visit Stop Time 12:25 Number of JUDICIAL REPORTER Visits 0 Physical Therapy Visit Comments Patient Comments needs encouragement to participate Therapy Pain Assessment Pain When Pain Assessed At Rest Pain Present Pain Present Pain Reported Location Left Knee Scale Used pain scale not stated Pain Behaviors Calling Out,Guarding,Wincing Pain Management Distraction,Modification of Treatment,Re-positioning, Techniques Timing of Activity with Medications M4 PT-IP Mobility and Gait Start: 04/11/25 14:07 Freq: NEEDED Status: Active Protocol: Document 04/13/25 12:00 AB (Rec: 04/13/25 13:08 AB Desktop) PT-Bed Mobility Assessment Supine to Sit Supine to Sit Maximum Assistance,2 Person Assistance,Head of Bed Elevated,Bedrails Scooting Scooting to Edge of Maximum Assistance Bed PT-Transfer Assessment Sit to and From Stand Sit to and from Maximum Assistance,2 Person Assistance,Use of Upper Stand Extremities Equipment Transfer Assistive Gait Belt,Front Wheeled Walker Device Orthotic/Prosthetic No Devices or Brace: Transfers Transfer Destination Chair Transfer Technique Stand Pivot Transfer Ability Level of Assist Maximum Assistance,2 Person Assistance,Use of Upper Extremities Comments Mobility Comments checked on pt and initially refusing PT. stated that he will be [facility]. talked with geriatric case manager and said that it is still auth pending. informed pt and stated that he wants his pain meds first before doing PT. Checked back on pt after ~ 1 hour and again refusing and stated that lunch is coming . informed pt that he has to get up on the chair to eat lunch and agreed to get up. pt has knee hinge brace in bed. no doctor's order on EMR for hinge brace and no parameters set. NAC stated that Dr. Trores fitted pt with knee brace. noted L knee hinge brace is unlock. PT has to re-adjust pt's knee brace fitting but unlock and dials setting as how Dr. Torres has it. pt completed supine to sit max A x 2 and max cues with HOB elevated and use of bed rail c/o L knee pain even with slight movement with increase guarding. pt sat on EOB CGA. educated again on TTWB on LLE. sit to stand max A x 2 and max cues and pt was able to stand pivot transfer using FWW max A x 2 and max cues. positioned pt on the chair. Lunch tray arrived and set up pt for lunch. call light and table placed within reach. M5 PT-IP Objective Assessments Start: 04/11/25 14:07 Freq: NEEDED Status: Active Protocol: Document 04/11/25 14:07 KJ (Rec: 04/11/25 14:18 KJ [id number]) Orientation Orientation/Cognition Level of Alertness Alert Gross Range of Motion Upper Extremity ROM Assessment Within Functional Limits Lower Extremity ROM Assessment Left Impaired Impairments L hip held in internal rotation. L knee 20 degrees flex, unable to extend L knee fully, Able to fully extend R knee Strength Upper Extremity Strength Assessment Right Impaired Shoulder 4-/5 Elbow 4/5 Wrist 4+/5 Lower Extremity Strength Assessment Left Impaired Ankle R is WNL Comments Strength Comments RUE weak Any movement in LLE causes pain in knee M6 PT-IP Treatment Start: 04/11/25 14:07 Freq: NEEDED Status: Active Protocol: Document 04/13/25 12:00 AB (Rec: 04/13/25 13:08 AB Desktop) Physical Therapy Treatment Education Education Provided Weight Bearing Status,Safety M7 PT-IP Assessment and Plan Start: 04/11/25 14:07 Freq: NEEDED Status: Active Protocol: Document 04/13/25 12:00 AB (Rec: 04/13/25 13:08 AB Desktop) PT Summary Assessment and Plan Potential Rehabilitation Fair Potential Summary Impairments Pain,ROM,Strength,Balance,Coordination,Sensation,Tone, Cognition,Bed Mobility,Transfers,Gait,Activity Tolerance Progress Towards Slow Progress due to Pain,Slow Progress due to Medical Goals Issues,Slow Progress due to Activity Tolerance Assessment Summary pt requiring max A x 2 for bed mobility and transfers using FWW. pt continues to have increase pain on L knee and has weight bearing restrictions affecting mobility and progress. pt will need SNF rehab to improve overall strength and function. Goals Bed Mobility Goal Contact Guard Assistance Transfer Goal Contact Guard Assistance,Front Wheeled Walker Gait Goal Contact Guard Assistance,Front Wheel Walker Gait Distance 10 Days to Meet Goals 10 Frequency of Treatment Frequency Of Once a Day Treatment Treatment Plan Physical Therapy Bed Mobility Training,Transfer Training,Gait Training, Treatment Plan Therapeutic Exercise,Balance Retraining,Discharge Planning,Neuromuscular Re-ed Precautions Brace 04/12/25: L knee immobilizer at this time when standing : Dr. Lewis order (per Dr. Torres's order: transition to a hinge knee brace but no orders at this time) 04/13/25: Dr. torres fitted pt with L knee hinge brace but still no orders seen but stated on progress note but not parameters set. Other Precautions Per Dr. Torres's note: My recommendation includes: - Transition from a knee immobilizer to a hinged knee brace. - Begin physical therapy focusing on mobilization. - Initially use foot-flat weight bearing with a walker, advancing to weight bearing as tolerated. Weight Bearing Status Weight Bearing Touch Down Weight Bearing Status Allowed Weight LLE TTWB Bearing Amount ( enter % or #) (%) Recommendations To Nursing Amount of Assist Mechanical Lift Needed Discharge Recommendations PT Discharge SNF Rehab Recommendations Transportation Needs Wheelchair/Cabulance,Stretcher/Ambulance at Discharge - PT assist 2
--- NOTE | 2025-04-13 12:16 | CM.DPC ---
Addendum entered by Tova Robertson RN 04/13/25 12:30: [facility] SENT TO [facility]. Original Note: Per CAROLIN Mccabe Admin, picking belt operator time is 11AM Tuesday04/14/2025. Patient, and patient's DRTJn and Dr. Trejo updated. CM also emailed Private Duty Care info to Sora[facility].
--- NOTE | 2025-04-13 13:02 | PM.PN.IH.1 ---
Subjective Subjective Date Patient Seen: 04/13/25 Time Patient Seen: 08:40 Interval history: Patient is sitting up, feeling well, and agreeable to discharge to residential facility given weakness associated with his recent pneumonia and left periprosthetic fracture. He was a max assist x2 per physical therapy. He lives home alone and does not have support locally. Exam Vital Signs (past 8 hours): - 04/13/25 07:34 04/13/25 08:01 Temperature 97.4 F L Pulse Rate 69 70 Respiratory Rate 19 20 Blood Pressure 119/69 Pulse Oximetry 92 94 Oxygen Delivery Method Nasal Cannula Oxygen Flow Rate 3.5 3 Fraction of Inspired Oxygen 32 SaO2/FiO2 Ratio 296 Oxygen Delivery Method Nasal Cannula Oxygen Flow Rate 3 Narrative Exam Narrative: GENERAL: This is a well-nourished, well-developed patient, in no apparent distress. HEAD: Atraumatic. Normocephalic. No temporal or scalp tenderness. EYES: Pupils equal round and reactive. Extraocular motions intact. No scleral icterus. No injection or drainage. ENT: Mucous membranes pink and moist. NECK: Trachea midline. No JVD, bruits or lymphadenopathy. Supple, nontender, no meningeal signs. CARDIOVASCULAR: Regular rate and rhythm without murmurs, gallops, or rubs. RESPIRATORY: Clear to auscultation. GASTROINTESTINAL: Abdomen soft, non-tender, nondistended. EXTREMITIES: No clubbing, cyanosis, or edema. Left knee in immobilizer device. He has considerable pain with movement. Distal neurovascular status intact. NEUROLOGIC: Alert, oriented, speech fluent, full upper and lower motor strength, no focal deficits evident. DERMATOLOGIC: No rashes or skin lesions. Objective Imaging *: Radiologist's impression: 1. Left knee x-ray 04/10/2025: Interval increased displacement at patient's known distal femoral fracture site. No definite new fracture or dislocation. No obvious hardware loosening or failure. 2. Left lower extremity CT 04/10/2025: 1. Comminuted and slightly displaced distal femoral fracture with interval increased posterior displacement at fracture site. Marked osteopenia. No new fracture or dislocation. 2. Prior left total knee arthroplasty. No gross hardware loosening or failure. 3. Large suprapatellar joint effusion, no calcified intra-articular loose bodies. 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 Community-acquired pneumonia. Continue antibiotics. 2. Stable left knee periprosthetic fracture conservative measures per Dr. Barros stewardship 3. Generalized weakness due to 1 and 2. 4. COPD with chronic hypoxemic respiratory failure 5. Hypertension. 6. Hyperlipidemia 7. GERD Disposition: Discharge to SNF given ongoing weakness from pneumonia, underlying COPD and inability to self-care at home and lack of home assistance. Per orthopedist: - Transition from a knee immobilizer to a hinged knee brace. - Begin physical therapy focusing on mobilization. - Initially use foot-flat weight bearing with a walker, advancing to weight bearing as tolerated. - Scheduled follow-up for radiographic monitoring and assessment in the outpatient clinic. Quality VTE Deep Vein Thrombosis/Pulmonary Embolism Present on Admission: No IH PROFEE Dental Financial Coordinator Document charge(s): No Charge Codes Subsequent inpatient/observation care: [id number]
[2025-04-13 13:57] VITALS: PULSE 87; O2SAT 95
--- NOTE | 2025-04-13 14:07 | PC.NURSE ---
pt sitting up in chair, watching football, ate lunch, talked to his nephew, call light with in reach, will continue to monitor, pt does state pain is a 5, but he is comfortable at this moment and does not need anything for it.
[2025-04-13] MEDS: MELOXICAM 7.5 MG TABLET 15 MG PO (17:52)
[2025-04-13 20:00] VITALS: BP 121/64; PULSE 89; RESP 18; TEMP 36.3; O2SAT 93
[2025-04-13] MEDS: TAMSULOSIN 0.4 MG CAPSULE PO (20:22)
[2025-04-13] MEDS: ATORVASTATIN 20 MG TABLET 10 MG PO (20:22)
[2025-04-14] MEDS: ALBUTEROL/IPRATROPIUM 3 ML AMPUL INH (07:29)
[2025-04-14] MEDS: BUDESONIDE 0.5 MG/2 ML NEB INH (07:29)
[2025-04-14 07:32] VITALS: PULSE 81; RESP 20; O2SAT 95
[2025-04-14 07:36] VITALS: BP 128/71; PULSE 74; RESP 18; TEMP 36.4; O2SAT 90
--- NOTE | 2025-04-14 08:06 | PM.PN.IH.1 ---
Subjective Subjective Interval history: PATIENT SUMMARY Elie Perez is recovering from a periprosthetic left femur fracture sustained about two months ago. He was readmitted after a fall. PAST SURGICAL HISTORY - Remote history of left total knee arthroplasty performed prior to his fracture which was sustained in February SUBJECTIVE Elie reports difficulty ambulating while adhering to weight restrictions. He mentioned he was not very participatory with physical therapy yesterday but notes that the ice has helped, and his pain is a little better today. He is aware of his planned discharge to [facility] today to focus on regaining strength. He is cheerful and oriented, discussing his plans to watch football today. PHYSICAL EXAM: Constitutional: - Mental status is appropriate; alert and oriented, answering questions appropriately. Musculoskeletal: - The knee is very stiff with muscle spasms upon attempted movement. - Pain is reported in the knee with any movement. - The femur moves entirely as a unit without any instability at the fracture site. - Severe muscular atrophy around the affected area. ASSESSMENT: - Two months status post nondisplaced distal femur fracture with reassuring radiographs and CT scans over the subsequent two months but severe associated knee stiffness and muscular atrophy. ASSESSMENT - Periprosthetic left femur fracture with difficulty ambulating under weight restrictions. PLAN - Ensure the knee brace is properly fitted and functioning. The knee brace is to be unlocked in both extension and flexion so as to permit full range of motion of the knee. - Continue current pain management. - Initial weightbearing status as he resumes ambulating is foot flat weightbearing with plans to progress to weightbearing as tolerated over the course of the next month as he regains some mobility - Encourage participation in physical therapy and gradual weight-bearing as tolerated. DISPOSITION Planned discharge to [facility]. FOLLOWUP Follow up with me at [facility] in three weeks, including radiographs of the left knee to monitor healing progress. 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 Quality VTE Deep Vein Thrombosis/Pulmonary Embolism Present on Admission: No IH PROFEE Clip On Sunglasses Assembler Document charge(s): Yes
[2025-04-14] MEDS: ASPIRIN EC 81 MG TABLET PO (08:51)
[2025-04-14] MEDS: AMOXICILLIN/CLAV 875/125 MG 1 TAB PO (08:51)
[2025-04-14] MEDS: MONTELUKAST 10 MG TABLET PO (08:52)
[2025-04-14] MEDS: oxyBUTYnin ER 5 MG TABLET 10 MG PO (08:52)
[2025-04-14] MEDS: PANTOPRAZOLE DR 40 MG TABLET PO (08:53)
[2025-04-14] MEDS: BISACODYL 10 MG SUPP PR (08:54)
[2025-04-14] MEDS: AZITHROMYCIN 250 MG TABLET PO (08:54)
--- NOTE | 2025-04-14 09:29 | P.DS_ITS ---
History of Present Illness
--- NOTE | 2025-04-14 09:29 | PM.DS.IH.1 ---
History of Present Illness History of Present Illness Date Patient Seen: 04/14/25 Time Patient Seen: 07:50 Chief complaint: left knee pain- stumbled up some steps Narrative: 84 years old male with history of hypertension, hyperlipidemia, CAD, COPD on home oxygen, overreactive bladder, recent admission for GI bleed presented to the ER with left knee pain. The patient had distal femur fracture few months ago and has been at rehab. Discharged today and cleared by Ortho with no instructions. He was at home with family attempting to walk upstairs when he left knee buckled causing him to fall backwards. Since then not able to bear any weight on his left knee. 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 Denies any other symptoms. Currently on antibiotics for pneumonia. Laboratory shows WBC 15, H&H 9.4/29.7, platelets 328, INR 1.1, magnesium 2.1. CT scan of the left lower extremity shows communicated a slightly displaced distal femoral fracture with interval increased posterior displacement at fracture site. Prior left total knee arthroplasty. Large suprapatellar joint effusion. Orthopedic surgery was consulted and recommended admission and possible surgery in the morning. Discharge Providers Provider Date of admission: 04/10/25 20:01 Discharge Date: 04/14/25 Primary care physician: Maria Del Carmen Rivas MD Consults: 04/10/25 20:09 Consult to Discharge Planning Routine Comment: Consult to Occupational Therapy Evaluate & Treat Comment: Physician Instructions: Evaluate and treat Consult to Physical Therapy Evaluate & Treat Comment: Physician Instructions: Evaluate and Treat 04/11/25 11:32 Consult to [facility] Routine Comment: Consulting Provider: [facility] Reason For Exam: Femur fracture Reason for consultation: Femur fracture Has provider been notified: Yes Discharge provider: Slim Trejo MD Summary Hospital Course Discharge Diagnosis: 1. Community-acquired pneumonia 2. Stable left knee periprosthetic fracture 3. Generalized weakness due to 1 and 2 4. COPD with chronic hypoxemic respiratory failure, chronic home oxygen therapy at 3 L 5. Hypertension 6. Hyperlipidemia 7. GERD 8. Urinary retention Hospital Course: The patient was admitted and treated with ongoing antibiotics for pneumonia, tapering steroids for COPD exacerbation, and a left knee hinged brace device was placed for his known left knee distal femur periprosthetic fracture per Orthopedics, with ongoing physical therapy focusing on mobilization, and flat foot weight-bearing with a walker, advancing to weight-bearing as tolerated, with outpatient orthopedic follow-up for radiographic monitoring and assessment in the outpatient clinic. care home facility placement was necessary for the patient's ongoing treatment of pneumonia and respiratory compromise with chronic home oxygen therapy at 3 liters/minute. He experienced urinary retention and a Brand catheter was replaced, tamsulosin started, and the catheter removed prior to discharge. Case is reviewed with Orthopedics, case management, Physical therapy and the patient and his surrogate decision maker. No other issues arose. Status at Discharge Cognitive/behavioral status at discharge: oriented Functional status at discharge: wheelchair bound Overall status at discharge: patient is progressing back to baseline Time Spent with Patient Time spent: Greater than 30 minutes Exam Vital Signs (past 8 hours): - 04/14/25 07:32 04/14/25 07:36 Temperature 97.6 F Pulse Rate 81 74 Respiratory Rate 20 18 Blood Pressure 128/71 Pulse Oximetry 95 90 L Oxygen Delivery Method Nasal Cannula Oxygen Flow Rate 3 3 Fraction of Inspired Oxygen 32 SaO2/FiO2 Ratio 296 Oxygen Delivery Method Nasal Cannula Oxygen Flow Rate 3 Narrative Exam Narrative: GENERAL: This is a well-nourished, well-developed patient, in no apparent distress. EYES: Pupils equal round and reactive. Extraocular motions intact. No scleral icterus. No injection or drainage. ENT: Mucous membranes pink and moist. NECK: Trachea midline. No JVD, bruits or lymphadenopathy. Supple, nontender, no meningeal signs. CARDIOVASCULAR: Regular rate and rhythm without murmurs, gallops, or rubs. RESPIRATORY: Clear to auscultation. GASTROINTESTINAL: Abdomen soft, non-tender, nondistended. EXTREMITIES: No clubbing, cyanosis, or edema. Left knee in immobilizer device. Distal neurovascular status intact. NEUROLOGIC: Alert, oriented, speech fluent, full upper and lower motor strength, no focal deficits evident. DERMATOLOGIC: No rashes or skin lesions. Objective Imaging *: Radiologist's impression: 1. Left knee x-ray 04/10/2025: Interval increased displacement at patient's known distal femoral fracture site. No definite new fracture or dislocation. No obvious hardware loosening or failure. 2. Left lower extremity CT 04/10/2025: 1. Comminuted and slightly displaced distal femoral fracture with interval increased posterior displacement at fracture site. Marked osteopenia. No new fracture or dislocation. 2. Prior left total knee arthroplasty. No gross hardware loosening or failure. 3. Large suprapatellar joint effusion, no calcified intra-articular loose bodies. 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 Rivas 1 week after SNF discharge; orthopedics outpatient as directed Discharge orders & Medications Prescriptions: New prednisone 10 mg tablet 10 mg PO DAILY Qty: 20 0RF Rx Instructions: administer with food or milk, take 4 tabs daily x 2 days, then 3 tabs daily x 2 days, then 2 tabs daily x 2 days, then 1 tab daily x 2 days acetaminophen 325 mg Tablet 650 mg PO Q6H PRN (Reason: Fever/Mild Pain (1-3)) Qty: 30 0RF tamsulosin 0.4 mg Capsule 0.4 mg PO BEDTIME Qty: 30 0RF oxycodone 5 mg Tablet 5 mg PO Q3H PRN (Reason: Pain, Moderate (4-6)) Qty: 14 0RF Continued albuterol sulfate 90 mcg/actuation Hfa Aerosol Inhaler 1 - 2 puff INHALATION Q4-6H PRN (Reason: Shortness Of Breath) Qty: 0 aspirin 81 mg Tablet,Delayed Release (Dr/Ec) 81 mg PO DAILY Qty: 0 simvastatin [Zocor] 20 MG tablet 20 mg PO HS Qty: 0 meloxicam 15 mg tablet 15 mg PO QPM montelukast 10 mg tablet 10 mg PO DAILY mirabegron [Myrbetriq] 50 mg tablet extended release 24 hr 50 mg PO DAILY pantoprazole 40 mg tablet,delayed release (DR/EC) 40 mg PO BID Trelegy Ellipta 200-62.5-25 mcg blister with device 1 inh inhalation DAILY ipratropium-albuterol 0.5 mg-3 mg(2.5 mg base)/3 mL solution for nebulization 3 ml inhalation Q4H PRN (Reason: SOB) amoxicillin-pot clavulanate 875-125 mg tablet 1 tab PO BID Qty: 6 0RF hydrochlorothiazide 25 mg Tablet 25 mg PO DAILY Trelegy Ellipta 200-62.5-25 mcg blister with device 1 inh inhalation DAILY Qty: 60 11RF Rx Instructions: Rinse mouth with water, gargle and spit after each use Discontinued hydrocodone-acetaminophen 5-325 mg Tablet 1 tab PO Q6HR PRN (Reason: Pain, Moderate (4-6)) Qty: 15 0RF prednisone 10 mg tablet 10 mg PO QID Patient Comments: 10 mg 4 times a day end 04/11/25 then take 10 mg 2 times a day for 2 days (end 04/13/25) then take 10 mg once a day times 2 days (end 04/15/25) azithromycin 250 mg tablet 250 mg PO DAILY Patient Comments: end on 04/12/25 Rx Instructions: start on day 2 of therapy amoxicillin-pot clavulanate 875-125 mg tablet 1 tab PO Q12H Patient Comments: end 04/13/25 Follow up/Referrals: Maria Del Carmen Rivas MD [Primary Care Provider, Family Practice] Discharge Health Status Precautions: [place] Diet/Activity/Treatments Diet: Diet as Tolerated, Regular and Low-sodium Liquid consistency: Normal/Thin Food texture: Regular Visit Report/Discharge Packet Stand Alone Forms: Patient Portal/API, Stroke Signs & Symptoms Discharge Data Primary Care Provider: Maria Del Carmen Rivas Quality VTE Deep Vein Thrombosis/Pulmonary Embolism Present on Admission: No MIPS - Admit I confirm the patient?s Advance Care Plan is present, Code status is documented, Surrogate decision maker is in patient?s record [If Yes, STOP here]: Yes MIPS - Meds 'Current medications' to include all prescriptions, [id number] products, herbals, cannabis/cannabidiol products, and vitamin/mineral/dietary (nutritional) supplements. I have utilized all available resources to obtain, update, or review the patient?s current medications. [If Yes, STOP here]: Yes MIPS - DC The patient has a history of heart transplant or Left Ventricular Assist Device (LVAD). If yes, STOP here.: No The patient has current or prior documentation of left ventricular ejection fraction (LVEF) less than or equal to 40%, or moderate or severely depressed left ventricular systolic function.: No A. The patient was prescribed or already taking an Angiotensin-Converting Enzyme (RACH) Inhibitor, or Angiotensin Receptor Joceline (ARB).: No B. The patient was prescribed or already taking a beta-joceline. [If Yes to Both A & B, STOP here]: No Patient not prescribed/taking RACH or ARB, no reason given.: No Patient not prescribed/taking beta-joceline, no reason given.: No PROFEE Charge Codes Discharge inpatient/observation: [id number]
--- NOTE | 2025-04-14 11:20 | CM.DPNOTE ---
DCP note [employer]IVER reviewed EMR per provider, cleared to dc to SNF post BM/void per RN, able to have a BM/void. [employer] DRIVER updated [employer]. updated RN/gave report number. 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 [employer] DRIVER emailed med list/script/dc summary. pt previously aware. MILK P[employer]UP TRUCK DRIVER placed meds/script/PASRR in pt's folder. P: dc today to [facility] at 11am. no further CM needs at this time. will continue to follow as needed DIPIKA Summers
--- NOTE | 2025-04-14 11:29 | PC.NURSE ---
1118: Patient was discharge to [facility]. [facility]. Discharge instructions given to patient and nurse at [facility]. PIV not present at discharge. Patient transported by [facility] via wheelchair.
== END 2025-04-14 11:33 | DRG 559 ==
LOC: ED 20:01 → AC 20:02
PROVIDERS: Admitting Provider Internal Medicine; Emergency Provider Emergency Medicine; Family Provider Physician Assistant; PCP Family Medicine; Referring Provider Emergency Medicine; Visit Provider Internal Medicine
DX: S72.402D Unspecified fracture of lower end of left femur, subsequent encounter for closed fracture with routine healing (principal); J18.9 Pneumonia, unspecified organism; J44.1 Chronic obstructive pulmonary disease with (acute) exacerbation; J96.11 Chronic respiratory failure with hypoxia; M97.12XD Periprosthetic fracture around internal prosthetic left knee joint, subsequent encounter; W10.8XXD Fall (on) (from) other stairs and steps, subsequent encounter; I10 Essential (primary) hypertension; E78.5 Hyperlipidemia, unspecified; I25.10 Atherosclerotic heart disease of native coronary artery without angina pectoris; Z99.81 Dependence on supplemental oxygen; Z87.19 Personal history of other diseases of the digestive system; M25.562 Pain in left knee; R53.1 Weakness; M25.462 Effusion, left knee; Z87.891 Personal history of nicotine dependence; R33.9 Retention of urine, unspecified; K21.9 Gastro-esophageal reflux disease without esophagitis; Z79.82 Long term (current) use of aspirin; Z79.51 Long term (current) use of inhaled steroids; Z79.52 Long term (current) use of systemic steroids; Z88.8 Allergy status to other drugs, medicaments and biological substances
CPT/HCPCS: 36415; 73562; 73700; 83735; 85025; 85610; 94640; 94760; 94762; 97110; 97161; 97166; 97530; 99285; J2272; J7030